=== PATIENT | male | born 1970 | race Caucasian/White ===

== ENCOUNTER 2024-03-14 16:29 | Inpatient (IN) | payer OTHER, SELFPAY ==
[2024-03-14 18:04] VITALS: BMI 26.0
--- NOTE | 2024-03-14 19:04 | PC.NURSE ---
Pt arrived to [facility] at 1649 from [facility] secondary to SI with plan to drink himself to . Pt cooperative with skin/safety check. VS obtained, ht/wt obtained, menus completed, and pt oriented to unit. Pt declined to sign releases. Med rec performed through medical record. Pt reported inconsistency with med compliance. No medications administered today at [facility]. On-call provider notified of med status and orders were placed by covering provider. Pt denied active thoughts to harm self or others and was placed on 15 minute checks. Admission to be completed by oncoming assigned nurse.
[2024-03-14 20:00] VITALS: BP 142/76; PULSE 86; RESP 18; TEMP 36.5; O2SAT 99
[2024-03-14] MEDS: cloNIDine HCL 0.1 MG TABLET PO (20:54)
[2024-03-14] MEDS: OLANZapine 7.5 MG TABLET PO (20:55)
[2024-03-14] MEDS: traZODone HCL 50 MG TABLET PO (20:55)
--- NOTE | 2024-03-15 00:34 | PC.ADMIT ---
Davon is a 54yo male admitted on a CV from [facility] secondary to SI with plan to drink himself to . He has history of bipolar disorder, HTN, DM type 2, and here with worsening depression. Per crisis assessment, he reports multiple medical problems causing pain and poor function. He said his condition was so bad that he became suicidal, so no point in living and was done. On unit admission, Pt was delusional and paranoid, speech is coherent but with flight of ideas. He refused to answer question directly. He states my kicked me out and put a restraining order on me and now I am homeless . He denied SI/Hi/AV/VH, he said all his meds are not working. Pt cooperative with skin/safety check. VS obtained, ht/wt obtained, menus completed, and pt oriented to unit. Pt declined to sign releases. Treatment plans and safety tools initiated, hospitalist contacted for consultation.
[2024-03-15 08:21] VITALS: BP 121/70; PULSE 65; TEMP 36.6; O2SAT 98
[2024-03-15 08:23] LABS: Alanine Aminotransferase 22 U/L (0-40); Albumin Level 4.1 g/dL (3.5-5.0); Alkaline Phosphatase 62 U/L (39-117); Anion Gap 11 (12-20); Aspartate Amino Transferase 14 U/L (5-37); Bilirubin Total 0.3 mg/dL (0.0-1.0); Blood Urea Nitrogen 16 mg/dL (9-16); Calcium 9.5 mg/dL (8.4-10.2); Carbon Dioxide 28 mmol/L (22-29); Chloride 109 mmol/L (96-108); Cholesterol 155 mg/dL (<200); Estimated Glomerular Filt Rate > 60; Glucose Fasting 118 mg/dL (60-99); HDL Cholesterol 44 mg/dL (>40); LDL Cholesterol Calculated 92 mg/dL (<100); Potassium 4.3 mmol/L (3.3-5.1); Sodium 144 mmol/L (135-145); Total Protein 7.1 g/dL (6.5-8.0); Triglycerides 97 mg/dL (<150)
[2024-03-15 08:59] VITALS: BP 121/70
[2024-03-15] MEDS: cloNIDine HCL 0.1 MG TABLET PO ×2 (08:59→20:27)
[2024-03-15] MEDS: metFORMIN HCl ER 500 MG TAB.ER.24H 1000 MG PO ×2 (08:59→18:06)
[2024-03-15] MEDS: SITagliptin Phosphate 100 MG TABLET PO (08:59)
[2024-03-15] MEDS: Atorvastatin Calcium 10 MG TABLET PO (09:00)
--- NOTE | 2024-03-15 11:31 | HO.PSYADMNOT ---
HPI Date of Service: 03/15/24 Chief Complaint: crisis Sources of Information: patient interviewed, chart reviewed and crisis/core team assessment reviewed HPI Subjective Notes: Coyne Warning and Conditional Voluntary Narrative: Patient is a 54-year-old male with history of bipolar disorder who presented to ER reporting multiple medical problems and stating suicidal ideation secondary to these medical issues and pain. Per crisis report, patient has been staying in a long-term in [place] for the past week. He went to a [employer] housing program in hopes of being able to live there. However, there was a work requirement which patient reported he could not fulfill due to his medical issues and pain. Patient reported he is currently homeless due to his girlfriend of 12 years abruptly ending their relationship and kicking out of their home. Patient reports history of Lyme disease and concurrent infections and mold inside him and his brain. Patient denied current outpatient psychiatric providers. Patient reported inpatient psychiatric stay at [facility] for a month during the spring. Perseverative about his health issues. During admission assessment, patient presents alert and oriented x3. Irritable. Guarded. Loud and rapid speech. Difficult to follow at times during conversation. Circumstantial. Patient stated, I am losing all the calcium in my bones. I am dying. I got Lyme disease 2 years ago and I have not been the same . Patient reports being medication compliant. Patient stated, pills are just chemicals. We're all getting poisoned. I had lead poisoning from my dental fillings. 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 Patient reports suicidal ideation with no plan. Denies HI/VH/AH. Past Psychiatric History: Patient reports multiple inpatient psychiatric admissions. Last admission being in spring. He currently does not have outpatient psychiatric providers. Patient is receiving his psychiatric medications through his PCP. Medical Evaluation Reviewed: Yes [facility] Medical History Depression Lyme disease GERD (gastroesophageal reflux disease) Non-insulin dependent type 2 diabetes mellitus HLD (hyperlipidemia) Family History: Unknown Social History: Homeless. Single. No kids. Unemployed. Substance History: Denies Trauma History: Denies Diagnostics Vital Signs (24Hr): Vital Signs - 24 hr 03/14/24 20:00 03/15/24 08:21 03/15/24 08:59 Temperature 97.7 F 97.9 F Pulse Rate 86 65 Respiratory Rate 18 Blood Pressure 142/76 H 121/70 121/70 Pulse Oximetry 99 98 Oxygen Delivery Method Room Air Room Air BMI result Body Mass Index 26.0 Labs 03/15/24 07:50 Labs: Laboratory Results - last 48 hr 03/15/24 07:50 Sodium 144 Potassium 4.3 Chloride 109 H Carbon Dioxide 28 Anion Gap 11 L BUN 16 Creatinine 0.67 Estim Creat Clear Calc 111.0 Estimated GFR > 60 Fasting Glucose 118 H Calcium 9.5 Total Bilirubin 0.3 AST 14 ALT 22 Alkaline Phosphatase 62 Total Protein 7.1 Albumin 4.1 Triglycerides 97 Cholesterol 155 LDL Cholesterol, Calc 92 HDL Cholesterol 44 Meds/Allergies Meds Home Medications ?Medication ?Instructions ?Recorded ?Confirmed ?Type Saccharomyces boulardii 250 mg 250 mg PO BID 03/14/24 03/14/24 History capsule (Florastor) atorvastatin 10 mg tablet 10 mg PO DAILY 03/14/24 03/14/24 History clonidine HCl 0.1 mg tablet 0.1 mg PO BID 03/14/24 03/14/24 History metformin 500 mg tablet,extended 1,000 mg PO BID 03/14/24 03/14/24 History release 24hr (osmotic) olanzapine 7.5 mg tablet 7.5 mg PO BEDTIME 03/14/24 03/14/24 History omeprazole 40 mg capsule,delayed 40 mg PO DAILY 03/14/24 03/14/24 History release sitagliptin phosphate 100 mg 100 mg PO DAILY 03/14/24 03/14/24 History tablet (Januvia) tizanidine 4 mg tablet (Zanaflex) 4 mg PO DAILY PRN Muscle Spasm 03/14/24 03/14/24 History trazodone 50 mg tablet 50 mg PO BEDTIME 03/14/24 03/14/24 History Allergies Allergies Allergy/AdvReac Type Severity Reaction Status Date / Time benazepril Allergy Cough Verified 03/14/24 17:36 metoprolol Allergy Cough Verified 03/14/24 17:35 Mental Status Exam Mental Status Exam Patient Appearance: Appropriate Patient Orientation: Person, Place, Time and Situation Level of Consciousness: Awake and Alert Patient Behavior: Talkative and Swearing Mood Description: Depressed and Angry Affect Description: Constricted Ability to Follow Directions: Fair Speech Pattern: Rapid, Loud and Includes Profanity Thought Process: Racing Thought Content: positive for Circumstantial Assessment & Plan Assessment & Plan (1) Bipolar 1 disorder: Status: Acute Code(s): F31.9 - Bipolar disorder, unspecified Plan Patient is a 54-year-old male with history of bipolar disorder who presented to ER reporting multiple medical problems and stating suicidal ideation secondary to these medical issues and pain. Plan: CV 15 minute safety checks Continue home medications Increase Zyprexa to 15mg PO bedtime Hospitalist consult for H and P Encourage groups Referral to outpatient psychiatric providers Discharge planning Patient educated on: diagnosis and medication risk/benefits Reason for continued inpatient stay Substantial Risk for: harm to self and med/psych decompensation Statement Statement: I have reviewed the history and physical and performed a pertinent examination on my patient. No changes have occurred unless specified. If the History and Physical was not performed prior to admission, the Hospitalist's service will be consulted for completing the admission physical. Time Spent With Patient Time: Total time managing care of this patient today _60___ minutes.
--- NOTE | 2024-03-15 13:49 | P.CONHOSP_ITS ---
History of Present Illness Data of Consult Service Date: 03/15/24 Primary Care Provider: Unknown Physician HPI Reason for consult: Admission H&P Pt is a 54-year-old male with a PMH significant for?HLD, [id number] type 2 diabetes, GERD, Lyme disease, and depression who is admitted to [facility] psychiatry unit for increasing depression and SI with plan to ?drink myself to ?. Patient apparently has been homeless since July of this year after his long-term girlfriend kicked him out of the house. Patient moved to the area to reconnect with adoptive family in [place], but found adoptive parents are and adoptive brother did not wish to reestablish a relationship, which prompted his increasing depression. Medical consult for admission H&P. ?Patient seen and examined in his room where he states he is ?slowly dying?. Appears somatically preoccupied, having a litany of chronic medical complaints that he believes stems from a history of smoking, drinking Coca-Cola and coffee, and from complications from Lyme disease 2-1/2 years ago. Patient complains of chronic pain and reduced ROM/mobility in shoulders, arms, hands/fingers, legs, knees, and feet. Keeps stating his hands, tendons, muscles, and bones are dried up , which he apparently seems to mean that they are literally falling apart and breaking. However, it should be noted patient was seen ambulating on the unit and interacting with his environment without difficulties, including holding a glass and drinking from it. Review of records indicates patient was similarly somatically preoccupied at the ED, believing that he was currently infected, including having mold in his brain. Review of Systems 2 Review of Systems: Multiple chronic medical complaints as stated above [facility] Medical History Depression Lyme disease GERD (gastroesophageal reflux disease) Non-insulin dependent type 2 diabetes mellitus HLD (hyperlipidemia) Social History Household Members: None Housing: Homeless Patient Tobacco Use Status: Current everyday Tobacco user Tobacco use type: Cigarette Smoked in Last 30 Days: Yes e-Cigarette/Vaping Use: Never Used Patient Interested in Nicotine Replacement: No Patient Given Instructions on How to Stop Smoking: No Second Hand Smoke Exposure: No Use of substances other than those prescribed or required for medical reasons: No Currently Displaying Signs/Symptoms of Drug Intoxication Withdrawal: No Any prior treatment program specific to substance use: No Have you been hit, kicked, punched, or otherwise hurt by someone within the past year? If so, by whom?: No Do you feel safe in your current relationship?: No Current Relationship Is there a partner from a previous relationship who is making you feel unsafe now?: No Are you made to feel afraid or neglected: No Advance Directives: No Advance Directives Information Provided: Yes Do you have thoughts of harming others: None Do you have a plan to hurt others: No Plan Recently lost weight without trying: Yes How much weight loss: 2-13 pounds Eating poorly because of decreased appetite: No Nutrition screen score: 3 Nutrition Risks: Dental problems Poor oral hygiene: No Meds Allergies Allergy/AdvReac Type Severity Reaction Status Date / Time benazepril Allergy Cough Verified 03/14/24 17:36 metoprolol Allergy Cough Verified 03/14/24 17:35 Active Medications: Current Medications Acetaminophen (Acetaminophen 325 Mg Tablet) 650 mg PO Q6H PRN PRN Reason: Headache/Pain Mild Scale (1-3) Al Hydroxide/Mg Hydroxide (Magnesium Hydrox/Alum Hydrox 30 Ml Oral.Susp) 30 ml PO Q6H PRN PRN Reason: Heartburn/Nausea Atorvastatin Calcium (Atorvastatin Calcium 10 Mg Tablet) 10 mg PO DAILY [facility] Last Admin: 03/15/24 09:00 Dose: 10 mg Clonidine HCl (Clonidine Hcl 0.1 Mg Tablet) 0.1 mg PO BID [facility]; Protocol Last Admin: 03/15/24 08:59 Dose: 0.1 mg Hydroxyzine HCl (Hydroxyzine Hcl 25 Mg Tablet) 25 mg PO Q6H PRN PRN Reason: Anxiety Magnesium Hydroxide (Milk Of Magnesia 30 Ml Oral.Susp) 30 ml PO DAILY PRN PRN Reason: Constipation Metformin HCl (Metformin Hcl Er 500 Mg Tab.Er.24h) 1,000 mg PO BIDWM [facility] Last Admin: 03/15/24 08:59 Dose: 1,000 mg Nicotine (Nicotine 21 Mg Patch.Td24) 21 mg TRANSDERMA DAILY [facility] Last Admin: 03/15/24 09:56 Dose: Not Given Nicotine Polacrilex (Nicotine Polacrilex 2 Mg Gum) 4 mg BUCCAL Q2H PRN PRN Reason: Nicotine Cravings Olanzapine (Olanzapine 7.5 Mg Tablet) 7.5 mg PO BEDTIME [facility] Last Admin: 03/14/24 20:55 Dose: 7.5 mg Omeprazole (Omeprazole 40 Mg Capsule.Dr) 40 mg PO DAILY@0630 [facility] Last Admin: 03/15/24 06:50 Dose: Not Given Sitagliptin Phosphate (Sitagliptin Phosphate 100 Mg Tablet) 100 mg PO DAILY [facility] Last Admin: 03/15/24 08:59 Dose: 100 mg Trazodone HCl (Trazodone Hcl 50 Mg Tablet) 50 mg PO BEDTIME MRX1 PRN PRN Reason: Insomnia Trazodone HCl (Trazodone Hcl 50 Mg Tablet) 50 mg PO BEDTIME [facility] Last Admin: 03/14/24 20:55 Dose: 50 mg Home Medications ?Medication ?Instructions ?Recorded ?Confirmed ?Last Taken ?Type Saccharomyces boulardii 250 mg 250 mg PO BID 03/14/24 03/14/24 Unknown History capsule (Florastor) atorvastatin 10 mg tablet 10 mg PO DAILY 03/14/24 03/14/24 Unknown History clonidine HCl 0.1 mg tablet 0.1 mg PO BID 03/14/24 03/14/24 Unknown History metformin 500 mg tablet,extended 1,000 mg PO BID 03/14/24 03/14/24 Unknown History release 24hr (osmotic) olanzapine 7.5 mg tablet 7.5 mg PO BEDTIME 03/14/24 03/14/24 Unknown History omeprazole 40 mg capsule,delayed 40 mg PO DAILY 03/14/24 03/14/24 Unknown History release sitagliptin phosphate 100 mg 100 mg PO DAILY 03/14/24 03/14/24 Unknown History tablet (Januvia) tizanidine 4 mg tablet (Zanaflex) 4 mg PO DAILY PRN Muscle Spasm 03/14/24 03/14/24 Unknown History trazodone 50 mg tablet 50 mg PO BEDTIME 03/14/24 03/14/24 Unknown History Physical Exam 2 Vital Signs and Narrative: Vital Signs: Last Vital Signs Temp 97.9 F 03/15/24 08:21 Pulse 65 03/15/24 08:21 Resp 18 03/14/24 20:00 BP 121/70 03/15/24 08:59 Pulse Ox 98 03/15/24 08:21 O2 Del Method Room Air 03/15/24 08:21 BMI result Body Mass Index 26.0 General: AOx3, no acute distress Resp: CTA bilaterally CVS: S1, S2, RRR GI: +BS, NT, no distention Skin: Warm, dry Neuro: Cranial nerves II-XII grossly intact bilaterally. Motor grossly intact bilaterally. Customer Service Correspondence Clerk intact bilaterally. Left lower leg weaker than right. Extremities: No edema Psych: Somatically preoccupied Results Labs 03/15/24 07:50 Labs: Laboratory Results - last 24 hr 03/15/24 07:50 Anion Gap 11 L Estim Creat Clear Calc 111.0 Estimated GFR > 60 Fasting Glucose 118 H Calcium 9.5 Total Bilirubin 0.3 AST 14 ALT 22 Alkaline Phosphatase 62 Total Protein 7.1 Albumin 4.1 Triglycerides 97 Cholesterol 155 LDL Cholesterol, Calc 92 HDL Cholesterol 44 Assessment and Plan (1) Medical clearance for psychiatric admission: Status: Acute Plan Pt is a 54-year-old male with a PMH significant for?HLD, [id number] type 2 diabetes, GERD, Lyme disease, and depression who is admitted to psychiatry unit for increasing depression and SI with plan to ?drink myself to ?. Patient apparently has been homeless since July of this year after his long-term girlfriend kicked him out of the house. Patient moved to the area to reconnect with adoptive family in [place], but found adoptive parents are and adoptive brother did not wish to reestablish a relationship, which prompted his increasing depression. Medical consult for admission H&P. ? Mood disorder Plan as per psychiatry Chronic musculoskeletal complaints Pt appears somatically preoccupied, feeling bones, muscles, tendons are all dried up [place] [facility] [place] his brain was infected with mold Vitals stable, [place] [facility] [place] Noted to be ambulating on unit and interacting with environment without difficulty No indication for additional acute workup at this time F/U outpatient with orthopedics HLD Continue statin [id number] type 2 diabetes Continue metformin, Januvia Encourage diabetic diet and diabetic snacking GERD Continue PPI Thank you for allowing us to participate in the care of this patient. Signing off at this time. Please re-consult if any acute complaints or issues arise.
[2024-03-15 20:00] VITALS: BP 146/85; PULSE 88; RESP 20; TEMP 36.4; O2SAT 98
[2024-03-15] MEDS: OLANZapine 7.5 MG TABLET 15 MG PO (20:27)
[2024-03-15] MEDS: traZODone HCL 50 MG TABLET PO (20:27)
[2024-03-16] MEDS: Omeprazole 40 MG CAPSULE.DR PO (06:48)
[2024-03-16 08:00] VITALS: BP 140/94; PULSE 64; RESP 16; TEMP 36.4; O2SAT 98
[2024-03-16] MEDS: Atorvastatin Calcium 10 MG TABLET PO (08:30)
[2024-03-16] MEDS: SITagliptin Phosphate 100 MG TABLET PO (08:30)
[2024-03-16] MEDS: metFORMIN HCl ER 500 MG TAB.ER.24H 1000 MG PO ×2 (08:30→18:09)
[2024-03-16] MEDS: cloNIDine HCL 0.1 MG TABLET PO ×2 (08:30→20:26)
[2024-03-16 08:39] LABS: Glucose, Whole Blood 99 mg/dL (60-115)
--- NOTE | 2024-03-16 09:09 | HO.PSYCHPN ---
Subjective Subjective Date of Service: 03/16/24 Reason For Visit: crisis Interim History: Met With patient; discussed with team irritable edge, some provocative comments to peers. On approach superficially cooperative. Says he's good and denies any SI/HI or AVH; says my medications are fine... Mental Status Exam Mental Status Exam Patient Appearance: Appropriate Patient Orientation: Person, Place, Time and Situation Level of Consciousness: Awake and Alert Patient Behavior: Talkative and Swearing Mood Description: Depressed and Angry Affect Description: Constricted Ability to Follow Directions: Fair Speech Pattern: Loud and Includes Profanity Thought Process: Racing Thought Content: positive for Circumstantial (denies SI and HI) Judgement and Insight: impaired Diagnostics Vital Signs (24Hr): Vital Signs - 24 hr 03/15/24 20:00 03/16/24 08:00 Temperature 97.6 F 97.6 F Pulse Rate 88 64 Respiratory Rate 20 16 Blood Pressure 146/85 H 140/94 H Pulse Oximetry 98 98 Oxygen Delivery Method Room Air Room Air BMI result Body Mass Index 26.0 Labs 03/15/24 07:50 Labs: Laboratory Results - last 48 hr 03/15/24 03/16/24 07:50 08:35 Sodium 144 Potassium 4.3 Chloride 109 H Carbon Dioxide 28 Anion Gap 11 L BUN 16 Creatinine 0.67 Estim Creat Clear Calc 111.0 Estimated GFR > 60 POC Glucose 99 Fasting Glucose 118 H Calcium 9.5 Total Bilirubin 0.3 AST 14 ALT 22 Alkaline Phosphatase 62 Total Protein 7.1 Albumin 4.1 Triglycerides 97 Cholesterol 155 LDL Cholesterol, Calc 92 HDL Cholesterol 44 Medications Medications Current Medications Acetaminophen (Acetaminophen 325 Mg Tablet) 650 mg PO Q6H PRN PRN Reason: Headache/Pain Mild Scale (1-3) Al Hydroxide/Mg Hydroxide (Magnesium Hydrox/Alum Hydrox 30 Ml Oral.Susp) 30 ml PO Q6H PRN PRN Reason: Heartburn/Nausea Atorvastatin Calcium (Atorvastatin Calcium 10 Mg Tablet) 10 mg PO DAILY [facility] Last Admin: 03/16/24 08:30 Dose: 10 mg Clonidine HCl (Clonidine Hcl 0.1 Mg Tablet) 0.1 mg PO BID [facility]; Protocol Last Admin: 03/16/24 08:30 Dose: 0.1 mg Hydroxyzine HCl (Hydroxyzine Hcl 25 Mg Tablet) 25 mg PO Q6H PRN PRN Reason: Anxiety Magnesium Hydroxide (Milk Of Magnesia 30 Ml Oral.Susp) 30 ml PO DAILY PRN PRN Reason: Constipation Metformin HCl (Metformin Hcl Er 500 Mg Tab.Er.24h) 1,000 mg PO BIDWM [facility] Last Admin: 03/16/24 08:30 Dose: 1,000 mg Nicotine Polacrilex (Nicotine Polacrilex 2 Mg Gum) 4 mg BUCCAL Q2H PRN PRN Reason: Nicotine Cravings Olanzapine (Olanzapine 7.5 Mg Tablet) 15 mg PO BEDTIME [facility] Last Admin: 03/15/24 20:27 Dose: 15 mg Olanzapine (Olanzapine 5 Mg Tablet) 5 mg PO TID PRN PRN Reason: agitation/psychosis Omeprazole (Omeprazole 40 Mg Capsule.Dr) 40 mg PO DAILY@0630 [facility] Last Admin: 03/15/24 06:50 Dose: Not Given Sitagliptin Phosphate (Sitagliptin Phosphate 100 Mg Tablet) 100 mg PO DAILY [facility] Last Admin: 03/16/24 08:30 Dose: 100 mg Trazodone HCl (Trazodone Hcl 50 Mg Tablet) 50 mg PO BEDTIME [facility] Last Admin: 03/15/24 20:27 Dose: 50 mg Allergies Allergies Allergy/AdvReac Type Severity Reaction Status Date / Time benazepril Allergy Cough Verified 03/14/24 17:36 metoprolol Allergy Cough Verified 03/14/24 17:35 Assessment & Plan Assessment & Plan (1) Bipolar 1 disorder: Status: Acute Code(s): F31.9 - Bipolar disorder, unspecified Plan Patient is a 54-year-old male with history of bipolar disorder who presented to ER reporting multiple medical problems and stating suicidal ideation secondary to these medical issues and pain. Hospital course: 03/16 irritable edge, some provocative comments to peers. On approach superficially cooperative. Says he's good and denies any SI/HI or AVH; says my medications are fine... -zyprexa recently increased Plan: CV 15 minute safety checks Continue home medications Increase Zyprexa to 15mg PO bedtime Hospitalist consult for H and P Encourage groups Referral to outpatient psychiatric providers Discharge planning Patient educated on: diagnosis and medication risk/benefits Informed Consent: understands Reason for continued inpatient stay Substantial Risk for: rapid decompensation Time Spent With Patient Time: Total time managing care of this patient today ____ minutes.
[2024-03-16 20:00] VITALS: BP 148/94; PULSE 87; RESP 20; TEMP 36.6; O2SAT 98
[2024-03-16 20:25] LABS: Glucose, Whole Blood 156 mg/dL (60-115)
[2024-03-16 20:26] VITALS: BP 148/94
[2024-03-16] MEDS: OLANZapine 7.5 MG TABLET 15 MG PO (20:26)
[2024-03-16] MEDS: traZODone HCL 50 MG TABLET PO (20:26)
[2024-03-17 07:50] VITALS: BP 152/93; PULSE 60; RESP 16; TEMP 36.4; O2SAT 97
[2024-03-17 08:01] LABS: Glucose, Whole Blood 114 mg/dL (60-115)
[2024-03-17] MEDS: Atorvastatin Calcium 10 MG TABLET PO (08:31)
[2024-03-17] MEDS: cloNIDine HCL 0.1 MG TABLET PO ×2 (08:31→20:36)
[2024-03-17] MEDS: SITagliptin Phosphate 100 MG TABLET PO (08:32)
[2024-03-17] MEDS: metFORMIN HCl ER 500 MG TAB.ER.24H 1000 MG PO ×2 (08:32→17:39)
--- NOTE | 2024-03-17 10:14 | P.PNPSI_ITS ---
Subjective Subjective Date of Service: 03/17/24 Reason For Visit: crisis Interim History: Met with patient; discussed with team brief verbal altercation w/ manic peer talkative today, sharing about hx of undiagnosed diabetes and consequences. Says he's only recently been started on Zyprexa which helps him sleep; he's not sure if it helps his mood. Asks if he can be on gabapentin for chronic neuropathich pain, but only wants at night for now, worried it will make him groggy Mental Status Exam Mental Status Exam Patient Appearance: Appropriate Patient Orientation: Person, Place, Time and Situation Level of Consciousness: Awake and Alert Patient Behavior: Talkative and Swearing Mood Description: Depressed and Angry Affect Description: Constricted Ability to Follow Directions: Fair Speech Pattern: Loud and Includes Profanity Thought Process: Racing Thought Content: positive for Circumstantial (denies SI and HI) Judgement and Insight: impaired Diagnostics Vital Signs (24Hr): Vital Signs - 24 hr 03/16/24 20:00 03/16/24 20:26 03/17/24 07:50 Temperature 97.8 F 97.6 F Pulse Rate 87 60 Respiratory Rate 20 16 Blood Pressure 148/94 H 148/94 H 152/93 H Pulse Oximetry 98 97 Oxygen Delivery Method Room Air Room Air BMI result Body Mass Index 26.0 Labs 03/15/24 07:50 Labs: Laboratory Results - last 48 hr 03/16/24 03/16/24 03/17/24 08:35 20:22 07:57 POC Glucose 99 156 H 114 Medications Medications Current Medications Acetaminophen (Acetaminophen 325 Mg Tablet) 650 mg PO Q6H PRN PRN Reason: Headache/Pain Mild Scale (1-3) Al Hydroxide/Mg Hydroxide (Magnesium Hydrox/Alum Hydrox 30 Ml Oral.Susp) 30 ml PO Q6H PRN PRN Reason: Heartburn/Nausea Atorvastatin Calcium (Atorvastatin Calcium 10 Mg Tablet) 10 mg PO DAILY [facility] Last Admin: 03/17/24 08:31 Dose: 10 mg Clonidine HCl (Clonidine Hcl 0.1 Mg Tablet) 0.1 mg PO BID [facility]; Protocol Last Admin: 03/17/24 08:31 Dose: 0.1 mg Hydroxyzine HCl (Hydroxyzine Hcl 25 Mg Tablet) 25 mg PO Q6H PRN PRN Reason: Anxiety Magnesium Hydroxide (Milk Of Magnesia 30 Ml Oral.Susp) 30 ml PO DAILY PRN PRN Reason: Constipation Metformin HCl (Metformin Hcl Er 500 Mg Tab.Er.24h) 1,000 mg PO BIDWM [facility] Last Admin: 03/17/24 08:32 Dose: 1,000 mg Nicotine Polacrilex (Nicotine Polacrilex 2 Mg Gum) 4 mg BUCCAL Q2H PRN PRN Reason: Nicotine Cravings Olanzapine (Olanzapine 7.5 Mg Tablet) 15 mg PO BEDTIME [facility] Last Admin: 03/16/24 20:26 Dose: 15 mg Olanzapine (Olanzapine 5 Mg Tablet) 5 mg PO TID PRN PRN Reason: agitation/psychosis Omeprazole (Omeprazole 40 Mg Capsule.Dr) 40 mg PO DAILY@0630 [facility] Last Admin: 03/17/24 07:37 Dose: Not Given Sitagliptin Phosphate (Sitagliptin Phosphate 100 Mg Tablet) 100 mg PO DAILY [facility] Last Admin: 03/17/24 08:32 Dose: 100 mg Trazodone HCl (Trazodone Hcl 50 Mg Tablet) 50 mg PO BEDTIME [facility] Last Admin: 03/16/24 20:26 Dose: 50 mg Allergies Allergies Allergy/AdvReac Type Severity Reaction Status Date / Time benazepril Allergy Cough Verified 03/14/24 17:36 metoprolol Allergy Cough Verified 03/14/24 17:35 Assessment & Plan Assessment & Plan (1) Bipolar 1 disorder: Status: Acute Code(s): F31.9 - Bipolar disorder, unspecified Plan Patient is a 54-year-old male with history of bipolar disorder who presented to ER reporting multiple medical problems and stating suicidal ideation secondary to these medical issues and pain. Hospital course: 03/16 irritable edge, some provocative comments to peers. On approach superficially cooperative. Says he's good and denies any SI/HI or AVH; says my medications are fine... -zyprexa recently increased 03/17 talks about hx of neuropathich pain and asks for gabapentin qhs to help him sleep Plan: CV 15 minute safety checks Continue home medications add Gabapentin 300mg qhs for neuropathic pain Increase Zyprexa to 15mg PO bedtime Hospitalist consult for H and P Encourage groups Referral to outpatient psychiatric providers Discharge planning Patient educated on: diagnosis, medication risk/benefits and medical condition Informed Consent: understands and further education needed Reason for continued inpatient stay Substantial Risk for: rapid decompensation Time Spent With Patient Time: Total time managing care of this patient today ____ minutes.
[2024-03-17 20:00] VITALS: BP 144/66; PULSE 58; RESP 15; TEMP 36.7; O2SAT 98
[2024-03-17] MEDS: Gabapentin 300 MG CAPSULE PO (20:35)
[2024-03-17] MEDS: OLANZapine 7.5 MG TABLET 15 MG PO (20:35)
[2024-03-17] MEDS: traZODone HCL 50 MG TABLET PO (20:36)
[2024-03-18 08:00] VITALS: BP 165/90; PULSE 51; RESP 16; TEMP 36.6; O2SAT 96
[2024-03-18 08:14] LABS: Glucose, Whole Blood 103 mg/dL (60-115)
[2024-03-18] MEDS: metFORMIN HCl ER 500 MG TAB.ER.24H 1000 MG PO ×2 (08:53→17:30)
[2024-03-18] MEDS: SITagliptin Phosphate 100 MG TABLET PO (08:53)
[2024-03-18] MEDS: cloNIDine HCL 0.1 MG TABLET PO ×2 (08:54→20:08)
[2024-03-18] MEDS: OLANZapine 5 MG TABLET PO (08:54)
[2024-03-18] MEDS: Atorvastatin Calcium 10 MG TABLET PO (08:54)
--- NOTE | 2024-03-18 10:59 | P.PNPSI_ITS ---
Subjective Subjective Date of Service: 03/18/24 Reason For Visit: crisis Subjective Notes: Conditional Voluntary Interim History: Reviewed with Dr. Hernandez. Keeping to self. Pt reports feeling alright ; focused on chronic medical issues. denies SI/HI/VH/AH. Pt would like to be referred to a detention in the [place] area d/t having his outpatient providers through [facility].General. pharmaceutical worker aware. Medication Compliance: Yes Side effects from medications: No Review of Systems Review of Systems Multiple chronic medical complaints as stated above Constitutional: Reports as per HPI Eyes: Reports as per HPI Reports as per HPI Cardiovascular: Reports as per HPI Respiratory: Reports as per HPI Gastrointestinal: Reports as per HPI Genitourinary: Reports as per HPI Musculoskeletal: Reports as per HPI Skin/Breast: Reports as per HPI Reports as per HPI Psychiatric: Reports as per HPI Endocrine: Reports as per HPI Hematologic/Lymphatic: Reports as per HPI Allergic/Immunologic: Reports as per HPI Mental Status Exam Mental Status Exam Narrative: Pt is alert and oriented; behavior is cooperative and calm; dressed in casual attire; mood is described as alright ; eye contact appropriate; Speech is normal rate, volume and not pressured; thought process is organized and goal directed; Thought content is on tx; denies SI/HI/VH/AH. Diagnostics Vital Signs (24Hr): Vital Signs - 24 hr 03/17/24 20:00 03/18/24 08:00 Temperature 98.0 F 97.9 F Pulse Rate 58 51 Respiratory Rate 15 16 Blood Pressure 144/66 H 165/90 H Pulse Oximetry 98 96 Oxygen Delivery Method Room Air BMI result Body Mass Index 26.0 Labs 03/15/24 07:50 Labs: Laboratory Results - last 48 hr 03/16/24 03/17/24 03/18/24 20:22 07:57 08:10 POC Glucose 156 H 114 103 Medications Medications Current Medications Acetaminophen (Acetaminophen 325 Mg Tablet) 650 mg PO Q6H PRN PRN Reason: Headache/Pain Mild Scale (1-3) Al Hydroxide/Mg Hydroxide (Magnesium Hydrox/Alum Hydrox 30 Ml Oral.Susp) 30 ml PO Q6H PRN PRN Reason: Heartburn/Nausea Atorvastatin Calcium (Atorvastatin Calcium 10 Mg Tablet) 10 mg PO DAILY [facility] Last Admin: 03/18/24 08:54 Dose: 10 mg Clonidine HCl (Clonidine Hcl 0.1 Mg Tablet) 0.1 mg PO BID [facility]; Protocol Last Admin: 03/18/24 08:54 Dose: 0.1 mg Gabapentin (Gabapentin 300 Mg Capsule) 300 mg PO BEDTIME [facility] Last Admin: 03/17/24 20:35 Dose: 300 mg Hydroxyzine HCl (Hydroxyzine Hcl 25 Mg Tablet) 25 mg PO Q6H PRN PRN Reason: Anxiety Magnesium Hydroxide (Milk Of Magnesia 30 Ml Oral.Susp) 30 ml PO DAILY PRN PRN Reason: Constipation Metformin HCl (Metformin Hcl Er 500 Mg Tab.Er.24h) 1,000 mg PO BIDWM [facility] Last Admin: 03/18/24 08:53 Dose: 1,000 mg Nicotine Polacrilex (Nicotine Polacrilex 2 Mg Gum) 4 mg BUCCAL Q2H PRN PRN Reason: Nicotine Cravings Olanzapine (Olanzapine 7.5 Mg Tablet) 15 mg PO BEDTIME [facility] Last Admin: 03/17/24 20:35 Dose: 15 mg Olanzapine (Olanzapine 5 Mg Tablet) 5 mg PO TID PRN PRN Reason: agitation/psychosis Last Admin: 03/18/24 08:54 Dose: 5 mg Omeprazole (Omeprazole 40 Mg Capsule.Dr) 40 mg PO DAILY@0630 [facility] Last Admin: 03/18/24 07:02 Dose: Not Given Sitagliptin Phosphate (Sitagliptin Phosphate 100 Mg Tablet) 100 mg PO DAILY [facility] Last Admin: 03/18/24 08:53 Dose: 100 mg Trazodone HCl (Trazodone Hcl 50 Mg Tablet) 50 mg PO BEDTIME [facility] Last Admin: 03/17/24 20:36 Dose: 50 mg Allergies Allergies Allergy/AdvReac Type Severity Reaction Status Date / Time benazepril Allergy Cough Verified 03/14/24 17:36 metoprolol Allergy Cough Verified 03/14/24 17:35 Assessment & Plan Assessment & Plan (1) Bipolar 1 disorder: Status: Acute Code(s): F31.9 - Bipolar disorder, unspecified Plan Patient is a 54-year-old male with history of bipolar disorder who presented to ER reporting multiple medical problems and stating suicidal ideation secondary to these medical issues and pain. Hospital course: 03/16 irritable edge, some provocative comments to peers. On approach superficially cooperative. Says he's good and denies any SI/HI or AVH; says my medications are fine... -zyprexa recently increased 03/17 talks about hx of neuropathich pain and asks for gabapentin qhs to help him sleep 03/18: Keeping to self. Pt reports feeling alright ; focused on chronic medical issues. denies SI/HI/VH/AH. Pt would like to be referred to a detention in the [place] area d/t having his outpatient providers through [facility].General. pharmaceutical worker aware. Plan: CV 15 minute safety checks Continue home medications add Gabapentin 300mg qhs for neuropathic pain Increase Zyprexa to 15mg PO bedtime Hospitalist consult for H and P Encourage groups Referral to outpatient psychiatric providers Discharge planning Patient educated on: diagnosis, medication risk/benefits and therapeutic strategies Reason for continued inpatient stay Substantial Risk for: med/psych decompensation Time Spent With Patient Time: Total time managing care of this patient today _20___ minutes.
[2024-03-18 20:00] VITALS: BP 133/73; PULSE 76; RESP 18; TEMP 36.9; O2SAT 97
[2024-03-18] MEDS: OLANZapine 7.5 MG TABLET 15 MG PO (20:08)
[2024-03-18] MEDS: Gabapentin 300 MG CAPSULE PO (20:08)
[2024-03-18] MEDS: traZODone HCL 50 MG TABLET PO (20:08)
[2024-03-19 08:34] VITALS: BP 145/76; PULSE 56; RESP 16; TEMP 36.4; O2SAT 96
[2024-03-19 08:38] LABS: Glucose, Whole Blood 94 mg/dL (60-115)
[2024-03-19] MEDS: Omeprazole 40 MG CAPSULE.DR PO (08:45)
[2024-03-19] MEDS: SITagliptin Phosphate 100 MG TABLET PO (08:45)
[2024-03-19] MEDS: metFORMIN HCl ER 500 MG TAB.ER.24H 1000 MG PO ×2 (08:45→18:02)
[2024-03-19] MEDS: cloNIDine HCL 0.1 MG TABLET PO ×2 (08:45→20:06)
[2024-03-19] MEDS: Atorvastatin Calcium 10 MG TABLET PO (08:45)
--- NOTE | 2024-03-19 14:02 | HO.PSYCHPN ---
Subjective Subjective Date of Service: 03/19/24 Reason For Visit: crisis Subjective Notes: Conditional Voluntary Interim History: Reviewed with Dr. Hernandez. Keeping to self. medication compliant. Pt reports feeling alright ; continues to focus on chronic medical issues. denies SI/HI/VH/AH. Patient reports he is waiting to get placed somewhere . he denies any other issues at this time. Medication Compliance: Yes Side effects from medications: No Attending Groups: No Review of Systems Constitutional: Reports as per HPI Eyes: Reports as per HPI Reports as per HPI Cardiovascular: Reports as per HPI Respiratory: Reports as per HPI Gastrointestinal: Reports as per HPI Genitourinary: Reports as per HPI Musculoskeletal: Reports as per HPI Skin/Breast: Reports as per HPI Reports as per HPI Psychiatric: Reports as per HPI Endocrine: Reports as per HPI Hematologic/Lymphatic: Reports as per HPI Allergic/Immunologic: Reports as per HPI Mental Status Exam Mental Status Exam Narrative: Pt is alert and oriented; behavior is cooperative and calm; dressed in casual attire; mood is described as alright ; eye contact appropriate; Speech is normal rate, volume and not pressured; thought process is organized and goal directed; Thought content is on tx; denies SI/HI/VH/AH. Diagnostics Vital Signs (24Hr): Vital Signs - 24 hr 03/18/24 20:00 03/19/24 08:34 Temperature 98.4 F 97.5 F Pulse Rate 76 56 Respiratory Rate 18 16 Blood Pressure 133/73 145/76 H Pulse Oximetry 97 96 Oxygen Delivery Method Room Air Room Air BMI result Body Mass Index 26.0 Labs 03/15/24 07:50 Labs: Laboratory Results - last 48 hr 03/18/24 03/19/24 08:10 08:34 POC Glucose 103 94 Medications Medications Current Medications Acetaminophen (Acetaminophen 325 Mg Tablet) 650 mg PO Q6H PRN PRN Reason: Headache/Pain Mild Scale (1-3) Al Hydroxide/Mg Hydroxide (Magnesium Hydrox/Alum Hydrox 30 Ml Oral.Susp) 30 ml PO Q6H PRN PRN Reason: Heartburn/Nausea Atorvastatin Calcium (Atorvastatin Calcium 10 Mg Tablet) 10 mg PO DAILY [facility] Last Admin: 03/19/24 08:45 Dose: 10 mg Clonidine HCl (Clonidine Hcl 0.1 Mg Tablet) 0.1 mg PO BID [facility]; Protocol Last Admin: 10/08/24 08:45 Dose: 0.1 mg Gabapentin (Gabapentin 300 Mg Capsule) 300 mg PO BEDTIME [facility] Last Admin: 03/18/24 20:08 Dose: 300 mg Hydroxyzine HCl (Hydroxyzine Hcl 25 Mg Tablet) 25 mg PO Q6H PRN PRN Reason: Anxiety Magnesium Hydroxide (Milk Of Magnesia 30 Ml Oral.Susp) 30 ml PO DAILY PRN PRN Reason: Constipation Metformin HCl (Metformin Hcl Er 500 Mg Tab.Er.24h) 1,000 mg PO BIDWM [facility] Last Admin: 03/19/24 08:45 Dose: 1,000 mg Nicotine Polacrilex (Nicotine Polacrilex 2 Mg Gum) 4 mg BUCCAL Q2H PRN PRN Reason: Nicotine Cravings Olanzapine (Olanzapine 7.5 Mg Tablet) 15 mg PO BEDTIME [facility] Last Admin: 03/18/24 20:08 Dose: 15 mg Olanzapine (Olanzapine 5 Mg Tablet) 5 mg PO TID PRN PRN Reason: agitation/psychosis Last Admin: 03/18/24 08:54 Dose: 5 mg Omeprazole (Omeprazole 40 Mg Capsule.Dr) 40 mg PO DAILY@0630 [facility] Last Admin: 03/19/24 08:45 Dose: 40 mg Sitagliptin Phosphate (Sitagliptin Phosphate 100 Mg Tablet) 100 mg PO DAILY [facility] Last Admin: 03/19/24 08:45 Dose: 100 mg Trazodone HCl (Trazodone Hcl 50 Mg Tablet) 50 mg PO BEDTIME [facility] Last Admin: 03/18/24 20:08 Dose: 50 mg Allergies Allergies Allergy/AdvReac Type Severity Reaction Status Date / Time benazepril Allergy Cough Verified 03/14/24 17:36 metoprolol Allergy Cough Verified 03/14/24 17:35 Assessment & Plan Assessment & Plan (1) Bipolar 1 disorder: Status: Acute Code(s): F31.9 - Bipolar disorder, unspecified Plan Patient is a 54-year-old male with history of bipolar disorder who presented to ER reporting multiple medical problems and stating suicidal ideation secondary to these medical issues and pain. Hospital course: 03/16 irritable edge, some provocative comments to peers. On approach superficially cooperative. Says he's good and denies any SI/HI or AVH; says my medications are fine... -zyprexa recently increased 03/17 talks about hx of neuropathich pain and asks for gabapentin qhs to help him sleep 03/18: Keeping to self. Pt reports feeling alright ; focused on chronic medical issues. denies SI/HI/VH/AH. Pt would like to be referred to a correction in the [place] area d/t having his outpatient providers through [facility].General. transition social worker aware. 03/19:Keeping to self. medication compliant. Pt reports feeling alright ; continues to focus on chronic medical issues. denies SI/HI/VH/AH. Patient reports he is waiting to get placed somewhere . he denies any other issues at this time. continue current tx plan. Plan: CV 15 minute safety checks Continue home medications add Gabapentin 300mg qhs for neuropathic pain Increase Zyprexa to 15mg PO bedtime Hospitalist consult for H and P Encourage groups Referral to outpatient psychiatric providers Discharge planning Patient educated on: diagnosis, medication risk/benefits and therapeutic strategies Reason for continued inpatient stay Substantial Risk for: med/psych decompensation Time Spent With Patient Time: Total time managing care of this patient today _20___ minutes.
[2024-03-19 19:45] VITALS: BP 134/61; PULSE 69; RESP 18; TEMP 37; O2SAT 98
[2024-03-19] MEDS: traZODone HCL 50 MG TABLET PO (20:06)
[2024-03-19] MEDS: Gabapentin 300 MG CAPSULE PO (20:06)
[2024-03-19] MEDS: OLANZapine 7.5 MG TABLET 15 MG PO (20:06)
[2024-03-20 08:00] VITALS: BP 165/81; PULSE 55; RESP 16; TEMP 36.5; O2SAT 97
[2024-03-20] MEDS: SITagliptin Phosphate 100 MG TABLET PO (08:34)
[2024-03-20] MEDS: Atorvastatin Calcium 10 MG TABLET PO (08:34)
[2024-03-20] MEDS: cloNIDine HCL 0.1 MG TABLET PO ×2 (08:34→20:18)
[2024-03-20] MEDS: metFORMIN HCl ER 500 MG TAB.ER.24H 1000 MG PO ×2 (08:34→16:59)
--- NOTE | 2024-03-20 15:07 | HO.PSYCHPN ---
Subjective Subjective Date of Service: 03/20/24 Reason For Visit: crisis Subjective Notes: Conditional Voluntary Interim History: Reviewed with Dr. Hernandez. Patient presenting similar to yesterday. Continues focused on somatic complaints. He reports feeling okay emotionally; he is hoping to hear back from [facility]. denies SI/HI/VH/AH. Medication Compliance: Yes Side effects from medications: No Review of Systems Constitutional: Reports as per HPI Eyes: Reports as per HPI Reports as per HPI Cardiovascular: Reports as per HPI Respiratory: Reports as per HPI Gastrointestinal: Reports as per HPI Genitourinary: Reports as per HPI Musculoskeletal: Reports as per HPI Skin/Breast: Reports as per HPI Reports as per HPI Psychiatric: Reports as per HPI Endocrine: Reports as per HPI Hematologic/Lymphatic: Reports as per HPI Allergic/Immunologic: Reports as per HPI Mental Status Exam Mental Status Exam Narrative: Pt is alert and oriented; behavior is cooperative and calm; dressed in casual attire; mood is described as alright ; eye contact appropriate; Speech is normal rate, volume and not pressured; thought process is organized and goal directed; Thought content is on tx; denies SI/HI/VH/AH. Diagnostics Vital Signs (24Hr): Vital Signs - 24 hr 03/19/24 19:45 03/20/24 08:00 Temperature 98.6 F 97.7 F Pulse Rate 69 55 Respiratory Rate 18 16 Blood Pressure 134/61 165/81 H Pulse Oximetry 98 97 Oxygen Delivery Method Room Air Room Air BMI result Body Mass Index 26.0 Labs 03/15/24 07:50 Labs: Laboratory Results - last 48 hr 03/19/24 08:34 POC Glucose 94 Medications Medications Current Medications Acetaminophen (Acetaminophen 325 Mg Tablet) 650 mg PO Q6H PRN PRN Reason: Headache/Pain Mild Scale (1-3) Al Hydroxide/Mg Hydroxide (Magnesium Hydrox/Alum Hydrox 30 Ml Oral.Susp) 30 ml PO Q6H PRN PRN Reason: Heartburn/Nausea Atorvastatin Calcium (Atorvastatin Calcium 10 Mg Tablet) 10 mg PO DAILY [facility] Last Admin: 03/20/24 08:34 Dose: 10 mg Clonidine HCl (Clonidine Hcl 0.1 Mg Tablet) 0.1 mg PO BID [facility]; Protocol Last Admin: 03/20/24 08:34 Dose: 0.1 mg Gabapentin (Gabapentin 300 Mg Capsule) 300 mg PO BEDTIME [facility] Last Admin: 03/19/24 20:06 Dose: 300 mg Hydroxyzine HCl (Hydroxyzine Hcl 25 Mg Tablet) 25 mg PO Q6H PRN PRN Reason: Anxiety Magnesium Hydroxide (Milk Of Magnesia 30 Ml Oral.Susp) 30 ml PO DAILY PRN PRN Reason: Constipation Metformin HCl (Metformin Hcl Er 500 Mg Tab.Er.24h) 1,000 mg PO BIDWM [facility] Last Admin: 03/20/24 08:34 Dose: 1,000 mg Nicotine Polacrilex (Nicotine Polacrilex 2 Mg Gum) 4 mg BUCCAL Q2H PRN PRN Reason: Nicotine Cravings Olanzapine (Olanzapine 7.5 Mg Tablet) 15 mg PO BEDTIME [facility] Last Admin: 03/19/24 20:06 Dose: 15 mg Olanzapine (Olanzapine 5 Mg Tablet) 5 mg PO TID PRN PRN Reason: agitation/psychosis Last Admin: 03/18/24 08:54 Dose: 5 mg Omeprazole (Omeprazole 40 Mg Capsule.Dr) 40 mg PO DAILY@0630 [facility] Last Admin: 03/20/24 08:02 Dose: Not Given Sitagliptin Phosphate (Sitagliptin Phosphate 100 Mg Tablet) 100 mg PO DAILY [facility] Last Admin: 03/20/24 08:34 Dose: 100 mg Trazodone HCl (Trazodone Hcl 50 Mg Tablet) 50 mg PO BEDTIME [facility] Last Admin: 03/19/24 20:06 Dose: 50 mg Allergies Allergies Allergy/AdvReac Type Severity Reaction Status Date / Time benazepril Allergy Cough Verified 03/14/24 17:36 metoprolol Allergy Cough Verified 03/14/24 17:35 Assessment & Plan Assessment & Plan (1) Bipolar 1 disorder: Status: Acute Code(s): F31.9 - Bipolar disorder, unspecified Plan Patient is a 54-year-old male with history of bipolar disorder who presented to ER reporting multiple medical problems and stating suicidal ideation secondary to these medical issues and pain. Hospital course: 03/16 irritable edge, some provocative comments to peers. On approach superficially cooperative. Says he's good and denies any SI/HI or AVH; says my medications are fine... -zyprexa recently increased 03/17 talks about hx of neuropathich pain and asks for gabapentin qhs to help him sleep 03/18: Keeping to self. Pt reports feeling alright ; focused on chronic medical issues. denies SI/HI/VH/AH. 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 03/19:Keeping to self. medication compliant. Pt reports feeling alright ; continues to focus on chronic medical issues. denies SI/HI/VH/AH. Patient reports he is waiting to get placed somewhere . he denies any other issues at this time. continue current tx plan. 03/20: Patient presenting similar to yesterday. Continues focused on somatic complaints. He reports feeling okay emotionally; he is hoping to hear back from [facility]. denies SI/HI/VH/AH. Continue current treatment plan. Plan: CV 15 minute safety checks Continue home medications add Gabapentin 300mg qhs for neuropathic pain Increase Zyprexa to 15mg PO bedtime Hospitalist consult for H and P Encourage groups Referral to outpatient psychiatric providers Discharge planning Patient educated on: diagnosis, medication risk/benefits and therapeutic strategies Reason for continued inpatient stay Substantial Risk for: med/psych decompensation Time Spent With Patient Time: Total time managing care of this patient today _20___ minutes.
[2024-03-20] MEDS: OLANZapine 7.5 MG TABLET 15 MG PO (20:17)
[2024-03-20] MEDS: traZODone HCL 50 MG TABLET PO (20:17)
[2024-03-20 20:18] VITALS: BP 165/81
[2024-03-20] MEDS: Gabapentin 300 MG CAPSULE PO (20:18)
[2024-03-21 02:54] VITALS: BP 134/78; PULSE 73; RESP 16; TEMP 36.4; O2SAT 98
[2024-03-21 07:00] VITALS: BMI 28.3
[2024-03-21 07:56] LABS: Glucose, Whole Blood 107 mg/dL (60-115)
[2024-03-21 08:27] VITALS: BP 133/64
[2024-03-21] MEDS: Atorvastatin Calcium 10 MG TABLET PO (08:27)
[2024-03-21] MEDS: cloNIDine HCL 0.1 MG TABLET PO ×2 (08:27→20:05)
[2024-03-21] MEDS: SITagliptin Phosphate 100 MG TABLET PO (08:27)
[2024-03-21] MEDS: metFORMIN HCl ER 500 MG TAB.ER.24H 1000 MG PO ×2 (08:27→17:25)
--- NOTE | 2024-03-21 12:27 | HO.PSYCHPN ---
Subjective Subjective Date of Service: 03/21/24 Reason For Visit: crisis Subjective Notes: Conditional Voluntary Interim History: Reviewed with Dr. Hernandez. Keeping to self. He reports feeling alright ; pt stated, I'm just waiting to see where I end up . denies any issues at this time. denies SI/HI/VH/AH. Medication Compliance: Yes Side effects from medications: No Attending Groups: Intermittent Review of Systems Review of Systems Multiple chronic medical complaints as stated above Constitutional: Reports as per HPI Eyes: Reports as per HPI Reports as per HPI Cardiovascular: Reports as per HPI Respiratory: Reports as per HPI Gastrointestinal: Reports as per HPI Genitourinary: Reports as per HPI Musculoskeletal: Reports as per HPI Skin/Breast: Reports as per HPI Reports as per HPI Psychiatric: Reports as per HPI Endocrine: Reports as per HPI Hematologic/Lymphatic: Reports as per HPI Allergic/Immunologic: Reports as per HPI Mental Status Exam Mental Status Exam Narrative: Pt is alert and oriented; behavior is cooperative and calm; dressed in casual attire; mood is described as alright ; eye contact appropriate; Speech is normal rate, volume and not pressured; thought process is organized and goal directed; Thought content is on tx; denies SI/HI/VH/AH. Diagnostics Vital Signs (24Hr): Vital Signs - 24 hr 03/20/24 20:18 03/21/24 02:54 03/21/24 08:27 Temperature 97.6 F Pulse Rate 73 Respiratory Rate 16 Blood Pressure 165/81 H 134/78 133/64 Pulse Oximetry 98 Oxygen Delivery Method Room Air BMI result Body Mass Index 26.0 Labs 03/15/24 07:50 Labs: Laboratory Results - last 48 hr 03/21/24 07:47 POC Glucose 107 Medications Medications Current Medications Acetaminophen (Acetaminophen 325 Mg Tablet) 650 mg PO Q6H PRN PRN Reason: Headache/Pain Mild Scale (1-3) Al Hydroxide/Mg Hydroxide (Magnesium Hydrox/Alum Hydrox 30 Ml Oral.Susp) 30 ml PO Q6H PRN PRN Reason: Heartburn/Nausea Atorvastatin Calcium (Atorvastatin Calcium 10 Mg Tablet) 10 mg PO DAILY [facility] Last Admin: 03/21/24 08:27 Dose: 10 mg Clonidine HCl (Clonidine Hcl 0.1 Mg Tablet) 0.1 mg PO BID [facility]; Protocol Last Admin: 03/21/24 08:27 Dose: 0.1 mg Gabapentin (Gabapentin 300 Mg Capsule) 300 mg PO BEDTIME [facility] Last Admin: 03/20/24 20:18 Dose: 300 mg Hydroxyzine HCl (Hydroxyzine Hcl 25 Mg Tablet) 25 mg PO Q6H PRN PRN Reason: Anxiety Magnesium Hydroxide (Milk Of Magnesia 30 Ml Oral.Susp) 30 ml PO DAILY PRN PRN Reason: Constipation Metformin HCl (Metformin Hcl Er 500 Mg Tab.Er.24h) 1,000 mg PO BIDWM [facility] Last Admin: 03/21/24 08:27 Dose: 1,000 mg Nicotine Polacrilex (Nicotine Polacrilex 2 Mg Gum) 4 mg BUCCAL Q2H PRN PRN Reason: Nicotine Cravings Olanzapine (Olanzapine 7.5 Mg Tablet) 15 mg PO BEDTIME [facility] Last Admin: 03/20/24 20:17 Dose: 15 mg Olanzapine (Olanzapine 5 Mg Tablet) 5 mg PO TID PRN PRN Reason: agitation/psychosis Last Admin: 03/18/24 08:54 Dose: 5 mg Omeprazole (Omeprazole 40 Mg Capsule.Dr) 40 mg PO DAILY@0630 [facility] Last Admin: 03/21/24 06:39 Dose: Not Given Sitagliptin Phosphate (Sitagliptin Phosphate 100 Mg Tablet) 100 mg PO DAILY [facility] Last Admin: 03/21/24 08:27 Dose: 100 mg Trazodone HCl (Trazodone Hcl 50 Mg Tablet) 50 mg PO BEDTIME [facility] Last Admin: 03/20/24 20:17 Dose: 50 mg Allergies Allergies Allergy/AdvReac Type Severity Reaction Status Date / Time benazepril Allergy Cough Verified 03/14/24 17:36 metoprolol Allergy Cough Verified 03/14/24 17:35 Assessment & Plan Assessment & Plan (1) Bipolar 1 disorder: Status: Acute Code(s): F31.9 - Bipolar disorder, unspecified Plan Patient is a 54-year-old male with history of bipolar disorder who presented to ER reporting multiple medical problems and stating suicidal ideation secondary to these medical issues and pain. Hospital course: 03/16 irritable edge, some provocative comments to peers. On approach superficially cooperative. Says he's good and denies any SI/HI or AVH; says my medications are fine... -zyprexa recently increased 03/17 talks about hx of neuropathich pain and asks for gabapentin qhs to help him sleep 03/18: Keeping to self. Pt reports feeling alright ; focused on chronic medical issues. denies SI/HI/VH/AH. 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 03/19:Keeping to self. medication compliant. Pt reports feeling alright ; continues to focus on chronic medical issues. denies SI/HI/VH/AH. Patient reports he is waiting to get placed somewhere . he denies any other issues at this time. continue current tx plan. 03/20: Patient presenting similar to yesterday. Continues focused on somatic complaints. He reports feeling okay emotionally; he is hoping to hear back from [facility]. denies SI/HI/VH/AH. Continue current treatment plan. 03/21: Keeping to self. He reports feeling alright ; pt stated, I'm just waiting to see where I end up . denies any issues at this time. denies SI/HI/VH/AH. Plan: CV 15 minute safety checks Continue home medications add Gabapentin 300mg qhs for neuropathic pain Increase Zyprexa to 15mg PO bedtime Hospitalist consult for H and P Encourage groups Referral to outpatient psychiatric providers Discharge planning Patient educated on: diagnosis and medication risk/benefits Reason for continued inpatient stay Substantial Risk for: med/psych decompensation Time Spent With Patient Time: Total time managing care of this patient today _20___ minutes.
[2024-03-21 20:00] VITALS: BP 151/82; PULSE 80; RESP 18; TEMP 36.4; O2SAT 98
[2024-03-21] MEDS: Gabapentin 300 MG CAPSULE PO (20:05)
[2024-03-21] MEDS: traZODone HCL 50 MG TABLET PO (20:05)
[2024-03-21] MEDS: OLANZapine 7.5 MG TABLET 15 MG PO (20:05)
[2024-03-21 20:28] LABS: Glucose, Whole Blood 164 mg/dL (60-115)
[2024-03-22] MEDS: Omeprazole 40 MG CAPSULE.DR PO (07:34)
[2024-03-22 08:34] VITALS: BP 182/101; PULSE 54; TEMP 36.6; O2SAT 98
[2024-03-22 09:46] LABS: Creatinine Clr Calc Pharmacy 100.9; Estimated Glomerular Filt Rate > 60
[2024-03-22 10:13] VITALS: BP 182/101
[2024-03-22] MEDS: cloNIDine HCL 0.1 MG TABLET PO ×2 (10:13→20:45)
[2024-03-22] MEDS: metFORMIN HCl ER 500 MG TAB.ER.24H 1000 MG PO ×2 (10:13→17:38)
[2024-03-22] MEDS: Atorvastatin Calcium 10 MG TABLET PO (10:14)
[2024-03-22] MEDS: SITagliptin Phosphate 100 MG TABLET PO (10:14)
--- NOTE | 2024-03-22 12:53 | HO.PSYCHPN ---
Subjective Subjective Date of Service: 03/22/24 Reason For Visit: crisis Subjective Notes: Conditional Voluntary Interim History: Reviewed with Dr. Hernandez. Keeping to self. He reports feeling okay ; pt stated, I'm hoping I can get connected with [facility] . denies any issues at this time. denies SI/HI/VH/AH. Medication Compliance: Yes Side effects from medications: No Review of Systems Review of Systems Multiple chronic medical complaints as stated above Constitutional: Reports as per HPI Eyes: Reports as per HPI Reports as per HPI Cardiovascular: Reports as per HPI Respiratory: Reports as per HPI Gastrointestinal: Reports as per HPI Genitourinary: Reports as per HPI Musculoskeletal: Reports as per HPI Skin/Breast: Reports as per HPI Reports as per HPI Psychiatric: Reports as per HPI Endocrine: Reports as per HPI Hematologic/Lymphatic: Reports as per HPI Allergic/Immunologic: Reports as per HPI Mental Status Exam Mental Status Exam Narrative: Pt is alert and oriented; behavior is cooperative and calm; dressed in casual attire; mood is described as alright ; eye contact appropriate; Speech is normal rate, volume and not pressured; thought process is organized and goal directed; Thought content is on tx; denies SI/HI/VH/AH. Diagnostics Vital Signs (24Hr): Vital Signs - 24 hr 03/21/24 20:00 03/22/24 08:34 03/22/24 10:13 Temperature 97.6 F 97.9 F Pulse Rate 80 54 Respiratory Rate 18 Blood Pressure 151/82 H 182/101 H 182/101 H Pulse Oximetry 98 98 Oxygen Delivery Method Room Air Room Air BMI result Body Mass Index 28.3 Labs 03/22/24 08:53 Labs: Laboratory Results - last 48 hr 03/21/24 03/21/24 03/22/24 07:47 20:25 08:53 Hold Purple Top SEE NOTE Creatinine 0.81 Estim Creat Clear Calc 100.9 Estimated GFR > 60 POC Glucose 107 164 H Medications Medications Current Medications Acetaminophen (Acetaminophen 325 Mg Tablet) 650 mg PO Q6H PRN PRN Reason: Headache/Pain Mild Scale (1-3) Al Hydroxide/Mg Hydroxide (Magnesium Hydrox/Alum Hydrox 30 Ml Oral.Susp) 30 ml PO Q6H PRN PRN Reason: Heartburn/Nausea Atorvastatin Calcium (Atorvastatin Calcium 10 Mg Tablet) 10 mg PO DAILY [facility] Last Admin: 03/22/24 10:14 Dose: 10 mg Clonidine HCl (Clonidine Hcl 0.1 Mg Tablet) 0.1 mg PO BID [facility]; Protocol Last Admin: 03/22/24 10:13 Dose: 0.1 mg Gabapentin (Gabapentin 300 Mg Capsule) 300 mg PO BEDTIME [facility] Last Admin: 03/21/24 20:05 Dose: 300 mg Hydroxyzine HCl (Hydroxyzine Hcl 25 Mg Tablet) 25 mg PO Q6H PRN PRN Reason: Anxiety Magnesium Hydroxide (Milk Of Magnesia 30 Ml Oral.Susp) 30 ml PO DAILY PRN PRN Reason: Constipation Metformin HCl (Metformin Hcl Er 500 Mg Tab.Er.24h) 1,000 mg PO BIDWM [facility] Last Admin: 03/22/24 10:13 Dose: 1,000 mg Nicotine Polacrilex (Nicotine Polacrilex 2 Mg Gum) 4 mg BUCCAL Q2H PRN PRN Reason: Nicotine Cravings Olanzapine (Olanzapine 7.5 Mg Tablet) 15 mg PO BEDTIME [facility] Last Admin: 03/21/24 20:05 Dose: 15 mg Olanzapine (Olanzapine 5 Mg Tablet) 5 mg PO TID PRN PRN Reason: agitation/psychosis Last Admin: 03/18/24 08:54 Dose: 5 mg Omeprazole (Omeprazole 40 Mg Capsule.Dr) 40 mg PO DAILY@0630 [facility] Last Admin: 03/22/24 07:34 Dose: 40 mg Sitagliptin Phosphate (Sitagliptin Phosphate 100 Mg Tablet) 100 mg PO DAILY [facility] Last Admin: 03/22/24 10:14 Dose: 100 mg Trazodone HCl (Trazodone Hcl 50 Mg Tablet) 50 mg PO BEDTIME [facility] Last Admin: 03/21/24 20:05 Dose: 50 mg Allergies Allergies Allergy/AdvReac Type Severity Reaction Status Date / Time benazepril Allergy Cough Verified 03/14/24 17:36 metoprolol Allergy Cough Verified 03/14/24 17:35 Assessment & Plan Assessment & Plan (1) Bipolar 1 disorder: Status: Acute Code(s): F31.9 - Bipolar disorder, unspecified Plan Patient is a 54-year-old male with history of bipolar disorder who presented to ER reporting multiple medical problems and stating suicidal ideation secondary to these medical issues and pain. Hospital course: 03/16 irritable edge, some provocative comments to peers. On approach superficially cooperative. Says he's good and denies any SI/HI or AVH; says my medications are fine... -zyprexa recently increased 03/17 talks about hx of neuropathich pain and asks for gabapentin qhs to help him sleep 03/18: Keeping to self. Pt reports feeling alright ; focused on chronic medical issues. denies SI/HI/VH/AH. Pt would like to be referred to a halfway in the [place] area d/t having his outpatient providers through [facility].General. section gang worker aware. 03/19:Keeping to self. medication compliant. Pt reports feeling alright ; continues to focus on chronic medical issues. denies SI/HI/VH/AH. Patient reports he is waiting to get placed somewhere . he denies any other issues at this time. continue current tx plan. 03/20: Patient presenting similar to yesterday. Continues focused on somatic complaints. He reports feeling okay emotionally; he is hoping to hear back from [facility]. denies SI/HI/VH/AH. Continue current treatment plan. 03/21: Keeping to self. He reports feeling alright ; pt stated, I'm just waiting to see where I end up . denies any issues at this time. denies SI/HI/VH/AH. 03/22: Keeping to self. He reports feeling okay ; pt stated, I'm hoping I can get connected with [facility] . denies any issues at this time. denies SI/HI/VH/AH. Continue current tx plan. Plan: CV 15 minute safety checks Continue home medications add Gabapentin 300mg qhs for neuropathic pain Increase Zyprexa to 15mg PO bedtime Hospitalist consult for H and P Encourage groups Referral to outpatient psychiatric providers Discharge planning Patient educated on: diagnosis and medication risk/benefits Reason for continued inpatient stay Substantial Risk for: med/psych decompensation Time Spent With Patient Time: Total time managing care of this patient today _20___ minutes.
[2024-03-22 14:26] VITALS: BP 110/77; PULSE 85
[2024-03-22 20:00] VITALS: BP 133/86; PULSE 84; RESP 16; TEMP 36.7; O2SAT 98
[2024-03-22] MEDS: OLANZapine 7.5 MG TABLET 15 MG PO (20:44)
[2024-03-22 20:45] VITALS: BP 133/86
[2024-03-22] MEDS: traZODone HCL 50 MG TABLET PO (20:45)
[2024-03-22] MEDS: Gabapentin 300 MG CAPSULE PO (20:45)
[2024-03-23] MEDS: Omeprazole 40 MG CAPSULE.DR PO (06:44)
[2024-03-23 08:00] VITALS: BP 164/70; PULSE 60; RESP 16; TEMP 36.4; O2SAT 97
[2024-03-23 08:36] LABS: Glucose, Whole Blood 116 mg/dL (60-115)
[2024-03-23 09:01] VITALS: BP 164/70
[2024-03-23] MEDS: Atorvastatin Calcium 10 MG TABLET PO (09:01)
[2024-03-23] MEDS: metFORMIN HCl ER 500 MG TAB.ER.24H 1000 MG PO ×2 (09:01→17:06)
[2024-03-23] MEDS: SITagliptin Phosphate 100 MG TABLET PO (09:01)
[2024-03-23] MEDS: cloNIDine HCL 0.1 MG TABLET PO ×2 (09:01→20:42)
--- NOTE | 2024-03-23 11:13 | P.PNPSI_ITS ---
Subjective Subjective Date of Service: 03/23/24 Reason For Visit: crisis Subjective Notes: Conditional Voluntary Interim History: Patient was seen and discussed in rounds today. Records and plans were reviewed. He continues to be isolative but generally is doing a little better, less irritable. Affect continues to be blunted and he is guarded. No complaints or side effects. No changes Review of Systems Review of Systems Yes all other systems are reviewed and are negative Mental Status Exam Mental Status Exam Narrative: In today's visit he is alert, oriented and pleasant. Normal speech. Moderate eye contact. Affect is appropriate and constricted. No acute signs of psychosis. No SI. Cognitively intact. Judgment is intact Diagnostics Vital Signs (24Hr): Vital Signs - 24 hr 03/22/24 14:26 03/22/24 20:00 03/22/24 20:45 Temperature 98.0 F Pulse Rate 85 84 Respiratory Rate 16 Blood Pressure 110/77 133/86 133/86 Pulse Oximetry 98 Oxygen Delivery Method Room Air 03/23/24 09:01 Temperature Pulse Rate Respiratory Rate Blood Pressure 164/70 H Pulse Oximetry Oxygen Delivery Method BMI result Body Mass Index 28.3 Labs 03/22/24 08:53 Labs: Laboratory Results - last 48 hr 03/21/24 03/22/24 03/23/24 20:25 08:53 08:33 Hold Purple Top SEE NOTE Creatinine 0.81 Estim Creat Clear Calc 100.9 Estimated GFR > 60 POC Glucose 164 H 116 H Medications Medications Current Medications Acetaminophen (Acetaminophen 325 Mg Tablet) 650 mg PO Q6H PRN PRN Reason: Headache/Pain Mild Scale (1-3) Al Hydroxide/Mg Hydroxide (Magnesium Hydrox/Alum Hydrox 30 Ml Oral.Susp) 30 ml PO Q6H PRN PRN Reason: Heartburn/Nausea Atorvastatin Calcium (Atorvastatin Calcium 10 Mg Tablet) 10 mg PO DAILY [facility] Last Admin: 03/23/24 09:01 Dose: 10 mg Clonidine HCl (Clonidine Hcl 0.1 Mg Tablet) 0.1 mg PO BID [facility]; Protocol Last Admin: 03/23/24 09:01 Dose: 0.1 mg Gabapentin (Gabapentin 300 Mg Capsule) 300 mg PO BEDTIME [facility] Last Admin: 03/22/24 20:45 Dose: 300 mg Hydroxyzine HCl (Hydroxyzine Hcl 25 Mg Tablet) 25 mg PO Q6H PRN PRN Reason: Anxiety Magnesium Hydroxide (Milk Of Magnesia 30 Ml Oral.Susp) 30 ml PO DAILY PRN PRN Reason: Constipation Metformin HCl (Metformin Hcl Er 500 Mg Tab.Er.24h) 1,000 mg PO BIDWM [facility] Last Admin: 03/23/24 09:01 Dose: 1,000 mg Nicotine Polacrilex (Nicotine Polacrilex 2 Mg Gum) 4 mg BUCCAL Q2H PRN PRN Reason: Nicotine Cravings Olanzapine (Olanzapine 7.5 Mg Tablet) 15 mg PO BEDTIME [facility] Last Admin: 03/22/24 20:44 Dose: 15 mg Olanzapine (Olanzapine 5 Mg Tablet) 5 mg PO TID PRN PRN Reason: agitation/psychosis Last Admin: 03/18/24 08:54 Dose: 5 mg Omeprazole (Omeprazole 40 Mg Capsule.Dr) 40 mg PO DAILY@0630 [facility] Last Admin: 03/23/24 06:44 Dose: 40 mg Sitagliptin Phosphate (Sitagliptin Phosphate 100 Mg Tablet) 100 mg PO DAILY [facility] Last Admin: 03/23/24 09:01 Dose: 100 mg Trazodone HCl (Trazodone Hcl 50 Mg Tablet) 50 mg PO BEDTIME [facility] Last Admin: 03/22/24 20:45 Dose: 50 mg Allergies Allergies Allergy/AdvReac Type Severity Reaction Status Date / Time benazepril Allergy Cough Verified 03/14/24 17:36 metoprolol Allergy Cough Verified 03/14/24 17:35 Assessment & Plan Assessment & Plan (1) Bipolar 1 disorder: Status: Acute Code(s): F31.9 - Bipolar disorder, unspecified Plan Patient is a 54-year-old male with history of bipolar disorder who presented to ER reporting multiple medical problems and stating suicidal ideation secondary to these medical issues and pain. Hospital course: 03/16 irritable edge, some provocative comments to peers. On approach superficially cooperative. Says he's good and denies any SI/HI or AVH; says my medications are fine... -zyprexa recently increased 03/17 talks about hx of neuropathich pain and asks for gabapentin qhs to help him sleep 03/18: Keeping to self. Pt reports feeling alright ; focused on chronic medical issues. denies SI/HI/VH/AH. Pt would like to be referred to a custodial in the [place] area d/t having his outpatient providers through [facility]. emergency service worker aware. 03/19:Keeping to self. medication compliant. Pt reports feeling alright ; continues to focus on chronic medical issues. denies SI/HI/VH/AH. Patient reports he is waiting to get placed somewhere . he denies any other issues at this time. continue current tx plan. 03/20: Patient presenting similar to yesterday. Continues focused on somatic complaints. He reports feeling okay emotionally; he is hoping to hear back from [facility]. denies SI/HI/VH/AH. Continue current treatment plan. 03/21: Keeping to self. He reports feeling alright ; pt stated, I'm just waiting to see where I end up . denies any issues at this time. denies SI/HI/VH/AH. 03/22: Keeping to self. He reports feeling okay ; pt stated, I'm hoping I can get connected with [facility] . denies any issues at this time. denies SI/HI/VH/AH. Continue current tx plan. 03/23: Continue current regimen and plans Plan: CV 15 minute safety checks Continue home medications add Gabapentin 300mg qhs for neuropathic pain Increase Zyprexa to 15mg PO bedtime Hospitalist consult for H and P Encourage groups Referral to outpatient psychiatric providers Discharge planning Reason for continued inpatient stay Substantial Risk for: rapid decompensation Time Spent With Patient Time: Total time managing care of this patient today ____ minutes.
[2024-03-23 20:00] VITALS: BP 127/76; PULSE 85; RESP 16; TEMP 36.6; O2SAT 96
[2024-03-23 20:42] VITALS: BP 127/76
[2024-03-23] MEDS: Gabapentin 300 MG CAPSULE PO (20:43)
[2024-03-23] MEDS: OLANZapine 7.5 MG TABLET 15 MG PO (20:43)
[2024-03-23] MEDS: traZODone HCL 50 MG TABLET PO (20:43)
[2024-03-24] MEDS: Omeprazole 40 MG CAPSULE.DR PO (06:53)
[2024-03-24 08:00] VITALS: BP 123/66; PULSE 62; RESP 16; TEMP 35.8; O2SAT 95
[2024-03-24 09:13] VITALS: BP 123/66
[2024-03-24] MEDS: cloNIDine HCL 0.1 MG TABLET PO ×2 (09:13→20:05)
[2024-03-24] MEDS: metFORMIN HCl ER 500 MG TAB.ER.24H 1000 MG PO ×2 (09:13→17:29)
[2024-03-24] MEDS: SITagliptin Phosphate 100 MG TABLET PO (09:14)
[2024-03-24] MEDS: Atorvastatin Calcium 10 MG TABLET PO (09:14)
--- NOTE | 2024-03-24 10:08 | P.PNPSI_ITS ---
Subjective Subjective Date of Service: 03/24/24 Reason For Visit: crisis Subjective Notes: Conditional Voluntary Interim History: Patient was seen and discussed in rounds today. Records and plans were reviewed. He is doing better, appears to be less paranoid and irritable. Med compliant. Affect is blunted but more pleasant. Eating and sleeping adequately. No SI. No changes were made today Review of Systems Review of Systems Yes all other systems are reviewed and are negative Mental Status Exam Mental Status Exam Narrative: In today's visit he is alert, oriented and pleasant. Normal speech. Moderate eye contact. Affect is appropriate and constricted. No acute signs of psychosis. No SI. Cognitively intact. Judgment is intact Diagnostics Vital Signs (24Hr): Vital Signs - 24 hr 03/23/24 20:00 03/23/24 20:42 03/24/24 08:00 Temperature 97.8 F 96.5 F L Pulse Rate 85 62 Respiratory Rate 16 16 Blood Pressure 127/76 127/76 123/66 Pulse Oximetry 96 95 Oxygen Delivery Method Room Air Room Air 03/24/24 09:13 Temperature Pulse Rate Respiratory Rate Blood Pressure 123/66 Pulse Oximetry Oxygen Delivery Method BMI result Body Mass Index 28.3 Labs 03/22/24 08:53 Labs: Laboratory Results - last 48 hr 03/23/24 08:33 POC Glucose 116 H Medications Medications Current Medications Acetaminophen (Acetaminophen 325 Mg Tablet) 650 mg PO Q6H PRN PRN Reason: Headache/Pain Mild Scale (1-3) Al Hydroxide/Mg Hydroxide (Magnesium Hydrox/Alum Hydrox 30 Ml Oral.Susp) 30 ml PO Q6H PRN PRN Reason: Heartburn/Nausea Atorvastatin Calcium (Atorvastatin Calcium 10 Mg Tablet) 10 mg PO DAILY [facility] Last Admin: 03/24/24 09:14 Dose: 10 mg Clonidine HCl (Clonidine Hcl 0.1 Mg Tablet) 0.1 mg PO BID [facility]; Protocol Last Admin: 03/24/24 09:13 Dose: 0.1 mg Gabapentin (Gabapentin 300 Mg Capsule) 300 mg PO BEDTIME [facility] Last Admin: 03/23/24 20:43 Dose: 300 mg Hydroxyzine HCl (Hydroxyzine Hcl 25 Mg Tablet) 25 mg PO Q6H PRN PRN Reason: Anxiety Magnesium Hydroxide (Milk Of Magnesia 30 Ml Oral.Susp) 30 ml PO DAILY PRN PRN Reason: Constipation Metformin HCl (Metformin Hcl Er 500 Mg Tab.Er.24h) 1,000 mg PO BIDWM [facility] Last Admin: 03/24/24 09:13 Dose: 1,000 mg Nicotine Polacrilex (Nicotine Polacrilex 2 Mg Gum) 4 mg BUCCAL Q2H PRN PRN Reason: Nicotine Cravings Olanzapine (Olanzapine 7.5 Mg Tablet) 15 mg PO BEDTIME [facility] Last Admin: 03/23/24 20:43 Dose: 15 mg Olanzapine (Olanzapine 5 Mg Tablet) 5 mg PO TID PRN PRN Reason: agitation/psychosis Last Admin: 03/18/24 08:54 Dose: 5 mg Omeprazole (Omeprazole 40 Mg Capsule.Dr) 40 mg PO DAILY@0630 [facility] Last Admin: 03/24/24 06:53 Dose: 40 mg Sitagliptin Phosphate (Sitagliptin Phosphate 100 Mg Tablet) 100 mg PO DAILY [facility] Last Admin: 03/24/24 09:14 Dose: 100 mg Trazodone HCl (Trazodone Hcl 50 Mg Tablet) 50 mg PO BEDTIME [facility] Last Admin: 03/23/24 20:43 Dose: 50 mg Allergies Allergies Allergy/AdvReac Type Severity Reaction Status Date / Time benazepril Allergy Cough Verified 03/14/24 17:36 metoprolol Allergy Cough Verified 03/14/24 17:35 Assessment & Plan Assessment & Plan (1) Bipolar 1 disorder: Status: Acute Code(s): F31.9 - Bipolar disorder, unspecified Plan Patient is a 54-year-old male with history of bipolar disorder who presented to ER reporting multiple medical problems and stating suicidal ideation secondary to these medical issues and pain. Hospital course: 03/16 irritable edge, some provocative comments to peers. On approach superficially cooperative. Says he's good and denies any SI/HI or AVH; says my medications are fine... -zyprexa recently increased 03/17 talks about hx of neuropathich pain and asks for gabapentin qhs to help him sleep 03/18: Keeping to self. Pt reports feeling alright ; focused on chronic medical issues. denies SI/HI/VH/AH. Pt would like to be referred to a mcc in the [place] area d/t having his outpatient providers through [facility]. family day care worker aware. 03/19:Keeping to self. medication compliant. Pt reports feeling alright ; continues to focus on chronic medical issues. denies SI/HI/VH/AH. Patient reports he is waiting to get placed somewhere . he denies any other issues at this time. continue current tx plan. 03/20: Patient presenting similar to yesterday. Continues focused on somatic complaints. He reports feeling okay emotionally; he is hoping to hear back from [facility]. denies SI/HI/VH/AH. Continue current treatment plan. 03/21: Keeping to self. He reports feeling alright ; pt stated, I'm just waiting to see where I end up . denies any issues at this time. denies SI/HI/VH/AH. 03/22: Keeping to self. He reports feeling okay ; pt stated, I'm hoping I can get connected with [facility] . denies any issues at this time. denies SI/HI/VH/AH. Continue current tx plan. 03/23: Continue current regimen and plans 03/24: Continue current regimen and plans Plan: CV 15 minute safety checks Continue home medications add Gabapentin 300mg qhs for neuropathic pain Increase Zyprexa to 15mg PO bedtime Hospitalist consult for H and P Encourage groups Referral to outpatient psychiatric providers Discharge planning Reason for continued inpatient stay Substantial Risk for: rapid decompensation Time Spent With Patient Time: Total time managing care of this patient today ____ minutes.
[2024-03-24 20:00] VITALS: BP 128/92; TEMP 36.8; O2SAT 98
[2024-03-24 20:05] VITALS: BP 128/92
[2024-03-24] MEDS: Gabapentin 300 MG CAPSULE PO (20:05)
[2024-03-24] MEDS: traZODone HCL 50 MG TABLET PO (20:05)
[2024-03-24] MEDS: Acetaminophen 325 MG TABLET 650 MG PO (20:06)
[2024-03-24] MEDS: OLANZapine 7.5 MG TABLET 15 MG PO (20:06)
[2024-03-25 08:00] VITALS: BP 140/75; PULSE 53; RESP 16; TEMP 36.4; O2SAT 97
[2024-03-25 08:02] LABS: Glucose, Whole Blood 109 mg/dL (60-115)
[2024-03-25 08:37] VITALS: BP 140/75
[2024-03-25] MEDS: SITagliptin Phosphate 100 MG TABLET PO (08:37)
[2024-03-25] MEDS: Atorvastatin Calcium 10 MG TABLET PO (08:37)
[2024-03-25] MEDS: cloNIDine HCL 0.1 MG TABLET PO ×2 (08:37→20:14)
[2024-03-25] MEDS: metFORMIN HCl ER 500 MG TAB.ER.24H 1000 MG PO ×2 (08:37→17:36)
[2024-03-25] MEDS: Omeprazole 40 MG CAPSULE.DR PO (08:38)
--- NOTE | 2024-03-25 09:27 | P.PNPSI_ITS ---
Subjective Subjective Date of Service: 03/25/24 Reason For Visit: crisis Subjective Notes: Conditional Voluntary Interim History: Patient was seen and discussed in rounds today. Records and plans were reviewed. He continues to be mostly in his room but is less paranoid. No complaints or side effects. Eating adequately in sleeping excessively. No SI. No behavioral issues reported. No changes were made today Review of Systems Review of Systems Yes all other systems are reviewed and are negative Mental Status Exam Mental Status Exam Narrative: In today's visit he is alert, oriented and pleasant. Normal speech. Moderate eye contact. Affect is appropriate and constricted. No acute signs of psychosis. No SI. Cognitively intact. Judgment is intact Diagnostics Vital Signs (24Hr): Vital Signs - 24 hr 03/24/24 20:00 03/24/24 20:05 03/25/24 08:37 Temperature 98.2 F Blood Pressure 128/92 H 128/92 H 140/75 H Pulse Oximetry 98 Oxygen Delivery Method Room Air BMI result Body Mass Index 28.3 Labs 03/22/24 08:53 Labs: Laboratory Results - last 48 hr 03/25/24 07:54 POC Glucose 109 Medications Medications Current Medications Acetaminophen (Acetaminophen 325 Mg Tablet) 650 mg PO Q6H PRN PRN Reason: Headache/Pain Mild Scale (1-3) Last Admin: 03/24/24 20:06 Dose: 650 mg Al Hydroxide/Mg Hydroxide (Magnesium Hydrox/Alum Hydrox 30 Ml Oral.Susp) 30 ml PO Q6H PRN PRN Reason: Heartburn/Nausea Atorvastatin Calcium (Atorvastatin Calcium 10 Mg Tablet) 10 mg PO DAILY [facility] Last Admin: 03/25/24 08:37 Dose: 10 mg Clonidine HCl (Clonidine Hcl 0.1 Mg Tablet) 0.1 mg PO BID [facility]; Protocol Last Admin: 03/25/24 08:37 Dose: 0.1 mg Gabapentin (Gabapentin 300 Mg Capsule) 300 mg PO BEDTIME [facility] Last Admin: 03/24/24 20:05 Dose: 300 mg Hydroxyzine HCl (Hydroxyzine Hcl 25 Mg Tablet) 25 mg PO Q6H PRN PRN Reason: Anxiety Magnesium Hydroxide (Milk Of Magnesia 30 Ml Oral.Susp) 30 ml PO DAILY PRN PRN Reason: Constipation Metformin HCl (Metformin Hcl Er 500 Mg Tab.Er.24h) 1,000 mg PO BIDWM [facility] Last Admin: 03/25/24 08:37 Dose: 1,000 mg Nicotine Polacrilex (Nicotine Polacrilex 2 Mg Gum) 4 mg BUCCAL Q2H PRN PRN Reason: Nicotine Cravings Olanzapine (Olanzapine 7.5 Mg Tablet) 15 mg PO BEDTIME [facility] Last Admin: 03/24/24 20:06 Dose: 15 mg Olanzapine (Olanzapine 5 Mg Tablet) 5 mg PO TID PRN PRN Reason: agitation/psychosis Last Admin: 03/18/24 08:54 Dose: 5 mg Omeprazole (Omeprazole 40 Mg Capsule.Dr) 40 mg PO DAILY@0630 [facility] Last Admin: 03/25/24 08:38 Dose: 40 mg Sitagliptin Phosphate (Sitagliptin Phosphate 100 Mg Tablet) 100 mg PO DAILY [facility] Last Admin: 03/25/24 08:37 Dose: 100 mg Trazodone HCl (Trazodone Hcl 50 Mg Tablet) 50 mg PO BEDTIME [facility] Last Admin: 03/24/24 20:05 Dose: 50 mg Allergies Allergies Allergy/AdvReac Type Severity Reaction Status Date / Time benazepril Allergy Cough Verified 03/14/24 17:36 metoprolol Allergy Cough Verified 03/14/24 17:35 Assessment & Plan Assessment & Plan (1) Bipolar 1 disorder: Status: Acute Code(s): F31.9 - Bipolar disorder, unspecified Plan Patient is a 54-year-old male with history of bipolar disorder who presented to ER reporting multiple medical problems and stating suicidal ideation secondary to these medical issues and pain. Hospital course: 03/16 irritable edge, some provocative comments to peers. On approach superficially cooperative. Says he's good and denies any SI/HI or AVH; says my medications are fine... -zyprexa recently increased 03/17 talks about hx of neuropathich pain and asks for gabapentin qhs to help him sleep 03/18: Keeping to self. Pt reports feeling alright ; focused on chronic medical issues. denies SI/HI/VH/AH. 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 03/19:Keeping to self. medication compliant. Pt reports feeling alright ; continues to focus on chronic medical issues. denies SI/HI/VH/AH. Patient reports he is waiting to get placed somewhere . he denies any other issues at this time. continue current tx plan. 03/20: Patient presenting similar to yesterday. Continues focused on somatic complaints. He reports feeling okay emotionally; he is hoping to hear back from [facility]. denies SI/HI/VH/AH. Continue current treatment plan. 03/21: Keeping to self. He reports feeling alright ; pt stated, I'm just waiting to see where I end up . denies any issues at this time. denies SI/HI/VH/AH. 03/22: Keeping to self. He reports feeling okay ; pt stated, I'm hoping I can get connected with [facility] . denies any issues at this time. denies SI/HI/VH/AH. Continue current tx plan. 03/23: Continue current regimen and plans 03/24: Continue current regimen and plans 03/25: Continue current plans and regimen Plan: CV 15 minute safety checks Continue home medications add Gabapentin 300mg qhs for neuropathic pain Increase Zyprexa to 15mg PO bedtime Hospitalist consult for H and P Encourage groups Referral to outpatient psychiatric providers Discharge planning Reason for continued inpatient stay Substantial Risk for: med/psych decompensation Time Spent With Patient Time: Total time managing care of this patient today ____ minutes.
[2024-03-25 20:00] VITALS: BP 124/60; PULSE 84; TEMP 36.3; O2SAT 94
[2024-03-25 20:14] VITALS: BP 124/60
[2024-03-25] MEDS: Gabapentin 300 MG CAPSULE PO (20:15)
[2024-03-25] MEDS: traZODone HCL 50 MG TABLET PO (20:15)
[2024-03-25] MEDS: OLANZapine 7.5 MG TABLET 15 MG PO (20:16)
[2024-03-26 07:54] LABS: Glucose, Whole Blood 125 mg/dL (60-115)
[2024-03-26] MEDS: metFORMIN HCl ER 500 MG TAB.ER.24H 1000 MG PO ×2 (09:27→17:34)
[2024-03-26] MEDS: Omeprazole 40 MG CAPSULE.DR PO (09:27)
[2024-03-26] MEDS: Atorvastatin Calcium 10 MG TABLET PO (09:28)
[2024-03-26] MEDS: SITagliptin Phosphate 100 MG TABLET PO (09:28)
[2024-03-26 09:29] VITALS: BP 136/72; PULSE 67; RESP 20; TEMP 36.4; O2SAT 97
[2024-03-26] MEDS: cloNIDine HCL 0.1 MG TABLET PO ×2 (09:30→20:06)
--- NOTE | 2024-03-26 15:24 | HO.PSYCHPN ---
Subjective Subjective Date of Service: 03/26/24 Reason For Visit: crisis Subjective Notes: Conditional Voluntary Interim History: Reviewed with Dr. Hernandez. Patient reports feeling okay today. denies any issues at this time. denies SI/HI/VH/AH. Pt reports he plans on following up with his outpatient providers. Plan for pt to be discharged to [facility] in [place], [place]; pt agrees with plan. Medication Compliance: Yes Side effects from medications: No Review of Systems Constitutional: Reports as per HPI Eyes: Reports as per HPI Reports as per HPI Cardiovascular: Reports as per HPI Respiratory: Reports as per HPI Gastrointestinal: Reports as per HPI Genitourinary: Reports as per HPI Musculoskeletal: Reports as per HPI Skin/Breast: Reports as per HPI Reports as per HPI Psychiatric: Reports as per HPI Endocrine: Reports as per HPI Hematologic/Lymphatic: Reports as per HPI Allergic/Immunologic: Reports as per HPI Mental Status Exam Mental Status Exam Narrative: Pt is alert and oriented; behavior is cooperative and calm; dressed in casual attire; mood is described as good ; eye contact appropriate; Speech is normal rate, volume and not pressured; thought process is organized and goal directed; Thought content is on tx; denies SI/HI/VH/AH. Diagnostics Vital Signs (24Hr): Vital Signs - 24 hr 03/25/24 20:00 03/25/24 20:14 03/26/24 09:29 Temperature 97.4 F 97.5 F Pulse Rate 84 67 Respiratory Rate 20 Blood Pressure 124/60 124/60 136/72 Pulse Oximetry 94 97 Oxygen Delivery Method Room Air Room Air BMI result Body Mass Index 28.3 Labs 03/22/24 08:53 Labs: Laboratory Results - last 48 hr 03/25/24 03/26/24 07:54 07:51 POC Glucose 109 125 H Medications Medications Current Medications Acetaminophen (Acetaminophen 325 Mg Tablet) 650 mg PO Q6H PRN PRN Reason: Headache/Pain Mild Scale (1-3) Last Admin: 03/24/24 20:06 Dose: 650 mg Al Hydroxide/Mg Hydroxide (Magnesium Hydrox/Alum Hydrox 30 Ml Oral.Susp) 30 ml PO Q6H PRN PRN Reason: Heartburn/Nausea Atorvastatin Calcium (Atorvastatin Calcium 10 Mg Tablet) 10 mg PO DAILY [facility] Last Admin: 03/26/24 09:28 Dose: 10 mg Clonidine HCl (Clonidine Hcl 0.1 Mg Tablet) 0.1 mg PO BID [facility]; Protocol Last Admin: 03/26/24 09:30 Dose: 0.1 mg Gabapentin (Gabapentin 300 Mg Capsule) 300 mg PO BEDTIME [facility] Last Admin: 03/25/24 20:15 Dose: 300 mg Hydroxyzine HCl (Hydroxyzine Hcl 25 Mg Tablet) 25 mg PO Q6H PRN PRN Reason: Anxiety Magnesium Hydroxide (Milk Of Magnesia 30 Ml Oral.Susp) 30 ml PO DAILY PRN PRN Reason: Constipation Metformin HCl (Metformin Hcl Er 500 Mg Tab.Er.24h) 1,000 mg PO BIDWM [facility] Last Admin: 03/26/24 09:27 Dose: 1,000 mg Nicotine Polacrilex (Nicotine Polacrilex 2 Mg Gum) 4 mg BUCCAL Q2H PRN PRN Reason: Nicotine Cravings Olanzapine (Olanzapine 7.5 Mg Tablet) 15 mg PO BEDTIME [facility] Last Admin: 03/25/24 20:16 Dose: 15 mg Olanzapine (Olanzapine 5 Mg Tablet) 5 mg PO TID PRN PRN Reason: agitation/psychosis Last Admin: 03/18/24 08:54 Dose: 5 mg Omeprazole (Omeprazole 40 Mg Capsule.Dr) 40 mg PO DAILY@0630 [facility] Last Admin: 03/26/24 09:27 Dose: 40 mg Sitagliptin Phosphate (Sitagliptin Phosphate 100 Mg Tablet) 100 mg PO DAILY [facility] Last Admin: 03/26/24 09:28 Dose: 100 mg Trazodone HCl (Trazodone Hcl 50 Mg Tablet) 50 mg PO BEDTIME [facility] Last Admin: 03/25/24 20:15 Dose: 50 mg Allergies Allergies Allergy/AdvReac Type Severity Reaction Status Date / Time benazepril Allergy Cough Verified 03/14/24 17:36 metoprolol Allergy Cough Verified 03/14/24 17:35 Assessment & Plan Assessment & Plan (1) Bipolar 1 disorder: Status: Acute Code(s): F31.9 - Bipolar disorder, unspecified Plan Patient is a 54-year-old male with history of bipolar disorder who presented to ER reporting multiple medical problems and stating suicidal ideation secondary to these medical issues and pain. Hospital course: 03/16 irritable edge, some provocative comments to peers. On approach superficially cooperative. Says he's good and denies any SI/HI or AVH; says my medications are fine... -zyprexa recently increased 03/17 talks about hx of neuropathich pain and asks for gabapentin qhs to help him sleep 03/18: Keeping to self. Pt reports feeling alright ; focused on chronic medical issues. denies SI/HI/VH/AH. 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 03/19:Keeping to self. medication compliant. Pt reports feeling alright ; continues to focus on chronic medical issues. denies SI/HI/VH/AH. Patient reports he is waiting to get placed somewhere . he denies any other issues at this time. continue current tx plan. 03/20: Patient presenting similar to yesterday. Continues focused on somatic complaints. He reports feeling okay emotionally; he is hoping to hear back from [facility]. denies SI/HI/VH/AH. Continue current treatment plan. 03/21: Keeping to self. He reports feeling alright ; pt stated, I'm just waiting to see where I end up . denies any issues at this time. denies SI/HI/VH/AH. 03/22: Keeping to self. He reports feeling okay ; pt stated, I'm hoping I can get connected with [facility] . denies any issues at this time. denies SI/HI/VH/AH. Continue current tx plan. 03/23: Continue current regimen and plans 03/24: Continue current regimen and plans 03/25: Continue current plans and regimen 03/26: Patient reports feeling okay today. denies any issues at this time. denies SI/HI/VH/AH. Pt reports he plans on following up with his outpatient providers. Plan for pt to be discharged to [facility] in [place], [place]; pt agrees with plan. Plan: CV 15 minute safety checks Continue home medications add Gabapentin 300mg qhs for neuropathic pain Increase Zyprexa to 15mg PO bedtime Hospitalist consult for H and P Encourage groups Referral to outpatient psychiatric providers Discharge planning Patient educated on: diagnosis, medication risk/benefits and therapeutic strategies Reason for continued inpatient stay Substantial Risk for: stable for discharge Time Spent With Patient Time: Total time managing care of this patient today _20___ minutes.
[2024-03-26 19:48] VITALS: BP 130/84; PULSE 80; RESP 16; TEMP 36.8; O2SAT 97
[2024-03-26 20:06] VITALS: BP 148/80
[2024-03-26] MEDS: OLANZapine 7.5 MG TABLET 15 MG PO (20:06)
[2024-03-26] MEDS: traZODone HCL 50 MG TABLET PO (20:06)
[2024-03-26] MEDS: Gabapentin 300 MG CAPSULE PO (20:07)
[2024-03-26 21:09] LABS: Glucose, Whole Blood 134 mg/dL (60-115)
[2024-03-27] MEDS: Omeprazole 40 MG CAPSULE.DR PO (07:12)
[2024-03-27 08:00] VITALS: BP 115/60; PULSE 64; TEMP 36.3; O2SAT 96
[2024-03-27 08:39] LABS: Glucose, Whole Blood 113 mg/dL (60-115)
[2024-03-27 09:05] VITALS: BP 115/60
[2024-03-27] MEDS: cloNIDine HCL 0.1 MG TABLET PO (09:05)
[2024-03-27] MEDS: Atorvastatin Calcium 10 MG TABLET PO (09:06)
[2024-03-27] MEDS: SITagliptin Phosphate 100 MG TABLET PO (09:06)
[2024-03-27] MEDS: metFORMIN HCl ER 500 MG TAB.ER.24H 1000 MG PO (10:59)
--- NOTE | 2024-03-27 11:12 | PM.PSYDC ---
DS: Providers Provider Date of Service: 03/27/24 Date of admission: 03/14/24 16:29 Date of discharge: 03/27/24 Primary care physician: Unknown Physician Admitting clinician: Polina Peng Attending physician on admission: Mark Hernandez Consults: 03/14/24 17:36 Consult to Hospitalist Routine Comment: Consulting Provider: Hospitalist Reason For Exam: new admit H&P Attending physician on discharge: Mark Hernandez Discharging clinician: Polina Peng DS: Diagnosis Discharge Diagnosis (1) Bipolar 1 disorder: Status: Acute DS: Medications Discharge Medications Home Medications: Previous Rx's ?Medication ?Instructions ?Recorded atorvastatin 10 mg tablet 10 mg PO DAILY 30 days #30 tabs 03/26/24 clonidine HCl 0.1 mg tablet 0.1 mg PO BID 30 days #60 tabs 03/26/24 gabapentin 300 mg capsule 300 mg PO BEDTIME 30 days #30 caps 03/26/24 metformin 1,000 mg tablet 1,000 mg PO BID 30 days #60 tabs 03/26/24 olanzapine 15 mg tablet 15 mg PO BEDTIME 30 days #30 tabs 03/26/24 omeprazole 40 mg capsule,delayed 40 mg PO DAILY 30 days #30 caps 03/26/24 release sitagliptin phosphate 100 mg 100 mg PO DAILY 30 days #30 tabs 03/26/24 tablet (Januvia) trazodone 50 mg tablet 50 mg PO BEDTIME 30 days #30 tabs 03/26/24 Mental Status Exam Mental Status Exam Narrative: Pt is alert and oriented; behavior is cooperative and calm; dressed in casual attire; mood is described as good ; eye contact appropriate; Speech is normal rate, volume and not pressured; thought process is organized and goal directed; Thought content is on tx; denies SI/HI/VH/AH. Data Data Completed and Pending Completed studies during hospitalization [Text1]: 03/21/24 03/21/24 03/22/24 07:47 20:25 08:53 Hold Purple Top SEE NOTE Creatinine 0.81 Estim Creat Clear Calc 100.9 Estimated GFR > 60 POC Glucose 107 164 H 03/23/24 03/25/24 03/26/24 08:33 07:54 07:51 Hold Purple Top Creatinine Estim Creat Clear Calc Estimated GFR POC Glucose 116 H 109 125 H 03/26/24 03/27/24 21:04 08:33 Hold Purple Top Creatinine Estim Creat Clear Calc Estimated GFR POC Glucose 134 H 113 DS: Summary Hospital Course Hospital Course: Patient is a 54-year-old male with history of bipolar disorder who presented to ER reporting multiple medical problems and stating suicidal ideation secondary to these medical issues and pain. Per crisis report, patient has been staying in a detention in [place] for the past week. He went to a [employer] housing program in hopes of being able to live there. However, there was a work requirement which patient reported he could not fulfill due to his medical issues and pain. Patient reported he is currently homeless due to his girlfriend of 12 years abruptly ending their relationship and kicking out of their home. Patient reports history of Lyme disease and concurrent infections and mold inside him and his brain. Patient denied current outpatient psychiatric providers. Patient reported inpatient psychiatric stay at [facility] for a month during the spring. Perseverative about his health issues. During admission assessment, patient presents alert and oriented x3. Irritable. Guarded. Loud and rapid speech. Difficult to follow at times during conversation. Circumstantial. Patient stated, I am losing all the calcium in my bones. I am dying. I got Lyme disease 2 years ago and I have not been the same . Patient reports being medication compliant. Patient stated, pills are just chemicals. We're all getting poisoned. I had lead poisoning from my dental fillings. 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 Patient reports suicidal ideation with no plan. Denies HI/VH/AH. Plan: CV 15 minute safety checks Continue home medications Increase Zyprexa to 15mg PO bedtime Hospitalist consult for H and P Encourage groups Referral to outpatient psychiatric providers Discharge planning irritable edge, some provocative comments to peers. On approach superficially cooperative. Says he's good and denies any SI/HI or AVH; says my medications are fine... -zyprexa recently increased talks about hx of neuropathich pain and asks for gabapentin qhs to help him sleep Keeping to self. Pt reports feeling alright ; focused on chronic medical issues. denies SI/HI/VH/AH. Pt would like to be referred to a detention in the [facility] d/t having his outpatient providers through [facility].General. tare worker aware. medication compliant. Pt reports feeling alright ; continues to focus on chronic medical issues. denies SI/HI/VH/AH. Patient reports he is waiting to get placed somewhere . he denies any other issues at this time. continue current tx plan. Patient presenting similar to yesterday. Continues focused on somatic complaints. He reports feeling okay emotionally; he is hoping to hear back from [facility]. denies SI/HI/VH/AH. Continue current treatment plan. Keeping to self. He reports feeling alright ; pt stated, I'm just waiting to see where I end up . denies any issues at this time. denies SI/HI/VH/AH. He reports feeling okay ; pt stated, I'm hoping I can get connected with [facility] . denies any issues at this time. denies SI/HI/VH/AH. Continue current tx plan. Patient reports feeling okay today. denies any issues at this time. denies SI/HI/VH/AH. Pt reports he plans on following up with his outpatient providers. Plan for pt to be discharged to [facility] in [place], [place]; pt agrees with plan. Time spent discussing smoking cessation with patient: 3 to 10 minutes Status at Discharge Cognitive/behavioral status at discharge: Patient has insight and demonstrates good judgment in terms of wanting to pursue treatment. Patient has a safety plan that includes presenting to the closest ER or calling 911 if feeling unsafe. Functional status at discharge: independent ambulation Overall status at discharge: patient is back to baseline Time Spent with Patient Time attestation: Total time managing care of this patient today _20___ minutes. Time spent: Less than 30 minutes Discharge Plan Discharge Anticipated Discharge Date/Time: 03/27/24 11:00 Patient Disposition: Prison Discharge Diagnosis: Bipolar d/o Referrals: Dave Pineda (clinican): [facility] [Other] - 04/02/24 2:30 pm (Initial intake at [facility]: Hospital Discharge You must show to this appointment or you will be at risk of having services closed. Appointment is in clinic. You will be ask to provide updated contact information.) [facility] [Other] - 1 Week (Referral to [facility] program Patient should follow-up with agency after discharge ) Narendra [facility] [place] [Other] - 03/27/24 12:00 pm (Resource Center is green trailer behind the [facility] Phone number, extension #[phone] Hours are Monday to Monday 8:30 am-4:30 pm) Garrick Rucker [facility] [Other] - 1 Week (Prison resources ) Narendra Vences: Ezequiel Jain [facility] [Other] - 1 Week (Prison Resource Call daily at 8:00 am to determine is detention bed is available.) Physician,Unknown J [Primary Care Provider] - 1 Week Discharge Medications: New gabapentin 300 mg Capsule 300 mg PO BEDTIME 30 Days Qty: 30 0RF olanzapine 15 mg tablet 15 mg PO BEDTIME 30 Days Qty: 30 0RF Continued clonidine HCl 0.1 mg Tablet 0.1 mg PO BID 30 Days Qty: 60 0RF trazodone 50 mg Tablet 50 mg PO BEDTIME 30 Days Qty: 30 0RF atorvastatin 10 mg Tablet 10 mg PO DAILY 30 Days Qty: 30 0RF omeprazole 40 mg Capsule,Delayed Release(Dr/Ec) 40 mg PO DAILY 30 Days Qty: 30 0RF Rx Instructions: before breakfast metformin 1,000 mg tablet 1,000 mg PO BID 30 Days Qty: 60 0RF Januvia 100 mg Tablet 100 mg PO DAILY 30 Days Qty: 30 0RF Discontinued tizanidine [Zanaflex] 4 mg Tablet 4 mg PO DAILY PRN (Reason: Muscle Spasm) olanzapine 7.5 mg Tablet 7.5 mg PO BEDTIME Saccharomyces boulardii [Florastor] 250 mg Capsule 250 mg PO BID Discharge Orders: Discharge Order (Routine); Ordered 03/27/24 Ordered By: Polina Peng Diet: Regular diet Activity on Discharge: As tolerated Stand Alone Forms: Patient Portal Discharge page, Community Support Print Language: German Care Plan Goals: Maintain mood and safe behaviors Take medications as prescribed Practice coping skills Continue with outpatient providers and reach out to them as needed Health Concerns: Mood stability and behaviors Plan of Treatment: Follow up with your PCP, psychiatric provider and other outpatient providers regarding above concerns Take medications as prescribed Assessment: Patient has insight and demonstrates good judgment in terms of wanting to pursue treatment. Patient has a safety plan that includes presenting to the closest ER or calling 911 if feeling unsafe. Discharge Date/Time: 03/27/24 11:55
== END 2024-03-27 11:55 | disposition home or self-care (01) | DRG 885 ==
PROVIDERS: Psychiatry & Neurology Psychiatry; Admitting Provider Psychiatry & Neurology Psychiatry; Responsible Provider Registered Nurse; Visit Provider Psychiatry & Neurology Psychiatry
DX: F31.9 Bipolar disorder, unspecified (principal); R45.851 Suicidal ideations; Z59.02 Unsheltered homelessness; E78.5 Hyperlipidemia, unspecified; K21.9 Gastro-esophageal reflux disease without esophagitis; E11.9 Type 2 diabetes mellitus without complications; F17.210 Nicotine dependence, cigarettes, uncomplicated; Z71.6 Tobacco abuse counseling; Z79.84 Long term (current) use of oral hypoglycemic drugs; Z79.899 Other long term (current) drug therapy
CPT/HCPCS: 36415; 80053; 80061; 82565; 82947

== ENCOUNTER → 2024-03-14 16:29 | Outpatient (BNV) | payer OTHER, SELFPAY | PROVIDERS: Admitting Provider Psychiatry & Neurology Psychiatry; Responsible Provider Registered Nurse; Visit Provider Psychiatry & Neurology Psychiatry | DX: F31.4 Bipolar disorder, current episode depressed, severe, without psychotic features (principal) | CPT/HCPCS: 90792; 99231; 99232; 99238 ==

== ENCOUNTER → 2024-03-14 16:29 | Outpatient (BNV) | payer MEDICAID, SELFPAY | PROVIDERS: Admitting Provider Psychiatry & Neurology Psychiatry; Responsible Provider Registered Nurse; Visit Provider Student in an Organized Health Care Education/Training Program | DX: E11.22 Type 2 diabetes mellitus with diabetic chronic kidney disease (principal); K21.9 Gastro-esophageal reflux disease without esophagitis | CPT/HCPCS: 99222 ==

== ENCOUNTER 2024-11-06 07:33 | Emergency (ER) | payer MEDICAID, SELFPAY ==
--- NOTE | ~2024-11-06 | CT_ITS ---
EXAMINATION: CT ABDOMEN AND PELVIS WITHOUT CONTRAST CLINICAL INFORMATION: Constipation 10 days, rule out SBO. COMPARISON: None available. TECHNIQUE: Multidetector volumetric imaging was performed from the superior aspect of the liver through the pubic symphysis. Sagittal and coronal reformatted images were obtained on the technologist's workstation. This CT examination was performed using dose optimization techniques as appropriate, variously including the following: *Automated exposure control *Adjustment of mA and/or kV according to patient size (this includes techniques or standardized protocols for targeted exams where dose is matched to indication/reason for exam; i.e. extremities or head) *Use of iterative reconstruction technique FINDINGS: LUNG BASES: Lung bases are clear bilaterally. There are no effusions. Heart is normal in size. There are coronary calcifications. There is no pericardial effusion. Mild thickening of the distal esophagus is noted, possibly relating to esophagitis. LIVER, GALLBLADDER, AND BILIARY TREE: The liver is normal in size, shape, and attenuation. No focal hepatic lesion or biliary ductal dilatation is present. The gallbladder is unremarkable with no evidence of radiopaque gallstones, gallbladder wall thickening, or obvious pericholecystic inflammatory changes. PANCREAS: Unremarkable. SPLEEN: Unremarkable. ADRENAL GLANDS: Unremarkable. KIDNEYS AND URETERS: The kidneys are normal in size, shape, and attenuation. No hydronephrosis, hydroureter, or calculi seen. No perinephric stranding. BLADDER: Suboptimally distended. Grossly normal. GASTROINTESTINAL TRACT: There is abundant fecal material seen throughout the colon and rectum, consistent with constipation. No wall thickening or inflammation. No evidence of appendicitis. The small bowel is normal in caliber and course without abnormal dilatation or wall thickening. The stomach, and duodenal sweep appear normal. ABDOMINAL WALL: No significant hernia is appreciated. LYMPH NODES: Normal. VASCULAR: Moderate atheromatous calcification of the aorta and iliac arteries, without aneurysm. PELVIC VISCERA: The prostate and seminal vesicles are unremarkable. OSSEOUS STRUCTURES: No suspicious lytic or blastic bone lesions. Mild spinal degenerative changes. Mild bilateral hip joint degenerative changes. Normal-appearing SI joints. CT/CT abdomen pelvis wo IV con IMPRESSION: 1. No acute findings in the abdomen or pelvis. There is no evidence of bowel obstruction. There is moderate constipation. 2. There is thickening of the distal esophagus, which may be a reflection of esophagitis. 3. Additional ancillary findings as discussed in the body of the report. Electronically signed by: Joseph Rosa MD 11/06/2024 09:42 AM EDT RP
[2024-11-06 07:39] VITALS: BP 138/90; BP 145/83; PULSE 70; PULSE 80; RESP 18; TEMP 36.9; O2SAT 98; BMI 25.9
[2024-11-06 08:00] VITALS: BP 148/84; PULSE 70; RESP 14; TEMP 36.7; O2SAT 99
--- NOTE | 2024-11-06 08:04 | ED_ITS ---
HPI - General Adult General Chief complaint: General Medical Stated complaint: CONSTIPATION X1W,NOTHING WORKS,FROM REST HOME Time Seen by Provider: 11/06/24 08:05 Source: patient Mode of arrival: EMS History of Present Illness ED Provider: Jarett Tejeda PA-C HPI narrative: 54-year-old male with PMHx of GERD, HTN, depression, Lyme disease, T2DM, Bipolar 1 disorder, presents to the ED due to 10 days of constipation. He states he has chronic constipation over the last year that began with his diagnosis of lyme disease and reports <1 BM per week as his baseline. He states he sees his PCP regularly and she has put him on a bowel regimen of miralax and stool softener. He states he has been taking these medications without relief. He states last BM was 10 days ago, has not been passing flatus and feels like his abdomen is bloated. He states his PCP recently took him off metformin due to A1C being in range and his doctor does not think I am diabetic anymore. When asking if anything has changed in his daily routine he states his PCP discontinued metformin and started him on amlodipine approximately 1 year ago, but no other changes to daily routine. He also endorses 6 months of dysuria. He denies recent antibiotic use or recent sick contacts. He denies fever, chills, chest pain, SOB, nausea, vomiting,black/tarry stool, hematuria. MD complaint: constipation Onset (ago): day(s) (10 ) Location: abdomen Radiation: non-radiation Severity: moderate Quality: dull, constant and other (bloated ) Pain Consistency: constant Relieving factors: none Exacerbating factors: none Associated symptoms: other (dysuria) Treatments prior to arrival: none Related Data Previous Rx's ?Medication ?Instructions ?Recorded atorvastatin 10 mg tablet 10 mg PO DAILY 30 days #30 tabs 03/26/24 clonidine HCl 0.1 mg tablet 0.1 mg PO BID 30 days #60 tabs 24 gabapentin 300 mg capsule 300 mg PO BEDTIME 30 days #30 caps 03/26/24 metformin 1,000 mg tablet 1,000 mg PO BID 30 days #60 tabs 24 olanzapine 15 mg tablet 15 mg PO BEDTIME 30 days #30 tabs 24 omeprazole 40 mg capsule,delayed 40 mg PO DAILY 30 days #30 caps 03/26/24 release sitagliptin phosphate 100 mg 100 mg PO DAILY 30 days #30 tabs 03/26/24 tablet (Januvia) trazodone 50 mg tablet 50 mg PO BEDTIME 30 days #30 tabs 03/26/24 Allergies Allergy/AdvReac Type Severity Reaction Status Date / Time benazepril Allergy Cough Verified 11/06/24 07:40 metoprolol Allergy Cough Verified 11/06/24 07:40 Review of Systems 2 Review of Systems: CONST: Negative for fever, body aches and chills. HENT: Negative for neck pain/stiffness, headache, congestion, sore throat, swelling. EYES: Negative for discharge/pain or vision changes. RESP: Negative for cough/hemoptysis and shortness of breath. CV: Negative chest pain, difficulty breathing, palpitations. ABD: Negative pain, nausea, vomiting. POS constipation, bloating. : Negative increase frequency, blood in urine or stool. POS dysuria MUSC: Negative for muscle aches, edema. SKIN: Negative rash, lesions/sores. NEURO: Negative headache, dizziness, weakness. Yes all other systems are reviewed and are negative [facility] Past Medical History Attestation statement: The following information was validated with the patient. Source: old records reviewed and nursing notes reviewed Medical History Medical clearance for psychiatric admission Depression Lyme disease GERD (gastroesophageal reflux disease) Non-insulin dependent type 2 diabetes mellitus HLD (hyperlipidemia) Social History Social History Household Members: None Housing: Homeless Patient Tobacco Use Status: Current everyday Tobacco user Tobacco use type: Cigarette Smoked in Last 30 Days: No e-Cigarette/Vaping Use: Never Used Second Hand Smoke Exposure: No Use of substances other than those prescribed or required for medical reasons: No Advance Directives: No Advance Directives Information Provided: Yes Do you have a plan to hurt others: No Plan Sexual orientation: Don't Know Physical Exam ED Vital Signs: Vital Signs - 24 hr 11/06/24 07:39 11/06/24 08:00 11/06/24 10:00 Temperature 98.5 F 98.0 F 97.9 F Pulse Rate 70 70 61 Respiratory Rate 18 14 14 Blood Pressure 145/83 H 148/84 H 128/71 Pulse Oximetry 98 99 99 Oxygen Delivery Method Room Air Room Air Room Air 11/06/24 11:55 Temperature 97.9 F Pulse Rate 64 Respiratory Rate 14 Blood Pressure 125/72 Pulse Oximetry 98 Oxygen Delivery Method Room Air BMI result Body Mass Index 25.9 GENERAL APPEARANCE: ?AxOx3, generally well-appearing, no acute distress. HEENT: ?NC, AT. MMM. EOMI, clear conjunctiva, oropharynx clear. NECK: ?Supple without lymphadenopathy.? No stiffness or restricted ROM. HEART:? Normal rate and regular rhythm, normal S1/S1, no m/r/g LUNGS:? CTAB, moving air well. No crackles or wheezes are heard. ABDOMEN: ?Soft, nondistended, diffusely tender, mildly tympanic on palpation, hypoactive bowel sounds in all 4 quads. BACK: No CVAT, no obvious deformity. EXTREMITIES: ?Without cyanosis, clubbing or edema. NEUROLOGICAL: ?Grossly nonfocal. Alert and oriented, moving all 4 extremities. CN not formally tested but appear grossly intact. Observed to ambulate with normal gait. Skin: ?Warm and dry without any rash. Medications Administered Discontinued Medications Generic Name Dose Route Start Last Admin Trade Name Freq PRN Reason Stop Dose Admin Bisacodyl 10 mg 11/06/24 10:38 11/06/24 11:12 Bisacodyl 10 Mg Supp.Rect NJ 11/06/24 10:39 10 mg ONCE ONE Administration Medical Decision Making Medical Decision Making MDM Narrative: 54-year-old male with PMHx of GERD, HTN, HLD, depression, Lyme disease, T2DM, Bipolar 1 disorder, presents to the ED due to 10 days of constipation. Reports chronic constipation over the past year after Lyme disease diagnosis. States he follows his PCP and is on a bowel regimen of Miralax and stool softeners. Reports this is different than his regular bouts of constipation has he has never been 10 days without a BM. Had appendectomy in 1986. PCP discontinued metformin, and started on Amlodipine approximately one year ago. No other changes to daily meds/routines. Patient follows with PCP. States last colonoscopy was in 2018 where few polyps were found, but states he did not need any intervention. VSS, in no acute distress, nontoxic appearing. On physical exam abdomen is diffusely tender, and tympanic with hypoactive bowel sounds in all 4 quadrants. Negative Brewer's sign, no ecchymosis of the umbilicus, or flank. No recent alcohol use/drug use. SHYANN does not show evidence of fecal impaction, hemorrhoids, or mass felt on palpation, anal tone is appropriate. Plan At this time have low suspicion for SBO, patient without BM in 10 days, and subjectively not passing flatus need to R/O with CT abdomen/pelvis. Low suspicion for colorectal cancer as patient has had baseline constipation for over 1 year, and does not report thin, or low caliber stools, or gross blood/black tarry stool, will evaluate with CT abdomen/pelvis. I suspect the constipation is functional with score of 2 on [place] IV criteria (pain related to defecation, reduced frequency) which infers this patient meets diagnostic criteria for IBS. This constipation could be caused from introduction of Amlodipine as this is a CCB which can affect gastric function. Could be caused by Trazodone due to anticholinergic properties of medication. This could be caused by T2DM causing gastroperesis or slower gastric motility. Will order labs, CT abdomen/pelvis, and UA to evaluate for acute abdomen and dysuria. Awaiting results. Course 10:27- Labs unremarkable. CT abdomen/pelvis reveals moderate stool burden throughout the colon and rectum consistent with constipation. Discussed findings with patient and gave the options for magnesium citrate or rectal suppository to induce bowel movement. With shared decision making we decided upon rectal suppository due to stool burden of the rectum on imaging. Patient reveals he is confused on what could be causing his constipation. Patient educated on functional constipation, taking Miralax daily to manage symptoms, and was encouraged to discuss with PCP during follow up to which he was agreeable to. Order placed for 10 mg biscodyl per rectum. Will re-evaluate for BM after administration. Awaiting UA 12:58- Patient reports very small volume of hard stool after biscodyl rectal suppository. Will order 300 mL magnesium citrate to aid in producing a bowel movement. Patient counseled that this could take several hours to produce a bowel movement. Was counseled that he should take his MiraLax every day while dealing with constipation, and should follow up with his PCP for ongoing management. Patient comfortable with this plan and feels like he can manage this back at his facility. Differential Diagnosis Differential Diagnoses: The differential diagnosis associated with the presentation includes Constipation SBO Ileus Gastroperesis Pancreatitis IBS Colorectal cancer Admission/Observation Consideration of admission/observation: Escalation of care including admission/observation considered Lab Data MDM Lab Attestation statement: I reviewed the patient's lab results. 11/06/24 09:16 11/06/24 09:16 Labs: Lab Results 11/06/24 11/06/24 Range/Units 09:16 11:17 WBC 5.7 (4.8-10.8) X10*3/uL RBC 4.78 (4.60-5.80) X10*6/uL Hgb 15.7 (14.0-18.0) g/dl Hct 45.2 (42.0-52.0) % MCV 94.6 (80.0-98.0) fL MCH 32.8 (27.0-33.0) pg MCHC 34.7 (31.0-36.0) g/dl RDW 13.3 (11.0-16.0) % Plt Count 182 (160-400) X10*3/uL MPV 9.2 L (9.4-12.4) fL Immature Gran % (Auto) 0.4 (0.0-0.4) % Neut % (Auto) 65.5 (45-73) % Lymph % (Auto) 24.9 (20-40) % [place] % (Auto) 7.4 (2-11) % Eos % (Auto) 1.1 (0-4) % Baso % (Auto) 0.7 (0-2) % Lymph # (Auto) 1.4 (1.2-4.9) X10*3/uL [place] # (Auto) 0.4 (0.1-1.2) X10*3/uL Eos # (Auto) 0.1 (0.0-0.4) X10*3/uL Baso # (Auto) 0.0 (0.0-0.2) X10*3/uL Abs Immat Gran (auto) 0.02 (0.00-0.03) X10*3/uL Absolute Neuts (auto) 3.7 (2.0-8.3) x10*3/uL Absolute Nucleated RBC 0.000 (0.0-0.012) X10*3/uL Nucleated RBC % (auto) 0.0 (0.0-0.2) /100WBC Sodium 142 (135-145) mmol/L Potassium 4.3 (3.3-5.1) mmol/L Chloride 105 (96-108) mmol/L Carbon Dioxide 31 H (22-29) mmol/L Anion Gap 10 L (12-20) BUN 13 (9-16) mg/dL Creatinine 0.68 (0.5-1.4) mg/dL Estim Creat Clear Calc 109.4 Estimated GFR > 60 Random Glucose 106 (60-115) mg/dL Calcium 9.7 (8.4-10.2) mg/dL Magnesium 1.8 (1.6-2.6) mg/dL Total Bilirubin 0.5 (0.0-1.0) mg/dL AST 20 (5-37) U/L ALT 17 (0-40) U/L Alkaline Phosphatase 71 (39-117) U/L Total Protein 7.8 (6.5-8.0) g/dL Albumin 4.8 (3.5-5.0) g/dL Lipase 21 (8-78) U/L Urine Color Yellow Urine Appearance Clear Urine pH 7.0 (5.0-9.0) Ur Specific [place] 1.010 (1.005-1.025) Urine Protein Negative (Neg-Trace) mg/dL Urine Glucose (UA) Negative (Negative) mg/dL Urine Ketones Negative (Negative) mg/dL Urine Blood Negative (Negative) Urine Nitrite Negative (Negative) Ur Leukocyte Esterase Negative (Negative) Independent Interpretation I performed an independent interpretation of an: CT Scan Radiology Impression Discussion of test interpretation with radiology: I have reviewed the radiologist's reading. Radiologist Impression: CT abdomen/pelvis FINDINGS: LUNG BASES: Lung bases are clear bilaterally. There are no effusions. Heart is normal in size. There are coronary calcifications. There is no pericardial effusion. Mild thickening of the distal esophagus is noted, possibly relating to esophagitis. LIVER, GALLBLADDER, AND BILIARY TREE: The liver is normal in size, shape, and attenuation. No focal hepatic lesion or biliary ductal dilatation is present. The gallbladder is unremarkable with no evidence of radiopaque gallstones, gallbladder wall thickening, or obvious pericholecystic inflammatory changes. PANCREAS: Unremarkable. SPLEEN: Unremarkable. ADRENAL GLANDS: Unremarkable. KIDNEYS AND URETERS: The kidneys are normal in size, shape, and attenuation. No hydronephrosis, hydroureter, or calculi seen. No perinephric stranding. BLADDER: Suboptimally distended. Grossly normal. GASTROINTESTINAL TRACT: There is abundant fecal material seen throughout the colon and rectum, consistent with constipation. No wall thickening or inflammation. No evidence of appendicitis. The small bowel is normal in caliber and course without abnormal dilatation or wall thickening. The stomach, and duodenal sweep appear normal. ABDOMINAL WALL: No significant hernia is appreciated. LYMPH NODES: Normal. VASCULAR: Moderate atheromatous calcification of the aorta and iliac arteries, without aneurysm. PELVIC VISCERA: The prostate and seminal vesicles are unremarkable. OSSEOUS STRUCTURES: No suspicious lytic or blastic bone lesions. Mild spinal degenerative changes. Mild bilateral hip joint degenerative changes. Normal-appearing SI joints. IMPRESSION: 1. No acute findings in the abdomen or pelvis. There is no evidence of bowel obstruction. There is moderate constipation. 2. There is thickening of the distal esophagus, which may be a reflection of esophagitis. 3. Additional ancillary findings as discussed in the body of the report. Electronically signed by: Joseph Rosa MD 11/06/2024 09:42 AM EDT RP Independent Historian Clinical information obtained from an independent historian. History obtained from or confirmed by: EMS External Record Review External record reviewed: Inpatient record, Office record and Outpatient record Chronic Conditions Patient?s care impacted by: Diabetes, Hypertension and Other (HLD) Discharge Plan Discharge Clinical Impression: Constipation Qualifiers: Constipation type: unspecified constipation type Qualified Code(s): K59.00 - Constipation, unspecified Patient Disposition: Home, Self-Care Instructions: High Fiber Diet (ED), Constipation (ED) Additional Instructions: You were evaluated in the emergency department today due to 10 days of constipation. Your lab work did not show anything concerning. You had imaging done consisting of a CT scan of your abdomen and pelvis which revealed moderate constipation seen throughout the colon and rectum. Your abdominal structures including your small bowel and intestines looked normal in the imaging. The imaging did find that you have some thickening of your distal esophagus which could be indicative of esophagitis. You should follow up with your PCP for these findings. You were given a rectal suppository of bisacodyl which will help soften the stool and stimulate the colon and rectal muscles to produce a bowel movement. You were also given 300 mL of magnesium citrate which will draw water into the intestines to help you move your bowels. This could take several hours to occur. You should continue to take her MiraLax daily in 8 oz of water. You could add a fiber supplement like Metamucil daily to add bulk to your stools which will help you move them easier. You should follow up with your PCP for an ongoing plan to manage your constipation. Please return to emergency department if you experience fever over 100.4?, nausea, vomiting, ongoing constipation, not passing gas from your bottom, blood/black/tarry stools, or any other new or concerning symptoms. Prescriptions: No Action gabapentin 300 mg Capsule 300 mg PO BEDTIME 30 Days Qty: 30 0RF olanzapine 15 mg tablet 15 mg PO BEDTIME 30 Days Qty: 30 0RF clonidine HCl 0.1 mg Tablet 0.1 mg PO BID 30 Days Qty: 60 0RF trazodone 50 mg Tablet 50 mg PO BEDTIME 30 Days Qty: 30 0RF atorvastatin 10 mg Tablet 10 mg PO DAILY 30 Days Qty: 30 0RF omeprazole 40 mg Capsule,Delayed Release(Dr/Ec) 40 mg PO DAILY 30 Days Qty: 30 0RF Rx Instructions: before breakfast metformin 1,000 mg tablet 1,000 mg PO BID 30 Days Qty: 60 0RF Januvia 100 mg Tablet 100 mg PO DAILY 30 Days Qty: 30 0RF Print Language: Citizen Of [place]
--- NOTE | 2024-11-06 09:03 | MHC.EDTECH ---
Patient did not want tech to restick. Will try again later.
[2024-11-06 09:20] LABS: MANUAL DIFF FLAG NO
[2024-11-06 09:21] LABS: Basophils Percent Auto 0.7 % (0-2); Eosinophils Absolute Auto 0.1 X10*3/uL (0.0-0.4); Eosinophils Percent Auto 1.1 % (0-4); Hematocrit 45.2 % (42.0-52.0); Hemoglobin 15.7 g/dl (14.0-18.0); Imm Gran Abs Auto 0.02 X10*3/uL (0.00-0.03); Imm Gran Pct Auto 0.4 % (0.0-0.4); Lymphocytes Absolute Auto 1.4 X10*3/uL (1.2-4.9); Lymphocytes Percent Auto 24.9 % (20-40); Mean Corpuscular HGB Conc 34.7 g/dl (31.0-36.0); Mean Corpuscular Hemoglobin 32.8 pg (27.0-33.0); Mean Corpuscular Volume 94.6 fL (80.0-98.0); Mean Platelet Volume 9.2 fL (9.4-12.4); Monocytes Absolute Auto 0.4 X10*3/uL (0.1-1.2); Monocytes Percent Auto 7.4 % (2-11); Neutrophils Absolute Auto 3.7 x10*3/uL (2.0-8.3); Neutrophils Percent Auto 65.5 % (45-73); Platelet Count 182 X10*3/uL (160-400); Red Blood Count 4.78 X10*6/uL (4.60-5.80); Red Cell Distribution Width 13.3 % (11.0-16.0); White Blood Count 5.7 X10*3/uL (4.8-10.8)
--- OUTSIDE RECORDS SUMMARY | 2024-11-06 09:23 | XMS_ITS ---
Author Organization [facility] Location Address [address] [place] [id number] Care Team Providers Care Price Clerk Name Role Phone Lorenzo CLARK, Shital Primary Care Provider Roland Camarena MD, Iam Unavailable [phone] SOCIAL HISTORY Sex Assigned At : Social History Observation Description Sex Assigned At Male Encounters Encounter Location Date Provider Diagnosis [facility] Location [address] [place] [address] 08/11/2023 Iam Camarena MD PLAN OF TREATMENT No Information Progress Notes * Dilan MCLAUGHLINwDOB: [birth year] (53 yo M)Acc No.[id number]:08/11/2023 Patient:??Davon MCLAUGHLIN :1970?Age:53 Y?Sex:Annmarie barakat Address:[address] [place] [id number] * true * Date:??
[2024-11-06 09:38] LABS: Lipase 21 U/L (8-78)
[2024-11-06 09:44] LABS: Alanine Aminotransferase 17 U/L (0-40); Albumin Level 4.8 g/dL (3.5-5.0); Alkaline Phosphatase 71 U/L (39-117); Anion Gap 10 (12-20); Aspartate Amino Transferase 20 U/L (5-37); Bilirubin Total 0.5 mg/dL (0.0-1.0); Blood Urea Nitrogen 13 mg/dL (9-16); Calcium 9.7 mg/dL (8.4-10.2); Carbon Dioxide 31 mmol/L (22-29); Chloride 105 mmol/L (96-108); Creatinine Clr Calc Pharmacy 109.4; Estimated Glomerular Filt Rate > 60; Glucose Random 106 mg/dL (60-115); Magnesium 1.8 mg/dL (1.6-2.6); Potassium 4.3 mmol/L (3.3-5.1); Sodium 142 mmol/L (135-145); Total Protein 7.8 g/dL (6.5-8.0)
[2024-11-06 10:00] VITALS: BP 128/71; PULSE 61; RESP 14; TEMP 36.6; O2SAT 99
[2024-11-06] MEDS: bisacodyL 10 MG SUPP.RECT PR (11:12)
--- NOTE | 2024-11-06 11:15 | PC.NURSE ---
patient medicated MO per order
[2024-11-06 11:22] LABS: Appearance Urine Clear; Color Urine Yellow; Glucose Urine UA Negative (Negative); Leukocyte Esterase Urine Negative (Negative); Nitrite Urine Negative (Negative); Urine Blood Negative (Negative); Urine Ketones Negative (Negative); Urine Protein Negative (Neg-Trace)
[2024-11-06 11:55] VITALS: BP 125/72; PULSE 64; RESP 14; TEMP 36.6; O2SAT 98
[2024-11-06] MEDS: Magnesium Citrate 300 ML SOLUTION PO (13:30)
--- NOTE | 2024-11-06 13:31 | PC.NURSE ---
patient a&ox3, vss, pt taking po mag citrate, to discharge back to facility. call deras within reach, plan of care ongoing
[2024-11-06 13:59] VITALS: BP 123/75; PULSE 64; RESP 14; TEMP 36.7; O2SAT 99
--- NOTE | 2024-11-06 14:07 | PC.NURSE ---
this nurse attempted to call [facility] to give nurse to nurse report for the patient, this nurse got an answering machine for which I left a message. will attempt to call again prior to the patient leaving.
[2024-11-06 17:21] VITALS: BP 128/73; PULSE 68; RESP 16; TEMP 36.7; O2SAT 99
== END 2024-11-06 17:23 | disposition home or self-care (01) ==
PROVIDERS: Emergency Provider Emergency Medicine; PCP Family Medicine
DX: K59.00 Constipation, unspecified (principal); R30.0 Dysuria; E11.9 Type 2 diabetes mellitus without complications; E78.5 Hyperlipidemia, unspecified; F17.210 Nicotine dependence, cigarettes, uncomplicated; Z79.84 Long term (current) use of oral hypoglycemic drugs; Z79.02 Long term (current) use of antithrombotics/antiplatelets; Z79.899 Other long term (current) drug therapy
CPT/HCPCS: 36415; 74176; 80053; 81003; 83690; 83735; 85025; 99284

== ENCOUNTER → 2024-11-06 08:48 | Outpatient (BNV) | payer MEDICAID, SELFPAY | PROVIDERS: PCP Family Medicine; Visit Provider Radiology Diagnostic Radiology | DX: K59.09 Other constipation (principal) | CPT/HCPCS: 74176 ==

== ENCOUNTER 2024-11-17 09:30 | Emergency (ER) | payer MEDICAID, SELFPAY ==
[2024-11-17 09:45] VITALS: BP 135/77; PULSE 76; O2SAT 97
[2024-11-17 09:46] VITALS: BP 120/63; PULSE 79; RESP 16; TEMP 36.4; O2SAT 99; BMI 25.0
--- NOTE | 2024-11-17 10:08 | PC.NURSE ---
Pt. ambulated to restroom without problems, pt. had steady gait.
[2024-11-17 10:29] LABS: Appearance Urine Clear; Color Urine Yellow; Glucose Urine UA Negative (Negative); Leukocyte Esterase Urine Negative (Negative); Nitrite Urine Negative (Negative); PH 5.5 (5.0-9.0); Specific Gravity - Urine 1.015 (1.005-1.025); Urine Blood Negative (Negative); Urine Ketones Negative (Negative); Urine Protein Negative (Neg-Trace)
[2024-11-17 10:33] LABS: Amphetamine Screen Urine Not Detected (Not Detect); Barbiturates, Urine Not Detected (Not Detect); Benzodiazepines Screen Urine Not Detected (Not Detect); Buprenorphine Scr Not Detected (Not Detect); Cannabinoid Screen Urine Not Detected (Not Detect); Cocaine Screen Urine Not Detected (Not Detect); Fentanyl, urine Not Detected (Not Detect); Methadone Screen, Urine Not Detected (Not Detect); Opiate Screen Urine Not Detected (Not Detect); Oxycodone Screen Urine Not Detected (Not Detect); Phencyclidine Screen Urine Not Detected (Not Detect)
--- NOTE | 2024-11-17 12:12 | ED_ITS ---
HPI - General Adult General Chief complaint: General Medical Stated complaint: psych leg pain Time Seen by Provider: 11/17/24 11:49 Source: patient, EMS, RN notes reviewed and old records reviewed Mode of arrival: EMS Limitations: no limitations History of Present Illness ED Provider: Jacinto HPI narrative: Patient is a 54-year-old male with history of GERD, T2 DM, HLD, bipolar 1 disorder presenting to the emergency department with complaint of generalized myalgias and joint pain for several months. States he has discussed these symptoms with his PCP but feels his PCP is not taking his complaints seriously. Has been using gabapentin without relief. Feels he is experiencing muscle wasting. Denies any recent falls or other trauma. Also complaining of constipation but states he has been eating whatever food is provided to him at [facility]. Denies abdominal pain, nausea, vomiting, diarrhea, fevers, or urinary symptoms. denies any known tick bites or rashes. MD complaint: myalgias Onset (ago): month(s) Related Data Previous Rx's ?Medication ?Instructions ?Recorded atorvastatin 10 mg tablet 10 mg PO DAILY 30 days #30 tabs 03/26/24 clonidine HCl 0.1 mg tablet 0.1 mg PO BID 30 days #60 tabs 03/26/24 gabapentin 300 mg capsule 300 mg PO BEDTIME 30 days #30 caps 03/26/24 metformin 1,000 mg tablet 1,000 mg PO BID 30 days #60 tabs 03/26/24 olanzapine 15 mg tablet 15 mg PO BEDTIME 30 days #30 tabs 24 omeprazole 40 mg capsule,delayed 40 mg PO DAILY 30 days #30 caps 03/26/24 release sitagliptin phosphate 100 mg 100 mg PO DAILY 30 days #30 tabs 03/26/24 tablet (Januvia) trazodone 50 mg tablet 50 mg PO BEDTIME 30 days #30 tabs 24 diclofenac sodium 1 % topical gel 2 g topical QID #50 grams 11/17/24 Allergies Allergy/AdvReac Type Severity Reaction Status Date / Time benazepril Allergy Cough Verified 11/17/24 09:47 metoprolol Allergy Cough Verified 11/17/24 09:47 Review of Systems Review of Systems: As per HPI Yes all other systems are reviewed and are negative Constitutional: Constitutional: Reports as per HPI PMFSH Past Medical History Medical History Medical clearance for psychiatric admission Depression Lyme disease GERD (gastroesophageal reflux disease) Non-insulin dependent type 2 diabetes mellitus HLD (hyperlipidemia) Social History Social History Household Members: None Housing: Homeless Patient Tobacco Use Status: Current everyday Tobacco user Tobacco use type: Cigarette Smoked in Last 30 Days: No e-Cigarette/Vaping Use: Never Used Second Hand Smoke Exposure: No Use of substances other than those prescribed or required for medical reasons: No Advance Directives: No Advance Directives Information Provided: Yes Do you have a plan to hurt others: No Plan Sexual orientation: Don't Know Physical Exam ED Vital Signs: Vital Signs - 24 hr 11/17/24 09:46 Temperature 97.6 F Pulse Rate 79 Respiratory Rate 16 Blood Pressure 120/63 Pulse Oximetry 99 Oxygen Delivery Method Room Air BMI result Body Mass Index 25.0 Vital signs have been reviewed and appear to be correct. Blood pressure normal. Heart rate normal. Respiratory rate normal. Temperature normal. Oxygen saturation normal. Const General: cooperative, healthy appearing and no acute distress Orientation/consciousness: oriented to person, oriented to place, oriented to time and patient oriented x3 Limitations: no limitations HENMT Head: Yes normocephalic and Yes atraumatic Ears: external ears normal General nose exam: Normal external nose present Face and sinus: Yes face symmetric Mouth: oropharynx normal and moist mucous membranes Throat: Yes uvula midline Eyes Pupils: Equal, round and reactive pupils present Neck Neck: Yes normal visual inspection and Yes supple Resp Effort & Inspection: normal respiratory effort and able to speak in complete sentences Auscultation: clear to auscultation bilaterally Cardio Rate: regular rate Rhythm: regular rhythm Heart sounds: S1 normal heart sound present and S2 normal heart sound present GI Palpation (GI): Soft to palpation and nontender Auscultation: normoactive bowel sounds General: Yes no CVA tenderness Back/Spine/Pelvis Back: no CVA tenderness Skin General skin exam: elasticity normal and turgor normal Neuro General: oriented to person, oriented to place, oriented to time, patient orient ed x3, moves all extremities, no focal motor deficits and CN's II-XI intact bilaterally Cranial nerves: Yes Equal, round and reactive pupils present Cognition (Neuro): normal cognition Extrem General: Yes full ROM, Yes no pedal edema and Yes no calf tenderness Psych Mental Status: mental status grossly normal Affect: normal affect Thought process: Normal thought process present Medical Decision Making Medical Decision Making [facility] Narrative: Patient is a 54-year-old male with history of GERD, T2 DM, HLD, bipolar 1 disorder presenting to the emergency department with complaint of generalized myalgias and joint pain for several months. On exam patient is awake, A+Ox3, VS WNL, afebrile, normal neurological exam without focal deficits, physical exam findings as above. Given reported symptoms and physical exam findings, initial differential includes but is not limited to tick borne illness, adverse reaction to atorvastatin. Unlikely viral illness due length of symptoms. Patient agreeable to tick panel testing. Labs obtained on 11/06/24 unremarkable. Discussed with patient that due to the ongoing nature of his symptoms, he will need to follow up with PCP for additional testing. States he has a new PCP and feels that his symptoms are being minimize there. Discussed with patient that he can be provided with referrals to other PCPs in the area. Patient also requesting referral to dentists in the area. Denies any current dental complaints but states that he does not have a dentist at this time. Will obtain tick panel but discussed with patient that results will take a few days to come back, he will be contacted with any positive results. States that he has tried Tylenol and ibuprofen as well as gabapentin for his joint pain and myalgias with little relief. Discussed with patient that he can try diclofenac gel to see if this is more effective at relieving his pain. Return precautions discussed. Patient verbalized understanding of and agreement with plan. Differential Diagnosis Differential Diagnoses: The differential diagnosis associated with the presentation includes As per [facility] Admission/Observation Consideration of admission/observation: Escalation of care including admission/observation considered Patient would have been admitted to the hospital had their work up had any findings where hospital admission was appropriate and their clinical presentation warranted hospital admission. Lab Data [facility] Lab Attestation statement: I reviewed the patient's lab results. as per [facility] Labs: Lab Results 11/17/24 Range/Units 10:15 Urine Color Yellow Urine Appearance Clear Urine pH 5.5 (5.0-9.0) Ur Specific [place] 1.015 (1.005-1.025) Urine Protein Negative (Neg-Trace) mg/dL Urine Glucose (UA) Negative (Negative) mg/dL Urine Ketones Negative (Negative) mg/dL Urine Blood Negative (Negative) Urine Nitrite Negative (Negative) Ur Leukocyte Esterase Negative (Negative) Urine Opiates Screen Not Detected (Not Detect) Ur Buprenorphine Scrn Not Detected (Not Detect) ng/mL Ur Oxycodone Screen Not Detected (Not Detect) ng/mL Urine Methadone Screen Not Detected (Not Detect) ng/mL Urine Fentanyl Screen Not Detected (Not Detect) Ur Barbiturates Screen Not Detected (Not Detect) Ur Phencyclidine Scrn Not Detected (Not Detect) Ur Amphetamines Screen Not Detected (Not Detect) U Benzodiazepines Scrn Not Detected (Not Detect) Urine Cocaine Screen Not Detected (Not Detect) U Marijuana (THC) Screen Not Detected (Not Detect) External Record Review External record reviewed: Inpatient record, Office record and Outpatient record Prescription Management I considered prescription management with: Pain Medication Discharge Plan Discharge Clinical Impression: Myalgia, Arthralgia Patient Disposition: Home, Self-Care Instructions: Musculoskeletal Pain (ED), Arthralgia (ED) Additional Instructions: You were evaluated in the emergency department today for generalized muscle and joint pain that has been ongoing for several months. You were tested for tick- borne illnesses today and will be contacted with any positive results. You are being prescribed diclofenac gel which you can apply to the affected areas as prescribed. We recommend that you follow-up with your primary care provider for further evaluation of your symptoms. If you are interested in finding a [facility] care provider, a list of offices has been provided to you. You are also being provided with a list of dental clinics in the area. Return to the emergency department if you develop fever or other new or concerning symptoms. Call or visit any of the clinics below to establish care with a dentist: [facility] [address] [place] [address] [facility] [address] [facility], [address] Juan M Mistry [address] [place] [address] [id number] [facility] [address] [place] [phone] [facility] [address] [place] [id number] [place] [address] [place] [address] Prescriptions: New diclofenac sodium 1 % gel 2 g topical QID Qty: 50 0RF Rx Instructions: apply to single elbow, wrist or hand; for hand includes palm/fingers/back of hand No Action gabapentin 300 mg Capsule 300 mg PO BEDTIME 30 Days Qty: 30 0RF olanzapine 15 mg tablet 15 mg PO BEDTIME 30 Days Qty: 30 0RF clonidine HCl 0.1 mg Tablet 0.1 mg PO BID 30 Days Qty: 60 0RF trazodone 50 mg Tablet 50 mg PO BEDTIME 30 Days Qty: 30 0RF atorvastatin 10 mg Tablet 10 mg PO DAILY 30 Days Qty: 30 0RF omeprazole 40 mg Capsule,Delayed Release(Dr/Ec) 40 mg PO DAILY 30 Days Qty: 30 0RF Rx Instructions: before breakfast metformin 1,000 mg tablet 1,000 mg PO BID 30 Days Qty: 60 0RF Januvia 100 mg Tablet 100 mg PO DAILY 30 Days Qty: 30 0RF Ref[place]: [facility] [place]] [facility]Provider Group] [facility] [Provider Group] Print Language: Guyanese
[2024-11-17 15:38] VITALS: BP 125/77; PULSE 78; RESP 16; TEMP 36.9; O2SAT 98
[2024-11-19 23:58] LABS: A. Phagocytphilium DNA,RT-PCR NOT DETECTED (NOT DETECTED); Babesia Microti DNA, RT-PCR NOT DETECTED (NOT DETECTED); Borrelia Miyamotoi,DNA RT-PCR NOT DETECTED (NOT DETECTED); E.Chaffeensis DNA RT-PCR NOT DETECTED (NOT DETECTED); Lyme(Borrelia ssp)DNA RT-PCR NOT DETECTED (NOT DETECTED)
== END 2024-11-17 15:40 | disposition home or self-care (01) ==
PROVIDERS: Registered Nurse Emergency; Emergency Provider Emergency Medicine; PCP Family Medicine
DX: M79.10 Myalgia, unspecified site (principal); M25.50 Pain in unspecified joint; E11.9 Type 2 diabetes mellitus without complications; E78.5 Hyperlipidemia, unspecified; F17.210 Nicotine dependence, cigarettes, uncomplicated; K21.9 Gastro-esophageal reflux disease without esophagitis; Z79.02 Long term (current) use of antithrombotics/antiplatelets; Z79.84 Long term (current) use of oral hypoglycemic drugs; Z79.899 Other long term (current) drug therapy
CPT/HCPCS: 36415; 80307; 81003; 87468; 87469; 87478; 87484; 87798; 99283; 99284

== ENCOUNTER 2024-12-19 16:27 | Emergency (ER) | payer MEDICAID, SELFPAY ==
--- OUTSIDE RECORDS SUMMARY | 2023-07-23 19:00 | XMS_ITS | Continuity of Care Document ---
Author Organization [facility] Address [address] [place] [phone] Phone Care Team Providers Care Case Management Assistant Name Role Phone Ariana RODRIGUEZ, Alexander Unavailable [...] Providers Copied on Encounter [facility] , [address] [place] [address], [id number], tel:[phone] [facility] Gout, unspecifiedPe rsonality disorder, unspecified 4 Ariana Munoz. [address] [place] [address], [id number] , [place]. tel:[phone] [facility], [address] [place] [address], [id number], [place] tel:[phone] [facility] Gout, unspecified Nov- 3 Ariana Munoz. [address] [place] [address], [id number] , [place]. tel:[phone] [facility], [address] [place] [address], [id number], [place] tel:[phone] [facility] Gout, unspecified 3 Ariana Munoz. [address] [place] [address], [id number] , . tel:[phone] [facility], [address] [place] [address], [id number], tel:[phone] [facility] Lyme disease, unspecified Sep-[address] [place] [address], [id number] , . tel:[phone] [facility] , [address] [place] [address], [id number], tel:[phone] [facility] No Information 1-[address] [place] [address], [id number] , . tel:[phone] Family History Family Member Type Diagnosis Age At Onset No Information Payers Payer name Insurance type Covered alliance party ID Authoriza tion(s) No Information Social History [...]
--- OUTSIDE RECORDS SUMMARY | 2023-09-05 04:20 | XMS_ITS ---
Author Organization [facility] [address] Location Address [address] [place] [phone] Care Team Providers Care Public Relations Supervisor Name Role Phone Lorenzo CLARK, Shital Primary Care Provider Unav daniel Stahl MD, Alen Unavailable [phone] Allergies No Known Allergies REASON FOR VISIT [...] Encounters Encounter Location Date Provider Diagnosis [facility] [address] Location [address] [place] [phone] 09/05/2023 Alen Stahl MD Plan Of Treatment No Information Progress Notes * Dilan MCLAUGHLINwDOB: [birth year] (54 yo M)Acc No.[id number]:09/05/2023 Patient: Davon CHISHOLM Provider: Bryce Lizarraga MD :1970 A ge:53 Y S ex:Male Date:09/05/2023 Address:[address] [place], [place] [phone] Pcp:Shital Ventura NP Subjective: * Chief Complaints: [...] signature of Haylee Stahl MD , on 12/19/2024 at 05:12 PM EDT Sign off status: Pending * Provider: Bryce Lizarraga MD Date: 0 09/05/2023 Generated for Medhat menchaca/Keshawn/Obinnaitting on: 0 12/19/2024 05:12 PM EDT History and Physical Notes * HPI [...]
[2024-12-19 16:35] VITALS: BP 140/82; PULSE 88; O2SAT 96
[2024-12-19 16:46] VITALS: BP 121/66; PULSE 78; RESP 18; TEMP 37.2; O2SAT 97; BMI 26.9
--- OUTSIDE RECORDS SUMMARY | 2024-12-19 17:12 | XMS_ITS | Encounter Summary ---
Author Organization [employer] Address [address] [place] [address] Care Team Providers Care Reactor Operator Name Role Phone Celestina Gallardo MD Primary Care Provider [phone] Reason for Visit * Reason Onset Date Comments hospital f/u, discuss field secretary referral Encounter Details Date Type Department Care Team (Late st Contact Info) Description 07/18/2024 Telephone [facility] MEDICAL [address] [place] [address] Celestina Gallardo MD [address] [place] [address] hospital f/u, discuss field secretary referral Social History Tobacco Use Types Packs/Day Years Used Date Smoking Tobacco: Former Cigarettes 0 11/2023 - 1986 Alcohol Use Standard Drinks/Week Comments Not Currently 0 (1 standard drink = 0.6 oz pur e alcohol) Sex and Gender Information Value Date Recorded Sex Assigned at Male 12/13/2023 11:39 AM EDT Legal Sex Male 11:33 AM EDT Gender Identity Male 12/13/2023 11:39 AM EDT Sexual Orientation Straight 12/13/2023 11 :39 AM EDT documented as of this encounter Miscellaneous Notes * Telephone Encounter - Rosalina Long LPN - 07/18/2024 11:32 AM EST TE to [facility]ING[facility]. Are you willing to submit this referral or do you want pt to have an office visit? * Telephone Encounter - Kendra France - 07/18/2024 10:59 AM EST Patient states he went to [facility] on 07/16/[address] Rafael Welch (instead of usual PA) who had me take my shirt off and check my arms, feet, legs, and calves, it was more of a physical, tested negative for COVID, he said I have myopathy, muscle wasting was much more for anyone my age and it's coming from somewhere but didn't know where, he recommended contacting [facility] to get a referral to see a [facility] Manager Dish. Patient would like a call back to discuss next steps and field secretary referral. Okay to leave detailed message on voicemail. Thank you! documented in this encounter Plan of Treatment Not on file documented as of this encounter Visit Diagnoses Not on filedocumented in this encounter Care Teams Reactor Operator Relationship Specialty Start Date End Date Celestina Gallardo MD [address] [place] [address] PCP - General Family Medicine 05/07/24 documented as of this encounter
--- OUTSIDE RECORDS SUMMARY | 2024-12-19 17:12 | XMS_ITS | Clinical Summary ---
Author Organization [facility] it[facility] Address [address] [place] [address] Care Team Providers Care Small Order Cutter Name Role Phone Unavailable Primary Care Provider Unavailabl e Social History Tobacco Use Types Packs/Day Years Used Date Smoking Tobacco: Never Assessed Sex and Gender Information Value Date Recorded Sex Assigned at Not on file Legal Sex Male 3:44 PM EDT Gender Identity Not on file Sexual Orientation Not on file Plan of Treatment Health Maintenance Due Date Last Done Comments DTaP,Tdap,and Td Vaccines (1 - Tdap) 01/10/1987 Hepatitis B Vaccines (1 of 3 - 19+ 3-dose series) 01/10/1987 Pneumococcal Vaccine: 50+ Ye ars (1 of 1 - PCV) 01/10/2018 Zoster Vaccines (1 of 2) 01/10/2018 COVID-19 Vaccine (2023-2 5 season) 2024 Cholesterol Screening (Lipid Panel) 03/21/2024 Colorectal Cancer Screening: Colonoscopy 03/21/2024 Depression Screening 03/21/2024 HIV Screening 03/21/2024 Hepatitis C Screening 03/21/2024 Social Influencers of Health Screening 03/21/2024 Influenza Vaccine (#1) 2025 HIB Vaccines Aged Out No longer eligi ble based on patient's age to complete this topic HPV Vaccines Aged Out No longer eligi ble based on patient's age to complete this topic Hepatitis A Vaccines Aged Out No long er eligible based on patient's age to complete this topic IPV Vaccines Aged Out No longer eligi ble based on patient's age to complete this topic MMR Vaccines Aged Out No longer eligi ble based on patient's age to complete this topic Meningococcal ACWY Vaccine Aged Out N o longer eligible based on patient's age to complete this topic Meningococcal B Vaccine Aged Out No l onger eligible based on patient's age to complete this topic RSV Immunization Patients Un beena 20 months Aged Out No longer eligible b ased on patient's age to complete this topic Varicella Vaccines Aged Out No longer eligible based on patient's age to complete this topic
--- NOTE | 2024-12-19 17:13 | ECG_ITS ---
Test Reason : WEAKNESS Blood Pressure : */* mmHG Vent. Rate : 62 BPM Atrial Rate : 62 BPM P-R Int : 184 ms QRS Dur : 88 ms QT Int : 410 ms P-R-T Axes : 52 53 43 degrees QTcB Int : 416 ms Normal sinus rhythm Normal ECG No previous ECGs available Referred By: Rosi Burgess Electronically Signed By: Obie Wang
--- OUTSIDE RECORDS SUMMARY | 2024-12-19 17:13 | XMS_ITS | Clinical Summary ---
Author Organization [facility] Address [address] [place] [address] Care Team Providers Care Machine Operator Slitter Technician Name Role Phone No, Pcp Primary Care Provider Unavailabl e Allergies Active Allergy Reactions Criticality Noted Date Comments Benazepril 08/24/2023 Pt reported Metoprolol Hives 01/21/2024 Medications atorvastatin (Lipitor) 10 mg tablet Take 10 mg by mouth once daily. Active benazepriL-hydr ochlorothiazide (Lotensin HCT) 10-12.5 mg tablet Take 1 tablet by mouth once daily. 4 Active cloNIDine (Catapres) 0.1 mg tablet Take 0.1 mg by mouth twice daily. 4 Active divalproex (Depakote ER) 500 mg 24 hr tablet Take 1,000 mg by mouth at bedtime. 4 Active diazePAM (Valium) 5 mg tablet Take 5 mg by mouth once daily. 4 Active doxycycline (Vibra-Tabs) 100 mg tablet Take 100 mg by mouth twice daily. 4 Active fluticasone (Flonase) 50 mcg/actuation nasal spray Administer 1 spray into each nostril once daily. 4 Active gabapentin (Neurontin) 100 mg capsule Take 100 mg by mouth if needed in the morning, at noon, and at bedtime. 4 Active hydroCHLOROthia zide (Microzide) 12.5 mg capsule Take 12.5 mg by mouth once daily. 4 Active hydrOXYzine pamoate (Vistaril) 50 mg capsule Take 50 mg by mouth three times daily. 4 Active NovoLIN R FlexPen 100 unit/mL (3 mL) insulin pen Inject under the skin. 4 Active lisinopril 10 mg tablet Take 10 mg by mouth once daily. Active loratadine (Claritin) 10 mg tablet Take 10 mg by mouth once daily. 4 Active losartan (Cozaar) 50 mg tablet Take 50 mg by mouth once daily. 3 Active magnesium oxide (Mag-Ox) 400 mg (241.3 mg magnesium) tablet Take 1 tablet by mouth once daily. 4 Active melatonin 5 mg tablet Take 5 mg by mouth if needed at bedtime. 4 Active metFORMIN XR (Glucophage-XR) 500 mg 24 hr tablet Take 1,000 mg by mouth twice daily. 4 Active metoprolol succinate XL (Toprol-XL) 25 mg 24 hr tablet Take 25 mg by mouth once daily. 3 Active nystatin (Mycostatin) 100,000 unit/mL suspension Take 5 mL by mouth four times daily. 3 Active omeprazole (PriLOSEC) [address] capsule Take 40 mg by mouth twice daily. 4 Active PARoxetine (Paxil) 10 mg tablet Take 10 mg by mouth once daily. 4 Active pilocarpine (Salagen) 5 mg tablet Take 5 mg by mouth. 4 Active risperiDONE (RisperDAL) 4 mg tablet Take 4 mg by mouth at bedtime. 4 Active Januvia 100 mg tablet Take 100 mg by mouth once daily. 4 Active tiZANidine (Zanaflex) 4 mg tablet Take 4 mg by mouth at bedtime. 4 Active traZODone (Desyrel) 50 mg tablet Take 50 mg by mouth at bedtime. 4 Active Active Problems Problem Noted Date Diagnosed Date Adjustment disorder with mixed anxiety and depre ssed mood 08/28/2023 Anxiety and depression 08/24/2023 Chest pain 08/24/2023 Essential (primary) hypertension 08/24/2023 GERD without esophagitis 08/24/2023 Homelessness 08/24/2023 Muscle spasm 08/24/2023 Palpitation 08/24/2023 Resolved Problems Problem Noted Date Diagnosed Date Resolved Date Adjustment disorder 12/19/2023 08/11/20 24 Unspecified psychosis not du e to a substance or known physiological condition (Multi-HCC) 06/15/2023 01/21/2024 Social History Tobacco Use Types Packs/Day Years Used Date Smoking Tobacco: Never Smokeless Tobacco: Former Tobacco Cessation:Counseling Given: Not Answered Alcohol Use Standard Drinks/Week Comments Never 0 (1 standard drink = 0.6 oz pur e alcohol) Sex and Gender Information Value Date Recorded Sex Assigned at Male 02/06/2024 1:20 PM EDT Legal Sex Male 12:48 PM EDT Gender Identity Male 01/21/2024 12:51 PM EDT Sexual Orientation Straight 02/06/2024 1: 20 PM EDT Last Filed Vital Signs Vital Sign Reading Time Taken Comments Blood Pressure 165/79 02/06/2024 4:00 PM EDT Pulse 69 02/06/2024 4:00 PM EDT Temperature 36.7 C (98.1 F) 02/06/2024 1:19 PM EDT Respiratory Rate 13 02/06/2024 4:00 PM EDT Oxygen Saturation 100% 02/06/2024 4:00 PM EDT Inhaled Oxygen Concentration - - Weight 73.5 kg (162 lb) 02/06/2024 1:19 PM EDT Height 167.6 cm (5' 6 ) 02/06/2024 1:19 PM EDT Body Mass Index 26.15 02/06/2024 1:19 PM EDT Plan of Treatment Health Maintenance Due Date Last Done Comments CT Colonography 1968 Colonoscopy 1968 Colorectal Cancer Screening 1968 Depression Monitoring 1968 FIT-DNA 1968 FIT 1968 FOBT 1968 HIV Screening 1968 Sigmoidoscopy 1968 MMR Vaccines (1 of 1 - Standard series) 01/10/1969 Diabetes: Foot Exam 01/10/1978 Diabetes: Retinopathy Screening 01/10/1978 Hepatitis C Screening 01/10/1986 DTaP/Tdap/Td Vaccines (1 - Tdap) 01/10/1987 Hepatitis B Vaccines (1 of 3 - 19+ 3-dose series) 01/10/1987 Pneumococcal Vaccine: 50+ Years (1 of 1 - PCV) 01/10/2018 Zoster Vaccines (1 of 2) 01/10/2018 COVID-19 Vaccine (1 - 2024-2 5 season) 2024 Diabetes: Hemoglobin A1C 07/11/2024 024, 08/24/2023, 08/24/2023 Lipid Panel 08/23/2024 08/24/2023 Diabetes: Urine Protein Screening 02/05/2025 02/06/2024 Influenza Vaccine (#1) 2025 HIB Vaccines Aged [...] patient's age to complete this topic Meningococcal Vaccine Aged Out No chantel ryan eligible based on patient's age to complete this topic Rotavirus Vaccines Aged Out No longer eligible based on patient's age to complete this topic Insurance [facility] Care Teams Machine Operator Slitter Technician Relationship Specialty Start Date End Date No, Pcp, MD PCP - General Pediatrics 01/21/24
--- NOTE | 2024-12-19 17:14 | ED_ITS ---
HPI - General Adult General Chief complaint: General Medical Stated complaint: psych episodes per facility, numbness in arms/legs Time Seen by Provider: 12/19/24 16:38 History of Present Illness HPI narrative: Patient is a 54-year-old male believe that his medication is causing muscle wasting. Patient from [facility]. Patient denies any chest pain denies any suicidal homicidal ideation. Patient from home. Denies drinking any alcohol. Denies any recreational drugs. Has a history of hypertension. Patient is currently on amlodipine also no fever no chills. Did not have increased urination but feels his mouth was dry. History of depression. Symptoms been ongoing for days. Related Data Previous Rx's ?Medication ?Instructions ?Recorded atorvastatin 10 mg tablet 10 mg PO DAILY 30 days #30 t abs 03/26/24 clonidine HCl 0.1 mg tablet 0.1 mg PO BID 30 days #60 tabs 03/26/24 gabapentin 300 mg capsule 300 mg PO BEDTIME 30 days #3 0 caps 03/26/24 metformin 1,000 mg tablet 1,000 mg PO BID 30 days #60 tabs 03/26/24 olanzapine 15 mg tablet 15 mg PO BEDTIME 30 days #30 tabs 03/26/24 omeprazole 40 mg capsule,delayed 40 mg PO DAILY 30 day s #30 caps 03/26/24 release sitagliptin phosphate 100 mg 100 mg PO DAILY 30 days # 30 tabs 03/26/24 tablet (Januvia) trazodone 50 mg tablet 50 mg PO BEDTIME 30 days #30 tabs 03/26/24 diclofenac sodium 1 % topical gel 2 g topical QID #50 grams 11/17/24 Allergies Allergy/AdvReac Type Severity Reaction Status Date / Time benazepril Allergy Cough Verified 12/19/24 16:47 metoprolol Allergy Cough Verified 12/19/24 16:47 Review of Systems 2 Review of Systems: No fever no chills no chest pain Yes all other systems are reviewed and are negative PMFSH Past Medical History Attestation statement: The following information was validated with the patient. Medical History Medical clearance for psychiatric admission Depression Lyme disease GERD (gastroesophageal reflux disease) Non-insulin dependent type 2 diabetes mellitus HLD (hyperlipidemia) Social History Social History Household Members: None Housing: Homeless Patient Tobacco Use Status: Current everyday Tobacco user Tobacco use type: Cigarette e-Cigarette/Vaping Use: Never Used Second Hand Smoke Exposure: No Advance Directives: No Advance Directives Information Provided: No Sexual orientation: Don't Know Physical Exam ED Vital Signs: Vital Signs - 24 hr 12/19/24 16:46 12/19/24 18:04 Temperature 98.9 F 98.7 F Pulse Rate 78 63 Respiratory Rate 18 16 Blood Pressure 121/66 115/61 Pulse Oximetry 97 98 Oxygen Delivery Method Room Air Room Air BMI result Body Mass Index 26.9 Appearance: Alert. Oriented X3. No acute distress. Eyes: Pupils equal, round and reactive to light. ENT: Pharynx normal. Neck: Normal inspection. Neck supple. No lymph nodes noted. No crepitus CVS: Normal heart rate and rhythm. Pulses normal. Normal S1 and S2 Respiratory: No respiratory distress. Breath sounds normal. No Wheezing. No rales Abdomen: Soft and nontender. No rigidity. No distention. good BS x4 Skin: Skin warm and dry. Normal skin color. Normal skin turgor. Extremities: No lower extremity edema. Neurovascular intact to all extremities. No Lacerations. No Rash Neuro: Oriented X 3. No motor deficit. No sensory deficit. Moving all extermities. No slurred speech Medical Decision Making Medical Decision Making [facility] Narrative: Patient well-appearing no acute distress. CPK is normal. No evidence for rhabdo. Patient's white count is normal. Hemoglobin is 14.6 no evidence for anemia. LFTs are normal. No evidence for biliary issues. Patient's urine negative for infection. Patient's tox screen was negative. He is not suicidal not homicidal. Babesiosis ehrlichiosis are still pending. Patient to be discharged home. My interpretation patient's EKG showed a sinus rhythm heart rate is 60 TN QRS QTC normal no acute ST segment elevation noted Differential Diagnosis Differential Diagnoses: The differential diagnosis associated with the presentation includes Rhabdo, liver issues, thyroid issues anemia Admission/Observation Consideration of admission/observation: Escalation of care including admission/observation considered Lab Data [facility] Lab Attestation statement: I reviewed the patient's lab results. 12/19/24 18:16 12/19/24 18:16 Labs: Lab Results 07/10/25 Range/Units 18:16 WBC 8.0 (4.8-10.8) X10*3/uL RBC 4.36 L (4.60-5.80) X10*6/uL Hgb 14.6 (14.0-18.0) g/dl Hct 40.7 L (42.0-52.0) % MCV 93.3 (80.0-98.0) fL MCH 33.5 H (27.0-33.0) pg MCHC 35.9 (31.0-36.0) g/dl RDW 12.8 (11.0-16.0) % Plt Count 209 (160-400) X10*3/uL MPV 9.0 L (9.4-12.4) fL Immature Gran % (Auto) 0.4 (0.0-0.4) % Neut % (Auto) 63.1 (45-73) % Lymph % (Auto) 26.5 (20-40) % [place] % (Auto) 8.4 (2-11) % Eos % (Auto) 1.0 (0-4) % Baso % (Auto) 0.6 (0-2) % Lymph # (Auto) 2.1 (1.2-4.9) X10*3/uL [place] # (Auto) 0.7 (0.1-1.2) X10*3/uL Eos # (Auto) 0.1 (0.0-0.4) X10*3/uL Baso # (Auto) 0.1 (0.0-0.2) X10*3/uL Abs Immat Gran (auto) 0.03 (0.00-0.03) X10*3/uL Absolute Neuts (auto) 5.0 (2.0-8.3) x10*3/uL Absolute Nucleated RBC 0.000 (0.0-0.012) X10*3/uL Nucleated RBC % (auto) 0.0 (0.0-0.2) /100WBC Sodium 142 (135-145) mmol/L Potassium 3.8 (3.3-5.1) mmol/L Chloride 103 (96-108) mmol/L Carbon Dioxide 31 H (22-29) mmol/L Anion Gap 12 (12-20) BUN 16 (9-16) mg/dL Creatinine 0.79 (0.5-1.4) mg/dL Estim Creat Clear Calc 94.2 Estimated GFR > 60 Random Glucose 79 (60-115) mg/dL Calcium 9.3 (8.4-10.2) mg/dL Total Bilirubin 0.3 (0.0-1.0) mg/dL Direct Bilirubin 0.1 (0.0-0.5) mg/dL AST 18 (5-37) U/L ALT 20 (0-40) U/L Alkaline Phosphatase 65 (39-117) U/L Total Creatine Kinase 133 (38-174) U/L Total Protein 7.3 (6.5-8.0) g/dL Albumin 4.6 (3.5-5.0) g/dL TSH 2.36 (0.32-4.0) uIU/mL Urine Color Yellow Urine Appearance Clear Urine pH 7.0 (5.0-9.0) Ur Specific Mccoy 1.010 (1.005-1.025) Urine Protein Negative (Neg-Trace) mg/dL Urine Glucose (UA) Negative (Negative) mg/dL Urine Ketones Negative (Negative) mg/dL Urine Blood Negative (Negative) Urine Nitrite Negative (Negative) Ur Leukocyte Esterase Negative (Negative) Urine RBC 0-2 (0-2) /HPF Urine WBC 0-5 (0-5) /HPF Ur Squamous Epith Cells 0-2 (0-2) /HPF Urine Bacteria None Seen (None Seen) Hyaline Casts 0-2 (0-2) /LPF Urine Opiates Screen Not Detected (Not Detect) Ur Buprenorphine Scrn Not Detected (Not Detect) ng/mL Ur Oxycodone Screen Not Detected (Not Detect) ng/mL Urine Methadone Screen Not Detected (Not Detect) ng/mL Urine Fentanyl Screen Not Detected (Not Detect) Ur Barbiturates Screen Not Detected (Not Detect) Ur Phencyclidine Scrn Not Detected (Not Detect) Ur Amphetamines Screen Not Detected (Not Detect) U Benzodiazepines Scrn Not Detected (Not Detect) Urine Cocaine Screen Not Detected (Not Detect) U Marijuana (THC) Screen Not Detected (Not Detect) Independent Interpretation I performed an independent interpretation of an: EKG (As above) External Record Review External record reviewed: Inpatient record Chronic Conditions History of bipolar Social Determinants Patient?s care significantly limited by Social Determinants of Health including: Problems related to primary support group Discharge Plan Discharge Clinical Impression: Weakness Instructions: Weakness (ED) Prescriptions: No Action gabapentin 300 mg Capsule 300 mg PO BEDTIME 30 Days Qty: 30 0RF olanzapine 15 mg tablet 15 mg PO BEDTIME 30 Days Qty: 30 0RF clonidine HCl 0.1 mg Tablet 0.1 mg PO BID 30 Days Qty: 60 0RF trazodone 50 mg Tablet 50 mg PO BEDTIME 30 Days Qty: 30 0RF atorvastatin 10 mg Tablet 10 mg PO DAILY 30 Days Qty: 30 0RF omeprazole 40 mg Capsule,Delayed Release(Dr/Ec) 40 mg PO DAILY 30 Days Qty: 30 0RF Rx Instructions: before breakfast metformin 1,000 mg tablet 1,000 mg PO BID 30 Days Qty: 60 0RF Januvia 100 mg Tablet 100 mg PO DAILY 30 Days Qty: 30 0RF diclofenac sodium 1 % gel 2 g topical QID Qty: 50 0RF Rx Instructions: apply to single elbow, wrist or hand; for hand includes palm/fingers/back of hand Referrals: Physician,Unknown J [Primary Care Provider, Medical] - 2 days Print Language: Nicaraguan
[2024-12-19 18:04] VITALS: BP 115/61; PULSE 63; RESP 16; TEMP 37.1; O2SAT 98
[2024-12-19 18:23] LABS: MANUAL DIFF FLAG NO
[2024-12-19 18:26] LABS: Hematocrit 40.7 % (42.0-52.0); Hemoglobin 14.6 g/dl (14.0-18.0); Imm Gran Abs Auto 0.03 X10*3/uL (0.00-0.03); Imm Gran Pct Auto 0.4 % (0.0-0.4); Lymphocytes Absolute Auto 2.1 X10*3/uL (1.2-4.9); Mean Corpuscular HGB Conc 35.9 g/dl (31.0-36.0); Mean Corpuscular Hemoglobin 33.5 pg (27.0-33.0); Mean Corpuscular Volume 93.3 fL (80.0-98.0); NRBC Abs Auto 0.000 X10*3/uL (0.0-0.012); NRBC Pct Auto 0.0 /100WBC (0.0-0.2); Platelet Count 209 X10*3/uL (160-400); Red Blood Count 4.36 X10*6/uL (4.60-5.80); White Blood Count 8.0 X10*3/uL (4.8-10.8)
[2024-12-19 18:27] LABS: Appearance Urine Clear; Glucose Urine UA Negative (Negative); PH 7.0 (5.0-9.0); Specific Gravity - Urine 1.010 (1.005-1.025)
[2024-12-19 18:35] LABS: Cannabinoid Screen Urine Not Detected (Not Detect)
[2024-12-19 18:46] LABS: Alanine Aminotransferase 20 U/L (0-40); Albumin Level 4.6 g/dL (3.5-5.0); Alkaline Phosphatase 65 U/L (39-117); Anion Gap 12 (12-20); Aspartate Amino Transferase 18 U/L (5-37); Blood Urea Nitrogen 16 mg/dL (9-16); Calcium 9.3 mg/dL (8.4-10.2); Carbon Dioxide 31 mmol/L (22-29); Chloride 103 mmol/L (96-108); Creatinine Clr Calc Pharmacy 94.2; Estimated Glomerular Filt Rate > 60; Potassium 3.8 mmol/L (3.3-5.1); Sodium 142 mmol/L (135-145); Total Protein 7.3 g/dL (6.5-8.0)
[2024-12-20 00:49] VITALS: BP 115/61; PULSE 63; RESP 16; TEMP 37.1; O2SAT 98
[2024-12-20 11:13] LABS: Lyme Blot 1.33 index
[2024-12-25 14:35] LABS: Lyme Abs Screen POSITIVE
[2024-12-25 20:53] LABS: 39KD (IgG) Band REACTIVE; 41KD (IgG) Band REACTIVE; Lyme IgG Blot Interp NEGATIVE (NEGATIVE); Lyme IgM Blot Interp POSITIVE (NEGATIVE)
[2025-01-05 14:39] LABS: A. Phagocytophilum Ab IgG <1:64 (<1:64); A. Phagocytophilum Ab IgM <1:20 (<1:20)
== END 2024-12-20 00:49 | disposition home or self-care (01) ==
PROVIDERS: Emergency Provider Emergency Medicine Emergency Medical Services
DX: R20.0 Anesthesia of skin (principal); I10 Essential (primary) hypertension; Z63.9 Problem related to primary support group, unspecified; Z79.899 Other long term (current) drug therapy
CPT/HCPCS: 36415; 80048; 80076; 80307; 81001; 82550; 84443; 85025; 86617; 86618; 86666; 86753; 93005; 99284

== ENCOUNTER → 2024-12-19 17:13 | Outpatient (BNV) | payer MEDICAID, SELFPAY | PROVIDERS: Emergency Provider Emergency Medicine Emergency Medical Services; Visit Provider Internal Medicine Cardiovascular Disease | DX: R53.1 Weakness (principal) | CPT/HCPCS: 93010 ==

== ENCOUNTER 2024-12-27 08:18 | Emergency (ER) | payer MEDICAID, SELFPAY ==
--- OUTSIDE RECORDS SUMMARY | 2023-09-05 04:20 | XMS_ITS ---
Author Organization [facility] [address] Location Address [address] [place] [phone] Care Team Providers Care Venereal Disease Control Head Name Role Phone Lorenzo CLARK, Shital Primary Care Provider Unav daniel Stahl MD, Alen Unavailable [phone] Allergies No Known Allergies REASON FOR VISIT Results/Eval Feet Medications Medication SIG (Take, Route, Fr equency, Duration) Notes Start Date End Date Status tiZANidine HCl Activ e Atorvastatin Calcium Active Lisinopril Active hydroCHLOROthiazide Active Cholecalciferol Acti ve Pilocarpine HCl Acti ve risperiDONE Active Pantoprazole Sodium Active Multivitamin Active Magnesium Oxide Acti ve Social History Sex Assigned At : Social History Observation Description Sex Assigned At Male Encounters Encounter Location Date Provider Diagnosis [facility] [address] Location [address] [place] [phone] 09/05/2023 Alen Stahl MD Plan Of Treatment No Information Progress Notes * Dilan MCLAUGHLINwDOB: [birth year] (54 yo M)Acc No.[id number]:09/05/2023 Patient: Davon CHISHOLM Provider: Bryce Lizarraga MD :1970 A ge:53 Y S ex:Male Date:09/05/2023 Address:[address] [place], [place] [id number] Pcp:Shital Ventura NP Subjective: * Chief Complaints: * 1 . Results/Eval Feet. * HPI: C onstitutional: Last visit: 03/20/2023 Today: 09/05/2023 MRI brain (07/2023): Couple punctate foci of nonspecific white matter signal abnormality are of doubtful clinical significance, though can be seen with migraines. Otherwise unremarkable noncontrast MR examination of the head. No acute finding. hx: 53 year old male presents today for evaluation of dizziness. Saw dentist who noted his teeth are rotting and it needs to come out. Feels like something is not right especially if he is staying too still. Feels it could have been related to his blood pressure medications. Stopped benazepril and hctz and feels the dizziness did improve. He was getting headaches as well, but this improved after his metoprolol was decreased. (+) photophobia, (+) osmophobia, (-) blurry vision, (-) diplopia (+) teeth pain. [Records reviewed with the patient today]. * Medical History: H [place], HLP, Prediabetes, h/o COVID. * Surgical History: a ppendectomy . * Family History: patient adopted. * Medications: T aking Pilocarpine HCl , Taking risperiDONE , Taking Pantoprazole Sodium , Taking Multivitamin , Taking Magnesium Oxide , Taking Lisinopril , Taking hydroCHLOROthiazide , Taking Cholecalciferol , Taking tiZANidine HCl , Taking Atorvastatin Calcium * Allergies: N .K.D.A. Objective: * Vitals: Assessment: Plan: * Treatment: * Billing Information: * Visit Code: * Procedure Codes: * Electronic signature of Haylee Stahl MD , on 12/27/2024 at 08:47 AM EDT Sign off status: Pending * Provider: Bryce Lizarraga MD Date: 0 09/05/2023 Generated for Medhat menchaca/Keshawn/Obinnaitting on: 0 12/27/2024 08:47 AM EDT History and Physical Notes * HPI (History of Present Illness) Category Sub-Category Detail Notes Category Not es Constitutional Last visit: 03/20/2023 Today: 09/05/2023 MRI brain (07/2023): Couple punctate foci of nonspecific white matter signal abnormality are of doubtful clinical significance, though can be seen with migraines. Otherwise unremarkable noncontrast MR examination of the head. No acute finding. hx: 53 year old male presents today for evaluation of dizziness. Saw dentist who noted his teeth are rotting and it needs to come out. Feels like something is not right especially if he is staying too still. Feels it could have been related to his blood pressure medications. Stopped benazepril and hctz and feels the dizziness did improve. He was getting headaches as well, but this improved after his metoprolol was decreased. (+) photophobia, (+) osmophobia, (-) blurry vision, (-) diplopia (+) teeth pain. [Records reviewed with the patient today]
--- OUTSIDE RECORDS SUMMARY | 2024-02-04 17:30 | XMS_ITS ---
Author Organization [facility] Address [address] [id number] Care Team Providers Care Compensation Consulting Manager Name Role Phone Lorenzo CLARK, Shital Primary Care Provider Roland Allen Stoddard Unavailable [phone] Migration, Provider Unavailable Unavailable REASON FOR VISIT [...] Encounter Location Date Provider Diagnosis [facility] [address] [id number] 02/04/2024 Provider Migration Plan Of Treatment No Information Progress Notes * Dilan MCLAUGHLINwDOB: [birth year] (54 yo M)Acc No.[id number]:02/04/2024 Patient: Davon CHISHOLM Provider: :1970 A ge:54 Y S ex:Male Date:02/04/2024 Address:[address] [id number] Pcp:Shital Ventura NP Subjective: * Chief Complaints: [...] Electronic signature of Prov ider Migration on 12/27/2024 at 08:47 AM EDT Sign off status: Pending * Provider: Date: 02/04/2024 Generated for Medhat menchaca/Keshawn/Obinnaitting on: 12/27/2024 08:47 AM EDT
[2024-12-27 08:28] VITALS: BP 159/84; BP 168/90; PULSE 77; PULSE 88; RESP 16; TEMP 36.6; O2SAT 98; O2SAT 99; BMI 23.6
--- NOTE | 2024-12-27 08:47 | PC.NURSE ---
Pt comes from [facility]. Staff reporting he has been gone since Monday, it is normal for him to leave for a day or two. Pt reports when a heat wave comes through they don't have AC so he will go stay at a hotel. Pt coming in with multiple complaints, leg pain and loss of muscle, abd pain and bowel issues snce getting Lyme 3 yers ago. Pt reporting he has gotten Lyme 3 more times. He had treatment in 2020 but none since. He received a call from a lab that he tested Positive for Lyme but they were doing more testing as well which has not come back yet. PT rpeorting burning ang tingling pain in all his extremities that he has also had for years. Pt reporting dry mouth and throat, mouth is noted to be dry, tongue is try, with white/brownish coating in the middle. Pt reporting they gave him 2 days worth of medication he only missed today which is why he went back today. Staff reported to EMS he has not taken his medications for the last 3 days. PT has history of HTN/Bipolar/DM. He seemed AMS and shakey to taff and requested he be evaluated. Pt denies ETOH/ drug use. Pt reporting he quit smoking years ago. Pt noted to be slightly over verbal at this time. Pt given call deras at this time, awaiting provider at this time.
--- OUTSIDE RECORDS SUMMARY | 2024-12-27 08:48 | XMS_ITS | Clinical Summary ---
Author Organization [facility] Address [address] [place] [address] Phone Care Team Providers Care Professor Of Theater Name Role Phone Veronica Porras MD Primary Care Provider [phone] Allergies Active Allergy Reactions Criticality Noted Date Comments Benazepril 08/24/2023 Pt reported Metoprolol 08/24/2023 Medications lisinopril (PRINIVIL,ZESTRI L) 10 MG tablet Take 10 mg by mouth daily Active atorvastatin (LIPITOR) 10 MG tablet Take 10 mg by mouth daily Active pantoprazole (PROTONIX) 40 MG EC tablet Take 40 mg by mouth daily Active tiZANidine (ZANAFLEX) 2 MG tablet Take 2 mg by mouth two times a day Active metFORMIN (GLUCOPHAGE) 500 MG tablet Take 1 tablet (500 mg) by mouth two times a day with meals 60 tablet 12/01/2023 Active metFORMIN (GLUCOPHAGE) 500 MG tablet Take 1 tablet (500 mg) by mouth two times a day with meals for 14 days 28 tablet 12/01/2023 Active Active Problems Problem Noted Date Diagnosed Date Adjustment disorder 12/19/2023 Adjustment disorder with mixed anxiety and depre ssed mood 08/28/2023 Chest pain 08/24/2023 Palpitation 08/24/2023 Essential (primary) hypertension 08/24/2023 GERD without esophagitis 08/24/2023 Anxiety and depression 08/24/2023 Muscle spasm 08/24/2023 Homelessness 08/24/2023 Unspecified psychosis not du e to a substance or known physiological condition 06/15/2023 Social History Tobacco Use Types Packs/Day Years Used Date Smoking Tobacco: Former Cigarettes Q uit: 05/07/2023 Smokeless Tobacco: Never Tobacco Cessation:Counseling Given: Not Answered Alcohol Use Standard Drinks/Week Comments Not Currently 0 (1 standard drink = 0.6 oz pur e alcohol) Sex and Gender Information Value Date Recorded Sex Assigned at Not on file Legal Sex Male 8:08 AM EDT Gender Identity Not on file Sexual Orientation Not on file Last Filed Vital Signs Vital Sign Reading Time Taken Comments Blood Pressure 122/76 01/05/2024 1:18 PM EDT Pulse 76 01/05/2024 1:18 PM EDT Temperature 36.4 C (97.6 F) 01/05/2024 8:46 AM EDT Respiratory Rate 19 01/05/2024 1:18 PM EDT Oxygen Saturation 98% 01/05/2024 1:18 PM EDT Inhaled Oxygen Concentration - - Weight 78.5 kg (173 lb) 01/05/2024 2:38 AM EDT Height 167.6 cm (5' 6 ) 01/05/2024 2:38 AM EDT Body Mass Index 27.92 01/05/2024 2:38 AM EDT Plan of Treatment Health Maintenance Due Date Last Done Comments [facility] TOPIC SIGMOIDOSCOPY 1968 [facility] Topic HIV Screening 1970 [facility] Topic Hepatitis C Screening 1968 [facility] Topic PSA 1968 [facility] Topic Tdap Vaccine (1 - Tdap) 01/10/1987 [facility] TOPIC FOBT/FIT TEST 01/10/2013 [facility] Topic Cologuard 01/10/2013 [facility] Topic Colon Cancer Screening 01/10/2013 [facility] Topic Colonoscopy 01/10/2013 [facility] Topic Lung Cancer Screening 01/10/2018 [facility] Topic Pneumococcal Va ccine (HEDIS/Adult) (1 of 1 - PCV) 01/10/2018 [facility] Topic Shingrix (1 of 2) 01/10/2018 [facility] Topic Lipid Profile 08/23/2024 08/24/2023 [facility] Topic Influenza (Flu) Seasonal (#1) 2025 [facility] Topic HIB Vaccines Aged Out No longer eligible based on patient's age to complete this topic Procedures Procedure Name Priority Date/Time Associated Diagnosis Comments LIPID PANEL Add-On 08/24/2023 6:51 PM EDT from Last 3 Months or Most Recently Relevant to Health Maintenance Results * (ABNORMAL) Lipid panel (08/24/2023 6:51 PM EDT) Cholesterol 182 120 - 200 mg/dL 08/25/2023 12:08 AM EDT [facility] HDL 56(H) 35 - 55 mg/dL 08/25/2023 12:08 AM EDT [facility] LDL Calculated 98 60 - 130 mg/dL 08/25/2023 12:08 AM EDT [facility] Triglycerides 139 35 - 150 mg/dL 08/25/2023 12:08 AM EDT [facility] Cholesterol Risk Ratio 3.25 mg/dL 08/25/2023 12:08 AM EDT [facility] Comment:Less than the averag e risk of developing coronary heart disease. Blood Venous blood / Unknown Venipuncture / Unknown 08/24/2023 6:51 PM EDT 08/24/2023 6:56 PM EDT us Harmony Huntley MD LAB BLOOD ORDERABLES Final Resu lt [facility] [address] [place] [address], [place] [phone] from Last 3 Months or Most Recently Relevant to Health Maintenance [place] [address] [place] [address] [employer] [address] Advance Directives For more information, please contact: [phone] Documents on File Type Date Recorded Patient Vp Scientific Affairs Expl anation Advance Directives and Living Will 05/16/2023 12:58 PM Health Care Proxy * Full Code (Latest Code Status on File) Date Activated Date Inactivated Comments 08/28/2023 1:13 PM 08/29/2023 7:00 PM Question Answer Comments Cardiopulmonary Resuscitatio n: for a patient in cardiac or respiratory arrest (Full Code = Attempt Resuscitation, DNR = Do not attempt resuscitation): Full Code Ventilation: for a patient in respiratory distre ss: Intubate and Ventilate * Full Code Date Activated Date Inactivated Comments 08/24/2023 11:01 PM 08/26/2023 6:51 PM Question Answer Comments Cardiopulmonary Resuscitatio n: for a patient in cardiac or respiratory arrest (Full Code = Attempt Resuscitation, DNR = Do not attempt resuscitation): Full Code Ventilation: for a patient in respiratory distre ss: Intubate and Ventilate Care Teams Professor Of Theater Relationship Specialty Start Date End Date Veronica Porras MD PCP - General Family Medicine 01/04/24
--- OUTSIDE RECORDS SUMMARY | 2024-12-27 08:48 | XMS_ITS | Clinical Summary ---
Author Organization [facility] Address [address] [place] [address] Care Team Providers Care Calender Inspector Name Role Phone Unavailable Primary Care Provider [...]
--- OUTSIDE RECORDS SUMMARY | 2024-12-27 08:49 | XMS_ITS | Clinical Summary ---
Author Organization [facility] Address [address] [place] [address] Care Team Providers Care Returned Telephone Equipment Appraiser Name Role Phone No, Pcp Primary Care [...] patient's age to complete this topic Insurance [facility] Care Teams Returned Telephone Equipment Appraiser Relationship Specialty Start Date End Date No, Pcp, MD PCP - General Pediatrics 01/21/24
[2024-12-27 08:52] LABS: Appearance Urine Clear; Glucose Urine UA Negative (Negative); PH 6.5 (5.0-9.0); Specific Gravity - Urine 1.010 (1.005-1.025)
--- NOTE | 2024-12-27 09:07 | ED_ITS ---
HPI - General Adult General Chief complaint: General Medical Stated complaint: AMS Time Seen by Provider: 12/27/24 09:06 Source: patient and EMS Mode of arrival: EMS Limitations: no limitations History of Present Illness ED Provider: Irina Price PA-C HPI narrative: Patient is a 54 year old assigned male at with a history of HTN, bipolar disorder, and previous Lyme disease presenting to the emergency department today after he was called and told he had positive lyme testing. Patient states that over a week ago he removed a tick from his person and ever since he has had progressively worsening muscle weakness. Patient states that he has been taking his medications as prescribed. Patient states that he is continuing to stay at [facility]. Patient denies any dizziness, lightheadedness, abdominal pain, nausea, vomiting, fever, chills, blurry vision, double vision, loss of vision, chest pain, difficulty breathing, shortness of breath, back pain, night sweats, pain with urination, increased urinary frequency, increased urinary urgency, blood in his urine or stool, syncope or a near syncopal episode, recent trauma or falls, bowel incontinence, bladder incontinence, or any other complaints at this time. Relieving factors: none Exacerbating factors: none Associated symptoms: weakness Treatments prior to arrival: none Related Data Previous Rx's ?Medication ?Instructions ?Recorded atorvastatin 10 mg tablet 10 mg PO DAILY 30 days #30 t abs 03/26/24 clonidine HCl 0.1 mg tablet 0.1 mg PO BID 30 days #60 tabs 03/26/24 gabapentin 300 mg capsule 300 mg PO BEDTIME 30 days #3 0 caps 03/26/24 metformin 1,000 mg tablet 1,000 mg PO BID 30 days #60 tabs 03/26/24 olanzapine 15 mg tablet 15 mg PO BEDTIME 30 days #30 tabs 03/26/24 omeprazole 40 mg capsule,delayed 40 mg PO DAILY 30 day s #30 caps 03/26/24 release sitagliptin phosphate 100 mg 100 mg PO DAILY 30 days # 30 tabs 03/26/24 tablet (Januvia) trazodone 50 mg tablet 50 mg PO BEDTIME 30 days #30 tabs 03/26/24 diclofenac sodium 1 % topical gel 2 g topical QID #50 grams 11/17/24 doxycycline hyclate 100 mg tablet 100 mg PO BID 21 day s #42 tabs 12/27/24 Allergies Allergy/AdvReac Type Severity Reaction Status Date / Time benazepril Allergy Cough Verified 12/27/24 08:33 metoprolol Allergy Cough Verified 12/27/24 08:33 Review of Systems 2 Constitutional: Constitutional: Reports no additional constitutional complaints, Denies chills, Denies fever(s), Denies night sweats and Reports weakness Eyes: Eyes: Reports no additional eye complaints, Denies blurry vision, Denies change in vision, Denies diplopia, Denies eye discharge, Denies loss of vision and Denies eye pain ENT: Denies dizziness Cardiovascular: Cardiovascular: Reports no additional cardiovascular complaints, Denies chest pain, Denies lightheadedness, Denies Loss of Consciousness and Denies dyspnea Respiratory: Respiratory: Reports no additional respiratory complaints and Denies dyspnea Gastrointestinal: Gastrointestinal: Reports no additional gastrointestinal complaints, Denies abdominal pain, Denies melena, Denies hematochezia, Denies change in bowel habits and Denies change in stool character Genitourinary: Genitourinary: Reports no additional male genitourinary complaints, Denies hematuria, Denies oliguria, Denies difficulty urinating, Denies dysuria, Denies urinary frequency, Denies urinary hesitancy, Denies urinary incontinence and Denies urinary urgency Musculoskeletal: Musculoskeletal: Reports no additional musculoskeletal complaints, Denies numbness and Denies tingling Neurologic: Denies dizziness, Denies loss of vision, Denies numbness, Denies tingling and Reports weakness Psychiatric: Psychiatric: Reports no additional psychiatric complaints Endocrine: Endocrine: Reports no additional endocrine complaints Hematologic/Lymphatic: Hematologic/Lymphatic: Reports no additional hematologic/lymphatic complaints Allergic/Immunologic: Allergic/Immunologic: Reports no additional allergic/immunologic complaints [facility] Past Medical History Attestation statement: The following information was validated with the patient. Source: old records reviewed and nursing notes reviewed Medical History Medical clearance for psychiatric admission Depression Lyme disease GERD (gastroesophageal reflux disease) Non-insulin dependent type 2 diabetes mellitus HLD (hyperlipidemia) Social History Social History Household Members: None Housing: Homeless Patient Tobacco Use Status: Current everyday Tobacco user Tobacco use type: Cigarette Smoked in Last 30 Days: No e-Cigarette/Vaping Use: Never Used Second Hand Smoke Exposure: No Use of substances other than those prescribed or required for medical reasons: No Advance Directives: No Advance Directives Information Provided: Yes Sexual orientation: Don't Know Physical Exam ED Vital Signs: Vital Signs - 24 hr 12/27/24 08:28 12/27/24 10:15 12/27/24 11:05 Temperature 98 F 98.8 F 98.8 F Pulse Rate 77 67 67 Respiratory Rate 16 11 L 11 L Blood Pressure 159/84 H 134/78 134/78 Pulse Oximetry 99 99 99 Oxygen Delivery Method Room Air Room Air Room Air BMI result Body Mass Index 23.6 Const General: cooperative, no acute distress, alert and awake Nutritional Appearance: well nourished Orientation/consciousness: patient oriented x3 HENMT Head: Yes normal to inspection and Yes atraumatic Ears: hearing grossly normal bilaterally and external ears normal General nose exam: Normal external nose present, no nasal discharge noted and no epistaxis Face and sinus: Yes normal facial exam, No abrasion and No laceration Mouth: Normal oral and palatal mucosa present, no drooling and no muffled voice Teeth and gingiva: poor dentition Eyes General: appearance normal, both eyes and all related structures Periorbital: periorbital findings normal Eyelids: Yes eyelids normal Conjunctivae: conjunctivae normal Pupils: Equal, round and reactive pupils present EOM: EOMs intact bilaterally Neck Neck: Yes normal visual inspection, Yes full ROM and Yes no lymphadenopathy Resp Effort & Inspection: normal respiratory effort and able to speak in complete sentences Neuro General: patient oriented x3, moves all extremities and CN's II-XI intact bilaterally Cranial nerves: Yes Equal, round and reactive pupils present Cognition (Neuro): normal cognition Extrem General: Yes normal to inspection, Yes full ROM and Yes capillary refill normal Psych Appearance: grossly normal Mental Status: mental status grossly normal Affect: normal affect Attitude: cooperative Thought process: Normal thought process present Thought content: Normal thought content present Insight: Good insight present (Psych) Medications Administered Discontinued Medications Generic Name Dose Route Start Last Admin Trade Name Freq PRN Reason Stop Dose Admin Doxycycline Monohydrate 100 mg 12/27/24 09:15 12/27/24 09:33 Doxycycline Monohydrate 100 Mg Capsule PO 12/27/24 09:16 100 mg ONCE ONE Administration Methylprednisolone Sodium Succinate 60 mg 12/27/24 09:25 12/27/24 09:33 Methylprednisolone Sod Succ 125 Mg/2 Ml Vial IM 12/27/24 09:26 60 mg ONCE ONE Administration Medical Decision Making Medical Decision Making [facility] Narrative: Patient is a 54 year old assigned male at with a history of HTN, bipolar disorder, and previous Lyme disease presenting to the emergency department today after he was called and told he had positive lyme testing. Patient's physical exam was unremarkable and consistent with his baseline. Patient's blood work was unremarkable for today's visit but I did confirm the patient has positive Lyme testing from his 12/19/2024 visit. I explained my physical exam findings as well as all test results to the patient. I answered all questions asked by the patient. I stressed the importance of the patient taking his medication as directed (either prescribed or as the over the counter packaging recommends). I stressed the importance of the patient following up with his primary care provider. I stressed the importance of the patient returning to the emergency department immediately if his symptoms were to worsen or if he were to develop any dizziness, shortness of breath, difficulty breathing, chest pain, blurry vision, loss of vision, nausea, vomiting, abdominal pain, fever, chills, back pain, or any other complaints. Patient verbalized agreement and understanding with this treatment plan and discharge. Differential Diagnosis Differential Diagnoses: The differential diagnosis associated with the presentation includes Lyme disease Muscle weakness Admission/Observation Consideration of admission/observation: Escalation of care including admission/observation considered Patient would have been admitted to the hospital had his work up had any findings where hospital admission was appropriate and his clinical presentation warranted hospital admission. Lab Data [facility] Lab Attestation statement: I reviewed the patient's lab results. My interpretation of these results are in the [facility] Rationale portion of this note. 12/27/24 09:41 12/27/24 09:41 Labs: Lab Results 12/27/24 12/27/24 Range/Units 08:40 09:41 WBC 5.6 (4.8-10.8) X10*3/uL RBC 4.60 (4.60-5.80) X10*6/uL Hgb 15.6 (14.0-18.0) g/dl Hct 43.3 (42.0-52.0) % MCV 94.1 (80.0-98.0) fL MCH 33.9 H (27.0-33.0) pg MCHC 36.0 (31.0-36.0) g/dl RDW 13.0 (11.0-16.0) % Plt Count 207 (160-400) X10*3/uL MPV 9.2 L (9.4-12.4) fL Immature Gran % (Auto) 0.4 (0.0-0.4) % Neut % (Auto) 69.2 (45-73) % Lymph % (Auto) 21.5 (20-40) % Weld % (Auto) 7.5 (2-11) % Eos % (Auto) 0.7 (0-4) % Baso % (Auto) 0.7 (0-2) % Lymph # (Auto) 1.2 (1.2-4.9) X10*3/uL Weld # (Auto) 0.4 (0.1-1.2) X10*3/uL Eos # (Auto) 0.0 (0.0-0.4) X10*3/uL Baso # (Auto) 0.0 (0.0-0.2) X10*3/uL Abs Immat Gran (auto) 0.02 (0.00-0.03) X10*3/uL Absolute Neuts (auto) 3.9 (2.0-8.3) x10*3/uL Absolute Nucleated RBC 0.000 (0.0-0.012) X10*3/uL Nucleated RBC % (auto) 0.0 (0.0-0.2) /100WBC Sodium 144 (135-145) mmol/L Potassium 4.4 (3.3-5.1) mmol/L Chloride 106 (96-108) mmol/L Carbon Dioxide 30 H (22-29) mmol/L Anion Gap 12 (12-20) BUN 10 (9-16) mg/dL Creatinine 0.68 (0.5-1.4) mg/dL Estim Creat Clear Calc 117.3 Estimated GFR > 60 Random Glucose 99 (60-115) mg/dL Calcium 9.8 (8.4-10.2) mg/dL Magnesium 2.0 (1.6-2.6) mg/dL Total Bilirubin 0.5 (0.0-1.0) mg/dL AST 20 (5-37) U/L ALT 20 (0-40) U/L Alkaline Phosphatase 81 (39-117) U/L Total Protein 7.7 (6.5-8.0) g/dL Albumin 4.9 (3.5-5.0) g/dL Urine Color Yellow Urine Appearance Clear Urine pH 6.5 (5.0-9.0) Ur Specific Wallace 1.010 (1.005-1.025) Urine Protein Negative (Neg-Trace) mg/dL Urine Glucose (UA) Negative (Negative) mg/dL Urine Ketones Negative (Negative) mg/dL Urine Blood Negative (Negative) Urine Nitrite Negative (Negative) Ur Leukocyte Esterase Negative (Negative) Urine RBC 0-2 (0-2) /HPF Urine WBC 0-5 (0-5) /HPF Ur Squamous Epith Cells 0-2 (0-2) /HPF Urine Bacteria None Seen (None Seen) Hyaline Casts 0-2 (0-2) /LPF Influenza Type A (PCR) NEGATIVE (Negative) Influenza Type B (PCR) NEGATIVE (Negative) RSV RNA Qual (PCR) NEGATIVE (Negative) SARS-CoV-2 RNA (RT-PCR) NEGATIVE (Negative) Independent Interpretation I performed an independent interpretation of an: EKG Interpretation: I independently interpreted this EKG and am in agreement with the below findings: Vent. Rate: 64 BPM Atrial Rate: 64 BPM P-R Int: 162 ms QRS Dur: 76 ms QT Int: 400 ms P-R-T Axes: 55 57 44 degrees QTcB Int: 412 ms Normal sinus rhythm Normal ECG When compared with ECG of 19-Dec-2024 17:56, No significant change was found DD/ [id number] Prescription Management I considered prescription management with: Antibiotic (patient prescribed an antibiotic for Lyme) Discharge Plan Discharge Clinical Impression: Lyme disease Patient Disposition: Home, Self-Care Instructions: Lyme Disease (ED) Additional Instructions: Follow up with your primary care provider. Return to the emergency department immediately if your symptoms worsen or if you develop any numbness, tingling, dizziness, shortness of breath, difficulty breathing, chest pain, blurry vision, loss of vision, nausea, vomiting, abdominal pain, fever, chills, back pain, or any other complaints. Please see the information below about our Patient Portal. If you are not yet enrolled in the [facility] Patient Portal, you will receive an enrollment email invitation following your visit to any [facility] setting. You may also self-enroll in the Patient Portal by visiting our website: [email or web address] The following information is required to access the Patient Portal: - Your [facility] Medical Record Number - Your personal home email address (must match what is in your electronic medical record, Registration staff can assist with this) - Name - Date of Capabilities of the Patient Portal: - Message some providers - View upcoming appointments - Access your health summary, medical history, and visit history - View current conditions and allergies - View procedure and lab results - View your medications, including guidelines, side effects, and precautions - Complete pre-appointment questionnaires requested by your provider - Ready summary reports of your office visits and procedures To access the Patient Portal Mobile Id[employer], follow these directions: - Search [employer] in the Idalmis Store or Google [email or web address] Store - Download the Idalmis - Search for [facility] - Enter your login/password Prescriptions: New doxycycline hyclate 100 mg tablet 100 mg PO BID 21 Days Qty: 42 0RF No Action gabapentin 300 mg Capsule 300 mg PO BEDTIME 30 Days Qty: 30 0RF olanzapine 15 mg tablet 15 mg PO BEDTIME 30 Days Qty: 30 0RF clonidine HCl 0.1 mg Tablet 0.1 mg PO BID 30 Days Qty: 60 0RF trazodone 50 mg Tablet 50 mg PO BEDTIME 30 Days Qty: 30 0RF atorvastatin 10 mg Tablet 10 mg PO DAILY 30 Days Qty: 30 0RF omeprazole 40 mg Capsule,Delayed Release(Dr/Ec) 40 mg PO DAILY 30 Days Qty: 30 0RF Rx Instructions: before breakfast metformin 1,000 mg tablet 1,000 mg PO BID 30 Days Qty: 60 0RF Januvia 100 mg Tablet 100 mg PO DAILY 30 Days Qty: 30 0RF diclofenac sodium 1 % gel 2 g topical QID Qty: 50 0RF Rx Instructions: apply to single elbow, wrist or hand; for hand includes palm/fingers/back of hand Referrals: Celestina Gallardo MD [Primary Care Provider, Medical] Interventions: ED Discharge Assessment Last Done: 12/27/24 11:05 Discharge Date/Time: 12/27/24 11:06 Print Language: Tamazight
--- NOTE | 2024-12-27 09:15 | ECG_ITS ---
Test Reason : ams Blood Pressure : */* mmHG Vent. Rate : 64 BPM Atrial Rate : 64 BPM P-R Int : 162 ms QRS Dur : 76 ms QT Int : 400 ms P-R-T Axes : 55 57 44 degrees QTcB Int : 412 ms Normal sinus rhythm Normal ECG When compared with ECG of 19-Dec-2024 17:56, No significant change was found Referred By: Irina Price Electronically Signed By: TREVIN MCNALLY
[2024-12-27 09:46] LABS: MANUAL DIFF FLAG NO
[2024-12-27 09:48] LABS: Hematocrit 43.3 % (42.0-52.0); Hemoglobin 15.6 g/dl (14.0-18.0); Imm Gran Abs Auto 0.02 X10*3/uL (0.00-0.03); Imm Gran Pct Auto 0.4 % (0.0-0.4); Lymphocytes Absolute Auto 1.2 X10*3/uL (1.2-4.9); Mean Corpuscular HGB Conc 36.0 g/dl (31.0-36.0); Mean Corpuscular Hemoglobin 33.9 pg (27.0-33.0); Mean Corpuscular Volume 94.1 fL (80.0-98.0); NRBC Abs Auto 0.000 X10*3/uL (0.0-0.012); NRBC Pct Auto 0.0 /100WBC (0.0-0.2); Platelet Count 207 X10*3/uL (160-400); Red Blood Count 4.60 X10*6/uL (4.60-5.80); White Blood Count 5.6 X10*3/uL (4.8-10.8)
[2024-12-27 10:02] LABS: Alanine Aminotransferase 20 U/L (0-40); Albumin Level 4.9 g/dL (3.5-5.0); Alkaline Phosphatase 81 U/L (39-117); Anion Gap 12 (12-20); Aspartate Amino Transferase 20 U/L (5-37); Blood Urea Nitrogen 10 mg/dL (9-16); Calcium 9.8 mg/dL (8.4-10.2); Carbon Dioxide 30 mmol/L (22-29); Chloride 106 mmol/L (96-108); Creatinine Clr Calc Pharmacy 117.3; Estimated Glomerular Filt Rate > 60; Magnesium 2.0 mg/dL (1.6-2.6); Potassium 4.4 mmol/L (3.3-5.1); Sodium 144 mmol/L (135-145); Total Protein 7.7 g/dL (6.5-8.0)
[2024-12-27 10:15] VITALS: BP 134/78; PULSE 67; RESP 11; TEMP 37.1; O2SAT 99
[2024-12-27 10:26] LABS: Resp Syncy Virus RNA Qual PCR NEGATIVE (Negative); SARS COV2 PCR INHOUSE NEGATIVE (Negative)
[2024-12-27 11:05] VITALS: BP 134/78; PULSE 67; RESP 11; TEMP 37.1; O2SAT 99
== END 2024-12-27 11:06 | disposition home or self-care (01) ==
PROVIDERS: Physician Assistant Medical; Emergency Provider Emergency Medicine; PCP Family Medicine
DX: A69.20 Lyme disease, unspecified (principal); E11.9 Type 2 diabetes mellitus without complications; I10 Essential (primary) hypertension; E78.5 Hyperlipidemia, unspecified; Z03.818 Encounter for observation for suspected exposure to other biological agents ruled out
CPT/HCPCS: 80053; 81001; 83735; 85025; 87637; 93005; 99283; 99284; J2919

== ENCOUNTER → 2024-12-27 09:15 | Outpatient (BNV) | payer MEDICAID, SELFPAY | PROVIDERS: Emergency Provider Emergency Medicine; PCP Family Medicine; Visit Provider Internal Medicine | DX: R41.82 Altered mental status, unspecified (principal) | CPT/HCPCS: 93010 ==

== ENCOUNTER 2025-01-05 13:37 | Emergency (ER) | payer MEDICAID, SELFPAY ==
[2025-01-05 13:45] VITALS: BP 110/76; BP 128/80; PULSE 75; PULSE 77; RESP 18; TEMP 36.8; O2SAT 98; O2SAT 99; BMI 26.3
--- NOTE | 2025-01-05 13:58 | ED_ITS ---
HPI - General Adult General Chief complaint: General Medical Stated complaint: PT STS BODYACHES,LYME FLARE UP,FROM [facility] PER EMS Time Seen by Provider: 01/05/25 13:39 Source: patient and EMS Mode of arrival: EMS Limitations: no limitations History of Present Illness ED Provider: Denice Hancock NP HPI narrative: Patient is a 54-year-old male who presents emergency department for evaluation he is coming from [facility] via EMS for evaluation of body aches myalgias/arthralgias for many months. He states that he is currently being treated for Lyme. States he has been battling Lyme for ?a long time?. States he has been on multiple courses of doxycycline including his current course which would be the 4th, he has also tried prednisone in the past. He states he does not take anti-inflammatory medications venous hypertension and has been told it will interact with his amlodipine. He feels as though his primary care provider is not taking his symptoms seriously had no alleviation from these symptoms for many months. He denies any fevers, chills chest pain, shortness of breath, nausea, vomiting abdominal pain, genitourinary symptoms. Related Data Previous Rx's ?Medication ?Instructions ?Recorded atorvastatin 10 mg tablet 10 mg PO DAILY 30 days #30 t abs 03/26/24 clonidine HCl 0.1 mg tablet 0.1 mg PO BID 30 days #60 tabs 03/26/24 gabapentin 300 mg capsule 300 mg PO BEDTIME 30 days #3 0 caps 03/26/24 metformin 1,000 mg tablet 1,000 mg PO BID 30 days #60 tabs 03/26/24 olanzapine 15 mg tablet 15 mg PO BEDTIME 30 days #30 tabs 03/26/24 omeprazole 40 mg capsule,delayed 40 mg PO DAILY 30 day s #30 caps 03/26/24 release sitagliptin phosphate 100 mg 100 mg PO DAILY 30 days # 30 tabs 03/26/24 tablet (Januvia) trazodone 50 mg tablet 50 mg PO BEDTIME 30 days #30 tabs 03/26/24 diclofenac sodium 1 % topical gel 2 g topical QID #50 grams 11/17/24 doxycycline hyclate 100 mg tablet 100 mg PO BID 21 day s #42 tabs 12/27/24 Allergies Allergy/AdvReac Type Severity Reaction Status Date / Time benazepril Allergy Cough Verified 01/05/25 13:47 metoprolol Allergy Cough Verified 01/05/25 13:47 Review of Systems 2 Review of Systems: Yes all other systems are reviewed and are negative [facility] Past Medical History Attestation statement: The following information was validated with the patient. Source: old records reviewed Medical History Medical clearance for psychiatric admission Depression Lyme disease GERD (gastroesophageal reflux disease) Non-insulin dependent type 2 diabetes mellitus HLD (hyperlipidemia) Social History Social History Household Members: None Housing: Homeless Patient Tobacco Use Status: Current everyday Tobacco user Tobacco use type: Cigarette Smoked in Last 30 Days: No e-Cigarette/Vaping Use: Never Used Second Hand Smoke Exposure: No Use of substances other than those prescribed or required for medical reasons: No Advance Directives: No Advance Directives Information Provided: No Do you have a plan to hurt others: No Plan Sexual orientation: Don't Know Physical Exam ED Exam Exam: Appearance: Alert.?Oriented to person, place and time. No acute distress.?Normal affect. Eyes: Pupils equal, round and reactive to light.? ENT: Pharynx normal.?? Neck: Normal inspection.? Neck supple.?? CVS: Heart sounds normal. Normal heart rate and rhythm.? Pulses normal.?? Respiratory: No respiratory distress.? Lung sounds clear to auscultation bilaterally?? Abdomen: Soft and non-tender. Normoactive bowel sounds. Skin: Skin warm and dry.? Normal skin color.? Extremities: No lower extremity edema.? No calf ttp? Neuro: Moves all extremities spontaneously. Sensation intact bilaterally. CN II- XII intact. No focal neuro deficits. Ambulates with normal steady gait. Vital Signs: Vital Signs - 24 hr 01/05/25 13:45 01/05/25 15:57 Temperature 98.2 F 97.7 F Pulse Rate 75 64 Respiratory Rate 18 18 Blood Pressure 110/76 135/80 Pulse Oximetry 98 99 Oxygen Delivery Method Room Air Room Air BMI result Body Mass Index 26.3 Course Reevaluation(s) Reevaluation #1: Viral serologies are negative. No electrolyte derangement. No PASTORA. CK within normal range. CBC leukocytosis, no significant anemia. Discussed with the patient, recommend outpatient follow-up with PCP, Infectious Disease regarding Lyme disease, potentially rheumatology to exclude alternative pathology for his ongoing myalgias and arthralgias. Medications Administered Discontinued Medications Generic Name Dose Route Start Last Admin Trade Name Bravo PRN Reason Stop Dose Admin Ketorolac Tromethamine 15 mg 01/05/25 14:22 01/05/25 14:44 Ketorolac Tromethamine 15 Mg/Ml Vial IM 01/05/25 14:23 15 mg ONCE ONE Administration Medical Decision Making Medical Decision Making [facility] Narrative: Patient is a 54-year-old male past medical history of hypertension, hyperlipidemia, diabetes, depression, Lyme who presents emergency department for evaluation. He has been seen in the department 3 times prior to today since the beginning of November for myalgias and arthralgias this is ongoing for many months. He denies that symptoms are particularly worse today. However he states he is not having any improvement. He states ?the doxycycline isn't doing anything?. He has not taken any NSAIDs and will not take any NSAIDs due to his history of hypertension and has a been advised by his primary care doctor not to take the medications. He states he has tried a course of prednisone which has not been of any benefit for him. He also states that his primary care doctor is ?not taking him seriously?. He has not had any outpatient follow-up since his recent ED visits. Testing from 12/19/2024 revealed a positive Western blot with IgG and IgM antibodies, and he had endorse that 1 week prior he had removed a tick from his person concerning for potential chronic/past exposure as well as recent exposure. On 12/27/2024 he was started on doxycycline BID for 21 day course. Reviewed with the patient, will assure no acute electrolyte derangement, PASTORA, rhabdo on labs today. However, feel that he would most benefit from outpatient follow-up such as with primary care provider, infectious disease, and/or rheumatology with persistent myalgias and arthralgias. Differential Diagnosis Differential Diagnoses: The differential diagnosis associated with the presentation includes (See narrative above) Admission/Observation Consideration of admission/observation: Escalation of care including admission/observation considered Lab Data [facility] Lab Attestation statement: I reviewed the patient's lab results. 01/05/25 14:49 01/05/25 14:49 Labs: Lab Results 07/27/25 07/27/25 Range/Units 14:01 14:49 WBC 6.5 (4.8-10.8) X10*3/uL RBC 4.43 L (4.60-5.80) X10*6/uL Hgb 15.1 (14.0-18.0) g/dl Hct 41.9 L (42.0-52.0) % MCV 94.6 (80.0-98.0) fL MCH 34.1 H (27.0-33.0) pg MCHC 36.0 (31.0-36.0) g/dl RDW 12.7 (11.0-16.0) % Plt Count 190 (160-400) X10*3/uL MPV 9.4 (9.4-12.4) fL Immature Gran % (Auto) 0.5 H (0.0-0.4) % Neut % (Auto) 61.6 (45-73) % Lymph % (Auto) 26.9 (20-40) % [place] % (Auto) 9.1 (2-11) % Eos % (Auto) 1.1 (0-4) % Baso % (Auto) 0.8 (0-2) % Lymph # (Auto) 1.8 (1.2-4.9) X10*3/uL [place] # (Auto) 0.6 (0.1-1.2) X10*3/uL Eos # (Auto) 0.1 (0.0-0.4) X10*3/uL Baso # (Auto) 0.1 (0.0-0.2) X10*3/uL Abs Immat Gran (auto) 0.03 (0.00-0.03) X10*3/uL Absolute Neuts (auto) 4.0 (2.0-8.3) x10*3/uL Absolute Nucleated RBC 0.000 (0.0-0.012) X10*3/uL Nucleated RBC % (auto) 0.0 (0.0-0.2) /100WBC Sodium 143 (135-145) mmol/L Potassium 3.9 (3.3-5.1) mmol/L Chloride 107 (96-108) mmol/L Carbon Dioxide 28 (22-29) mmol/L Anion Gap 12 (12-20) BUN 14 (9-16) mg/dL Creatinine 0.74 (0.5-1.4) mg/dL Estim Creat Clear Calc 100.5 Estimated GFR > 60 Random Glucose 84 (60-115) mg/dL Calcium 9.4 (8.4-10.2) mg/dL Total Bilirubin 0.3 (0.0-1.0) mg/dL AST 18 (5-37) U/L ALT 15 (0-40) U/L Alkaline Phosphatase 75 (39-117) U/L Total Creatine Kinase 100 (38-174) U/L Total Protein 7.0 (6.5-8.0) g/dL Albumin 4.6 (3.5-5.0) g/dL Influenza Type A (PCR) NEGATIVE (Negative) Influenza Type B (PCR) NEGATIVE (Negative) RSV RNA Qual (PCR) NEGATIVE (Negative) SARS-CoV-2 RNA (RT-PCR) NEGATIVE (Negative) Independent Historian Clinical information obtained from an independent historian. History obtained from or confirmed by: EMS External Record Review External record reviewed: Outpatient record Chronic Conditions Patient?s care impacted by: Other (See narrative above) Discharge Plan Discharge Clinical Impression: Myalgia Patient Disposition: Home, Self-Care Instructions: Musculoskeletal Pain (ED) Additional Instructions: As discussed, muscle aches and joint pains can be common with Lyme disease. You have been experiencing these symptoms for many months at this point. Your blood work today in the emergency department was reassuring it is not showing alternative cause for your symptoms. It is recommended at this time that you have appropriate outpatient follow-up; this includes with a primary care provider, infectious disease regarding your Lyme disease, and potentially rheumatology to assess for alternative causes. Prescriptions: No Action gabapentin 300 mg Capsule 300 mg PO BEDTIME 30 Days Qty: 30 0RF olanzapine 15 mg tablet 15 mg PO BEDTIME 30 Days Qty: 30 0RF clonidine HCl 0.1 mg Tablet 0.1 mg PO BID 30 Days Qty: 60 0RF trazodone 50 mg Tablet 50 mg PO BEDTIME 30 Days Qty: 30 0RF atorvastatin 10 mg Tablet 10 mg PO DAILY 30 Days Qty: 30 0RF omeprazole 40 mg Capsule,Delayed Release(Dr/Ec) 40 mg PO DAILY 30 Days Qty: 30 0RF Rx Instructions: before breakfast metformin 1,000 mg tablet 1,000 mg PO BID 30 Days Qty: 60 0RF Januvia 100 mg Tablet 100 mg PO DAILY 30 Days Qty: 30 0RF diclofenac sodium 1 % gel 2 g topical QID Qty: 50 0RF Rx Instructions: apply to single elbow, wrist or hand; for hand includes palm/fingers/back of hand doxycycline hyclate 100 mg tablet 100 mg PO BID 21 Days Qty: 42 0RF Referrals: Celestina Gallardo MD [Primary Care Provider, Medical] Brook Kidd MD [Physician, Rheumatology] Keiko Conroy MD [Physician, Infectious Disease] Print Language: Kosovan
--- NOTE | 2025-01-05 14:46 | PC.NURSE ---
patient a&o, c/o 03/21 generalized body aches/pain, nasal swab performed, pt medicated for pain, tech to draw labs, call deras within reach, plan of care ongoing
[2025-01-05 14:47] LABS: Resp Syncy Virus RNA Qual PCR NEGATIVE (Negative); SARS COV2 PCR INHOUSE NEGATIVE (Negative)
[2025-01-05 14:55] LABS: MANUAL DIFF FLAG NO
[2025-01-05 14:57] LABS: Hematocrit 41.9 % (42.0-52.0); Hemoglobin 15.1 g/dl (14.0-18.0); Imm Gran Abs Auto 0.03 X10*3/uL (0.00-0.03); Imm Gran Pct Auto 0.5 % (0.0-0.4); Lymphocytes Absolute Auto 1.8 X10*3/uL (1.2-4.9); Mean Corpuscular HGB Conc 36.0 g/dl (31.0-36.0); Mean Corpuscular Hemoglobin 34.1 pg (27.0-33.0); Mean Corpuscular Volume 94.6 fL (80.0-98.0); NRBC Abs Auto 0.000 X10*3/uL (0.0-0.012); NRBC Pct Auto 0.0 /100WBC (0.0-0.2); Platelet Count 190 X10*3/uL (160-400); Red Blood Count 4.43 X10*6/uL (4.60-5.80); White Blood Count 6.5 X10*3/uL (4.8-10.8)
[2025-01-05 15:13] LABS: Alanine Aminotransferase 15 U/L (0-40); Albumin Level 4.6 g/dL (3.5-5.0); Alkaline Phosphatase 75 U/L (39-117); Anion Gap 12 (12-20); Aspartate Amino Transferase 18 U/L (5-37); Blood Urea Nitrogen 14 mg/dL (9-16); Calcium 9.4 mg/dL (8.4-10.2); Carbon Dioxide 28 mmol/L (22-29); Chloride 107 mmol/L (96-108); Creatinine Clr Calc Pharmacy 100.5; Estimated Glomerular Filt Rate > 60; Potassium 3.9 mmol/L (3.3-5.1); Sodium 143 mmol/L (135-145); Total Protein 7.0 g/dL (6.5-8.0)
[2025-01-05 15:57] VITALS: BP 135/80; PULSE 64; RESP 18; TEMP 36.5; O2SAT 99
--- NOTE | 2025-01-05 17:10 | PC.NURSE ---
nurse to nurse this nurse attempted to call facility to give a nurse to nurse report, answering machine answered and this nurse left a message stating the patient would be returning and would live to give a nurse to nurse report and to please call the ED. This nurse will attempt to call the facility again.
--- NOTE | 2025-01-05 18:22 | PC.NURSE ---
this nurse gave report to lo who stated she was working as charge of the facility.
[2025-01-05 21:43] VITALS: BP 116/64; PULSE 55; RESP 16; TEMP 36.5; O2SAT 98
[2025-01-05 21:47] VITALS: BP 116/64; PULSE 55; RESP 16; TEMP 36.5; O2SAT 98
== END 2025-01-05 21:56 | disposition home or self-care (01) ==
PROVIDERS: Nurse Practitioner Family; Emergency Provider Emergency Medicine; PCP Family Medicine
DX: M79.10 Myalgia, unspecified site (principal); Z03.818 Encounter for observation for suspected exposure to other biological agents ruled out; F17.210 Nicotine dependence, cigarettes, uncomplicated; Z79.899 Other long term (current) drug therapy
CPT/HCPCS: 36415; 80053; 82550; 85025; 87637; 96372; 99284; J1885

== ENCOUNTER 2025-01-09 11:38 | Inpatient (IN) | payer OTHER, SELFPAY ==
--- OUTSIDE RECORDS SUMMARY | 2023-07-23 19:00 | XMS_ITS | Continuity of Care Document ---
Author Organization [facility] Address [address] [place] [phone] Phone Care Team Providers Care Straw Hat Plunger Operator Name Role Phone Ariana RODRIGUEZ, Alexander Unavailable Unavailable Allergies, Adverse Reactions, Alerts Substance Reaction Status Criticality Yeast ; ; ; ; Active No Information Medications Medication Instructions Dosage Effective Dates (start - stop) Status Comments Medrol (Pete) 4 mg tablets in a dose pack as needed for arthritis flares for 6 days - Active colchicine 0.6 mg tablet 1 tablet daily for 30 days - Active Advance Directives Directive Yes / No Effective Date File Name No Information Encounters Encounter Description Practice Location Reason(s) For Visit Diagnoses Date Provider Providers Copied on Encounter [facility] , [address] [place] [address], [id number], tel:[phone] [facility] Gout, unspecifiedPe rsonality disorder, unspecified 4 Ariana Munoz. [address] [place] [address], [id number] , [place]. tel:[phone] [facility], [address] [place] [address], [id number], [place] tel:[phone] [facility] Gout, unspecified Nov- 3 Ariana Munoz. [address] [place] [address], [id number] , [place]. tel:[phone] [facility], [address] [place] [address], [id number], [place] tel:[phone] [facility] Gout, unspecified 3 Ariana Munoz. [address] [place] [address], [id number] , . tel:[phone] [facility], [address] [place] [address], [id number], tel:[phone] [facility] Lyme disease, unspecified Sep-[address] [place] [address], [id number] , . tel:[phone] [facility] , [address] [place] [address], [id number], tel:[phone] [facility] No Information [address] Alexander[address] [place] [address], [id number] , . tel:[phone] Family History Family Member Type Diagnosis Age At Onset No Information Payers Payer name Insurance type Covered democrat ID Authoriza tion(s) No Information Social History Type Description Quantity Date Captured Comments Sex Male Smoking Status No Information Chief Complaint And Reason For Visit No Information Reason For Referral Reason For Referral No Information History Of Present Illness Encounter Date Complaint History Of Prese nt Illness No Information Functional Status Date Functional Assessmen t No Information Instructions Date Instruction Additional Infor mation No Information Assessments Type Assessment Date No Information Patient Care Teams Name Effective Dates (start - stop) Status Members No Information
--- OUTSIDE RECORDS SUMMARY | 2024-02-04 17:30 | XMS_ITS ---
Author Organization [facility] Address [address] [id number] Care Team Providers Care Marble Rubber Name Role Phone Lorenzo CLARK, Shital Primary Care Provider Roland Allen Stoddard Unavailable [phone] Migration, Provider Unavailable Unavailable REASON FOR VISIT Multum To Medispan Conversion Encounter Medications Medication SIG (Take, Route, Frequency, Duration) Notes Start Date End Date Status Metoprolol Succinate ER *Please review and pick correct strength-formulation from Medispan options. If intended option is not shown, discontinue and re-order from Quick Search* Active Benazepril-hydroCHL OROthiazide *Please review and pick correct strength-formulation from Medispan options. If intended option is not shown, discontinue and re-order from Quick Search* Active Encounters Encounter Location Date Provider Diagnosis [facility] [address] [id number] 02/04/2024 Provider Migration Plan Of Treatment No Information Progress Notes * Dilan MCLAUGHLINwDOB: [birth year] (54 yo M)Acc No.[id number]:02/04/2024 Patient: Davon CHISHOLM Provider: :1970 A ge:54 Y S ex:Male Date:02/04/2024 Address:[address] [id number] Pcp:Shital Ventura NP Subjective: * Chief Complaints: * 1 . Multum To Medispan Conversion Encounter. * Medical History: * Medications: T aking Benazepril-hydroCHLOROthiazide , Notes to Pharmacist: *Please review and pick correct strength-formulation from Medispan options. If intended option is not shown, discontinue and re-order from Quick Search*, Taking Metoprolol Succinate ER , Notes to Pharmacist: *Please review and pick correct strength-formulation from Medispan options. If intended option is not shown, discontinue and re-order from Quick Search* Objective: * Vitals: * Physical Examination: Assessment: Plan: * Treatment: * Images: Billing Information: * Visit Code: * Procedure Codes: * Electronic signature of Prov ider Migration on 01/09/2025 at 02:52 PM EDT Sign off status: Pending * Provider: Date: 02/04/2024 Generated for Medhat menchaca/Keshawn/Obinnaitting on: 01/09/2025 02:52 PM EDT
[2025-01-09 11:45] VITALS: BP 152/96; PULSE 85; O2SAT 98
[2025-01-09 11:47] VITALS: BP 124/78; PULSE 77; RESP 18; TEMP 36.8; O2SAT 96; BMI 24.2
[2025-01-09 12:20] LABS: MANUAL DIFF FLAG NO
[2025-01-09 12:21] LABS: Hematocrit 42.4 % (42.0-52.0); Hemoglobin 15.1 g/dl (14.0-18.0); Imm Gran Abs Auto 0.03 X10*3/uL (0.00-0.03); Imm Gran Pct Auto 0.4 % (0.0-0.4); Lymphocytes Absolute Auto 1.9 X10*3/uL (1.2-4.9); Mean Corpuscular HGB Conc 35.6 g/dl (31.0-36.0); Mean Corpuscular Hemoglobin 33.9 pg (27.0-33.0); Mean Corpuscular Volume 95.1 fL (80.0-98.0); NRBC Abs Auto 0.000 X10*3/uL (0.0-0.012); NRBC Pct Auto 0.0 /100WBC (0.0-0.2); Platelet Count 196 X10*3/uL (160-400); Red Blood Count 4.46 X10*6/uL (4.60-5.80); White Blood Count 7.3 X10*3/uL (4.8-10.8)
--- NOTE | 2025-01-09 12:29 | ED_ITS ---
HPI - General Adult General Chief complaint: Psychiatric Symptoms Stated complaint: PSYCH Time Seen by Provider: 01/09/25 12:29 Source: patient and EMS Mode of arrival: EMS Limitations: no limitations History of Present Illness ED Provider: Irina Price PA-C HPI narrative: Patient is a 54 year old assigned male at with a history of HTN, bipolar disorder, and previous Lyme disease presenting to the emergency department today feeling unwell and like something is wrong with him. Patient states that he has not been taking his medications for his bipolar disorder and he feels as though there is something wrong. Patient states that he took his medication for Lyme disease as prescribed and still has some days left. Patient denies any thoughts of hurting himself or others, dizziness, lightheadedness, abdominal pain, nausea, vomiting, fever, chills, blurry vision, double vision, loss of vision, chest pain, difficulty breathing, shortness of breath, back pain, night sweats, pain with urination, increased urinary frequency, increased urinary urgency, blood in his urine or stool, syncope or a near syncopal episode, recent trauma or falls, bowel incontinence, bladder incontinence, or any other complaints at this time. Relieving factors: none Exacerbating factors: none Associated symptoms: denies other symptoms Treatments prior to arrival: none Related Data Home Medications ?Medication ?Instructions ?Recorded ?Confirmed amlodipine 5 mg tablet 5 mg PO DAILY 01/09/2501/09 aripiprazole lauroxil 441 mg/1.6 441 mg IM Q4W 5 01/09/25 mL suspension, ext.rel. IM syringe ([place]) duloxetine 30 mg capsule,delayed 30 mg PO DAILY 01/09/25 release (Cymbalta) gabapentin 100 mg capsule 100 mg PO TID PRN anxiety/pa in 01/09/25 01/09/25 testosterone 1 pump topical DAILY 01/09/25 Previous Rx's ?Medication ?Instructions ?Recorded atorvastatin 10 mg tablet 10 mg PO DAILY 30 days #30 t abs 03/26/24 clonidine HCl 0.1 mg tablet 0.1 mg PO BID 30 days #60 tabs 03/26/24 doxycycline hyclate 100 mg tablet 100 mg PO BID 21 day s #42 tabs 12/27/24 Allergies Allergy/AdvReac Type Severity Reaction Status Date / Time benazepril Allergy Cough Verified 01/09/25 11:48 metoprolol Allergy Cough Verified 01/09/25 11:48 Review of Systems 2 Constitutional: Constitutional: Reports no additional constitutional complaints, Denies chills, Denies fever(s) and Denies night sweats Eyes: Eyes: Reports no additional eye complaints, Denies blurry vision, Denies change in vision, Denies diplopia, Denies eye discharge, Denies loss of vision and Denies eye pain ENT: Denies dizziness Cardiovascular: Cardiovascular: Reports no additional cardiovascular complaints, Denies chest pain, Denies lightheadedness, Denies Loss of Consciousness and Denies dyspnea Respiratory: Respiratory: Reports no additional respiratory complaints and Denies dyspnea Gastrointestinal: Gastrointestinal: Reports no additional gastrointestinal complaints, Denies abdominal pain, Denies melena, Denies hematochezia, Denies change in bowel habits and Denies change in stool character Genitourinary: Genitourinary: Reports no additional male genitourinary complaints, Denies hematuria, Denies oliguria, Denies difficulty urinating, Denies dysuria, Denies urinary frequency, Denies urinary hesitancy, Denies urinary incontinence and Denies urinary urgency Musculoskeletal: Musculoskeletal: Reports no additional musculoskeletal complaints, Denies numbness and Denies tingling Neurologic: Denies dizziness, Denies loss of vision, Denies numbness and Denies tingling Psychiatric: Psychiatric: Reports no additional psychiatric complaints Endocrine: Endocrine: Reports no additional endocrine complaints Hematologic/Lymphatic: Hematologic/Lymphatic: Reports no additional hematologic/lymphatic complaints Allergic/Immunologic: Allergic/Immunologic: Reports no additional allergic/immunologic complaints [facility] Past Medical History Attestation statement: The following information was validated with the patient. Source: old records reviewed and nursing notes reviewed Medical History Medical clearance for psychiatric admission Depression Lyme disease GERD (gastroesophageal reflux disease) Non-insulin dependent type 2 diabetes mellitus HLD (hyperlipidemia) Social History Social History Household Members: None Housing: Homeless Alcohol intake: former Patient Tobacco Use Status: Current everyday Tobacco user Tobacco use type: Cigarette Smoked in Last 30 Days: Yes e-Cigarette/Vaping Use: Never Used Second Hand Smoke Exposure: No Use of substances other than those prescribed or required for medical reasons: No Advance Directives: No Advance Directives Information Provided: Yes Sexual orientation: Don't Know Physical Exam ED Vital Signs: Vital Signs - 24 hr 01/09/25 11:47 Temperature 98.3 F Pulse Rate 77 Respiratory Rate 18 Blood Pressure 124/78 Pulse Oximetry 96 Oxygen Delivery Method Room Air BMI result Body Mass Index 24.2 Const General: cooperative, no acute distress, alert and awake Nutritional Appearance: well nourished Orientation/consciousness: patient oriented x3 HENMT Head: Yes normal to inspection and Yes atraumatic Ears: hearing grossly normal bilaterally and external ears normal General nose exam: Normal external nose present, no nasal discharge noted and no epistaxis Face and sinus: Yes normal facial exam, No abrasion and No laceration Mouth: Normal oral and palatal mucosa present, no drooling and no muffled voice Eyes General: appearance normal, both eyes and all related structures Periorbital: periorbital findings normal Eyelids: Yes eyelids normal Conjunctivae: conjunctivae normal Pupils: Equal, round and reactive pupils present EOM: EOMs intact bilaterally Neck Neck: Yes normal visual inspection, Yes full ROM and Yes no lymphadenopathy Resp Effort & Inspection: normal respiratory effort and able to speak in complete sentences Neuro General: patient oriented x3, moves all extremities and CN's II-XI intact bilaterally Cranial nerves: Yes Equal, round and reactive pupils present Cognition (Neuro): normal cognition Extrem General: Yes normal to inspection, Yes full ROM and Yes capillary refill normal Psych Appearance: grossly normal Mental Status: mental status grossly normal Speech and movement: Pressured speech present Affect: Labile affect present Thought process: Circumstantial thought process present and Confabulating thought process present Medical Decision Making Medical Decision Making MDM Narrative: Patient is a 54 year old assigned male at with a history of HTN, bipolar disorder, and previous Lyme disease presenting to the emergency department today feeling unwell and like something is wrong with him. Patient's physical exam was as noted in the physical exam portion of this note. Patient's blood work was unremarkable. Patient was evaluated by the CARE team who recommended inpatient level of psychiatric care for bipolar restablization. I explained my physical exam findings as well as all test results to the patient. I answered all questions asked by the patient. Patient verbalized agreement and understanding with this treatment plan and remaining in observation until he is either admitted to our inpatient psychiatric floor or transferred to an appropriate psychiatric facility. Observation began at 1230 on 01/09/2025. Patient admitted to our inpatient psychiatric unit at 1441. Observation ended at 1441 on 01/09/2025. Differential Diagnosis Differential Diagnoses: The differential diagnosis associated with the presentation includes Bipolar disorder Decompensated bipolar disorder Admission/Observation Consideration of admission/observation: Escalation of care including admission/observation considered Patient admitted to our psychiatric unit. Consult Healthcare Provider Management of the patient was discussed with: Behavioral Health Provider (spoke with the CARE team as noted in the MDM Rationale portion of this note. ) Lab Data [facility] Lab Attestation statement: I reviewed the patient's lab results. My interpretation of these results are in the MDM Rationale portion of this note. 01/09/25 12:15 01/09/25 12:15 Labs: Lab Results 01/09/25 01/09/25 Range/Units 12:15 13:11 WBC 7.3 (4.8-10.8) X10*3/uL RBC 4.46 L (4.60-5.80) X10*6/uL Hgb 15.1 (14.0-18.0) g/dl Hct 42.4 (42.0-52.0) % MCV 95.1 (80.0-98.0) fL MCH 33.9 H (27.0-33.0) pg MCHC 35.6 (31.0-36.0) g/dl RDW 12.8 (11.0-16.0) % Plt Count 196 (160-400) X10*3/uL MPV 9.4 (9.4-12.4) fL Immature Gran % (Auto) 0.4 (0.0-0.4) % Neut % (Auto) 66.8 (45-73) % Lymph % (Auto) 26.0 (20-40) % [place] % (Auto) 5.9 (2-11) % Eos % (Auto) 0.1 (0-4) % Baso % (Auto) 0.8 (0-2) % Lymph # (Auto) 1.9 (1.2-4.9) X10*3/uL [place] # (Auto) 0.4 (0.1-1.2) X10*3/uL Eos # (Auto) 0.0 (0.0-0.4) X10*3/uL Baso # (Auto) 0.1 (0.0-0.2) X10*3/uL Abs Immat Gran (auto) 0.03 (0.00-0.03) X10*3/uL Absolute Neuts (auto) 4.9 (2.0-8.3) x10*3/uL Absolute Nucleated RBC 0.000 (0.0-0.012) X10*3/uL Nucleated RBC % (auto) 0.0 (0.0-0.2) /100WBC Sodium 140 (135-145) mmol/L Potassium 3.9 (3.3-5.1) mmol/L Chloride 105 (96-108) mmol/L Carbon Dioxide 26 (22-29) mmol/L Anion Gap 13 (12-20) BUN 8 L (9-16) mg/dL Creatinine 0.73 (0.5-1.4) mg/dL Estim Creat Clear Calc 101.9 Estimated GFR > 60 Random Glucose 94 (60-115) mg/dL Calcium 9.5 (8.4-10.2) mg/dL Total Bilirubin 0.5 (0.0-1.0) mg/dL AST 20 (5-37) U/L ALT 18 (0-40) U/L Alkaline Phosphatase 72 (39-117) U/L Total Protein 7.9 (6.5-8.0) g/dL Albumin 5.0 (3.5-5.0) g/dL Urine Color Yellow Urine Appearance Clear Urine pH 6.5 (5.0-9.0) Ur Specific [place] <= 1.005 (1.005-1.025) Urine Protein Negative (Neg-Trace) mg/dL Urine Glucose (UA) Negative (Negative) mg/dL Urine Ketones Negative (Negative) mg/dL Urine Blood Negative (Negative) Urine Nitrite Negative (Negative) Ur Leukocyte Esterase Negative (Negative) Salicylates < 5.0 L (15-30) mg/dL Urine Opiates Screen Not Detected (Not Detect) Ur Buprenorphine Scrn Not Detected (Not Detect) ng/mL Ur Oxycodone Screen Not Detected (Not Detect) ng/mL Urine Methadone Screen Not Detected (Not Detect) ng/mL Urine Fentanyl Screen Not Detected (Not Detect) Acetaminophen < 3 (<30) mcg/mL Ur Barbiturates Screen Not Detected (Not Detect) Ur Phencyclidine Scrn Not Detected (Not Detect) Ur Amphetamines Screen Not Detected (Not Detect) U Benzodiazepines Scrn Not Detected (Not Detect) Urine Cocaine Screen Not Detected (Not Detect) U Marijuana (THC) Screen Not Detected (Not Detect) Independent Historian Clinical information obtained from an independent historian. History obtained from or confirmed by: EMS (EMS provided additional history and confirmed the history provided by the patient. ) Critical Care Time Critical Care Time Critical Care Time: Yes Total Critical Care Time: 36 Attestation: I spent 36 minutes of Critical Care Time with this patient. This does not include time spent on separately reported billable procedures. Discharge Plan Discharge Clinical Impression: Bipolar 1 disorder Patient Disposition: Admitted As Inpatient Interventions: [place]-Suicide Risk Severity Scale Last Done: 01/09/25 12:35
--- NOTE | 2025-01-09 12:30 | ECG_ITS ---
Test Reason : medical clearence Blood Pressure : */* mmHG Vent. Rate : 66 BPM Atrial Rate : 66 BPM P-R Int : 174 ms QRS Dur : 92 ms QT Int : 404 ms P-R-T Axes : 63 76 59 degrees QTcB Int : 423 ms Normal sinus rhythm Normal ECG When compared with ECG of 27-Dec-2024 09:23, No significant change was found Referred By: Irina Price Electronically Signed By: TAE ALLEN MD
[2025-01-09 12:35] LABS: Acetaminophen LAB < 3 mcg/mL (<30); Salicylate < 5.0 mg/dL (15-30)
[2025-01-09 12:36] LABS: Alanine Aminotransferase 18 U/L (0-40); Albumin Level 5.0 g/dL (3.5-5.0); Alkaline Phosphatase 72 U/L (39-117); Anion Gap 13 (12-20); Aspartate Amino Transferase 20 U/L (5-37); Blood Urea Nitrogen 8 mg/dL (9-16); Calcium 9.5 mg/dL (8.4-10.2); Carbon Dioxide 26 mmol/L (22-29); Chloride 105 mmol/L (96-108); Creatinine Clr Calc Pharmacy 101.9; Estimated Glomerular Filt Rate > 60; Potassium 3.9 mmol/L (3.3-5.1); Sodium 140 mmol/L (135-145); Total Protein 7.9 g/dL (6.5-8.0)
--- NOTE | 2025-01-09 13:05 | MHC.CARE ---
Pt meets the criteria for IPLOC. Section 12a in chart however Pt is voluntary for TX. ED provider KRYSTAL Pena in agreement with disposition.
[2025-01-09 13:33] LABS: Appearance Urine Clear; Glucose Urine UA Negative (Negative); PH 6.5 (5.0-9.0); Specific Gravity - Urine <= 1.005 (1.005-1.025)
[2025-01-09 13:41] LABS: Cannabinoid Screen Urine Not Detected (Not Detect)
--- NOTE | 2025-01-09 14:00 | PC.NURSE ---
azalea bueno complated using medication list provided from [facility]
--- NOTE | 2025-01-09 14:13 | PHA.MEDREC ---
Pharmacy Consult ? Medication Reconciliation Pharmacy has reviewed the medication reconciliation completed by nursing. Reviewed list from [facility].
--- NOTE | 2025-01-09 14:32 | PC.NURSE ---
Spoke with nursing staff at [facility]. [facility] patient got aripiprazole injection 12/30. [facility] testosterone gel was discontinued this week d/t patient declining it.
--- OUTSIDE RECORDS SUMMARY | 2025-01-09 14:53 | XMS_ITS | Clinical Summary ---
Author Organization [facility] Address [address] [place] [address] Care Team Providers Care Tag Meter Operator Name Role Phone No, Pcp Primary Care [...] patient's age to complete this topic Insurance [facility] Care Teams Tag Meter Operator Relationship Specialty Start Date End Date No, Pcp, MD PCP - General Pediatrics 01/21/24
--- OUTSIDE RECORDS SUMMARY | 2025-01-09 14:53 | XMS_ITS | Clinical Summary ---
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 Role Phone Veronica Porras MD Primary Care Provider [phone] Allergies Active Allergy Reactions Criticality Noted Date [...] Health Maintenance Due Date Last Done Comments [facility] TOPIC SIGMOIDOSCOPY 1968 [facility] Topic HIV Screening 1968 [facility] Topic Hepatitis C Screening 1968 [facility] Topic PSA 1968 [facility] Topic Tdap Vaccine (1 - Tdap) 01/10/1987 [facility] TOPIC FOBT/FIT TEST 01/10/2013 [facility] Topic Cologuard 01/10/2013 [facility] Topic Colon Cancer Screening 01/10/2013 [facility] Topic Colonoscopy 01/10/2013 [facility] Topic Lung Cancer Screening 01/10/2018 [facility] Topic Pneumococcal Va ccine (HEDIS/Adult) (1 of 1 - PCV) 01/10/2018 [facility] Topic Shingrix (1 of 2) 01/10/2018 [facility] Topic Lipid Profile 08/23/2024 08/24/2023 [facility] Topic Influenza (Flu) Seasonal (#1) 2025 [facility] Topic HIB Vaccines Aged Out No longer eligible based on patient's age to complete this topic Procedures Procedure Name Priority Date/Time Associated Diagnosis Comments LIPID PANEL Add-On 08/24/2023 6:51 PM EDT from Last 3 Months or Most Recently Relevant to Health Maintenance Results * (ABNORMAL) Lipid panel (08/24/2023 6:51 PM EDT) Cholesterol 182 120 - 200 mg/dL 08/25/2023 12:08 AM EDT [facility] HDL 56(H) 35 - 55 mg/dL 08/25/2023 12:08 AM EDT [facility] LDL Calculated 98 60 - 130 mg/dL 08/25/2023 12:08 AM EDT [facility] Triglycerides 139 35 - 150 mg/dL 08/25/2023 12:08 AM EDT [facility] Cholesterol Risk Ratio 3.25 mg/dL 08/25/2023 12:08 AM EDT [facility] Comment:Less than the averag e risk of developing coronary heart disease. Blood Venous blood / Unknown Venipuncture / Unknown 08/24/2023 6:51 PM EDT 08/24/2023 6:56 PM EDT us Harmony Huntley MD LAB BLOOD ORDERABLES Final Resu lt [facility] [address] 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
--- OUTSIDE RECORDS SUMMARY | 2025-01-09 14:53 | XMS_ITS | Clinical Summary ---
Author Organization [facility] Address [address] [place] [address] Care Team Providers Care Benefits Specialist Recruiter Name Role Phone Unavailable Primary Care Provider [...] Panel) 03/21/2024 Colorectal Cancer Screening: Colonoscopy 03/21/2024 HIV Screening 03/21/2024 Hepatitis C Screening 03/21/2024 Social Influencers of Health Screening 03/21/2024 Depression Screening 06/12/2024 Influenza Vaccine (#1) 2025 HIB Vaccines Aged [...]
--- OUTSIDE RECORDS SUMMARY | 2025-01-09 14:53 | XMS_ITS | Encounter Summary ---
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 Tram Operator Name Role Phone Celestina Gallardo MD Primary Care Provider [phone] Encounter Details Date Type Department Care Team (Late Contact Info) Description 11/06/2024 Orders Only [facility] [address] [place] [address] Celestina Gallardo MD [address] [place] [address] Social History Tobacco Use Types Packs/Day Years Used Date Smoking Tobacco: Former Cigarettes 0 11/2023 Alcohol Use Standard Drinks/Week Comments Not Currently 0 (1 standard drink = 0.6 oz pur e alcohol) Sex and Gender Information Value Date Recorded Sex Assigned at Male 12/13/2023 11:39 AM EDT Legal Sex Male 11:33 AM EDT Gender Identity Male 12/13/2023 11:39 AM EDT Sexual Orientation Straight 12/13/2023 11 :39 AM EDT documented as of this encounter Plan of Treatment Upcoming Encounters Date Type Department Care Team (Late Contact Info) Description 02/19/2025 12:20 PM EDT Office Visit [facility] [address] [place] [address] Celestina Gallardo MD [address] [place] [address] documented as of this encounter Procedures Procedure Name Priority Date/Time Associated Diagnosis Comments CT ABDOMEN PELVIS WO CONTRAST Routine 11/06/2024 3:12 PM EDT documented in this encounter Results * CT Abdomen Pelvis w/o Contrast (11/06/2024 3:12 PM EDT) Anatomical Region Laterality Modality Body, Pelvis, Abdomen Computed T omography us Celestina Gallardo MD IMG CT PROCEDURES Final Result documented in this encounter Visit Diagnoses Not on filedocumented in this encounter Care Teams Aerial Tram Operator Relationship Specialty Start Date End Date Celestina Gallardo MD [address] [place] [address] PCP - General Family Medicine 05/07/24 documented as of this encounter
[2025-01-09 16:40] VITALS: BP 130/76; PULSE 84; RESP 16; TEMP 36.6; O2SAT 97
[2025-01-09 17:00] VITALS: BMI 24.7
--- NOTE | 2025-01-09 18:52 | PC.ADMIT ---
Joye arrived on M5 from [facility] ED pod. He is alert and oriented and cooperative with skin and safety check. His skin check is only remarkable for an approximately 1 inch scabbed area on outside of left calf. He appears older than stated age and has very poor dentitian. He signed a CV and is on 15 minute safety checks. He was biba to [facility] as he doesnt feel right in the head . He is tangential and somatically focused. I am going to soon, I am falling apart. I'm not good. My arms and legs feel like wood. My brain is wired wrong. I was at [facility] recently and they said I 'have atrophy'. My teeth are falling out, I lost 2 in the back recently. While talking, he is making chewing motions all the time. Looks like I am chewing, right? I'm not, its my teeth! , he is complaining of thrush (his tongue is in fact whitish). He complains of burning in his hands and feet. He doesnt like gabapentin, it doesnt work! My body is decomposing! He reports only taking an RAMIREZ for his bipolar. They want me to take cymbalta, why? I'm bipolar not psychotic! they just want to pump me full of chemicals! He was recently diagnosed with Lyme but insists his health concerns started long before . He doesnt like to take his ordered amlodipine, my body is wasting away, my bones are turning to wood, why would I want to take a calcium channel kaitlyn and block the calcium . He endorses passive SI, I look around yolis pro and I think, do I really want to fight for this story? live like this? . He denies HI and AVH. He does not use alcohol or drugs, smokes 4 cigarettes a day. He refuses NRT.
[2025-01-09 19:52] VITALS: BP 122/73; PULSE 72; RESP 18; TEMP 36.5; O2SAT 98
[2025-01-10 08:00] VITALS: BP 118/65; PULSE 58; RESP 18; TEMP 35.7; O2SAT 97
[2025-01-10 08:44] LABS: Hemoglobin A1C 150.2164 umol/L; Total Hemoglobin (HGBA1C) 3730.8645 umol/L
[2025-01-10 08:58] LABS: Cholesterol 146 mg/dL (<200); HDL Cholesterol 50 mg/dL (>40); Triglycerides 84 mg/dL (<150)
[2025-01-10 09:08] VITALS: BP 118/65
[2025-01-10 09:09] VITALS: BP 118/65
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
[2025-01-10 09:14] LABS: Thyroid Stimulating Hormone 0.98 uIU/mL (0.32-4.0)
[2025-01-10 20:00] VITALS: BP 120/69; PULSE 69; RESP 15; TEMP 36; O2SAT 96
[2025-01-11 08:00] VITALS: BP 124/72; PULSE 60; RESP 18; TEMP 36.6; O2SAT 96
[2025-01-11 20:00] VITALS: BP 123/66; PULSE 70; RESP 15; TEMP 35.6; O2SAT 96
--- NOTE | 2025-01-11 20:54 | HO.PSYCHPN ---
Subjective Subjective Date of Service: 01/11/25 Reason For Visit: Bipolar Disorder Subjective Notes: Conditional Voluntary Healthcare Proxy: No Guardianship: No Medical Problems Affecting Mental Status: No Interim History: Medical record and nursing notes reviewed; case discussed during rounds with team/nursing staff, and met with patient for supportive therapy/psychoeducation, as well as medication management. Patient slept for 8 hours, however so reported that he was not able to sleep. Was medication compliant. Hyper focused on labs disease and bones. Reviewed with patient regarding medication discussed yesterday. He willingly to take as needed hydroxyzine, and Flexeril. He seems having poor memory, reports anxiety related to what is going on with his bones pain. He is pleasant and cooperative, denies other safety concerns, denies hallucinations. We will need to verify his Abilify Sustenna. Medication Compliance: Yes Side effects from medications: No Attending Groups: Intermittent Review of Systems Acute medical concerns: No Medical Review of Systems: unchanged Review of Systems Review of Systems Constitutional: Denies fatigue and Denies fever(s) Cardiovascular: Denies chest pain and Denies dyspnea Respiratory: Denies dyspnea Gastrointestinal: Denies abdominal pain Psychiatric: denies suicidal ideation Endocrine: Denies fatigue Mental Status Exam Mental Status Exam Narrative: Pt is alert and oriented; behavior is cooperative and anxious; dressed in hospitall attire; mood is described as anxious ; eye contact appropriate; Speech is normal rate, volume and not pressured; thought process is organized and goal directed; Thought content is on tx; denies SI/HI/VH/AH. Diagnostics Vital Signs (24Hr): Vital Signs - 24 hr 01/11/25 08:00 01/11/25 20:00 Temperature 97.9 F 96.1 F L Pulse Rate 60 70 Respiratory Rate 18 15 Blood Pressure 124/72 123/66 Pulse Oximetry 96 96 Oxygen Delivery Method Room Air BMI result Body Mass Index 24.7 Labs 01/09/25 12:15 01/09/25 12:15 Labs: Laboratory Results - last 48 hr 01/10/25 08:01 Estimat Average Glucose 120 Hemoglobin A1c % 5.8 Triglycerides 84 Cholesterol 146 LDL Cholesterol, Calc 80 HDL Cholesterol 50 TSH 0.98 Medications Medications Current Medications Acetaminophen (Acetaminophen 325 Mg Tablet) 650 mg PO Q6H PRN PRN Reason: Headache/Pain, Scale 1-10 Al Hydroxide/Mg Hydroxide (Magnesium Hydrox/Alum Hydrox 30 Ml Oral.Susp) 30 ml PO Q6H PRN PRN Reason: Heartburn/Nausea Amlodipine Besylate (Amlodipine Besylate 5 Mg Tablet) 5 mg PO DAILY [facility]; Protocol Last Admin: 01/11/25 08:24 Dose: 5 mg Atorvastatin Calcium (Atorvastatin Calcium 10 Mg Tablet) 10 mg PO DAILY [facility] Last Admin: 01/11/25 08:23 Dose: 10 mg Clonidine HCl (Clonidine Hcl 0.1 Mg Tablet) 0.1 mg PO BID [facility]; Protocol Last Admin: 01/11/25 20:42 Dose: 0.1 mg Cyclobenzaprine HCl (Cyclobenzaprine Hcl 5 Mg Tablet) 5 mg PO TID PRN PRN Reason: Muscle Spasm Last Admin: 01/11/25 09:31 Dose: 5 mg Doxycycline Monohydrate (Doxycycline Monohydrate 100 Mg Capsule) 100 mg PO BID [facility] Last Admin: 01/11/25 20:42 Dose: 100 mg Duloxetine HCl (Duloxetine Hcl 20 Mg Capsule.Dr) 40 mg PO DAILY [facility] Last Admin: 01/11/25 08:24 Dose: 40 mg Gabapentin (Gabapentin 100 Mg Capsule) 100 mg PO TID PRN PRN Reason: anxiety/pain Last Admin: 01/11/25 20:43 Dose: 100 mg Hydroxyzine HCl (Hydroxyzine Hcl 50 Mg Tablet) 50 mg PO Q6H PRN PRN Reason: mild anxiety Last Admin: 01/11/25 20:42 Dose: 50 mg Magnesium Hydroxide (Milk Of Magnesia 30 Ml Oral.Susp) 30 ml PO DAILY PRN PRN Reason: Constipation Melatonin (Melatonin 3 Mg Tablet) 9 mg PO BEDTIME [facility] Last Admin: 01/11/25 20:43 Dose: 9 mg Nicotine (Nicotine 14 Mg Patch.Td24) 14 mg TRANSDERMA DAILY PRN PRN Reason: Smoking cessation Nicotine Polacrilex (Nicotine Polacrilex 2 Mg Gum) 2 mg BUCCAL Q2H PRN PRN Reason: Nicotine Cravings Non-Formulary Medication (Aripiprazole Lauroxil [Aristada]) 441 mg IM Q28D [facility] Trazodone HCl (Trazodone Hcl 50 Mg Tablet) 50 mg PO BEDTIME MRX1 PRN PRN Reason: Insomnia Last Admin: 01/09/25 22:09 Dose: 50 mg Allergies Allergies Allergy/AdvReac Type Severity Reaction Status Date / Time benazepril Allergy Cough Verified 01/09/25 11:48 metoprolol Allergy Cough Verified 01/09/25 11:48 Assessment & Plan Assessment & Plan (1) Bipolar 1 disorder: Status: Acute Code(s): F31.9 - Bipolar disorder, unspecified Plan 01/10/25: Continue with home medication. Increase Cymbalta up to 40 mg daily for anxiety and depression and pain. Flexeril b.i.d. p.r.n. for muscle spasm. Hydroxyzine as needed for anxiety. 01/11/25: Patient slept for 8 hours, however so reported that he was not able to sleep. Was medication compliant. Hyper focused on labs disease and bones. Reviewed with patient regarding medication discussed yesterday. He willingly to take as needed hydroxyzine, and Flexeril. He seems having poor memory, reports anxiety related to what is going on with his bones pain. He is pleasant and cooperative, denies other safety concerns, denies hallucinations. We will need to verify his Abilify Sustenna. Patient educated on: diagnosis, medication risk/benefits and therapeutic strategies Guardian/Caregiver educated on: diagnosis and medication risk/benefits Informed Consent: understands and further education needed Reason for continued inpatient stay Substantial Risk for: med/psych decompensation Time Spent With Patient Time: Total time managing care of this patient today ____ minutes.
[2025-01-12 08:00] VITALS: BP 126/78; PULSE 67; RESP 18; TEMP 36.2; O2SAT 98
[2025-01-12 20:00] VITALS: BP 125/63; PULSE 69; RESP 15; TEMP 36.1; O2SAT 97
--- NOTE | 2025-01-12 23:29 | HO.PSYCHPN ---
Subjective Subjective Date of Service: 01/12/25 Reason For Visit: Bipolar Disorder Subjective Notes: Conditional Voluntary Healthcare Proxy: No Guardianship: No Medical Problems Affecting Mental Status: No Interim History: Medical record and nursing notes reviewed; case discussed during rounds with team/nursing staff, and met with patient for supportive therapy/psychoeducation, as well as medication management. Reports these improving, slept for 8 hours. Compliant with medications, however reports dry mouth, blaming it on Cymbalta increased, or doxycycline. He also started taking hydroxyzine yesterday for anxiety which I suspect this is the causing agent. Discussed with him about probiotic and saliva spray for dry mouth. Per pharmacist, we do not Caring probiotic. Reported that he has dentist appointment on the day that he came in, but the office called and canceled it he is waiting for them to call him back for the appointment. Reports anxiety, denies depression, denies other safety concerns. Hyper focused on Lyme disease, and bone pain. Medication Compliance: Yes Side effects from medications: Yes (dry mouth ) Attending Groups: No Review of Systems Acute medical concerns: No Medical Review of Systems: unchanged Review of Systems Review of Systems Constitutional: Denies fatigue and Denies fever(s) Cardiovascular: Denies chest pain and Denies dyspnea Respiratory: Denies dyspnea Gastrointestinal: Denies abdominal pain Psychiatric: denies suicidal ideation Endocrine: Denies fatigue Yes all other systems are reviewed and are negative Mental Status Exam Mental Status Exam Narrative: Pt is alert and oriented; behavior is cooperative and anxious; dressed in hospitall attire; mood is described as anxious ; eye contact appropriate; Speech is normal rate, volume and not pressured; thought process is organized and goal directed; Thought content is on tx; denies SI/HI/VH/AH. Diagnostics Vital Signs (24Hr): Vital Signs - 24 hr 01/12/25 08:00 01/12/25 20:00 Temperature 97.2 F 96.9 F Pulse Rate 67 69 Respiratory Rate 18 15 Blood Pressure 126/78 125/63 Pulse Oximetry 98 97 Oxygen Delivery Method Room Air BMI result Body Mass Index 24.7 Labs 01/09/25 12:15 01/09/25 12:15 Medications Medications Current Medications Acetaminophen (Acetaminophen 325 Mg Tablet) 650 mg PO Q6H PRN PRN Reason: Headache/Pain, Scale 1-10 Al Hydroxide/Mg Hydroxide (Magnesium Hydrox/Alum Hydrox 30 Ml Oral.Susp) 30 ml PO Q6H PRN PRN Reason: Heartburn/Nausea Amlodipine Besylate (Amlodipine Besylate 5 Mg Tablet) 5 mg PO DAILY [facility]; Protocol Last Admin: 01/12/25 08:27 Dose: 5 mg Atorvastatin Calcium (Atorvastatin Calcium 10 Mg Tablet) 10 mg PO DAILY [facility] Last Admin: 01/12/25 08:27 Dose: 10 mg Clonidine HCl (Clonidine Hcl 0.1 Mg Tablet) 0.1 mg PO BID [facility]; Protocol Last Admin: 01/12/25 20:33 Dose: 0.1 mg Cyclobenzaprine HCl (Cyclobenzaprine Hcl 5 Mg Tablet) 5 mg PO TID PRN PRN Reason: Muscle Spasm Last Admin: 01/12/25 20:32 Dose: 5 mg Doxycycline Monohydrate (Doxycycline Monohydrate 100 Mg Capsule) 100 mg PO BID [facility] Last Admin: 01/12/25 20:33 Dose: 100 mg Duloxetine HCl (Duloxetine Hcl 20 Mg Capsule.Dr) 40 mg PO DAILY [facility] Last Admin: 01/12/25 08:27 Dose: 40 mg Gabapentin (Gabapentin 100 Mg Capsule) 100 mg PO TID PRN PRN Reason: anxiety/pain Last Admin: 01/12/25 20:32 Dose: 100 mg Hydroxyzine HCl (Hydroxyzine Hcl 50 Mg Tablet) 50 mg PO Q6H PRN PRN Reason: mild anxiety Last Admin: 01/12/25 20:32 Dose: 50 mg Magnesium Hydroxide (Milk Of Magnesia 30 Ml Oral.Susp) 30 ml PO DAILY PRN PRN Reason: Constipation Melatonin (Melatonin 3 Mg Tablet) 9 mg PO BEDTIME [facility] Last Admin: 01/12/25 20:32 Dose: 9 mg Nicotine (Nicotine 14 Mg Patch.Td24) 14 mg TRANSDERMA DAILY PRN PRN Reason: Smoking cessation Nicotine Polacrilex (Nicotine Polacrilex 2 Mg Gum) 2 mg BUCCAL Q2H PRN PRN Reason: Nicotine Cravings Non-Formulary Medication (Aripiprazole Lauroxil [Aristada]) 441 mg IM Q28D [facility] Saliva Substitute (Dry Mouth Salley 60 Ml Salley) 1 spray MUCOUS MEM Q2H PRN PRN Reason: Dry Mouth Trazodone HCl (Trazodone Hcl 50 Mg Tablet) 50 mg PO BEDTIME MRX1 PRN PRN Reason: Insomnia Last Admin: 01/09/25 22:09 Dose: 50 mg Allergies Allergies Allergy/AdvReac Type Severity Reaction Status Date / Time benazepril Allergy Cough Verified 01/09/25 11:48 metoprolol Allergy Cough Verified 01/09/25 11:48 Assessment & Plan Assessment & Plan (1) Bipolar 1 disorder: Status: Acute Code(s): F31.9 - Bipolar disorder, unspecified Plan 01/10/25: Continue with home medication. Increase Cymbalta up to 40 mg daily for anxiety and depression and pain. Flexeril b.i.d. p.r.n. for muscle spasm. Hydroxyzine as needed for anxiety. 01/11/25: Patient slept for 8 hours, however so reported that he was not able to sleep. Was medication compliant. Hyper focused on labs disease and bones. Reviewed with patient regarding medication discussed yesterday. He willingly to take as needed hydroxyzine, and Flexeril. He seems having poor memory, reports anxiety related to what is going on with his bones pain. He is pleasant and cooperative, denies other safety concerns, denies hallucinations. We will need to verify his Abilify Sustenna. 01/12/25: Reports these improving, slept for 8 hours. Compliant with medications, however reports dry mouth, blaming it on Cymbalta increased, or doxycycline. He also started taking hydroxyzine yesterday for anxiety which I suspect this is the causing agent. Discussed with him about probiotic and saliva spray for dry mouth. Per pharmacist, we do not Caring probiotic. Reported that he has dentist appointment on the day that he came in, but the office called and canceled it he is waiting for them to call him back for the appointment. Reports anxiety, denies depression, denies other safety concerns. Hyper focused on Lyme disease, and bone pain. Patient educated on: diagnosis and medication risk/benefits Informed Consent: understands and further education needed Reason for continued inpatient stay Substantial Risk for: med/psych decompensation Time Spent With Patient Time: Total time managing care of this patient today ____ minutes.
[2025-01-13 08:00] VITALS: BP 110/62; PULSE 60; RESP 14; TEMP 36.7; O2SAT 97
[2025-01-13 08:05] VITALS: BP 110/62
[2025-01-13 08:06] VITALS: BP 110/62
--- NOTE | 2025-01-13 09:59 | HO.PSYCHPN ---
Subjective Subjective Date of Service: 01/13/25 Reason For Visit: Bipolar Disorder Subjective Notes: Conditional Voluntary Healthcare Proxy: No Guardianship: No Medical Problems Affecting Mental Status: No Interim History: Pt reports joint pain in arms, legs, neuropathic pain and all increases in heat and humidity. Reports ongoing brain fog, chills with no fever and vertigo. Will trial Benztropine dose at HS and will ask PT to see pt. Believes metformin has contributed to muscle wasting. Believes he does not need psychotropics but will accept them. Several concerns about med side effects which we attempted to address today. Denies SI,HI,AH,VH. Medication Compliance: Yes Side effects from medications: Yes (as noted) Attending Groups: No Review of Systems Acute medical concerns: No Medical Review of Systems: unchanged Review of Systems Review of Systems as noted, medicine SE Mental Status Exam Mental Status Exam Patient Appearance: Appropriate Patient Orientation: Person, Place, Time and Situation Level of Consciousness: Alert Patient Behavior: Talkative Mood Description: Appropriate and Expansive Affect Description: Appropriate and Expansive Patient Cognition Impaired: No Ability to Follow Directions: Good Speech Pattern: Spontaneous Speech Memory Description: Episodic Impaired Hallucinations: None Delusions: Not Present Thought Process: Distracted Thought Content: positive for Circumstantial and positive for Suicidal Ideation (denies) Depressive Symptoms: Increased Anxiety Judgement: Fair Diagnostics Vital Signs (24Hr): Vital Signs - 24 hr 01/12/25 20:00 01/13/25 08:00 01/13/25 08:05 Temperature 96.9 F 98.1 F Pulse Rate 69 60 Respiratory Rate 15 14 Blood Pressure 125/63 110/62 110/62 Pulse Oximetry 97 97 Oxygen Delivery Method Room Air 01/13/25 08:06 Temperature Pulse Rate Respiratory Rate Blood Pressure 110/62 Pulse Oximetry Oxygen Delivery Method BMI result Body Mass Index 24.7 Labs 01/09/25 12:15 01/09/25 12:15 Medications Medications Current Medications Acetaminophen (Acetaminophen 325 Mg Tablet) 650 mg PO Q6H PRN PRN Reason: Headache/Pain, Scale 1-10 Al Hydroxide/Mg Hydroxide (Magnesium Hydrox/Alum Hydrox 30 Ml Oral.Susp) 30 ml PO Q6H PRN PRN Reason: Heartburn/Nausea Amlodipine Besylate (Amlodipine Besylate 5 Mg Tablet) 5 mg PO DAILY [facility]; Protocol Last Admin: 01/13/25 08:06 Dose: 5 mg Atorvastatin Calcium (Atorvastatin Calcium 10 Mg Tablet) 10 mg PO DAILY [facility] Last Admin: 01/13/25 08:05 Dose: 10 mg Clonidine HCl (Clonidine Hcl 0.1 Mg Tablet) 0.1 mg PO BID [facility]; Protocol Last Admin: 01/13/25 08:05 Dose: 0.1 mg Cyclobenzaprine HCl (Cyclobenzaprine Hcl 5 Mg Tablet) 5 mg PO TID PRN PRN Reason: Muscle Spasm Last Admin: 01/12/25 20:32 Dose: 5 mg Doxycycline Monohydrate (Doxycycline Monohydrate 100 Mg Capsule) 100 mg PO BID [facility] Last Admin: 01/13/25 08:06 Dose: 100 mg Duloxetine HCl (Duloxetine Hcl 20 Mg Capsule.Dr) 40 mg PO DAILY [facility] Last Admin: 01/13/25 08:06 Dose: 40 mg Gabapentin (Gabapentin 100 Mg Capsule) 100 mg PO TID PRN PRN Reason: anxiety/pain Last Admin: 01/12/25 20:32 Dose: 100 mg Hydroxyzine HCl (Hydroxyzine Hcl 50 Mg Tablet) 50 mg PO Q6H PRN PRN Reason: mild anxiety Last Admin: 01/12/25 20:32 Dose: 50 mg Magnesium Hydroxide (Milk Of Magnesia 30 Ml Oral.Susp) 30 ml PO DAILY PRN PRN Reason: Constipation Melatonin (Melatonin 3 Mg Tablet) 9 mg PO BEDTIME [facility] Last Admin: 01/12/25 20:32 Dose: 9 mg Nicotine (Nicotine 14 Mg Patch.Td24) 14 mg TRANSDERMA DAILY PRN PRN Reason: Smoking cessation Nicotine Polacrilex (Nicotine Polacrilex 2 Mg Gum) 2 mg BUCCAL Q2H PRN PRN Reason: Nicotine Cravings Non-Formulary Medication (Aripiprazole Lauroxil [Aristada]) 441 mg IM Q28D [facility] Saliva Substitute (Dry Mouth [place] 60 Ml Mentone) 1 spray MUCOUS MEM Q2H PRN PRN Reason: Dry Mouth Trazodone HCl (Trazodone Hcl 50 Mg Tablet) 50 mg PO BEDTIME MRX1 PRN PRN Reason: Insomnia Last Admin: 01/09/25 22:09 Dose: 50 mg Allergies Allergies Allergy/AdvReac Type Severity Reaction Status Date / Time benazepril Allergy Cough Verified 01/09/25 11:48 metoprolol Allergy Cough Verified 01/09/25 11:48 Assessment & Plan Assessment & Plan (1) Bipolar 1 disorder: Status: Acute Code(s): F31.9 - Bipolar disorder, unspecified Plan 01/10/25: Continue with home medication. Increase Cymbalta up to 40 mg daily for anxiety and depression and pain. Flexeril b.i.d. p.r.n. for muscle spasm. Hydroxyzine as needed for anxiety. 01/11/25: Patient slept for 8 hours, however so reported that he was not able to sleep. Was medication compliant. Hyper focused on labs disease and bones. Reviewed with patient regarding medication discussed yesterday. He willingly to take as needed hydroxyzine, and Flexeril. He seems having poor memory, reports anxiety related to what is going on with his bones pain. He is pleasant and cooperative, denies other safety concerns, denies hallucinations. We will need to verify his Abilify Sustenna. 01/12/25: Reports these improving, slept for 8 hours. Compliant with medications, however reports dry mouth, blaming it on Cymbalta increased, or doxycycline. He also started taking hydroxyzine yesterday for anxiety which I suspect this is the causing agent. Discussed with him about probiotic and saliva spray for dry mouth. Per pharmacist, we do not Caring probiotic. Reported that he has dentist appointment on the day that he came in, but the office called and canceled it he is waiting for them to call him back for the appointment. Reports anxiety, denies depression, denies other safety concerns. Hyper focused on Lyme disease, and bone pain. 01/13: Benztropine 1 mg HS in trial to address joint isses, ?med SE Reason for continued inpatient stay Substantial Risk for: rapid decompensation and med/psych decompensation Time Spent With Patient Time: Total time managing care of this patient today ____ minutes.
[2025-01-13 20:00] VITALS: BP 108/68; PULSE 67; RESP 18; TEMP 36.4; O2SAT 98
--- NOTE | 2025-01-14 06:07 | HO.PSYCHPN ---
Subjective Subjective Date of Service: 01/14/25 Reason For Visit: Bipolar Disorder Subjective Notes: Conditional Voluntary Healthcare Proxy: No Guardianship: No Medical Problems Affecting Mental Status: No Interim History: Pt reports benztropine was helpful. We will divide the dose and order 0.5 mg bid Reports PT was able to provide education and encourage pt to continue with OP rx upon DC which he is willing to do. Continues to focus on not wanting to take psychotropic medications. Attempted to provide rationale for dosing which he was able to verbalize understanding of. Medication Compliance: Yes Side effects from medications: Yes (??) Attending Groups: No Review of Systems Acute medical concerns: No Medical Review of Systems: unchanged Review of Systems Review of Systems denies today Mental Status Exam Mental Status Exam Patient Appearance: Appropriate Patient Orientation: Person, Place, Time and Situation Level of Consciousness: Alert Patient Behavior: Talkative Mood Description: Appropriate and Expansive Affect Description: Appropriate and Expansive Patient Cognition Impaired: No Ability to Follow Directions: Good Speech Pattern: Spontaneous Speech Memory Description: Episodic Impaired Hallucinations: None Delusions: Not Present Thought Process: Distracted Thought Content: positive for Circumstantial and positive for Suicidal Ideation (denies) Depressive Symptoms: Increased Anxiety Judgement: Fair Diagnostics Vital Signs (24Hr): Vital Signs - 24 hr 01/13/25 08:00 01/13/25 08:05 01/13/25 08:06 Temperature 98.1 F Pulse Rate 60 Respiratory Rate 14 Blood Pressure 110/62 110/62 110/62 Pulse Oximetry 97 Oxygen Delivery Method Room Air 01/13/25 20:00 Temperature 97.5 F Pulse Rate 67 Respiratory Rate 18 Blood Pressure 108/68 Pulse Oximetry 98 Oxygen Delivery Method Room Air BMI result Body Mass Index 24.7 Labs 01/09/25 12:15 01/09/25 12:15 Medications Medications Current Medications Acetaminophen (Acetaminophen 325 Mg Tablet) 650 mg PO Q6H PRN PRN Reason: Headache/Pain, Scale 1-10 Al Hydroxide/Mg Hydroxide (Magnesium Hydrox/Alum Hydrox 30 Ml Oral.Susp) 30 ml PO Q6H PRN PRN Reason: Heartburn/Nausea Amlodipine Besylate (Amlodipine Besylate 5 Mg Tablet) 5 mg PO DAILY [facility]; Protocol Last Admin: 01/13/25 08:06 Dose: 5 mg Atorvastatin Calcium (Atorvastatin Calcium 10 Mg Tablet) 10 mg PO DAILY [facility] Last Admin: 01/13/25 08:05 Dose: 10 mg Clonidine HCl (Clonidine Hcl 0.1 Mg Tablet) 0.1 mg PO BID [facility]; Protocol Last Admin: 01/13/25 21:09 Dose: 0.1 mg Cyclobenzaprine HCl (Cyclobenzaprine Hcl 5 Mg Tablet) 5 mg PO TID PRN PRN Reason: Muscle Spasm Last Admin: 01/12/25 20:32 Dose: 5 mg Doxycycline Monohydrate (Doxycycline Monohydrate 100 Mg Capsule) 100 mg PO BID [facility] Last Admin: 01/13/25 21:09 Dose: 100 mg Duloxetine HCl (Duloxetine Hcl 20 Mg Capsule.Dr) 40 mg PO DAILY [facility] Last Admin: 01/13/25 08:06 Dose: 40 mg Gabapentin (Gabapentin 100 Mg Capsule) 100 mg PO TID PRN PRN Reason: anxiety/pain Last Admin: 01/12/25 20:32 Dose: 100 mg Hydroxyzine HCl (Hydroxyzine Hcl 50 Mg Tablet) 50 mg PO Q6H PRN PRN Reason: mild anxiety Last Admin: 01/12/25 20:32 Dose: 50 mg Magnesium Hydroxide (Milk Of Magnesia 30 Ml Oral.Susp) 30 ml PO DAILY PRN PRN Reason: Constipation Melatonin (Melatonin 3 Mg Tablet) 9 mg PO BEDTIME [facility] Last Admin: 01/13/25 21:09 Dose: 9 mg Nicotine (Nicotine 14 Mg Patch.Td24) 14 mg TRANSDERMA DAILY PRN PRN Reason: Smoking cessation Nicotine Polacrilex (Nicotine Polacrilex 2 Mg Gum) 2 mg BUCCAL Q2H PRN PRN Reason: Nicotine Cravings Non-Formulary Medication (Aripiprazole Lauroxil [Aristada]) 441 mg IM Q28D [facility] Saliva Substitute (Dry Mouth Alva 60 Ml Alva) 1 spray MUCOUS MEM Q2H PRN PRN Reason: Dry Mouth Trazodone HCl (Trazodone Hcl 50 Mg Tablet) 50 mg PO BEDTIME MRX1 PRN PRN Reason: Insomnia Last Admin: 01/13/25 21:13 Dose: 50 mg Allergies Allergies Allergy/AdvReac Type Severity Reaction Status Date / Time benazepril Allergy Cough Verified 01/09/25 11:48 metoprolol Allergy Cough Verified 01/09/25 11:48 Assessment & Plan Assessment & Plan (1) Bipolar 1 disorder: Status: Acute Code(s): F31.9 - Bipolar disorder, unspecified (2) Lyme disease: Status: Acute Code(s): A69.20 - Lyme disease, unspecified Plan HPI: 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 Pt denied SI/HI but stated I am not ok. Something is wrong with me. Pt reported C/ O leg/arm pain and difficulty swallowing. There is concern Pt is not compliant with psychiatric medication. It is reported Pt has a DX of Bipolar Disorder. Meet with patient on 01/10/25 at 1247 in his assigned room as he was resting. C/C I have tough time. Getting old. Lyme's diseases. Joint and bone pain . Report mood is alright . Report sick of people poisoning me with pills . He corrected that he does not feel people poisonsing him but medication itself killing him. Denies SI/SIB/HI/AVH. report brain fog . Denies depression. He is perservarive on Lyme disease. He confirmed that he has been taking medication, but do not remember when was the last time he received Abilify long-acting injection. Recently restart on doxycycline for his Lyme disease Formulation/clinical reasoning: Suspected not medication compliant, increased anxiety and stress, hyperverbal, poor memory, perseverative on Lyme disease, disorganized thoughts, decreased sleep. History of bipolar, and Lyme disease. No outpatient psychiatrist or therapist. Medication managed by PCP. Given history of bipolar, patient would be benefit in restrictive environment for medication adjustment. Has long-acting injection, not sure he has been received. Monitor for safety, and refer patient to outpatient psychiatric services. Hospital course: 01/10: Continue with home medication. Increase Cymbalta up to 40 mg daily for depression/anxiety/and pain Flexeril as needed for muscle spasm. Melatonin 9 mg for insomnia. 01/14: Benztropine 0.5 mg bid Plan Patient on 15 minute checks for safety. Admitted to . CV. Lab work per protocol. Work with treatment team to do collateral and refer patient to outpatient psychiatric services for aftercare. Plan to confirm Abilify long-acting injection with last administrated. Currently the next dose is on January 27. Reason for continued inpatient stay Substantial Risk for: rapid decompensation and med/psych decompensation Time Spent With Patient Time: Total time managing care of this patient today ____ minutes.
[2025-01-14 08:00] VITALS: BP 134/69; PULSE 61; RESP 16; TEMP 35.9; O2SAT 98
[2025-01-14 20:00] VITALS: BP 119/69; PULSE 69; RESP 16; TEMP 36.1; O2SAT 97
[2025-01-15 08:00] VITALS: BP 114/68; PULSE 65; TEMP 36.1; O2SAT 98
--- NOTE | 2025-01-15 14:58 | HO.PSYCHPN ---
Subjective Subjective Date of Service: 01/15/25 Reason For Visit: Bipolar Disorder Subjective Notes: Conditional Voluntary Interim History: Patient notes that he is doing well. He is concerned about is Lyme disease. He has been sleeping well. He denies anxiety or depression. He denies SI/HI/AVH. He states that he has been compliant with IM aripiprazole and that his last dose was the end of last month. Medication Compliance: Yes Side effects from medications: No Attending Groups: No Review of Systems Acute medical concerns: Yes Lyme disease Mental Status Exam Mental Status Exam Narrative: Appearance: Casually dressed, adequate hygiene Behavior: Calm and cooperative throughout the interview. Eye contact is appropriate, and there are no signs of psychomotor agitation or retardation Speech: Normal volume and prosody Thought process: Logical and goal-directed Thought content: Future oriented no self-harming thoughts, perseverative on Lyme disease Mood: Calm Affect: Constricted SI:denies HI:denies VH/AH:none Delusions: None Insight/judgment: Fair insight and judgment Memory/cog: Alert, oriented x 4. grossly intact to conversational testing Diagnostics Vital Signs (24Hr): Vital Signs - 24 hr 01/14/25 20:00 01/15/25 08:00 Temperature 97 F 96.9 F Pulse Rate 69 65 Respiratory Rate 16 Blood Pressure 119/69 114/68 Pulse Oximetry 97 98 Oxygen Delivery Method Room Air Room Air BMI result Body Mass Index 24.7 Labs 01/09/25 12:15 01/09/25 12:15 Medications Medications Current Medications Acetaminophen (Acetaminophen 325 Mg Tablet) 650 mg PO Q6H PRN PRN Reason: Headache/Pain, Scale 1-10 Al Hydroxide/Mg Hydroxide (Magnesium Hydrox/Alum Hydrox 30 Ml Oral.Susp) 30 ml PO Q6H PRN PRN Reason: Heartburn/Nausea Amlodipine Besylate (Amlodipine Besylate 5 Mg Tablet) 5 mg PO DAILY [facility]; Protocol Last Admin: 01/15/25 08:39 Dose: 5 mg Atorvastatin Calcium (Atorvastatin Calcium 10 Mg Tablet) 10 mg PO DAILY [facility] Last Admin: 01/15/25 08:39 Dose: 10 mg Benztropine Mesylate (Benztropine Mesylate 0.5 Mg Tablet) 0.5 mg PO BID [facility] Last Admin: 01/15/25 08:39 Dose: 0.5 mg Clonidine HCl (Clonidine Hcl 0.1 Mg Tablet) 0.1 mg PO BID [facility]; Protocol Last Admin: 01/15/25 08:40 Dose: 0.1 mg Cyclobenzaprine HCl (Cyclobenzaprine Hcl 5 Mg Tablet) 5 mg PO TID PRN PRN Reason: Muscle Spasm Last Admin: 01/14/25 20:46 Dose: 5 mg Doxycycline Monohydrate (Doxycycline Monohydrate 100 Mg Capsule) 100 mg PO BID [facility] Last Admin: 01/15/25 08:39 Dose: 100 mg Duloxetine HCl (Duloxetine Hcl 20 Mg Capsule.Dr) 40 mg PO DAILY [facility] Last Admin: 01/15/25 08:39 Dose: 40 mg Gabapentin (Gabapentin 100 Mg Capsule) 100 mg PO TID PRN PRN Reason: anxiety/pain Last Admin: 01/12/25 20:32 Dose: 100 mg Hydroxyzine HCl (Hydroxyzine Hcl 50 Mg Tablet) 50 mg PO Q6H PRN PRN Reason: mild anxiety Last Admin: 01/12/25 20:32 Dose: 50 mg Magnesium Hydroxide (Milk Of Magnesia 30 Ml Oral.Susp) 30 ml PO DAILY PRN PRN Reason: Constipation Melatonin (Melatonin 3 Mg Tablet) 9 mg PO BEDTIME [facility] Last Admin: 01/14/25 20:43 Dose: 9 mg Nicotine (Nicotine 14 Mg Patch.Td24) 14 mg TRANSDERMA DAILY PRN PRN Reason: Smoking cessation Nicotine Polacrilex (Nicotine Polacrilex 2 Mg Gum) 2 mg BUCCAL Q2H PRN PRN Reason: Nicotine Cravings Saliva Substitute (Dry Mouth [place] 60 Ml [place]) 1 spray MUCOUS MEM Q2H PRN PRN Reason: Dry Mouth Trazodone HCl (Trazodone Hcl 50 Mg Tablet) 50 mg PO BEDTIME MRX1 PRN PRN Reason: Insomnia Last Admin: 01/14/25 20:43 Dose: 50 mg Allergies Allergies Allergy/AdvReac Type Severity Reaction Status Date / Time benazepril Allergy Cough Verified 01/09/25 11:48 metoprolol Allergy Cough Verified 01/09/25 11:48 Assessment & Plan Assessment & Plan (1) Bipolar 1 disorder: Status: Acute Code(s): F31.9 - Bipolar disorder, unspecified (2) Lyme disease: Status: Acute Code(s): A69.20 - Lyme disease, unspecified Plan HPI: 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 Pt denied SI/HI but stated I am not ok. Something is wrong with me. Pt reported C/ O leg/arm pain and difficulty swallowing. There is concern Pt is not compliant with psychiatric medication. It is reported Pt has a DX of Bipolar Disorder. Meet with patient on 01/10/25 at 1247 in his assigned room as he was resting. C/C I have tough time. Getting old. Lyme's diseases. Joint and bone pain . Report mood is alright . Report sick of people poisoning me with pills . He corrected that he does not feel people poisonsing him but medication itself killing him. Denies SI/SIB/HI/AVH. report brain fog . Denies depression. He is perservarive on Lyme disease. He confirmed that he has been taking medication, but do not remember when was the last time he received Abilify long-acting injection. Recently restart on doxycycline for his Lyme disease Formulation/clinical reasoning: Suspected not medication compliant, increased anxiety and stress, hyperverbal, poor memory, perseverative on Lyme disease, disorganized thoughts, decreased sleep. History of bipolar, and Lyme disease. No outpatient psychiatrist or therapist. Medication managed by PCP. Given history of bipolar, patient would be benefit in restrictive environment for medication adjustment. Has long-acting injection, not sure he has been received. Monitor for safety, and refer patient to outpatient psychiatric services. Hospital course: 01/10: Continue with home medication. Increase Cymbalta up to 40 mg daily for depression/anxiety/and pain Flexeril as needed for muscle spasm. Melatonin 9 mg for insomnia. 01/14: Benztropine 0.5 mg bid 01/15: Continue current treatment regimen. SW to verify last dose IM aripiprazole. Plan Patient on 15 minute checks for safety. Admitted to [facility]. CV. Lab work per protocol. Work with treatment team to do collateral and refer patient to outpatient psychiatric services for aftercare. Plan to confirm Abilify long-acting injection with last administrated. Currently the next dose is on January 27. Guardian/Caregiver educated on: therapeutic strategies Reason for continued inpatient stay Substantial Risk for: rapid decompensation Time Spent With Patient Time: Total time managing care of this patient today ____ minutes.
[2025-01-15 20:00] VITALS: BP 108/64; PULSE 71; RESP 16; TEMP 36.4; O2SAT 96
[2025-01-15 21:49] VITALS: BP 108/64
[2025-01-16 07:00] VITALS: BMI 26.2
[2025-01-16 08:00] VITALS: BP 111/72; PULSE 64; TEMP 36.7; O2SAT 97
--- NOTE | 2025-01-16 10:22 | HO.PSYCHPN ---
Subjective Subjective Date of Service: 01/16/25 Reason For Visit: Bipolar Disorder Subjective Notes: Conditional Voluntary Healthcare Proxy: No Guardianship: No Medical Problems Affecting Mental Status: No Interim History: Pt is accepting of medication, discussed potential discharge for 01/20 and he is in agreement. Benztropine has been effective thus far he reports with SE of dry mouth. Declines dry mouth spray, I will just drink more water . Declines groups- I have heard this before . Encouraged participation. Denies other physical symptoms of concern. Medication Compliance: Yes Side effects from medications: Yes (dry mouth) Attending Groups: Intermittent Review of Systems Acute medical concerns: No Medical Review of Systems: unchanged Review of Systems Review of Systems Dry mouth Mental Status Exam Mental Status Exam Patient Appearance: Appropriate Patient Orientation: Person, Place, Time and Situation Level of Consciousness: Alert Patient Behavior: Talkative and Good Eye Contact Mood Description: Constricted Affect Description: Constricted Patient Cognition Impaired: No Ability to Follow Directions: Good Speech Pattern: Spontaneous Speech Memory Description: Intact Hallucinations: None Delusions: Not Present Thought Process: Intact Thought Content: positive for Intact Judgement: Good Diagnostics Vital Signs (24Hr): Vital Signs - 24 hr 01/15/25 20:00 01/15/25 21:49 01/16/25 08:00 Temperature 97.6 F 98.1 F Pulse Rate 71 64 Respiratory Rate 16 Blood Pressure 108/64 108/64 111/72 Pulse Oximetry 96 97 Oxygen Delivery Method Room Air Room Air BMI result Body Mass Index 24.7 Labs 01/09/25 12:15 01/09/25 12:15 Medications Medications Current Medications Acetaminophen (Acetaminophen 325 Mg Tablet) 650 mg PO Q6H PRN PRN Reason: Headache/Pain, Scale 1-10 Al Hydroxide/Mg Hydroxide (Magnesium Hydrox/Alum Hydrox 30 Ml Oral.Susp) 30 ml PO Q6H PRN PRN Reason: Heartburn/Nausea Amlodipine Besylate (Amlodipine Besylate 5 Mg Tablet) 5 mg PO DAILY [facility]; Protocol Last Admin: 01/16/25 08:21 Dose: 5 mg Atorvastatin Calcium (Atorvastatin Calcium 10 Mg Tablet) 10 mg PO DAILY [facility] Last Admin: 01/16/25 08:20 Dose: 10 mg Benztropine Mesylate (Benztropine Mesylate 0.5 Mg Tablet) 0.5 mg PO BID [facility] Last Admin: 01/16/25 08:20 Dose: 0.5 mg Clonidine HCl (Clonidine Hcl 0.1 Mg Tablet) 0.1 mg PO BID [facility]; Protocol Last Admin: 01/16/25 08:20 Dose: 0.1 mg Cyclobenzaprine HCl (Cyclobenzaprine Hcl 5 Mg Tablet) 5 mg PO TID PRN PRN Reason: Muscle Spasm Last Admin: 01/15/25 21:48 Dose: 5 mg Doxycycline Monohydrate (Doxycycline Monohydrate 100 Mg Capsule) 100 mg PO BID [facility] Last Admin: 01/16/25 08:20 Dose: 100 mg Duloxetine HCl (Duloxetine Hcl 20 Mg Capsule.Dr) 40 mg PO DAILY [facility] Last Admin: 01/16/25 08:20 Dose: 40 mg Gabapentin (Gabapentin 100 Mg Capsule) 100 mg PO TID PRN PRN Reason: anxiety/pain Last Admin: 01/12/25 20:32 Dose: 100 mg Hydroxyzine HCl (Hydroxyzine Hcl 50 Mg Tablet) 50 mg PO Q6H PRN PRN Reason: mild anxiety Last Admin: 01/12/25 20:32 Dose: 50 mg Magnesium Hydroxide (Milk Of Magnesia 30 Ml Oral.Susp) 30 ml PO DAILY PRN PRN Reason: Constipation Melatonin (Melatonin 3 Mg Tablet) 9 mg PO BEDTIME [facility] Last Admin: 01/15/25 21:48 Dose: 9 mg Nicotine (Nicotine 14 Mg Patch.Td24) 14 mg TRANSDERMA DAILY PRN PRN Reason: Smoking cessation Nicotine Polacrilex (Nicotine Polacrilex 2 Mg Gum) 2 mg BUCCAL Q2H PRN PRN Reason: Nicotine Cravings Saliva Substitute (Dry Mouth [place] 60 Ml [place]) 1 spray MUCOUS MEM Q2H PRN PRN Reason: Dry Mouth Trazodone HCl (Trazodone Hcl 50 Mg Tablet) 50 mg PO BEDTIME MRX1 PRN PRN Reason: Insomnia Last Admin: 01/15/25 21:48 Dose: 50 mg Allergies Allergies Allergy/AdvReac Type Severity Reaction Status Date / Time benazepril Allergy Cough Verified 01/09/25 11:48 metoprolol Allergy Cough Verified 01/09/25 11:48 Assessment & Plan Assessment & Plan (1) Bipolar 1 disorder: Status: Acute Code(s): F31.9 - Bipolar disorder, unspecified (2) Lyme disease: Status: Acute Code(s): A69.20 - Lyme disease, unspecified Plan HPI: 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 Pt denied SI/HI but stated I am not ok. Something is wrong with me. Pt reported C/ O leg/arm pain and difficulty swallowing. There is concern Pt is not compliant with psychiatric medication. It is reported Pt has a DX of Bipolar Disorder. Meet with patient on 01/10/25 at 1247 in his assigned room as he was resting. C/C I have tough time. Getting old. Lyme's diseases. Joint and bone pain . Report mood is alright . Report sick of people poisoning me with pills . He corrected that he does not feel people poisonsing him but medication itself killing him. Denies SI/SIB/HI/AVH. report brain fog . Denies depression. He is perservarive on Lyme disease. He confirmed that he has been taking medication, but do not remember when was the last time he received Abilify long-acting injection. Recently restart on doxycycline for his Lyme disease Formulation/clinical reasoning: Suspected not medication compliant, increased anxiety and stress, hyperverbal, poor memory, perseverative on Lyme disease, disorganized thoughts, decreased sleep. History of bipolar, and Lyme disease. No outpatient psychiatrist or therapist. Medication managed by PCP. Given history of bipolar, patient would be benefit in restrictive environment for medication adjustment. Has long-acting injection, not sure he has been received. Monitor for safety, and refer patient to outpatient psychiatric services. Hospital course: 01/10: Continue with home medication. Increase Cymbalta up to 40 mg daily for depression/anxiety/and pain Flexeril as needed for muscle spasm. Melatonin 9 mg for insomnia. 01/14: Benztropine 0.5 mg bid 01/15: Continue current treatment regimen. SW to verify last dose IM aripiprazole. 01/16: Continue regime. Call to [facility]. Pt's last Aristada injection was 12/30/24. His next dose is due 01/27/25 per their records. Plan Patient on 15 minute checks for safety. Admitted to . CV. Lab work per protocol. Work with treatment team to do collateral and refer patient to outpatient psychiatric services for aftercare. Plan to confirm Abilify long-acting injection with last administrated. Currently the next dose is on January 27. Informed Consent: understands Reason for continued inpatient stay Substantial Risk for: rapid decompensation Time Spent With Patient Time: Total time managing care of this patient today ____ minutes.
[2025-01-16 20:00] VITALS: BP 117/69; PULSE 65; RESP 16; TEMP 36.4; O2SAT 96
[2025-01-16 21:54] VITALS: BP 117/69
[2025-01-17 08:00] VITALS: BP 111/74; PULSE 67; TEMP 35.9; O2SAT 97
[2025-01-17 10:09] VITALS: BP 112/76
--- NOTE | 2025-01-17 10:27 | HO.PSYCHPN ---
Subjective Subjective Date of Service: 01/17/25 Reason For Visit: Bipolar Disorder Subjective Notes: Conditional Voluntary Healthcare Proxy: No Guardianship: No Medical Problems Affecting Mental Status: No Interim History: Pt reports today he is feeling better. Reports benztropine trial has been effective in helping muscle tightness in his legs, however, does report dry mouth-ordered dry mouth mucous membrane spray. Prepared for discharge on 01/20. Is concerned that he has no air conditioner in his room and my room at [facility] is the sun room . Discussed options for managing heat. Reports sleep/appetite are intact. Reports no SI,HI,AH,VH. Medication Compliance: Yes Side effects from medications: Yes (dry mouth) Attending Groups: No Review of Systems Acute medical concerns: No Review of Systems Review of Systems dry mouth Mental Status Exam Mental Status Exam Patient Appearance: Appropriate Patient Orientation: Person, Place, Time and Situation Level of Consciousness: Alert Patient Behavior: Talkative and Good Eye Contact Mood Description: Constricted Affect Description: Constricted Patient Cognition Impaired: No Ability to Follow Directions: Good Speech Pattern: Spontaneous Speech Memory Description: Intact Hallucinations: None Delusions: Not Present Thought Process: Intact Thought Content: positive for Intact Judgement: Good Diagnostics Vital Signs (24Hr): Vital Signs - 24 hr 01/16/25 20:00 01/16/25 21:54 01/17/25 08:00 Temperature 97.6 F 96.7 F L Pulse Rate 65 67 Respiratory Rate 16 Blood Pressure 117/69 117/69 111/74 Pulse Oximetry 96 97 Oxygen Delivery Method Room Air Room Air 01/17/25 10:09 Temperature Pulse Rate Respiratory Rate Blood Pressure 112/76 Pulse Oximetry Oxygen Delivery Method BMI result Body Mass Index 26.2 Labs 01/09/25 12:15 01/09/25 12:15 Medications Medications Current Medications Acetaminophen (Acetaminophen 325 Mg Tablet) 650 mg PO Q6H PRN PRN Reason: Headache/Pain, Scale 1-10 Al Hydroxide/Mg Hydroxide (Magnesium Hydrox/Alum Hydrox 30 Ml Oral.Susp) 30 ml PO Q6H PRN PRN Reason: Heartburn/Nausea Amlodipine Besylate (Amlodipine Besylate 5 Mg Tablet) 5 mg PO DAILY [facility]; Protocol Last Admin: 01/17/25 10:10 Dose: 5 mg Atorvastatin Calcium (Atorvastatin Calcium 10 Mg Tablet) 10 mg PO DAILY [facility] Last Admin: 01/17/25 10:10 Dose: 10 mg Benztropine Mesylate (Benztropine Mesylate 0.5 Mg Tablet) 0.5 mg PO BID [facility] Last Admin: 01/17/25 10:10 Dose: 0.5 mg Clonidine HCl (Clonidine Hcl 0.1 Mg Tablet) 0.1 mg PO BID [facility]; Protocol Last Admin: 01/17/25 10:09 Dose: 0.1 mg Cyclobenzaprine HCl (Cyclobenzaprine Hcl 5 Mg Tablet) 5 mg PO TID PRN PRN Reason: Muscle Spasm Last Admin: 01/16/25 21:55 Dose: 5 mg Doxycycline Monohydrate (Doxycycline Monohydrate 100 Mg Capsule) 100 mg PO BID [facility] Last Admin: 01/17/25 10:09 Dose: 100 mg Duloxetine HCl (Duloxetine Hcl 20 Mg Capsule.Dr) 40 mg PO DAILY [facility] Last Admin: 01/17/25 10:09 Dose: 40 mg Gabapentin (Gabapentin 100 Mg Capsule) 100 mg PO TID PRN PRN Reason: anxiety/pain Last Admin: 01/12/25 20:32 Dose: 100 mg Hydroxyzine HCl (Hydroxyzine Hcl 50 Mg Tablet) 50 mg PO Q6H PRN PRN Reason: mild anxiety Last Admin: 01/12/25 20:32 Dose: 50 mg Magnesium Hydroxide (Milk Of Magnesia 30 Ml Oral.Susp) 30 ml PO DAILY PRN PRN Reason: Constipation Melatonin (Melatonin 3 Mg Tablet) 9 mg PO BEDTIME [facility] Last Admin: 01/16/25 21:55 Dose: 9 mg Nicotine (Nicotine 14 Mg Patch.Td24) 14 mg TRANSDERMA DAILY PRN PRN Reason: Smoking cessation Nicotine Polacrilex (Nicotine Polacrilex 2 Mg Gum) 2 mg BUCCAL Q2H PRN PRN Reason: Nicotine Cravings Saliva Substitute (Dry Mouth [place] 60 Ml [place]) 1 spray MUCOUS MEM Q2H PRN PRN Reason: Dry Mouth Trazodone HCl (Trazodone Hcl 50 Mg Tablet) 50 mg PO BEDTIME MRX1 PRN PRN Reason: Insomnia Last Admin: 01/16/25 21:55 Dose: 50 mg Allergies Allergies Allergy/AdvReac Type Severity Reaction Status Date / Time benazepril Allergy Cough Verified 01/09/25 11:48 metoprolol Allergy Cough Verified 01/09/25 11:48 Assessment & Plan Assessment & Plan (1) Bipolar 1 disorder: Status: Acute Code(s): F31.9 - Bipolar disorder, unspecified (2) Lyme disease: Status: Acute Code(s): A69.20 - Lyme disease, unspecified Plan HPI: 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 Pt denied SI/HI but stated I am not ok. Something is wrong with me. Pt reported C/ O leg/arm pain and difficulty swallowing. There is concern Pt is not compliant with psychiatric medication. It is reported Pt has a DX of Bipolar Disorder. Meet with patient on 01/10/25 at 1247 in his assigned room as he was resting. C/C I have tough time. Getting old. Lyme's diseases. Joint and bone pain . Report mood is alright . Report sick of people poisoning me with pills . He corrected that he does not feel people poisonsing him but medication itself killing him. Denies SI/SIB/HI/AVH. report brain fog . Denies depression. He is perservarive on Lyme disease. He confirmed that he has been taking medication, but do not remember when was the last time he received Abilify long-acting injection. Recently restart on doxycycline for his Lyme disease Formulation/clinical reasoning: Suspected not medication compliant, increased anxiety and stress, hyperverbal, poor memory, perseverative on Lyme disease, disorganized thoughts, decreased sleep. History of bipolar, and Lyme disease. No outpatient psychiatrist or therapist. Medication managed by PCP. Given history of bipolar, patient would be benefit in restrictive environment for medication adjustment. Has long-acting injection, not sure he has been received. Monitor for safety, and refer patient to outpatient psychiatric services. Hospital course: 01/10: Continue with home medication. Increase Cymbalta up to 40 mg daily for depression/anxiety/and pain Flexeril as needed for muscle spasm. Melatonin 9 mg for insomnia. 01/14: Benztropine 0.5 mg bid 01/15: Continue current treatment regimen. SW to verify last dose IM aripiprazole. 01/17: Continue regime. DC 01/20. Plan Patient on 15 minute checks for safety. Admitted to . . Lab work per protocol. Work with treatment team to do collateral and refer patient to outpatient psychiatric services for aftercare. Plan to confirm Abilify long-acting injection with last administrated. Currently the next dose is on January 27. Reason for continued inpatient stay Substantial Risk for: rapid decompensation Time Spent With Patient Time: Total time managing care of this patient today ____ minutes.
[2025-01-17 20:00] VITALS: BP 103/65; PULSE 68; TEMP 36
[2025-01-17 20:54] VITALS: BP 103/65
[2025-01-18 08:00] VITALS: BP 116/73; PULSE 66; TEMP 36.4; O2SAT 97
--- NOTE | 2025-01-18 17:33 | P.PNPSI_ITS ---
Subjective Subjective Date of Service: 01/18/25 Reason For Visit: Bipolar Disorder Interim History: Patient reports dry mouth. Slept OK. Feels he is improving. Reports no SI,HI,AH,VH. Isolates in room other than for meals. No complaints. Review of Systems Review of Systems dry mouth Yes all other systems are reviewed and are negative Constitutional: Reports no additional constitutional complaints, Denies chills, Denies fever(s) and Denies night sweats Eyes: Reports no additional eye complaints, Denies blurry vision, Denies change in vision, Denies diplopia, Denies eye discharge, Denies loss of vision and Denies eye pain Denies dizziness Cardiovascular: Reports no additional cardiovascular complaints, Denies chest pain, Denies lightheadedness, Denies Loss of Consciousness and Denies dyspnea Respiratory: Reports no additional respiratory complaints and Denies dyspnea Gastrointestinal: Reports no additional gastrointestinal complaints, Denies abdominal pain, Denies melena, Denies hematochezia, Denies change in bowel habits and Denies change in stool character Genitourinary: Reports no additional male genitourinary complaints, Denies hematuria, Denies oliguria, Denies difficulty urinating, Denies dysuria, Denies urinary frequency, Denies urinary hesitancy, Denies urinary incontinence and Denies urinary urgency Musculoskeletal: Reports no additional musculoskeletal complaints, Denies numbness and Denies tingling Denies dizziness, Denies loss of vision, Denies numbness and Denies tingling Psychiatric: Reports no additional psychiatric complaints Endocrine: Reports no additional endocrine complaints Hematologic/Lymphatic: Reports no additional hematologic/lymphatic complaints Allergic/Immunologic: Reports no additional allergic/immunologic complaints Mental Status Exam Mental Status Exam Narrative: Appearance: Casually dressed, adequate hygiene Behavior: Calm and cooperative throughout the interview. Eye contact is appropriate, and there are no signs of psychomotor agitation or retardation Speech: Normal volume and prosody Thought process: Logical and goal-directed Thought content: Future oriented no self-harming thoughts, perseverative on Lyme disease Mood: Calm Affect: Constricted SI:denies HI:denies VH/AH:none Delusions: None Insight/judgment: Fair insight and judgment Memory/cog: Alert, oriented x 4. grossly intact to conversational testing Patient Appearance: Appropriate Patient Orientation: Person, Place, Time and Situation Level of Consciousness: Alert Patient Behavior: Talkative and Good Eye Contact Mood Description: Constricted Affect Description: Constricted Patient Cognition Impaired: No Ability to Follow Directions: Good Speech Pattern: Spontaneous Speech Memory Description: Intact Diagnostics Vital Signs (24Hr): Vital Signs - 24 hr 01/17/25 20:00 01/17/25 20:54 01/18/25 08:00 Temperature 96.8 F 97.6 F Pulse Rate 68 66 Blood Pressure 103/65 103/65 116/73 Pulse Oximetry 97 Oxygen Delivery Method Room Air BMI result Body Mass Index 26.2 Labs 01/09/25 12:15 01/09/25 12:15 Medications Medications Current Medications Acetaminophen (Acetaminophen 325 Mg Tablet) 650 mg PO Q6H PRN PRN Reason: Headache/Pain, Scale 1-10 Al Hydroxide/Mg Hydroxide (Magnesium Hydrox/Alum Hydrox 30 Ml Oral.Susp) 30 ml PO Q6H PRN PRN Reason: Heartburn/Nausea Amlodipine Besylate (Amlodipine Besylate 5 Mg Tablet) 5 mg PO DAILY [facility]; Protocol Last Admin: 01/18/25 08:31 Dose: 5 mg Atorvastatin Calcium (Atorvastatin Calcium 10 Mg Tablet) 10 mg PO DAILY [facility] Last Admin: 01/18/25 08:31 Dose: 10 mg Benztropine Mesylate (Benztropine Mesylate 0.5 Mg Tablet) 0.5 mg PO BID [facility] Last Admin: 01/18/25 08:31 Dose: 0.5 mg Clonidine HCl (Clonidine Hcl 0.1 Mg Tablet) 0.1 mg PO BID [facility]; Protocol Last Admin: 01/18/25 08:32 Dose: 0.1 mg Cyclobenzaprine HCl (Cyclobenzaprine Hcl 5 Mg Tablet) 5 mg PO TID PRN PRN Reason: Muscle Spasm Last Admin: 01/17/25 20:58 Dose: 5 mg Doxycycline Monohydrate (Doxycycline Monohydrate 100 Mg Capsule) 100 mg PO BID [facility] Last Admin: 01/18/25 08:32 Dose: 100 mg Duloxetine HCl (Duloxetine Hcl 20 Mg Capsule.Dr) 40 mg PO DAILY [facility] Last Admin: 01/18/25 08:31 Dose: 40 mg Gabapentin (Gabapentin 100 Mg Capsule) 100 mg PO TID PRN PRN Reason: anxiety/pain Last Admin: 01/12/25 20:32 Dose: 100 mg Hydroxyzine HCl (Hydroxyzine Hcl 50 Mg Tablet) 50 mg PO Q6H PRN PRN Reason: mild anxiety Last Admin: 01/12/25 20:32 Dose: 50 mg Magnesium Hydroxide (Milk Of Magnesia 30 Ml Oral.Susp) 30 ml PO DAILY PRN PRN Reason: Constipation Melatonin (Melatonin 3 Mg Tablet) 9 mg PO BEDTIME JOHNNY Last Admin: 01/17/25 20:55 Dose: 9 mg Nicotine (Nicotine 14 Mg Patch.Td24) 14 mg TRANSDERMA DAILY PRN PRN Reason: Smoking cessation Nicotine Polacrilex (Nicotine Polacrilex 2 Mg Gum) 2 mg BUCCAL Q2H PRN PRN Reason: Nicotine Cravings Saliva Substitute (Dry Mouth [place] 60 Ml [place]) 1 spray MUCOUS MEM Q2H PRN PRN Reason: Dry Mouth Saliva Substitute (Dry Mouth [place] 60 Ml [place]) 1 spray MUCOUS MEM Q2H PRN PRN Reason: Dry Mouth Trazodone HCl (Trazodone Hcl 50 Mg Tablet) 50 mg PO BEDTIME MRX1 PRN PRN Reason: Insomnia Last Admin: 01/16/25 21:55 Dose: 50 mg Allergies Allergies Allergy/AdvReac Type Severity Reaction Status Date / Time benazepril Allergy Cough Verified 01/09/25 11:48 metoprolol Allergy Cough Verified 01/09/25 11:48 Assessment & Plan Assessment & Plan (1) Bipolar 1 disorder: Status: Acute Code(s): F31.9 - Bipolar disorder, unspecified (2) Lyme disease: Status: Acute Code(s): A69.20 - Lyme disease, unspecified Plan HPI: 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 Pt denied SI/HI but stated I am not ok. Something is wrong with me. Pt reported C/ O leg/arm pain and difficulty swallowing. There is concern Pt is not compliant with psychiatric medication. It is reported Pt has a DX of Bipolar Disorder. Meet with patient on 01/10/25 at 1247 in his assigned room as he was resting. C/C I have tough time. Getting old. Lyme's diseases. Joint and bone pain . Report mood is alright . Report sick of people poisoning me with pills . He corrected that he does not feel people poisonsing him but medication itself killing him. Denies SI/SIB/HI/AVH. report brain fog . Denies depression. He is perservarive on Lyme disease. He confirmed that he has been taking medication, but do not remember when was the last time he received Abilify long-acting injection. Recently restart on doxycycline for his Lyme disease Formulation/clinical reasoning: Suspected not medication compliant, increased anxiety and stress, hyperverbal, poor memory, perseverative on Lyme disease, disorganized thoughts, decreased sleep. History of bipolar, and Lyme disease. No outpatient psychiatrist or therapist. Medication managed by PCP. Given history of bipolar, patient would be benefit in restrictive environment for medication adjustment. Has long-acting injection, not sure he has been received. Monitor for safety, and refer patient to outpatient psychiatric services. Hospital course: 01/10: Continue with home medication. Increase Cymbalta up to 40 mg daily for depression/anxiety/and pain Flexeril as needed for muscle spasm. Melatonin 9 mg for insomnia. 01/14: Benztropine 0.5 mg bid 01/15: Continue current treatment regimen. SW to verify last dose IM aripiprazole. 01/17: Continue regime. DC 01/20. 01/18: Continue current management and treatment plan. Plan Patient on 15 minute checks for safety. Admitted to . CV. Lab work per protocol. Work with treatment team to do collateral and refer patient to outpatient psychiatric services for aftercare. Plan to confirm Abilify long-acting injection with last administrated. Currently the next dose is on January 27. Reason for continued inpatient stay Substantial Risk for: inability to function, rapid decompensation and med/psych decompensation Time Spent With Patient Time: Total time managing care of this patient today ____ minutes.
[2025-01-18 19:42] VITALS: BP 95/53; PULSE 66; RESP 16; TEMP 36.2; O2SAT 98
[2025-01-18 21:23] VITALS: BP 107/65
[2025-01-19 08:00] VITALS: BP 109/71; PULSE 71; TEMP 36.1; O2SAT 97
--- NOTE | 2025-01-19 09:22 | P.PNPSI_ITS ---
Subjective Subjective Date of Service: 01/19/25 Reason For Visit: Bipolar Disorder Interim History: Patient reports feeling improved. He remains guarded. Difficult to engage and gives short answers. Says medication changes have helped with his pain which he is thankful for. He slept OK. Feels he is improving. Reports no SI,HI,AH,VH. Isolates in room other than for meals. No complaints. Review of Systems Review of Systems dry mouth Yes all other systems are reviewed and are negative Constitutional: Reports no additional constitutional complaints, Denies chills, Denies fever(s) and Denies night sweats Eyes: Reports no additional eye complaints, Denies blurry vision, Denies change in vision, Denies diplopia, Denies eye discharge, Denies loss of vision and Denies eye pain Denies dizziness Cardiovascular: Reports no additional cardiovascular complaints, Denies chest pain, Denies lightheadedness, Denies Loss of Consciousness and Denies dyspnea Respiratory: Reports no additional respiratory complaints and Denies dyspnea Gastrointestinal: Reports no additional gastrointestinal complaints, Denies abdominal pain, Denies melena, Denies hematochezia, Denies change in bowel habits and Denies change in stool character Genitourinary: Reports no additional male genitourinary complaints, Denies hematuria, Denies oliguria, Denies difficulty urinating, Denies dysuria, Denies urinary frequency, Denies urinary hesitancy, Denies urinary incontinence and Denies urinary urgency Musculoskeletal: Reports no additional musculoskeletal complaints, Denies numbness and Denies tingling Denies dizziness, Denies loss of vision, Denies numbness and Denies tingling Psychiatric: Reports no additional psychiatric complaints Endocrine: Reports no additional endocrine complaints Hematologic/Lymphatic: Reports no additional hematologic/lymphatic complaints Allergic/Immunologic: Reports no additional allergic/immunologic complaints Mental Status Exam Mental Status Exam Narrative: Appearance: Casually dressed, adequate hygiene Behavior: Calm and cooperative throughout the interview. Eye contact is appropriate, and there are no signs of psychomotor agitation or retardation Speech: Normal volume and prosody Thought process: Logical and goal-directed Thought content: Future oriented no self-harming thoughts, perseverative on Lyme disease Mood: Calm Affect: Constricted SI:denies HI:denies VH/AH:none Delusions: None Insight/judgment: Fair insight and judgment Memory/cog: Alert, oriented x 4. grossly intact to conversational testing Patient Appearance: Appropriate Patient Orientation: Person, Place, Time and Situation Level of Consciousness: Alert Patient Behavior: Talkative and Good Eye Contact Mood Description: Constricted Affect Description: Constricted Patient Cognition Impaired: No Ability to Follow Directions: Good Speech Pattern: Spontaneous Speech Memory Description: Intact Diagnostics Vital Signs (24Hr): Vital Signs - 24 hr 01/18/25 19:42 01/18/25 21:23 01/19/25 08:00 Temperature 97.2 F 96.9 F Pulse Rate 66 71 Respiratory Rate 16 Blood Pressure 95/53 L 107/65 109/71 Pulse Oximetry 98 97 Oxygen Delivery Method Room Air Room Air BMI result Body Mass Index 26.2 Labs 01/09/25 12:15 01/09/25 12:15 Medications Medications Current Medications Acetaminophen (Acetaminophen 325 Mg Tablet) 650 mg PO Q6H PRN PRN Reason: Headache/Pain, Scale 1-10 Al Hydroxide/Mg Hydroxide (Magnesium Hydrox/Alum Hydrox 30 Ml Oral.Susp) 30 ml PO Q6H PRN PRN Reason: Heartburn/Nausea Amlodipine Besylate (Amlodipine Besylate 5 Mg Tablet) 5 mg PO DAILY [facility]; Protocol Last Admin: 01/19/25 08:49 Dose: 5 mg Atorvastatin Calcium (Atorvastatin Calcium 10 Mg Tablet) 10 mg PO DAILY [facility] Last Admin: 01/19/25 08:49 Dose: 10 mg Benztropine Mesylate (Benztropine Mesylate 0.5 Mg Tablet) 0.5 mg PO BID [facility] Last Admin: 01/19/25 08:49 Dose: 0.5 mg Clonidine HCl (Clonidine Hcl 0.1 Mg Tablet) 0.1 mg PO BID [facility]; Protocol Last Admin: 01/19/25 08:49 Dose: 0.1 mg Cyclobenzaprine HCl (Cyclobenzaprine Hcl 5 Mg Tablet) 5 mg PO TID PRN PRN Reason: Muscle Spasm Last Admin: 01/18/25 21:30 Dose: 5 mg Doxycycline Monohydrate (Doxycycline Monohydrate 100 Mg Capsule) 100 mg PO BID [facility] Last Admin: 01/19/25 08:49 Dose: 100 mg Duloxetine HCl (Duloxetine Hcl 20 Mg Capsule.) 40 mg PO DAILY [facility] Last Admin: 01/19/25 08:49 Dose: 40 mg Gabapentin (Gabapentin 100 Mg Capsule) 100 mg PO TID PRN PRN Reason: anxiety/pain Last Admin: 01/12/25 20:32 Dose: 100 mg Hydroxyzine HCl (Hydroxyzine Hcl 50 Mg Tablet) 50 mg PO Q6H PRN PRN Reason: mild anxiety Last Admin: 01/12/25 20:32 Dose: 50 mg Magnesium Hydroxide (Milk Of Magnesia 30 Ml Oral.Susp) 30 ml PO DAILY PRN PRN Reason: Constipation Melatonin (Melatonin 3 Mg Tablet) 9 mg PO BEDTIME JOHNNY Last Admin: 01/18/25 21:27 Dose: 9 mg Nicotine (Nicotine 14 Mg Patch.Td24) 14 mg TRANSDERMA DAILY PRN PRN Reason: Smoking cessation Nicotine Polacrilex (Nicotine Polacrilex 2 Mg Gum) 2 mg BUCCAL Q2H PRN PRN Reason: Nicotine Cravings Saliva Substitute (Dry Mouth [place] 60 Ml [place]) 1 spray MUCOUS MEM Q2H PRN PRN Reason: Dry Mouth Saliva Substitute (Dry Mouth [place] 60 Ml [place]) 1 spray MUCOUS MEM Q2H PRN PRN Reason: Dry Mouth Trazodone HCl (Trazodone Hcl 50 Mg Tablet) 50 mg PO BEDTIME MRX1 PRN PRN Reason: Insomnia Last Admin: 01/18/25 21:30 Dose: 50 mg Allergies Allergies Allergy/AdvReac Type Severity Reaction Status Date / Time benazepril Allergy Cough Verified 01/09/25 11:48 metoprolol Allergy Cough Verified 01/09/25 11:48 Assessment & Plan Assessment & Plan (1) Bipolar 1 disorder: Status: Acute Code(s): F31.9 - Bipolar disorder, unspecified (2) Lyme disease: Status: Acute Code(s): A69.20 - Lyme disease, unspecified Plan HPI: 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 Pt denied SI/HI but stated I am not ok. Something is wrong with me. Pt reported C/ O leg/arm pain and difficulty swallowing. There is concern Pt is not compliant with psychiatric medication. It is reported Pt has a DX of Bipolar Disorder. Meet with patient on 01/10/25 at 1247 in his assigned room as he was resting. C/C I have tough time. Getting old. Lyme's diseases. Joint and bone pain . Report mood is alright . Report sick of people poisoning me with pills . He corrected that he does not feel people poisonsing him but medication itself killing him. Denies SI/SIB/HI/AVH. report brain fog . Denies depression. He is perservarive on Lyme disease. He confirmed that he has been taking medication, but do not remember when was the last time he received Abilify long-acting injection. Recently restart on doxycycline for his Lyme disease Formulation/clinical reasoning: Suspected not medication compliant, increased anxiety and stress, hyperverbal, poor memory, perseverative on Lyme disease, disorganized thoughts, decreased sleep. History of bipolar, and Lyme disease. No outpatient psychiatrist or therapist. Medication managed by PCP. Given history of bipolar, patient would be benefit in restrictive environment for medication adjustment. Has long-acting injection, not sure he has been received. Monitor for safety, and refer patient to outpatient psychiatric services. Hospital course: 01/10: Continue with home medication. Increase Cymbalta up to 40 mg daily for depression/anxiety/and pain Flexeril as needed for muscle spasm. Melatonin 9 mg for insomnia. 01/14: Benztropine 0.5 mg bid 01/15: Continue current treatment regimen. SW to verify last dose IM aripiprazole. 01/17: Continue regime. DC 01/20. 01/18: Continue current management and treatment plan. 01/19: continue current management and treatment plan. Plan Patient on 15 minute checks for safety. Admitted to . CV. Lab work per protocol. Work with treatment team to do collateral and refer patient to outpatient psychiatric services for aftercare. Plan to confirm Abilify long-acting injection with last administrated. Currently the next dose is on January 27. Reason for continued inpatient stay Substantial Risk for: inability to function and rapid decompensation Time Spent With Patient Time: Total time managing care of this patient today ____ minutes.
[2025-01-19 19:42] VITALS: BP 121/64; PULSE 62; RESP 15; TEMP 36.1; O2SAT 96
[2025-01-20 07:53] VITALS: BP 117/78; PULSE 64; TEMP 36; O2SAT 98
[2025-01-20 09:10] VITALS: BP 117/78
--- NOTE | 2025-01-20 10:09 | P.DS_ITS ---
DS: Providers Provider Date of admission: 01/09/25 14:49 Primary care physician: Unknown Physician DS: Diagnosis Discharge Diagnosis (1) Bipolar 1 disorder: Status: Acute (2) Lyme disease: Status: Acute DS: Medications Discharge Medications Home Medications: Home Medications ?Medication ?Instructions ?Recorded ?Confirmed testosterone 1 pump topical DAILY 5 01/09/25 Previous Rx's ?Medication ?Instructions ?Recorded acetaminophen 325 mg tablet 650 mg (2 x 325 mg) PO Q6H PRN 01/20/25 Headache/Pain, Scale 1-10 #0 tabs amlodipine 5 mg tablet 5 mg PO DAILY #30 tabs 01/20 aripiprazole lauroxil 441 mg/1.6 441 mg (1.6 mL) IM Q4 W #1.6 mL 01/20/25 mL suspension, ext.rel. IM syringe ([place]) atorvastatin 10 mg tablet 10 mg PO DAILY 30 days #30 t abs 01/20/25 benztropine 0.5 mg tablet 0.5 mg PO BID #60 tabs 01/20 clonidine HCl 0.1 mg tablet 0.1 mg PO BID 30 days #60 tabs 01/20/25 cyclobenzaprine 5 mg tablet 5 mg PO TID PRN Muscle Spa sm #90 01/20/25 tabs doxycycline hyclate 100 mg tablet 100 mg PO BID 21 day s #60 tabs 01/20/25 duloxetine 20 mg capsule,delayed 40 mg (2 x 20 mg) PO DAILY #60 caps 01/20/25 release gabapentin 100 mg capsule 100 mg PO TID PRN anxiety/pa in 01/20/25 #90 caps melatonin 3 mg tablet 9 mg (3 x 3 mg) PO BEDTIME # 90 tabs 01/20/25 trazodone 50 mg tablet 50 mg PO BEDTIME MRX1 PRN In somnia 01/20/25 #60 tabs DS: Summary Time Spent with Patient Time attestation: Total time managing care of this patient today ____ minutes. Discharge Plan Discharge Anticipated Discharge Date/Time: 01/20/25 12:00 Patient Disposition: Xfer Other Discharge Diagnosis: Bipolar Disorder Lyme Disease Referrals: Physician,Unknown J [Primary Care Provider, Medical] - 1 Week Discharge Medications: New acetaminophen 325 mg Tablet 650 mg PO Q6H PRN (Reason: Headache/Pain, Scale 1-10) Qty: 0 0RF cyclobenzaprine 5 mg Tablet 5 mg PO TID PRN (Reason: Muscle Spasm) Qty: 90 0RF benztropine 0.5 mg Tablet 0.5 mg PO BID Qty: 60 0RF duloxetine 20 mg Capsule,Delayed Release(Dr/Ec) 40 mg PO DAILY Qty: 60 0RF trazodone 50 mg Tablet 50 mg PO BEDTIME MRX1 PRN (Reason: Insomnia) Qty: 60 0RF melatonin 3 mg Tablet 9 mg PO BEDTIME Qty: 90 0RF Continued testosterone 20.25 mg/1.25 gram (1.62 %) gel in metered-dose pump 1 pump topical DAILY clonidine HCl 0.1 mg Tablet 0.1 mg PO BID 30 Days Qty: 60 0RF atorvastatin 10 mg Tablet 10 mg PO DAILY 30 Days Qty: 30 0RF amlodipine 5 mg tablet 5 mg PO DAILY Qty: 30 0RF gabapentin 100 mg capsule 100 mg PO TID PRN (Reason: anxiety/pain ) Qty: 90 0RF doxycycline hyclate 100 mg tablet 100 mg PO BID 21 Days Qty: 60 0RF [place] 441 mg/1.6 mL suspension,extended rel syring 441 mg IM Q4W Qty: 1.6 0RF Rx Instructions: last given on 12/18/24 - due to be given 01/15/25 Discontinued duloxetine [Cymbalta] 30 mg Capsule,Delayed Release(Dr/Ec) 30 mg PO DAILY Discharge Orders: Discharge Order (Routine); Ordered 01/20/25 Ordered By: Anastacia Mondragon Diet: Advance to usual diet Activity on Discharge: As tolerated Stand Alone Forms: Patient Portal Discharge page Print Language: [place] Islander Care Plan Goals: Mood and Behavioral Stabilization Health Concerns: Mood and Behavioral Stabilization Plan of Treatment: Attend scheduled appointments Take medications as directed Call/Return as needed Assessment: Pt denies SI,HI,AH,VH There are no symptoms of acute ld or psychosis Pt is in agreement with the plan of care
== END 2025-01-20 11:38 | disposition other institution (70) | DRG 753 ==
LOC: HO.ED 14:50 → HO.PM5 14:53
PROVIDERS: Admitting Provider Nurse Practitioner Family; Emergency Provider Emergency Medicine Emergency Medical Services; Visit Provider Nurse Practitioner Family
DX: F31.9 Bipolar disorder, unspecified (principal); A69.20 Lyme disease, unspecified; F17.210 Nicotine dependence, cigarettes, uncomplicated; Z71.6 Tobacco abuse counseling; I10 Essential (primary) hypertension; Z91.148 Patient's other noncompliance with medication regimen for other reason; Z79.899 Other long term (current) drug therapy
CPT/HCPCS: 36415; 80053; 80061; 80143; 80179; 80307; 81003; 83036; 84443; 85025; 93005; 97161; 99285; S9485

== ENCOUNTER → 2025-01-09 12:30 | Outpatient (BNV) | payer MEDICAID, SELFPAY | PROVIDERS: Admitting Provider Nurse Practitioner Family; Emergency Provider Emergency Medicine Emergency Medical Services; Visit Provider Internal Medicine Cardiovascular Disease | DX: Z13.6 Encounter for screening for cardiovascular disorders (principal) | CPT/HCPCS: 93010 ==

== ENCOUNTER → 2025-01-09 14:49 | Outpatient (BNV) | payer OTHER, SELFPAY | PROVIDERS: Admitting Provider Nurse Practitioner Family; Emergency Provider Emergency Medicine Emergency Medical Services; Visit Provider Nurse Practitioner Psychiatric/Mental Health | DX: F31.32 Bipolar disorder, current episode depressed, moderate (principal); A69.20 Lyme disease, unspecified | CPT/HCPCS: 99231; 99232 ==

== ENCOUNTER 2025-03-09 11:31 | Emergency (ER) | payer MEDICAID, SELFPAY ==
--- NOTE | ~2025-03-09 | XR_ITS ---
CLINICAL HISTORY: Bilateral hip weakness pain rule out arthritis, a --- Additional Notes or Special Instructions: Avascular necrosis AP pelvis, Two views of left and right hip. COMPARISON: None provided. FINDINGS: Pelvic ring appears maintained. Pelvic phleboliths present. Visualized lower lumbar spine is unremarkable. Right hip: Visualized portions of the proximal right femur appears intact. Right femoral head is appropriately seated in the acetabulum. Tiny osteophyte present along the greater trochanter. Hip joint space is maintained. Left hip: Visualized portions of the proximal left femur appears intact. Left femoral head is appropriately seated in the acetabulum. Tiny osteophyte present along the greater trochanter. Hip joint space is maintained. IMPRESSION: 1. No radiographic evidence of acute injury to the pelvis and bilateral hips. 2. Mild degenerative changes of the hips. This document has been electronically signed by: Pedro Holder MD on 03/09/2025 14:03:10
[2025-03-09 11:43] VITALS: BP 115/48; BP 144/78; PULSE 80; PULSE 84; RESP 18; TEMP 36.6; O2SAT 97; BMI 27.5
[2025-03-09 11:54] VITALS: BP 115/48; PULSE 80; RESP 18; TEMP 36.6; O2SAT 97
--- NOTE | 2025-03-09 11:54 | ED_ITS ---
HPI - Neuro Symptoms/Deficit General Chief Complaint: General Medical Stated Complaint: NUMBNESS IN LEGS AND ARMS Time Seen by Provider: 03/09/25 11:53 Source: patient Limitations: no limitations History of Present Illness ED Provider: Dr. David Helm HPI Narrative: 54 year old male with a history of of HTN, bipolar disorder, and previous Lyme disease with recurrent 12/19/2024 completing a 21 day course of doxycycline who presenting to the emergency department upper and lower extremity burning sensation with weakness. Patient states that he has neuropathy in his lower extremities from unclear etiology. He has had a burning sensation from his hips down to his feet for proximally 1 year. He states for the last week he has developed a burning sensation in his upper extremities from his hands to his shoulders. He states that he is having weakness and pain in both his upper and lower extremities. He states that he feels like he is losing muscle mass. His PCP did check his testosterone was low and he is receiving testosterone shots Q 2 weeks in his 1st shot was 1 week prior. He complains of increased pain in his hips bilaterally which are worse with movement, he has had no injury. Patient states that his hemoglobin A1c is less than 5 and he does not have diabetes. Patient was recently treated with Lyme disease as above and he states that his symptoms do not feel like acute Lyme disease. He states he did have a B12 shot in February of 2025 but this did not improve his lower extremity symptoms. He also states that he has been on gabapentin and Cymbalta with no relief of his lower extremity neuropathy. Related Data Home Medications ?Medication ?Instructions ?Recorded ?Confirmed testosterone 1 pump topical DAILY 5 01/09/25 Previous Rx's ?Medication ?Instructions ?Recorded acetaminophen 325 mg tablet 650 mg (2 x 325 mg) PO Q6H PRN 01/20/25 Headache/Pain, Scale 1-10 #0 tabs amlodipine 5 mg tablet 5 mg PO DAILY #30 tabs 01/20 aripiprazole lauroxil 441 mg/1.6 441 mg (1.6 mL) IM Q4 W #1.6 mL 01/20/25 mL suspension, ext.rel. IM syringe (Aristada) atorvastatin 10 mg tablet 10 mg PO DAILY 30 days #30 t abs 01/20/25 benztropine 0.5 mg tablet 0.5 mg PO BID #60 tabs 01/20 clonidine HCl 0.1 mg tablet 0.1 mg PO BID 30 days #60 tabs 01/20/25 cyclobenzaprine 5 mg tablet 5 mg PO TID PRN Muscle Spa sm #90 01/20/25 tabs doxycycline hyclate 100 mg tablet 100 mg PO BID 21 day s #60 tabs 01/20/25 duloxetine 20 mg capsule,delayed 40 mg (2 x 20 mg) PO DAILY #60 caps 01/20/25 release gabapentin 100 mg capsule 100 mg PO TID PRN anxiety/pa in 01/20/25 #90 caps melatonin 3 mg tablet 9 mg (3 x 3 mg) PO BEDTIME # 90 tabs 01/20/25 trazodone 50 mg tablet 50 mg PO BEDTIME MRX1 PRN In somnia 01/20/25 #60 tabs Allergies Allergy/AdvReac Type Severity Reaction Status Date / Time benazepril Allergy Cough Verified 03/09/25 11:45 metoprolol Allergy Cough Verified 03/09/25 11:45 Review of Systems 2 Review of Systems: Yes all other systems are reviewed and are negative [facility] Past Medical History [facility] Narrative: Social history: Denies tobacco use, he states that he was a former smoker and he quit last fall (1 year ago). He denies alcohol and drug use. Medical History (Updated 03/09/25 @ 14:26 by David Helm MD) Medical clearance for psychiatric admission Depression Lyme disease GERD (gastroesophageal reflux disease) Non-insulin dependent type 2 diabetes mellitus HLD (hyperlipidemia) Social History Social History Household Members: Other Housing: Other Housing Other:: rest home Do you presently have visiting nurse or other home services: No Alcohol intake: former Patient Tobacco Use Status: Current everyday Tobacco user Tobacco use type: Cigarette Cigarettes Per Day: 4 Smoked in Last 30 Days: No e-Cigarette/Vaping Use: Never Used Second Hand Smoke Exposure: No Use of substances other than those prescribed or required for medical reasons: No Advance Directives: No Advance Directives Information Provided: No Do you have a plan to hurt others: No 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 service: 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 ([employer]) Sexual orientation: Straight/Heterosexual Physical Exam 2 Vital Signs: Vital Signs: Last Vital Signs Temp 97.9 F 03/09/25 11:54 Pulse 80 03/09/25 11:54 Resp 18 03/09/25 11:54 BP 115/48 L 03/09/25 11:54 Pulse Ox 97 03/09/25 11:54 O2 Del Method Room Air 03/09/25 11:54 BMI result Body Mass Index 27.5 Vital signs were normal Exam: General: Awake, alert in no distress Head: Normocephalic, atraumatic EENT: PERRL, sclera and conjunctiva are normal, mouth with no erythema or exudates Neck: Supple, no adenopathy Lung: breath sounds symmetric, no wheezing, no rales and no rhonchi Chest: symmetric movement, nontender Heart: regular rate and rhythm, normal S1, S2 no murmurs or rubs Abdomen: soft, non-tender, nondistended, normal bowel sounds Back: no vertebral tenderness, no CVAT Extremities: no deformities, pain with movement of his hips bilaterally, symmetric diminished strength in both his upper and lower extremities, he is able to hold his extremities up against gravity, strength is easy to break with gentle pressure. Neuro: Awake, alert, oriented, normal speech, cranial nerves 2-12 intact, moves all extremities symmetrically Psych: Pleasant, cooperative Medications Administered Discontinued Medications Generic Name Dose Route Start Last Admin Trade Name Freq PRN Reason Stop Dose Admin Ibuprofen 400 mg 03/09/25 12:18 03/09/25 12:39 Ibuprofen 400 Mg Tablet PO 03/09/25 12:19 400 mg ONCE STA Administration Medical Decision Making Medical Decision Making [facility] Narrative: 54 year old male with a history of of HTN, bipolar disorder, and previous Lyme disease with recurrent 12/19/2024 completing a 21 day course of doxycycline who presenting to the emergency department upper and lower extremity burning sensation with weakness. Patient states that he has neuropathy in his lower extremities from unclear etiology. He has had a burning sensation from his hips down to his feet for proximally 1 year. He states for the last week he has developed a burning sensation in his upper extremities from his hands to his shoulders. He states that he is having weakness and pain in both his upper and lower extremities. He states that he feels like he is losing muscle mass. His PCP did check his testosterone was low and he is receiving testosterone shots Q 2 weeks in his 1st shot was 1 week prior. He complains of increased pain in his hips bilaterally which are worse with movement, he has had no injury. Patient states that his hemoglobin A1c is less than 5 and he does not have diabetes. Patient was recently treated with Lyme disease as above and he states that his symptoms do not feel like acute Lyme disease. He states he did have a B12 shot in February of 2025 but this did not improve his lower extremity symptoms. He also states that he has been on gabapentin and Cymbalta with no relief of his lower extremity neuropathy. Vital signs were normal. Exam did reveal symmetric weakness in both his upper and lower extremities as well as pain with movement of both hips. Differential diagnosis: ?Includes but is not limited to neuropathy, myopathy, rhabdomyolysis, hypothyroidism, differential diagnosis of myopathy B12/folate deficiency, differential diagnoses of myopathy degenerative joint disease of the hips, avascular necrosis of hips, anemia, electrolyte abnormalities Course: 14:08 My independent interpretation patient's laboratory evaluation is as follows: WBC was normal. No anemia. CMP was normal. ESR and CRP were normal. CK was normal. B12, folate and TSH were normal. X-rays of the patient's hip and pelvis revealed no avascular necrosis, the patient has mild degenerative changes of the hips. Differential Diagnosis Differential Diagnoses: The differential diagnosis associated with the presentation includes (See above) Admission/Observation Consideration of admission/observation: Escalation of care including admission/observation considered (Yes) Lab Data MDM Lab Attestation statement: I reviewed the patient's lab results. 03/09/25 12:33 03/09/25 12:33 Labs: Lab Results 03/09/25 Range/Units 12:33 WBC 5.7 (4.8-10.8) X10*3/uL RBC 4.47 L (4.60-5.80) X10*6/uL Hgb 15.0 (14.0-18.0) g/dl Hct 42.5 (42.0-52.0) % MCV 95.1 (80.0-98.0) fL MCH 33.6 H (27.0-33.0) pg MCHC 35.3 (31.0-36.0) g/dl RDW 12.7 (11.0-16.0) % Plt Count 222 (160-400) X10*3/uL MPV 9.3 L (9.4-12.4) fL Immature Gran % (Auto) 0.5 H (0.0-0.4) % Neut % (Auto) 56.1 (45-73) % Lymph % (Auto) 32.0 (20-40) % Phillips % (Auto) 9.4 (2-11) % Eos % (Auto) 0.9 (0-4) % Baso % (Auto) 1.1 (0-2) % Lymph # (Auto) 1.8 (1.2-4.9) X10*3/uL Phillips # (Auto) 0.5 (0.1-1.2) X10*3/uL Eos # (Auto) 0.1 (0.0-0.4) X10*3/uL Baso # (Auto) 0.1 (0.0-0.2) X10*3/uL Abs Immat Gran (auto) 0.03 (0.00-0.03) X10*3/uL Absolute Neuts (auto) 3.2 (2.0-8.3) x10*3/uL Absolute Nucleated RBC 0.000 (0.0-0.012) X10*3/uL Nucleated RBC % (auto) 0.0 (0.0-0.2) /100WBC ESR 7 (0-15) MM/HR Sodium 140 (135-145) mmol/L Potassium 4.1 (3.3-5.1) mmol/L Chloride 105 (96-108) mmol/L Carbon Dioxide 27 (22-29) mmol/L Anion Gap 12 (12-20) BUN 13 (9-16) mg/dL Creatinine 0.63 (0.5-1.4) mg/dL Estim Creat Clear Calc 126.6 Estimated GFR > 60 Random Glucose 77 (60-115) mg/dL Calcium 9.5 (8.4-10.2) mg/dL Total Bilirubin 0.3 (0.0-1.0) mg/dL AST 21 (5-37) U/L ALT 19 (0-40) U/L Alkaline Phosphatase 64 (39-117) U/L Total Creatine Kinase 82 (38-174) U/L C-Reactive Protein 0.12 (< or = 0.50) mg/dL Total Protein 7.3 (6.5-8.0) g/dL Albumin 4.5 (3.5-5.0) g/dL Vitamin B12 362 (200-900) pg/mL Folate 12.7 (> or = 4.0) ng/mL TSH 1.35 (0.32-4.0) uIU/mL Independent Interpretation I performed an independent interpretation of an: Plain X-Ray Radiology Impression Discussion of test interpretation with radiology: I have reviewed the radiologist's reading. Radiologist Impression: AP pelvis, Two views of left and right hip. COMPARISON: None provided. FINDINGS: Pelvic ring appears maintained. Pelvic phleboliths present. Visualized lower lumbar spine is unremarkable. Right hip: Visualized portions of the proximal right femur appears intact. Right femoral head is appropriately seated in the acetabulum. Tiny osteophyte present along the greater trochanter. Hip joint space is maintained. Left hip: Visualized portions of the proximal left femur appears intact. Left femoral head is appropriately seated in the acetabulum. Tiny osteophyte present along the greater trochanter. Hip joint space is maintained. IMPRESSION: 1. No radiographic evidence of acute injury to the pelvis and bilateral hips. 2. Mild degenerative changes of the hips. This document has been electronically signed by: Pedro Holder MD on 03/09/2025 14:03:10 Dictated By: Pedro Holder MD Discharge Plan Discharge Clinical Impression: Bilateral numbness and tingling of arms and legs, Acute hip pain, bilateral, Peripheral neuropathy Patient Disposition: Home, Self-Care Additional Instructions: Your blood work was unremarkable. The x-rays of your hips revealed mild arthritis but no other significant findings. At this time I do not have a clear cause for the numbness and pain in your arms and legs or the weakness that your experiencing. I want you to follow up with your primary care doctor for further evaluation. Take ibuprofen 200 mg pills, 2 pills every 6 hours as needed for pain or fever. Take Tylenol (acetaminophen) 500 mg pills, 2 pills every 6 hours as needed for pain or fever. Follow-up with your new doctor as scheduled in March. Your doctor may suggest some other tests but if your doctor suggests medications for your neuropathy try these medicines to see if it helps while they continue to try to figure out the cause of your neuropathy. Please return to the emergency department if your symptoms get worse or if you develop any symptoms that are concerning to you. Prescriptions: No Action testosterone 20.25 mg/1.25 gram (1.62 %) gel in metered-dose pump 1 pump topical DAILY acetaminophen 325 mg Tablet 650 mg PO Q6H PRN (Reason: Headache/Pain, Scale 1-10) Qty: 0 0RF cyclobenzaprine 5 mg Tablet 5 mg PO TID PRN (Reason: Muscle Spasm) Qty: 90 0RF benztropine 0.5 mg Tablet 0.5 mg PO BID Qty: 60 0RF duloxetine 20 mg Capsule,Delayed Release(Dr/Ec) 40 mg PO DAILY Qty: 60 0RF trazodone 50 mg Tablet 50 mg PO BEDTIME MRX1 PRN (Reason: Insomnia) Qty: 60 0RF melatonin 3 mg Tablet 9 mg PO BEDTIME Qty: 90 0RF clonidine HCl 0.1 mg Tablet 0.1 mg PO BID 30 Days Qty: 60 0RF atorvastatin 10 mg Tablet 10 mg PO DAILY 30 Days Qty: 30 0RF amlodipine 5 mg tablet 5 mg PO DAILY Qty: 30 0RF gabapentin 100 mg capsule 100 mg PO TID PRN (Reason: anxiety/pain ) Qty: 90 0RF doxycycline hyclate 100 mg tablet 100 mg PO BID 21 Days Qty: 60 0RF Aristada 441 mg/1.6 mL suspension,extended rel syring 441 mg IM Q4W Qty: 1.6 0RF Rx Instructions: last given on 12/18/24 - due to be given 01/15/25 Print Language: Australian
--- NOTE | 2025-03-09 11:57 | PC.NURSE ---
JAIR from [facility]. Patient presents to ED with numbness, burning, and tingling in upper extremities worse then usual. Patient reports being dizzy but also says his amlodipine makes him dizzy. On monitor and storage bin tender NSR Patient has neuropathy and has lymes disease. Denies SOB VSS Provider in to see patient Plan of care on going
--- OUTSIDE RECORDS SUMMARY | 2025-03-09 12:17 | XMS_ITS | Data Portability ---
Author Organization [place] [facility] -[place], [place]_[facility] Address [address] [place] [address] Care Team Providers Care Windows Deployment Technician Name Role Phone [facility] Neurologist Assessment No assessment recorded. Plan of Treatment Reminders Order Date Submit Date Provider Last Modified By Organization Details Last Modified Time Details Appointments None recorded. Lab CBC w/ diff 2022 023 CUTLER [facility], [address], [place], [address], 3 05:05:50 MAURO + rf (antinucle ar antibodies + rheumatoid factor), quantitati ve, serum 2022 023 SANDI [facility], [address], [place], [address], 3 05:05:53 CMP, serum or plasma 2022 023 [facility], [address], [place], [address], 3 05:05:52 Referral rheumatolo gist referral 2022 023 [email or web address] [facility] , [address] [place] [address], [address], 4 10:45:54 Procedures None recorded. Surgeries None recorded. Imaging None recorded. Medication Orders amoxicilli n 500 mg capsule 2022 023 [email or web address] [id number], [address] [place], [place], [id number], 10:58:56 nystatin 100,000 unit/mL oral suspension 2022 023 ATHENAFAX [id number], [address] [place] [address], [place], [id number], 09:00:53 prednisone 20 mg tablet 2022 023 [email or web address] Not available 10:59:28 Patient TargetsNo targets recorded. Patient Instructions Encounter Date Encounter Id Patient Instructions Last Modified By Organization Details Last Modified Time 04/25/2023 [id number] candidiasis: car e instructions Not available 04/25/2023 11:25:46 Behavior and dietary modifications: -Calcium supplementation -Folic acid if pt. is of childbearing age -Diet and exercise 30 mins, 5 days a week -Smoking cessation -Skin protection General health maintenance: -Dental care: Q6 months - yearly exams and cleaning -Vision care: Every 2 years at age 40, tonometry test at every 2 years >65 years old -Hearing: yearly exams over 65 Today, I reviewed your medications. If you need help getting your medications filled, our [facility] can sync medication refills, deliver within a 10 mile radius, or [employer] [facility] overnight at no additional cost. Knowing what medications to keep taking and which ones to stop after a hospital visit can be confusing. Contact your provider with your questions about what medications you should be taking. You can also use your [employer]mis to schedule an appointment, see test results, and chat with a provider day or night. To download the idalmis, please visit [email or web address] Not available 04/24/2023 16:55:44 05/16/2023 [id number] tooth decay: car e instructions Not available 05/16/2023 12:26:02 go to emergency room Not available 05/16/2023 12:26:02 Tooth Decay: Car e Instructions Your Care Instructions Tooth decay is damage to a tooth caused by plaque. Plaque is a thin film of bacteria that sticks to the teeth above and below the gum line. If plaque isn't removed from the teeth, it can build up and harden into tartar. The bacteria in plaque and tartar use sugars in food to make acids. These acids can cause tooth decay and gum disease. Any part of your tooth can decay, from the roots below the gum line to the chewing surface. Decay can affect the outer layer (enamel) or inner layer (dentin) of your teeth. The deeper the decay, the worse the damage. Untreated tooth decay will get worse and may lead to tooth loss. If you have a small hole (cavity) in your tooth, your dentist can repair it by removing the decay and filling the hole. If you have deeper decay, you may need more treatment. A very badly damaged tooth may have to be removed. Follow-up care is a azar part of your treatment and safety. Be sure to make and go to all appointments, and call your dentist if you are having problems. It's also a good idea to know your test results and keep a list of the medicines you take. How can you care for yourself at home? If you have pain: Take an [id number]-cexrmoo pain medicine, such as acetaminophen (Tylenol), ibuprofen (Advil, Motrin), or naproxen (Aleve). Be safe with medicines. Read and follow all instructions on the label. Do not take two or more pain medicines at the same time unless the doctor told you to. Many pain medicines have acetaminophen, which is Tylenol. Too much acetaminophen (Tylenol) can be harmful. Put ice or a cold pack on your cheek over the tooth for 10 to 15 minutes at a time. Put a thin cloth between the ice and your skin. To prevent tooth decay [place] teeth twice a day, and floss once a day. Brushing with fluoride toothpaste and flossing may be enough to reverse early decay. Use a toothbrush with soft, rounded-end bristles and a head that is small enough to reach all parts of your teeth and mouth. Replace your toothbrush every 3 or 4 months. You may also use an electric toothbrush that has rotating and oscillating ([id number]) action. Ask your dentist about having fluoride treatments at the dental office. [place] your tongue to help get rid of bacteria. Eat healthy foods that include whole grains, vegetables, and fruits. Have your teeth cleaned by a professional at least two times a year. Do not smoke or use smokeless tobacco. Tobacco can make tooth decay worse. When should you call for help? Call anytime you think you may need emergency care. For example, call if: You have trouble breathing. Call your dentist now or seek immediate medical care if: You have new or worse symptoms of infection, such as: Increased pain, swelling, warmth, or redness. Red streaks leading from the area. Pus draining from the area. A fever. Watch closely for changes in your health, and be sure to contact your doctor if: You do not get better as expected. Care instructions adapted under license by [facility]. This care instruction is for use with your licensed healthcare professional. If you have questions about a medical condition or this instruction, always ask your healthcare professional. [employer] disclaims any warranty or liability for your use of this information. 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 Referring Physician: Miah Howard, Family Medicine, Encounter Date: 04/25/2023 Results Created Date Observation Date Name Description Value Unit Range Abnormal Flag Note LastModifiedBy Organization Detail LastModifiedTime 04/25/2004/26/2023 CBC/D /PLT W/ REFLE X LASHAUN TIN WBC 6.2 x10e3 /uL 3.4-10 .8 Not Available [facility] ([facility]) [address] [place], [address], 04/29/2023 05:05:50 04/25/2004/26/2023 CBC/D /PLT W/ REFLE X LASHAUN TIN RBC 4.67 x10e6 /uL 4.14-5 .80 Not Available [facility] ([facility]) [address] [place], [address], 04/29/2023 05:05:50 04/25/20 23 04/26/2023 CBC/D /PLT W/ REFLE X LASHAUN TIN hemoglobin 15.6 g/dL 13.0-1 7.7 Not Available [facility] ([facility]) [address] [facility], [place], [address], 04/29/2023 05:05:50 04/25/20 23 04/26/2023 CBC/D /PLT W/ REFLE X LASHAUN TIN hematocrit 46.2 % 37.5-5 1.0 Not Available [facility] ([facility]) [address] [facility], [place], [address], 04/29/2023 05:05:50 04/25/2004/26/2023 CBC/D /PLT W/ REFLE X LASHAUN TIN MCV 99 fL 79-97 above high normal Not Available [facility] ([facility]) [address] [place], [address], 04/29/2023 05:05:50 04/25/20 23 04/26/2023 CBC/D /PLT W/ REFLE X LASHAUN TIN MCH 33.4 pg 26.6-3 3.0 above high normal Not Available [facility] ([facility]) [address] [place], [address], 04/29/2023 05:05:50 04/25/20 23 04/26/2023 CBC/D /PLT W/ REFLE X LASHAUN TIN MCHC 33.8 g/dL 31.5-3 5.7 Not Available [facility] ([facility]) [address] [place], [address], 04/29/2023 05:05:50 04/25/2004/26/2023 CBC/D /PLT W/ REFLE X LASHAUN TIN RDW 12.6 % 11.6-1 5.4 Not Available [facility] ([facility]) [address] [place], [address], 04/29/2023 05:05:50 04/25/20 23 04/26/2023 CBC/D /PLT W/ REFLE X LASHAUN TIN platelets 243 x10e3 /uL 150-45 0 Not Available [facility] ([facility]) [address] [facility], [place], [address], 04/29/2023 05:05:50 04/25/20 23 04/26/2023 CBC/D /PLT W/ REFLE X LASHAUN TIN neutrophils 66 % not estab. Not Available [facility] ([facility]) [address] [facility], [place], [address], 04/29/2023 05:05:50 04/25/2004/26/2023 CBC/D /PLT W/ REFLE X LASHAUN TIN lymphs 22 % not estab. Not Available [facility] ([facility]) [address] [facility], [place], [address], 04/29/2023 05:05:50 04/25/20 23 04/26/2023 CBC/D /PLT W/ REFLE X LASHAUN TIN monocytes 9 % not estab. Not Available [facility] ([facility]) [address] [facility], [place], [address], 04/29/2023 05:05:50 04/25/20 23 04/26/2023 CBC/D /PLT W/ REFLE X LASHAUN TIN eos 1 % not estab. Not Available [facility] ([facility]) [address] [facility], [place], [address], 04/29/2023 05:05:50 04/25/20 23 04/26/2023 CBC/D /PLT W/ REFLE X LASHAUN TIN basos 1 % not estab. 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 0 Not Available [facility] ([facility]) [address] [facility], [place], [address], 04/29/2023 05:05:50 04/25/2004/26/2023 CBC/D /PLT W/ REFLE X LASHAUN TIN lymphs (absolute) 1.4 x10e3 /uL 0.7-3. 1 Not Available [facility] ([facility]) [address] [facility], [place], [address], 04/29/2023 05:05:50 04/25/20 23 04/26/2023 CBC/D /PLT W/ REFLE X LASHAUN TIN monocytes(ab solute) 0.6 x10e3 /uL 0.1-0. 9 Not Available [facility] ([facility]) [address] [facility], [place], [address], 04/29/2023 05:05:50 04/25/20 23 04/26/2023 CBC/D /PLT W/ REFLE X LASHAUN TIN eos (absolute) 0.1 x10e3 /uL 0.0-0. 4 Not Available [facility] ([facility]) [address] [facility], [place], [address], 04/29/2023 05:05:50 04/25/20 23 04/26/2023 CBC/D /PLT W/ REFLE X LASHAUN TIN baso (absolute) 0.1 x10e3 /uL 0.0-0. 2 Not Available [facility] ([facility]) [address] [place], [address], 04/29/2023 05:05:50 11/1404/26/2023 CBC/D /PLT W/ REFLE X LASHAUN TIN immature granulocytes 1 % not estab. Not Available [facility] ([facility]) [address] [facility], [place], [address], 04/29/2023 05:05:50 04/25/2004/26/2023 CBC/D /PLT W/ REFLE X LASHAUN TIN immature grans (abs) 0.0 x10e3 /uL 0.0-0. 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 Not Available [facility] ([facility]) [address] [facility], [place], [address], 04/29/2023 05:05:50 04/25/2004/26/2023 CBC/D /PLT W/ REFLE X LASHAUN TIN hematology comments: PL SQL PROGRAMMER Not Available [facility] ([facility]) [address] [place], [address], 04/29/2023 05:05:50 04/25/20 23 04/27/2023 CMP14 glucose 107 mg/dL 70-99 above high normal Not Available [facility] ([facility]) [address] [place], [address], 04/29/2023 05:05:52 04/25/2004/27/2023 CMP14 BUN 9 mg/dL 6-24 Not Available [facility] ([facility]) [address] [place], [address], 04/29/2023 05:05:52 04/25/20 23 04/27/2023 CMP14 creatinine 0.80 mg/dL 0.76-1 .27 Not Available [facility] ([facility]) [address] [place], [address], 04/29/2023 05:05:52 04/25/20 23 04/27/2023 CMP14 eGFR 105 mL/mi n/1.7 3 >59 Not Available [facility] ([facility]) [address], [place], [address], 04/29/2023 05:05:52 04/25/2004/27/2023 CMP14 BUN/creatini ne ratio 11 9-20 Not Available [facility] ([facility]) [address] [facility], [place], [address], 04/29/2023 05:05:52 04/25/2004/27/2023 CMP14 sodium 139 mmol/ L 134-14 4 Not Available [facility] ([facility]) [address] [facility], [place], [address], 04/29/2023 05:05:52 04/25/2004/27/2023 CMP14 potassium 3.9 mmol/ L 3.5-5. 2 Not Available [facility] ([facility]) [address] [facility], [place], [address], 04/29/2023 05:05:52 04/25/2004/27/2023 CMP14 chloride 99 mmol/ L 96-106 Not Available [facility] ([facility]) [address] [facility], [place], [address], 04/29/2023 05:05:52 04/25/2004/27/2023 CMP14 carbon dioxide, total 26 mmol/ L 20-29 Not Available [facility] ([facility]) [address] [place] [place], [address], 04/29/2023 05:05:52 04/25/20 23 04/27/2023 CMP14 calcium 9.5 mg/dL 8.7-10 .2 Not Available [facility] ([facility]) [address] [facility], [place], [address], 04/29/2023 05:05:52 04/25/20 23 04/27/2023 CMP14 protein, total 7.4 g/dL 6.0-8. 5 Not Available [facility] ([facility]) [address] [facility], [place], [address], 04/29/2023 05:05:52 04/25/20 23 04/27/2023 CMP14 albumin 4.7 g/dL 3.8-4. 9 Not Available [facility] ([facility]) [address] [facility], [place], [address], 04/29/2023 05:05:52 04/25/2004/27/2023 CMP14 globulin, total 2.7 g/dL 1.5-4. 5 Not Available [facility] ([facility]) [address] [facility], [place], [address], 04/29/2023 05:05:52 04/25/20 23 04/27/2023 CMP14 A/G ratio 1.7 1.2-2. 2 Not Available [facility] ([facility]) [address] [facility], [place], [address], 04/29/2023 05:05:52 04/25/20 23 04/27/2023 CMP14 bilirubin, total 0.2 mg/dL 0.0-1. 2 Not Available [facility] ([facility]) [address] [facility], [place], [address], 04/29/2023 05:05:52 04/25/2004/27/2023 CMP14 alkaline phosphatase 62 IU/L 44-121 Not Available [facility] ([facility]) [address] [facility], [place], [address], 04/29/2023 05:05:52 04/25/20 23 04/27/2023 CMP14 AST (SGOT) 13 IU/L 0-40 Not Avail able [facility] ([facility]) [address] [facility], [place], [address], 04/29/2023 05:05:52 04/25/2004/27/2023 CMP14 ALT (SGPT) 17 IU/L 0-44 Not Avail able [facility] ([facility]) [address] [facility], [place], [address], 04/29/2023 05:05:52 04/25/2004/27/2023 MAURO+R F QN MAURO direct NEGATI VE negati ve Not Available [facility] ([facility]) [address] [facility], [place], [address], 04/29/2023 05:05:53 04/25/2004/29/2023 MAURO+R F QN rheumatoid factor (rf) 10.9 IU/mL <14.0 Not Available [facility] ([facility]) [address] [facility], [place], [address], 04/29/2023 05:05:53 Result Notes None recorded. Problems Name Problem SNOMED Code Status Onset Date Resolution Date Notes Provider Name and Address Organization Details Recorded Time Rheumatoid arthritis of multiple joints 536361312 Active 2022 MIAH FERRERL [place] 3 11:04:18 Candidiasis of mouth 64001717 Active 2022 MIAH HOWARD null, [facility] 3 11:12:26 Polymyositi s associated with autoimmune disease 380957965 Active 2022 MIAH HOWARD [place], [facility] 3 11:21:49 Polyarthrop athy 38612689 [facility] 20[facility] [facility] 11:33:41 Pain of multiple joints 68974238 Active 2022 [facility] 3 08:59:02 Dental caries 77855138 [facility] 3 14:05:46 Acute psychosis 1160662708734 0 [facility] 12[facility]10 Problem Notes None recorded. Medical Equipment None Reported. Allergies No known drug allergies Medications Name Sig Start Date Stop Date Status Note LastModified by Organization Details LastModified Time amoxicillin 500 mg capsule TAKE 1 CAPSULE BY MOUTH EVERY 8 HOURS DIRECTED FOR 10 DAYS 05/16 completed Not Available Not Available Not Available nystatin 100,000 unit/mL oral suspension TAKE 5ML SWISH AND SWALLOW BY MOUTH FOUR TIMES DAILY DIRECTED FOR 7 DAYS active Not Available Not Available No t Available doxycycline hyclate 100 mg capsule TAKE 1 CAPSULE BY MOUTH TWICE A DAY FOR 21 DAYS 04/25 completed Not Available Not Available Not Available tizanidine 2 mg tablet TAKE 1 TABLET BY MOUTH TWICE A DAY NEEDED. DO NOT DRIVE AFTER TAKING 30 90 active Not Available Not Available No t Available metoprolol succinate ER 50 mg tablet,exte nded release 24 hr TAKE 1 TABLET BY MOUTH EVERY DAY FOR 30 DAYS ORALLY active Not Available Not Available No t Available prednisone 20 mg tablet TAKE 1 TABLET BY MOUTH EVERY DAY NEEDED FOR 90 DAYS 05/16 completed Not Available Not Available Not Available peg-electro lyte solution 420 gram oral solution TAKE DIRECTED PRIO TO PROCEDURE active Not Available Not Available No t Available doxycycline monohydrate 100 mg capsule TAKE 1 CAPSULE BY MOUTH TWICE A DAY FOR 21 DAYS 04/25 completed Not Available Not Available Not Available metoprolol succinate ER 25 mg tablet,exte nded release 24 hr TAKE 1 TABLET BY MOUTH EVERY DAY FOR 30 DAYS active Not Available Not Available No t Available methylpredn isolone 4 mg tablets in a dose pack TAKE 6 TABLETS ON DAY 1 DIRECTED ON PACKAGE AND DECREASE BY 1 TAB EACH DAY FOR A TOTAL OF 6 DAYS 04/25 completed Not Available Not Available Not Available colchicine 0.6 mg tablet 1 TABLET DAILY active Not Available Not Available No t Available doxycycline hyclate 100 mg tablet TAKE 1 TABLET BY MOUTH EVERY DAY FOR 10 DAYS 04/25 completed Not Available Not Available Not Available benazepril 10 mg-hydrochl orothiazide 12.5 mg tablet TAKE 1 TABLET BY MOUTH EVERY DAY FOR 30 DAYS active Not Available Not Available No t Available Vitals Date Recorded Systolic And Diastolic Provider Name and Address Organization Details Last Updated DateTime 04/25/2023 138/80 mm[Hg] MIAH [facility] 04/25/2023 13:21:13 Date Recorded Body height Body mass index (BMI) Body weight Respiratory rate Body temperature Oxygen saturation Oxygen saturation in Arterial blood by Pulse oximetry Heart rate Provider Name and Address Organization Details Last Updated DateTime 3 167.64 cm 27 kg/m2 08979.9 3 g 18 /min 97 [degF] 98 % 98 % 96 /min Beverley Hans [facility] 3 10:43:34 Date Recorded Body height Body mass index (BMI) Body weight Provider Name and Address Organization Details Last Updated DateTime 05/16/2023 167.64 cm 27 kg/m2 91371.93 g Beverley Hans [facility] 05/16/2023 10:54:45 Social History Question Answer Notes LastModified by Organizat ion Details LastModified Time Tobacco Smoking Status Former Smoker Beverley Hans [facility] 04/25/2023 10:45:48 Are You Blind Or Do You Have Difficulty Seeing? No [email or web address] Information not available 04/25/2023 Are You Deaf Or Do You Have Serious Difficulty Hearing? No [email or web address] Information not available 04/25/2023 What Type Of Diet Are You Following? REGULAR [email or web address] Information not available 04/25/2023 What Is The Highest Grade Or Level Of School You Have Completed Or The Highest Degree You Have Received? [id number] [email or web address] Information not available 04/25/2023 How Many Days Of Moderate To Strenuous Exercise, Like A Brisk Walk, Did You Do In The Last 7 Days? 4 [email or web address] Information not available 04/25/2023 How Many Children Do You Have? 0 [email or web address] Information not available 04/25/2023 Do You Use Protection During Sex? No [email or web address] Information not available 04/25/2023 What Is Your Relationship Status? Single [email or web address] Information not available 04/25/2023 Do You Use Your Seat Belt Or Car Seat Routinely? Yes [email or web address] Information not available 04/25/2023 Are You Sexually Active? Yes [email or web address] Information not available 04/25/2023 Do You Have Smoke And Carbon Monoxide Detectors In Your Home? Yes [email or web address] Information not available 04/25/2023 Are There Any Smokers In Your House? No Information not available 04/25/2023 Do You Use Sunscreen Routinely? Yes [email or web address] Information not available 04/25/2023 Do You Have Difficulty Walking Or Climbing Stairs? Yes [email or web address] Information not available 04/25/2023 Sex: Unknown Functional Status Question Answer Note LastModified by Organizat ion Details LastModified Time Do you use any illicit or recreational drugs? No [email or web address] Information not available 04/25/2023 Do you or have you ever used any other forms of tobacco or nicotine? No Information not available 04/25/2023 What is your level of alcohol consumption? Occasional [email or web address] Information not available 04/25/2023 Do you have access to reliable transportation? No [email or web address] Information not available 04/25/2023 Are you able to walk independently without assistance or assistive devices? YESWOREST [email or web address] Information not available 04/25/2023 Are you able to care for yourself independently? Yes [email or web address] Information not available 04/25/2023 Do you have difficulty dressing, bathing, grooming, or toileting? No [email or web address] Information not available 04/25/2023 Mental Status Question Answer Note LastModified by Organizat ion Details LastModified Time Do you feel stressed (tense, restless, nervous, or anxious, or unable to sleep at night)? [id number] Information not available 04/25/2023 Do you have difficulty concentrating, remembering or making decisions? No [email or web address] Information no t available 04/25/2023 Family History Nothing Reported. 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 INTEGRATION Disease/Disorder N Elevated Cholesterol/Triglycerides Y Colon Cancer N Anxiety N Ear or Hearing Problems N Tonsil Infections N Breast Cancer N Coronary Artery Disease (CAD) N Blood Clot (DVT/PE) N Glaucoma N Depression N Nasal or Sinus Problems N Anemia N Kidney Disease/Disorder N Liver Disease/Disorder N Peripheral Vascular Disease (PVD) N Respiratory Disease/Disorder N Diabetes N Autoimmune disease N Muscle, Joint, or Bone Problems Y Colon Disease/Disorder N Vision or Eye Problems N Seizures/Epilepsy N Urinary Disease/Disorder N Osteopenia/Osteoporosis N Mood Disorder, other N Cancer, other N Heart Attack N Substance Abuse N Bipolar Disorder N Sleep Apnea N GERD/Reflux N Hepatitis N Neurologic Disease/Disorder Y Thyroid Disease/Disorder N Heart Failure N Skin Condition N Past Encounters Encounter ID Performer Location Encounter Start Date Encounter Closed Date Diagnosis/Indication Diagnosis SNOMED-CT Code Diagnosis ICD10 Code Diagnosis IMO Codes Diagnosis Note [id number] LEXX Suresh_EMBER_Jasson casillas ([facility]) [address] [place] [address] 04/25/2023 10:26:43 04/25/2023 11:52:34 Rheumatoid arthritis of multiple joints 719590299 M05.69 Candidiasis of mouth 797 42795 B37.0 Polymyosit is associated with autoimmune disease 814767849 M35.9 [id number] LEXX Suresh [place]_Roc vinny ([facility]) [address] [place] [address] 05/16/2023 10:38:31 05/16/2023 12:30:19 Dental caries 28834837 K02.9 Oral surgery is scheduled for 06/23/22. Acute psychosis 51121797 05 2100 F23 Before his visit was completed, he was taken by ambulance to the ER. See PE section for more details. Health Concerns Section Related Observation LastModified by Organization Detai ls LastModified Time None Recorded Concern Status LastModified by Organization Details LastModified Time None Recorded Advance Directives Directive None Recorded Payers Insurance Date Sequence Insurance Name Policy Number Policy Fisher Covered Member ID Fisher Member ID Guarantor Name 05/16/2023 1 [place] [employer] [facility] (MEDICAID) Davon West [id number] Davon Augustinmilton 05/16/2023 1 [place] [facility] Davon West [id number] Davon Augustinmilton 05/16/2023 1 [place] [facility] (MEDICAID) Davon West [id number] Davon West 05/16/2023 1 [place] [facility] Davon Beltránpetra [id number] Davon Beltránmylesmilton Notes Date Note Type Note Provider Name and Address Organization Details Recorded Time 04/25/2023 text/html 53 year old new patient presents with c/o multiple joint pain after being diagnosed with Lyme disease. He is here to establish care with a new PCP. MIAH abdi [facility] 04/25/2023 13:31:35 05/16/2023 text/html 53 year old male est patient comes in for a 3 week f/u to discuss lab work. He has full mouth extraction of dental caries surgery scheduled for 06/23/23. He came to the visit with his girlfriend. I spoke to the girlfriend in private before his visit, and she said she wants him committed. She says his dental infection has gone to his brain and that he is talking very irrationally. She said that he also said he was going to take his colonoscopy prep and finish himself off. MIAH abdi [facility] 05/16/2023 12:26:07
--- OUTSIDE RECORDS SUMMARY | 2025-03-09 12:17 | XMS_ITS | Encounter Summary ---
Author Organization [facility] ystem Address [address] [place] [address] Phone Care Team Providers Care Extension Service Supervisor Name Role Phone Veronica oPrras MD Primary Care Provider [phone] Encounter Details Date Type Department Care Team (Late st Contact Info) Description 12/23/2022 Procedure Pass [facility] [place] [address] [place] [address] Social History Tobacco Use Types Packs/Day Years Used Date Smoking Tobacco: Never Assessed Sex and Gender Information Value Date Recorded Sex Assigned at Not on file Legal Sex Male 8:08 AM EDT Gender Identity Not on file Sexual Orientation Not on file documented as of this encounter Plan of Treatment Not on file documented as of this encounter Visit Diagnoses Not on filedocumented in this encounter Additional Health Concerns Infection Onset Date Last Indicated Resolved Time Covid/Flu/RSV Rule-Out 01/04/2024 01/04/202401/04 1:29 AM EDT Covid Possible 01/05/2024 01/05/2024 01/05/2024 12 :41 PM EDT documented as of this encounter Care Teams Extension Service Supervisor Relationship Specialty Start Date End Date Veronica Porras MD PCP - General Family Medicine 01/04/24 documented as of this encounter
--- OUTSIDE RECORDS SUMMARY | 2025-03-09 12:17 | XMS_ITS | Encounter Summary ---
Author Organization [employer] Address [address] [facility] 7t [place] [address] Care Team Providers Care Poultry Feed Supervisor Name Role Phone Celestina Gallardo MD Primary Care Provider [phone] Encounter Details Date Type Department Care Team (Late st Contact Info) Description 11/06/2024 Orders Only [facility] [address] [place] [address] Celestina Gallardo MD [address] [place] [address] Social History Tobacco Use Types Packs/Day Years [...] on file documented as of this encounter Procedures Procedure Name Priority Date/Time Associated Diagnosis Comments CT ABDOMEN PELVIS WO CONTRAST Routine 11/06/2024 3:12 PM EDT documented in this encounter Results * CT Abdomen Pelvis w/o Contrast (11/06/2024 3:12 PM EDT) Anatomical Region Laterality Modality Body, Pelvis, Abdomen Computed T omography Celestina Gallardo MD IMG CT PROCEDURES Final Result documented in this encounter Visit Diagnoses Not on filedocumented in this encounter Care Teams Poultry Feed Supervisor Relationship Specialty Start Date End Date Celestina Gallardo MD [address] [facility] [place] [address] PCP - General Family Medicine 05/07/24 documented as of this encounter
--- OUTSIDE RECORDS SUMMARY | 2025-03-09 12:17 | XMS_ITS | Encounter Summary ---
Author Organization [facility] ystem Address [address] [place] [address] Phone Care Team Providers Care Graduate Teaching Associate Name Role Phone Veronica Porras MD Primary Care Provider [phone] Encounter Details Date Type Department Care Team (Late st Contact Info) Description 04/12/2023 Scanned Document [facility] [address] [place] [id number] Fermin Thacker MD [address] [facility] [address] [place] [address] <No scans attached> Social History Tobacco Use Types Packs/Day Years [...] documented as of this encounter Care Teams Graduate Teaching Associate Relationship Specialty Start Date End Date Veronica Porras MD PCP - General Family Medicine 7/25/24 documented as of this encounter
--- OUTSIDE RECORDS SUMMARY | 2025-03-09 12:17 | XMS_ITS | Encounter Summary ---
Author Organization [employer] Address [address] [facility] 7[address] [place] [address] Care Team Providers Care Surg Rn Name Role Phone Celestina Gallardo MD Primary Care Provider [phone] Encounter Details Date Type Department Care Team (Late st Contact Info) Description 12/30/2024 Telephone [facility] [address] [place] [address] Celestina Gallardo MD [address] [place] [address] Social History Tobacco Use Types Packs/Day Years [...] Telephone Encounter - Rosalina Long LPN - 12/30/2024 9:03 AM EDT Images from the original note were not included. Rosalina Tinoco to [place] Triage Nurses SS 12/30/24 8:29 AM Pt was seen at [place] 12/27, note attached. documented in this encounter Plan of Treatment Not on file documented as of this encounter Visit Diagnoses Not on filedocumented in this encounter Care Teams Surg Rn Relationship Specialty Start Date End Date Celestina Gallardo MD [address] [facility] [place] [address] PCP - General Family Medicine 05/07/24 documented as of this encounter
--- OUTSIDE RECORDS SUMMARY | 2025-03-09 12:17 | XMS_ITS | Clinical Summary ---
Author Organization [facility] ity Address [address] [place] [address] Care Team Providers Care Sql Database Developer Name Role Phone Unavailable Primary Care Provider [...] 01/10/2018 Zoster Vaccines (1 of 2) 01/10/2018 Cholesterol Screening (Lipid Panel) 03/21/2024 Colorectal Cancer Screening: Colonoscopy 03/21/2024 HIV Screening 03/21/2024 Hepatitis C Screening 03/21/2024 Social Influencers of Health Screening 03/21/2024 Depression Screening 06/12/2024 COVID-19 Vaccine (2023-2 5 season) 2025 Influenza Vaccine (#1) 2025 HIB Vaccines Aged [...]
--- OUTSIDE RECORDS SUMMARY | 2025-03-09 12:17 | XMS_ITS | Clinical Summary ---
[facility] Address [address] [place] [address] Phone Care Team Providers Care Payroll Auditor Name Role Phone Veronica Porras MD Primary Care Provider [phone] Allergies Active Allergy Reactions Criticality Noted Date [...] Health Maintenance Due Date Last Done Comments [facility] TOPIC SIGMOIDOSCOPY 1968 [facility] Topic HIV Screening 1968 [facility] Topic Hepatitis C Screening 1968 [facility] Topic PSA 1968 [facility] Topic Tdap Vaccine (1 - Tdap) 01/10/1987 [facility] TOPIC FOBT/FIT TEST 01/10/2013 [facility] Topic Cologuard 01/10/2013 [facility] Topic Colon Cancer Screening 01/10/2013 [facility] Topic Colonoscopy 01/10/2013 [facility] Topic Lung Cancer Screening 01/10/2018 [facility] Topic Pneumococcal Va ccine (HEDIS/Adult) (1 of 1 - PCV) 01/10/2018 [facility] Topic Shingrix (1 of 2) 01/10/2018 [facility] Topic Lipid Profile 08/23/2024 08/24/2023 [facility] Topic Influenza (Flu) Seasonal (#1) 2025 [facility] Topic HIB Vaccines Aged Out No longer eligible based on patient's age to complete this topic Procedures Procedure Name Priority Date/Time Associated Diagnosis Comments LIPID PANEL Add-On 08/24/2023 6:51 PM EDT from Last 3 Months or Most Recently Relevant to Health Maintenance Results * (ABNORMAL) Lipid panel (08/24/2023 6:51 PM EDT) Cholesterol 182 120 - 200 mg/dL 08/25/2023 12:08 AM EDT [facility] HDL 56(H) 35 - 55 mg/dL 08/25/2023 12:08 AM EDT [facility] LDL Calculated 98 60 - 130 mg/dL 08/25/2023 12:08 AM EDT [facility] Triglycerides 139 35 - 150 mg/dL 08/25/2023 12:08 AM EDT [facility] Cholesterol Risk Ratio 3.25 mg/dL 08/25/2023 12:08 AM EDT [facility] Comment:Less than the averag e risk of developing coronary heart disease. Blood Venous blood / Unknown Venipuncture / Unknown 08/24/2023 6:51 PM EDT 08/24/2023 6:56 PM EDT us Harmony Huntley MD LAB BLOOD ORDERABLES Final Resu lt [facility] [address] [place] [address], [place] [phone] from Last 3 Months or Most Recently Relevant to Health Maintenance [place] [address] [place] [address] [employer] Advance Directives For more information, please contact: [phone] Documents on File Type Date Recorded Patient Weight Loss Sales Consultant Expl anation Advance Directives and Living Will [...] distre ss: Intubate and Ventilate Care Teams Payroll Auditor Relationship Specialty Start Date End Date Veronica Porras MD PCP - General Family Medicine 01/04/24
--- OUTSIDE RECORDS SUMMARY | 2025-03-09 12:18 | XMS_ITS | Encounter Summary ---
Author Organization [facility] ystem Address [address] [place] [address] Phone Care Team Providers Care Psychologist Personnel Name Role Phone Veronica Porras MD Primary Care Provider [phone] Encounter Details Date Type Department Care Team (Late st Contact Info) Description 06/23/2023 Procedure Pass [facility] [place] [address] [place] [address] Social History Tobacco Use Types Packs/Day Years Used Date Smoking Tobacco: Former Cigarettes Q uit: 05/07/2023 Smokeless Tobacco: Never Alcohol Use Standard Drinks/Week Comments Not Currently [...] documented as of this encounter Care Teams Psychologist Personnel Relationship Specialty Start Date End Date Veronica Porras MD PCP - General Family Medicine 01/04/24 documented as of this encounter
--- OUTSIDE RECORDS SUMMARY | 2025-03-09 12:18 | XMS_ITS | Clinical Summary ---
Author Organization [facility] Address [address] [place] [address] Care Team Providers Care Deputy Grand Jury Name Role Phone No, Pcp Primary Care [...] a substance or known physiological condition 06/15/2023 024 Social History Tobacco Use Types Packs/Day Years [...] FOBT 1968 HIV Screening 1968 Sigmoidoscopy 1968 Diabetes: Retinopathy Screening 1968 Diabetes: Urine Protein Screening 1968 MMR Vaccines (1 of 1 - Standard series) 01/10/1969 Diabetes: Foot Exam 01/10/1978 Hepatitis C Screening 01/10/1986 DTaP/Tdap/Td Vaccines (1 - Tdap) 01/10/1987 Hepatitis B Vaccines (1 of 3 - 19+ 3-dose series) 01/10/1987 Pneumococcal Vaccine: 50+ Years (1 of 1 - PCV) 01/10/2018 Zoster Vaccines (1 of 2) 01/10/2018 Lipid Panel 08/23/2024 08/24/2023 Diabetes: Hemoglobin A1C 01/08/2025 024, 08/24/2023, 08/24/2023 COVID-19 Vaccine ( - 2023-2 5 season) 2025 Influenza Vaccine (#1) 2025 Diabetes Screening Discontinued 01/09/2024, 08/24/2023 HIB Vaccines Aged Out No longer eligi [...] patient's age to complete this topic Insurance [facility] [place] [id number] Care Teams Deputy Grand Jury Relationship Specialty Start Date End Date No, Pcp, PCP - General Pediatrics 01/21/24
--- OUTSIDE RECORDS SUMMARY | 2025-03-09 12:18 | XMS_ITS | Encounter Summary ---
Author Organization [employer] Address [address] [facility] 7t [place] [address] Care Team Providers Care Coke Wheeler Name Role Phone Celestina Gallardo MD Primary Care Provider [phone] Encounter Details Date Type Department Care Team (Late st Contact Info) Description 11/18/2024 Telephone [facility] Information Management [address] [place] [address] Celestina Gallardo MD [address] [place] [address] Social History Tobacco Use Types Packs/Day Years [...] encounter Miscellaneous Notes * Telephone Encounter - Meeta Laughlin - 11/19/2024 8:58 AM EDT LMOM for patient to call and schedule f/u if he is still interested in seeing our office. * Telephone Encounter - Rosalina Long LPN - 11/18/2024 11:43 AM EDT Images from the original note were not included. oRsalina Tinoco to [place] Triage Nurses SS 11/18/24 11:22 AM Pt was seen at [facility] 11/17, note attached. documented in this encounter Plan of Treatment Not on file documented as of this encounter Visit Diagnoses Not on filedocumented in this encounter Care Teams Coke Wheeler Relationship Specialty Start Date End Date Celestina Gallardo MD [address] [place] [address] PCP - General Family Medicine 05/07/24 documented as of this encounter
--- OUTSIDE RECORDS SUMMARY | 2025-03-09 12:18 | XMS_ITS | Clinical Summary ---
Author Organization [employer] Address [address] [facility] 7t [place] [address] Care Team Providers Care Architect In Training Name Role Phone Celestina Gallardo MD Primary Care Provider [phone] Allergies Active Allergy Reactions Criticality Noted Date Comments Benazepril Cough Medium 10/02/2023 Metoprolol Hives 05/29/2024 Medications FreeStyle lancets 1 each by Other route Once per day. 100 each 11 12/13/19 24 Active amLODIPine (Norvasc) 5 MG tabletIndication s:Primary hypertension Take 1 tablet (5 mg) by mouth Once per day. 90 tablet 3 10/06/19 25 026 Active ARIPiprazole Lauroxil ER ([place]ristada) 441 MG/1.6ML injectionIndicat ions:Bipolar 1 disorder, mixed, moderate (CMS/HCC) (HCC) Inject 1.6 mL (441 mg) into the muscle every 28 (twenty-eig ht) days for 12 doses. 1.6 mL 10/06/19 25 026 Active Testosterone Cypionate 200 MG/ML kitIndications:T estosterone deficiency Inject 200 mg into the muscle every 14 (fourteen) days. 2 kit 1 02/22/20 25 025 Active cloNIDine (Catapres) 0.1 MG tablet Take 0.1 mg by mouth 2 times daily. 025 Discontinued gabapentin (Neurontin) 100 MG capsuleIndicatio ns:Neuropathy Take 1 capsule (100 mg) by mouth 3 times daily. 90 capsule 5 08/22/19 25 025 Discontinued Testosterone Cypionate 200 MG/ML kitIndications:T estosterone deficiency Inject 200 mg into the muscle every 14 (fourteen) days. 2 kit 1 10/06/19 025 Discontinued Hospital, Clinic, or Other Facility Administered Medication Ordered Dose Route Frequency Start Date End Date Status ARIPiprazole Lauroxil ER (Aristada) injection 441 mgIndications:Bipolar 1 disorder, mixed, moderate (CMS/HCC) (HCC) 441 mg IM Every 28 days 06/26/2024 05/28/2025 Active testosterone cypionate (Depo-Testosterone) injection 200 mgIndications:Testoster one deficiency 200 mg IM Once 10/05/2024 Active Active Problems Problem Noted Date Diagnosed Date Heart damage 02/28/2025 Disorganized thought process 05/11/2024 Bipolar 1 disorder (CMS/HCC) 02/09/2024 History of Lyme disease 01/12/2024 Suicidal ideation 01/07/2024 Hypertension 12/13/2023 Type 2 diabetes mellitus wit hout complication, without long-term current use of insulin 12/13/2023 Myalgia, multiple sites 12/13/2023 Homeless single person 12/13/2023 Depressive disorder 09/26/2023 Encounters Date Type Department Care Team Description 02/28/2025 1:00 PM EDT Office Visit [facility] [address] [place] [address] Deng Bhatia DMD Tooth abrasion (Primary Dx); Heart damage 02/21/2025 Telephone [facility] [address] [place] [address] Celestina Gallardo MD Med Refill 02/19/2025 12:20 PM EDT Office Visit [facility] MED[facility] [address] [place] [address] Celestina Gallardo MD Decreased energy (Primary Dx); Testosterone deficiency; Disuse muscle atrophy; Drug-induced xerostomia 02/14/2025 Telephone [facility] [address] [place] [address] Celestina Gallardo MD verify patient demographic info 01/08/2025 Telephone [facility] [address] [place] [address] Celestina Gallardo MD ER Follow-up 01/03/2025 Telephone [facility] [address] [place] [address] Celestina Gallardo MD request OV and med list 12/30/2024 Telephone [facility] [address] [place] [address] Celestina Gallardo MD 12/11/2024 12:20 PM EDT Office Visit [facility] [address] [place] [address] Celestina Gallardo MD Esophageal thickening (Primary Dx); Bipolar 1 disorder, mixed, moderate (CMS/HCC); Oral candidiasis 12/11/2024 Telephone [facility] [address] [place] [address] Celestina Gallardo MD question about testosterone RX from Last 3 Months Social History Tobacco Use Types Packs/Day Years Used Date Smoking Tobacco: Former Cigarettes 0 11/2023 - 1986 Tobacco Cessation:Counseling Given: Not Answered Alcohol Use Standard Drinks/Week Comments Not Currently 0 (1 standard drink = 0.6 oz pur e alcohol) Sex and Gender Information Value Date Recorded Sex Assigned at Male 12/13/2023 11:39 AM EDT Legal Sex Male 11:33 AM EDT Gender Identity Male 12/13/2023 11:39 AM EDT Sexual Orientation Straight 12/13/2023 11 :39 AM EDT Last Filed Vital Signs Vital Sign Reading Time Taken Comments Blood Pressure 128/88 02/28/2025 1:26 PM EDT Pulse 84 02/19/2025 12:48 PM EDT Temperature 37.3 C (99.1 F) 02/19/2025 12:48 PM EDT Respiratory Rate 20 02/19/2025 12:48 PM EDT Oxygen Saturation 97% 09/25/2024 12:15 PM EDT Inhaled Oxygen Concentration - - Weight 73.1 kg (161 lb 1.6 oz) 02/19/2025 12:48 PM EDT Height 167.6 cm (5' 6 ) 05/29/2024 10:30 AM EST Body Mass Index 26 05/29/2024 10:30 AM EST Plan of Treatment Health Maintenance Due Date Last Done Comments CT Colonography 1968 Colonoscopy 1968 Colorectal Cancer Screening 1968 Dental Oral Exam 1968 Dental Prophylaxis 1968 Dental X-Ray: Bitewings 1968 Depression Screening 1968 FIT DNA/Cologuard 1968 FIT 1968 FOBT 1968 Lipid Panel 1968 SDOH Screening 1968 Sigmoidoscopy 1968 Disability Screening 1968 Diabetes: Foot Exam 01/10/1978 Eye Exam 01/10/1978 Alcohol/Substance Use Screening 1980 DTaP/Tdap/Td Vaccines (1 - Tdap) 01/10/1987 Diabetes: Urine Protein Screening 01/10/1987 Hepatitis B Vaccines (1 of 3 - 19+ 3-dose series) 01/10/1987 Pneumococcal Vaccine: 50+ Years (1 of 2 - PCV) 01/10/1987 Zoster Vaccines (1 of 2) 01/10/2018 Diabetes: Hemoglobin A1C 11/27/2024 024, 01/09/2024, 10/04/2023 COVID-19 Vaccine (1 - 2023-2 5 season) 2025 Influenza Vaccine (#1) 2025 Tobacco Screening 05/29/2025 05/29/2024 Dental X-Ray: Full Mouth 03/01/2028 02/28/2025 RSV Patients and Patients Aged 60 years or older (1 - 1-dose 75+ series) 01/10/2043 HIV Screening Completed 05/29/2024 Hepatitis C Screening Completed 05/29/2024 HIB Vaccines Aged Out No longer eligi [...] patient's age to complete this topic RSV under 20 months Aged Out No longe r eligible based on patient's age to complete this topic Rotavirus Vaccines Aged Out No longer eligible based on patient's age to complete this topic Procedures Procedure Name Priority Date/Time Associated Diagnosis Comments CASE PRESENTATION, DETAILED AND EXTENSIVE TREATMENT PLANNING Routine 02/28/2025 1:00 PM EDT PANORAMIC RADIOGRAPHIC IMAGE Routine 02/28/2025 1:00 PM EDT LIMITED ORAL EVALUATION - PROBLEM FOCUSED Routine 02/28/2025 1:00 PM EDT HEPATITIS C AB W/REFLEX TO HCV QUANT NAAT IF POSITIVE Routine 05/29/2024 12:20 PM EST HIV P24 ANTIGEN/ANTIBODY WITH REFLEX TO CONFIRMATION Routine 05/29/2024 12:20 PM EST POCT GLYCOSYLATED HEMOGLOBIN (HGB A1C) Routine 05/29/2024 11:51 AM EST Type 2 diabetes mellitus without complication, without long-term current use of insulin (CMS/HCC) from Last 3 Months or Most Recently Relevant to Health Maintenance Results * Hepatitis C Ab w/Reflex to HCV Quant NAAT if Positive (05/29/2024 12:20 PM EST) HCV Ab Non Reactive Non Reactive [facility] 1 05/29/2024 12:2 0 PM EST 05/29/2024 Comment:Blood, Venous Narrative [facility] 1 - 05/30/2024 10:05 AM EST Performed at: [facility] [address], [address], [place], [place] [id number] Solid Plasterer: Bo Dotson MD, Phone: [phone] us Celestina Gallardo MD LAB BLOOD ORDERABLES Final Res ult [facility] 1 * HIV p24 Antigen/Antibody With Reflex to Confirmation (05/29/2024 12:20 PM EST) HIV Ab/p24 Ag Screen Non Reactive Non Reactive [facility] 1 Comment: HIV-1/HIV-2 antibodies and HIV-1 p24 antigen were NOT detected. There is no laboratory evidence of HIV infection. HIV Negative 05/29/2024 12:2 0 PM EST 05/29/2024 Comment:Blood, Venous Narrative [facility] 1 - 05/30/2024 10:05 AM EST Performed at: - [facility] [address], [address], [place], [place] [id number] Solid Plasterer: Bo Dotson MD, Phone: [phone] us Celestina Gallardo MD LAB BLOOD ORDERABLES Final Res ult [facility] * POCT glycosylated hemoglobin (Hgb A1c) (05/29/2024 11:51 AM EST) Hemoglobin A1C 5.7 4.0 - 6.0 % Blood Capillary blood specimen / Unknown 05/29/2024 11:51 AM EST us Celestina Gallardo MD POINT OF CARE TEST ENTER/EDIT ORDERABLES Final Result from Last 3 Months or Most Recently Relevant to Health Maintenance Insurance [facility] C3 DENTAL-[facility] MEDICAID STAND ADULT Care Teams Architect In Training Relationship Specialty Start Date End Date Celestina Gallardo MD [address] [place] [address] PCP - General Family Medicine 05/07/24
[2025-03-09 12:41] LABS: MANUAL DIFF FLAG NO
[2025-03-09 12:54] LABS: Hematocrit 42.5 % (42.0-52.0); Hemoglobin 15.0 g/dl (14.0-18.0); Imm Gran Abs Auto 0.03 X10*3/uL (0.00-0.03); Imm Gran Pct Auto 0.5 % (0.0-0.4); Lymphocytes Absolute Auto 1.8 X10*3/uL (1.2-4.9); Mean Corpuscular HGB Conc 35.3 g/dl (31.0-36.0); Mean Corpuscular Hemoglobin 33.6 pg (27.0-33.0); Mean Corpuscular Volume 95.1 fL (80.0-98.0); NRBC Abs Auto 0.000 X10*3/uL (0.0-0.012); NRBC Pct Auto 0.0 /100WBC (0.0-0.2); Platelet Count 222 X10*3/uL (160-400); Red Blood Count 4.47 X10*6/uL (4.60-5.80); White Blood Count 5.7 X10*3/uL (4.8-10.8)
[2025-03-09 13:13] LABS: Alanine Aminotransferase 19 U/L (0-40); Albumin Level 4.5 g/dL (3.5-5.0); Alkaline Phosphatase 64 U/L (39-117); Anion Gap 12 (12-20); Aspartate Amino Transferase 21 U/L (5-37); Blood Urea Nitrogen 13 mg/dL (9-16); Calcium 9.5 mg/dL (8.4-10.2); Carbon Dioxide 27 mmol/L (22-29); Chloride 105 mmol/L (96-108); Creatinine Clr Calc Pharmacy 126.6; Estimated Glomerular Filt Rate > 60; Potassium 4.1 mmol/L (3.3-5.1); Sodium 140 mmol/L (135-145); Total Protein 7.3 g/dL (6.5-8.0)
[2025-03-09 13:44] LABS: Folate 12.7 ng/mL (> or = 4.0); Vitamin B12 362 pg/mL (200-900)
[2025-03-09 14:14] VITALS: BP 112/61; PULSE 60; RESP 12; TEMP 36.7; O2SAT 97
[2025-03-09 14:47] VITALS: BP 112/61; PULSE 60; RESP 12; TEMP 36.7; O2SAT 97
== END 2025-03-09 14:47 | disposition home or self-care (01) ==
PROVIDERS: Emergency Provider Emergency Medicine Emergency Medical Services; PCP Family Medicine
DX: R20.0 Anesthesia of skin (principal); M25.552 Pain in left hip; M25.551 Pain in right hip; G62.9 Polyneuropathy, unspecified; R42 Dizziness and giddiness; I10 Essential (primary) hypertension; F31.9 Bipolar disorder, unspecified
CPT/HCPCS: 36415; 73521; 80053; 82550; 82607; 82746; 84443; 85025; 85652; 86140; 99283; 99284

== ENCOUNTER → 2025-03-09 12:21 | Outpatient (BNV) | payer MEDICAID, SELFPAY | PROVIDERS: Emergency Provider Emergency Medicine Emergency Medical Services; PCP Family Medicine; Visit Provider Radiology Diagnostic Radiology | DX: M16.0 Bilateral primary osteoarthritis of hip (principal); M25.551 Pain in right hip; M25.552 Pain in left hip; R53.1 Weakness | CPT/HCPCS: 73521 ==

== ENCOUNTER 2025-04-16 10:16 | Emergency (ER) | payer MEDICAID, SELFPAY ==
[2025-04-16 10:22] VITALS: BP 134/70; BP 140/76; PULSE 76; PULSE 92; RESP 16; TEMP 37; O2SAT 95; BMI 27.0
--- NOTE | 2025-04-16 10:51 | ED_ITS ---
HPI - General Adult General Chief complaint: Extremity Problem Stated complaint: BU&LE PAIN X1Y, WORSENING OVER YR PER EMS Time Seen by Provider: 04/16/25 10:51 Source: patient and EMS Mode of arrival: EMS Limitations: no limitations History of Present Illness ED Provider: Irina Price PA-C HPI narrative: Patient is a 55 year old assigned male at with a history of HTN, bipolar disorder, and previous lyme disease presenting to the emergency department today with pain to his hands and feet. 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 Patient denies any other complaints at this time. Related Data Home Medications ?Medication ?Instructions ?Recorded ?Confirmed testosterone 1 pump topical DAILY 5 01/09/25 Previous Rx's ?Medication ?Instructions ?Recorded acetaminophen 325 mg tablet 650 mg (2 x 325 mg) PO Q6H PRN 01/20/25 Headache/Pain, Scale 1-10 #0 tabs amlodipine 5 mg tablet 5 mg PO DAILY #30 tabs 01/20 aripiprazole lauroxil 441 mg/1.6 441 mg (1.6 mL) IM Q4 W #1.6 mL 01/20/25 mL suspension, ext.rel. IM syringe (Aristada) atorvastatin 10 mg tablet 10 mg PO DAILY 30 days #30 t abs 01/20/25 benztropine 0.5 mg tablet 0.5 mg PO BID #60 tabs 01/20 clonidine HCl 0.1 mg tablet 0.1 mg PO BID 30 days #60 tabs 01/20/25 cyclobenzaprine 5 mg tablet 5 mg PO TID PRN Muscle Spa sm #90 01/20/25 tabs doxycycline hyclate 100 mg tablet 100 mg PO BID 21 day s #60 tabs 01/20/25 duloxetine 20 mg capsule,delayed 40 mg (2 x 20 mg) PO DAILY #60 caps 01/20/25 release gabapentin 100 mg capsule 100 mg PO TID PRN anxiety/pa in 01/20/25 #90 caps melatonin 3 mg tablet 9 mg (3 x 3 mg) PO BEDTIME # 90 tabs 01/20/25 trazodone 50 mg tablet 50 mg PO BEDTIME MRX1 PRN In somnia 01/20/25 #60 tabs Allergies Allergy/AdvReac Type Severity Reaction Status Date / Time benazepril Allergy Cough Verified 04/16/25 10:36 metoprolol Allergy Cough Verified 04/16/25 10:36 Review of Systems 2 Constitutional: Constitutional: Reports as per HPI Eyes: Eyes: Reports as per HPI ENT: Reports as per HPI Cardiovascular: Cardiovascular: Reports as per HPI Respiratory: Respiratory: Reports as per HPI Gastrointestinal: Gastrointestinal: Reports as per HPI Genitourinary: Genitourinary: Reports as per HPI Musculoskeletal: Musculoskeletal: Reports as per HPI Integumentary/Breasts: Skin/Breast: Reports as per HPI Neurologic: Reports as per HPI Psychiatric: Psychiatric: Reports as per HPI Endocrine: Endocrine: Reports as per HPI Hematologic/Lymphatic: Hematologic/Lymphatic: Reports as per HPI Allergic/Immunologic: Allergic/Immunologic: Reports as per HPI [facility] Past Medical History Attestation statement: The following information was validated with the patient. Source: old records reviewed and nursing notes reviewed Medical History Medical clearance for psychiatric admission Depression Lyme disease GERD (gastroesophageal reflux disease) Non-insulin dependent type 2 diabetes mellitus HLD (hyperlipidemia) Social History Social History Household Members: Other Housing: Other Housing Other:: rest home Do you presently have visiting nurse or other home services: No Alcohol intake: former Patient Tobacco Use Status: Current everyday Tobacco user Tobacco use type: Cigarette Cigarettes Per Day: 4 Smoked in Last 30 Days: No e-Cigarette/Vaping Use: Never Used Second Hand Smoke Exposure: No Use of substances other than those prescribed or required for medical reasons: No Advance Directives: No Advance Directives Information Provided: No service: Yes ([employer] Sexual orientation: Straight/Heterosexual Physical Exam ED Vital Signs: Vital Signs - 24 hr 04/16/25 10:22 Temperature 98.6 F Pulse Rate 76 Respiratory Rate 16 Blood Pressure 140/76 H Pulse Oximetry 95 Oxygen Delivery Method Room Air BMI result Body Mass Index 27.0 Const General: cooperative, no acute distress, alert and awake Nutritional Appearance: well nourished Orientation/consciousness: patient oriented x3 HENMT Head: Yes normal to inspection and Yes atraumatic Ears: hearing grossly normal bilaterally and external ears normal General nose exam: Normal external nose present, no nasal discharge noted and no epistaxis Face and sinus: Yes normal facial exam, No abrasion and No laceration Mouth: Normal oral and palatal mucosa present, no drooling and no muffled voice Eyes General: appearance normal, both eyes and all related structures Periorbital: periorbital findings normal Eyelids: Yes eyelids normal Conjunctivae: conjunctivae normal Pupils: Equal, round and reactive pupils present EOM: EOMs intact bilaterally Neck Neck: Yes normal visual inspection and Yes full ROM Resp Effort & Inspection: normal respiratory effort and able to speak in complete sentences Neuro General: patient oriented x3, moves all extremities and CN's II-XI intact bilaterally Cranial nerves: Yes Equal, round and reactive pupils present Cognition (Neuro): normal cognition Extrem General: Yes normal to inspection, Yes full ROM and Yes capillary refill normal Psych Appearance: grossly normal Mental Status: mental status grossly normal Affect: normal affect Attitude: cooperative Thought process: Normal thought process present Thought content: Normal thought content present Insight: Good insight present (Psych) Medical Decision Making Medical Decision Making [facility] Narrative: Patient is a 55 year old assigned male at with a history of HTN, bipolar disorder, and previous lyme disease presenting to the emergency department today with pain to his hands and feet. Patient's physical exam was unremarkable - no focal deficits. Patient's blood work was unremarkable. Patient's clinical presentation is most consistent with chronic paresthesias. I explained my physical exam findings as well as all test results to the patient. I answered all questions asked by the patient. I stressed the importance of the patient taking his medication as directed (either prescribed or as the over the counter packaging recommends). I stressed the importance of the patient following up with his primary care provider. I stressed the importance of the patient returning to the emergency department immediately if his symptoms were to worsen or if he were to develop any dizziness, shortness of breath, difficulty breathing, chest pain, blurry vision, loss of vision, nausea, vomiting, abdominal pain, fever, chills, back pain, or any other complaints. Patient verbalized agreement and understanding with this treatment plan and discharge. Differential Diagnosis Differential Diagnoses: The differential diagnosis associated with the presentation includes Chronic neuropathy Paresthesias Admission/Observation Consideration of admission/observation: Escalation of care including admission/observation considered Patient would have been admitted to the hospital had his work up had any findings where hospital admission was appropriate and his clinical presentation warranted hospital admission. Lab Data [facility] Lab Attestation statement: I reviewed the patient's lab results. My interpretation of these results are in the [facility] Rationale portion of this note. 04/16/25 11:57 04/16/25 11:57 Labs: Lab Results 04/16/25 04/16/25 Range/Units 11:57 12:05 WBC 6.6 (4.8-10.8) X10*3/uL RBC 4.91 (4.60-5.80) X10*6/uL Hgb 16.5 (14.0-18.0) g/dl Hct 46.9 (42.0-52.0) % MCV 95.5 (80.0-98.0) fL MCH 33.6 H (27.0-33.0) pg MCHC 35.2 (31.0-36.0) g/dl RDW 12.4 (11.0-16.0) % Plt Count 210 (160-400) X10*3/uL MPV 9.7 (9.4-12.4) fL Immature Gran % (Auto) 0.6 H (0.0-0.4) % Neut % (Auto) 60.8 (45-73) % Lymph % (Auto) 28.0 (20-40) % [place] % (Auto) 8.5 (2-11) % Eos % (Auto) 1.2 (0-4) % Baso % (Auto) 0.9 (0-2) % Lymph # (Auto) 1.8 (1.2-4.9) X10*3/uL [place] # (Auto) 0.6 (0.1-1.2) X10*3/uL Eos # (Auto) 0.1 (0.0-0.4) X10*3/uL Baso # (Auto) 0.1 (0.0-0.2) X10*3/uL Abs Immat Gran (auto) 0.04 H (0.00-0.03) X10*3/uL Absolute Neuts (auto) 4.0 (2.0-8.3) x10*3/uL Absolute Nucleated RBC 0.000 (0.0-0.012) X10*3/uL Nucleated RBC % (auto) 0.0 (0.0-0.2) /100WBC Sodium 141 (135-145) mmol/L Potassium 4.0 (3.3-5.1) mmol/L Chloride 104 (96-108) mmol/L Carbon Dioxide 28 (22-29) mmol/L Anion Gap 13 (12-20) BUN 16 (9-16) mg/dL Creatinine 0.75 (0.5-1.4) mg/dL Estim Creat Clear Calc 98.0 Estimated GFR > 60 Random Glucose 73 (60-115) mg/dL Calcium 9.6 (8.4-10.2) mg/dL Magnesium 2.0 (1.6-2.6) mg/dL Total Bilirubin 0.4 (0.0-1.0) mg/dL AST 24 (5-37) U/L ALT 20 (0-40) U/L Alkaline Phosphatase 75 (39-117) U/L Total Protein 7.9 (6.5-8.0) g/dL Albumin 4.9 (3.5-5.0) g/dL Urine Color Yellow Urine Appearance Clear Urine pH 6.5 (5.0-9.0) Ur Specific [place] 1.010 (1.005-1.025) Urine Protein Negative (Neg-Trace) mg/dL Urine Glucose (UA) Negative (Negative) mg/dL Urine Ketones Negative (Negative) mg/dL Urine Blood Negative (Negative) Urine Nitrite Negative (Negative) Ur Leukocyte Esterase Negative (Negative) Independent Historian Clinical information obtained from an independent historian. History obtained from or confirmed by: EMS (EMS provided additional history and confirmed the history provided by the patient. ) Discharge Plan Discharge Clinical Impression: Paresthesias Patient Disposition: Home, Self-Care Instructions: Paresthesia (ED) Additional Instructions: Your work up today was reassuring there is no EMERGENT reason for your symptoms. IF you are prescribed home medications and/or you are taking over the counter medications at home - it is very important you continue to do so as prescribed / directed unless told otherwise. Follow up with your primary care provider. Return to the emergency department immediately if your symptoms worsen or if you develop any numbness, tingling, dizziness, shortness of breath, difficulty breathing, chest pain, blurry vision, loss of vision, nausea, vomiting, abdominal pain, fever, chills, back pain, or any other complaints. Please see the information below about our Patient Portal. If you are not yet enrolled in the [facility] Patient Portal, you will receive an enrollment email invitation following your visit to any [facility] setting. You may also self-enroll in the Patient Portal by visiting our website: [email or web address] The following information is required to access the Patient Portal: - Your [facility] Medical Record Number - Your personal home email address (must match what is in your electronic medical record, Registration staff can assist with this) - Name - Date of Capabilities of the Patient Portal: - Message some providers - View upcoming appointments - Access your health summary, medical history, and visit history - View current conditions and allergies - View procedure and lab results - View your medications, including guidelines, side effects, and precautions - Complete pre-appointment questionnaires requested by your provider - Ready summary reports of your office visits and procedures To access the Patient Portal Mobile [employer], follow these directions: - Search Gro in the [employer] Store or [employer] Store - Download the [employer] - Search for [facility] - Enter your login/password Prescriptions: No Action testosterone 20.25 mg/1.25 gram (1.62 %) gel in metered-dose pump 1 pump topical DAILY acetaminophen 325 mg Tablet 650 mg PO Q6H PRN (Reason: Headache/Pain, Scale 1-10) Qty: 0 0RF cyclobenzaprine 5 mg Tablet 5 mg PO TID PRN (Reason: Muscle Spasm) Qty: 90 0RF benztropine 0.5 mg Tablet 0.5 mg PO BID Qty: 60 0RF duloxetine 20 mg Capsule,Delayed Release(Dr/Ec) 40 mg PO DAILY Qty: 60 0RF trazodone 50 mg Tablet 50 mg PO BEDTIME MRX1 PRN (Reason: Insomnia) Qty: 60 0RF melatonin 3 mg Tablet 9 mg PO BEDTIME Qty: 90 0RF clonidine HCl 0.1 mg Tablet 0.1 mg PO BID 30 Days Qty: 60 0RF atorvastatin 10 mg Tablet 10 mg PO DAILY 30 Days Qty: 30 0RF amlodipine 5 mg tablet 5 mg PO DAILY Qty: 30 0RF gabapentin 100 mg capsule 100 mg PO TID PRN (Reason: anxiety/pain ) Qty: 90 0RF doxycycline hyclate 100 mg tablet 100 mg PO BID 21 Days Qty: 60 0RF Aristada 441 mg/1.6 mL suspension,extended rel syring 441 mg IM Q4W Qty: 1.6 0RF Rx Instructions: last given on 12/18/24 - due to be given 01/15/25 Referrals: Nereyda Granger MD [Primary Care Provider, Internal Medicine] Print Language: Greenlandic
[2025-04-16 12:31] LABS: MANUAL DIFF FLAG NO
[2025-04-16 12:36] LABS: Hematocrit 46.9 % (42.0-52.0); Hemoglobin 16.5 g/dl (14.0-18.0); Imm Gran Abs Auto 0.04 X10*3/uL (0.00-0.03); Imm Gran Pct Auto 0.6 % (0.0-0.4); Lymphocytes Absolute Auto 1.8 X10*3/uL (1.2-4.9); Mean Corpuscular HGB Conc 35.2 g/dl (31.0-36.0); Mean Corpuscular Hemoglobin 33.6 pg (27.0-33.0); Mean Corpuscular Volume 95.5 fL (80.0-98.0); NRBC Abs Auto 0.000 X10*3/uL (0.0-0.012); NRBC Pct Auto 0.0 /100WBC (0.0-0.2); Platelet Count 210 X10*3/uL (160-400); Red Blood Count 4.91 X10*6/uL (4.60-5.80); White Blood Count 6.6 X10*3/uL (4.8-10.8)
[2025-04-16 12:53] LABS: Alanine Aminotransferase 20 U/L (0-40); Albumin Level 4.9 g/dL (3.5-5.0); Alkaline Phosphatase 75 U/L (39-117); Anion Gap 13 (12-20); Aspartate Amino Transferase 24 U/L (5-37); Blood Urea Nitrogen 16 mg/dL (9-16); Calcium 9.6 mg/dL (8.4-10.2); Carbon Dioxide 28 mmol/L (22-29); Chloride 104 mmol/L (96-108); Creatinine Clr Calc Pharmacy 98.0; Estimated Glomerular Filt Rate > 60; Magnesium 2.0 mg/dL (1.6-2.6); Potassium 4.0 mmol/L (3.3-5.1); Sodium 141 mmol/L (135-145); Total Protein 7.9 g/dL (6.5-8.0)
--- OUTSIDE RECORDS SUMMARY | 2025-04-16 12:59 | XMS_ITS | Encounter Summary ---
Author Organization [facility] Address [address] [place] [address] Care Team Providers Care Academic Support Director Name Role Phone Nereyda Granger MD Primary Care Provider Encounter Details Date Type Department Care Team (Late st Contact Info) Description 04/01/2025 Lab Requisition [facility] - Main Lab [address] [facility] [place] [address] Nereyda Granger MD [address] [place] [address] [place] [id number] Essential (primary) hypertension; Testicular hypofunction; Benign prostatic hyperplasia with lower urinary tract symptoms; Type 2 diabetes mellitus with unspecified complications (CMS/HCC V24, CMS/HCC V28) Social History Tobacco Use Types Packs/Day Years [...] Procedure Name Priority Date/Time Associated Diagnosis Comments PROSTATE SPECIFIC ANTIGEN SCREEN Routine 04/01/2025 6:42 AM EDT Essential (primary) hypertension Testicular hypofunction Benign prostatic hyperplasia with lower urinary tract symptoms Type 2 diabetes mellitus with unspecified complications (CMS/HCC V24, CMS/HCC V28) LIPID PANEL WITH REFLEX TO DIRECT LDL Routine 04/01/2025 6:42 AM EDT Essential (primary) hypertension Testicular hypofunction Benign prostatic hyperplasia with lower urinary tract symptoms Type 2 diabetes mellitus with unspecified complications (CMS/HCC V24, CMS/HCC V28) CBC WITH AUTO DIFFERENTIAL Routine 04/01/2025 6:42 AM EDT Essential (primary) hypertension Testicular hypofunction Benign prostatic hyperplasia with lower urinary tract symptoms Type 2 diabetes mellitus with unspecified complications (CMS/HCC V24, CMS/HCC V28) CBC AND DIFFERENTIAL Routine 04/01/2025 6:42 AM EDT Essential (primary) hypertension Testicular hypofunction Benign prostatic hyperplasia with lower urinary tract symptoms Type 2 diabetes mellitus with unspecified complications (CMS/HCC V24, CMS/HCC V28) HEMOGLOBIN A1C Routine 04/01/2025 6:42 AM EDT Essential (primary) hypertension Testicular hypofunction Benign prostatic hyperplasia with lower urinary tract symptoms Type 2 diabetes mellitus with unspecified complications (CMS/HCC V24, CMS/HCC V28) COMPREHENSIVE METABOLIC PANEL Routine 04/01/2025 6:42 AM EDT Essential (primary) hypertension Testicular hypofunction Benign prostatic hyperplasia with lower urinary tract symptoms Type 2 diabetes mellitus with unspecified complications (CMS/HCC V24, CMS/HCC V28) documented in this encounter Results * (ABNORMAL) CBC auto differential (04/01/2025 6:42 AM EDT) [facility] WBC 6.8 4.8 - 10.8 K/mcL LAB HEMETOLOGY METHOD 04/01/2025 9:08 AM EDT [facility] RBC 4.80 4.50 - 5.50 M/mcL LAB HEMETOLOGY METHOD 04/01/2025 9:08 AM EDT [facility] Hemoglobin 15.6 13.5 - 17.5 g/dL LAB HEMETOLOGY METHOD 04/01/2025 9:08 AM EDT [facility] Hematocrit 46.4 42.0 - 54.0 % LAB HEMETOLOGY METHOD 04/01/2025 9:08 AM [facility] MCV 97.7 79.0 - 98.0 FL LAB HEMETOLOGY METHOD 04/01/2025 9:08 AM [facility] MCH 32.8(H) 27.0 - 32.0 pcg LAB HEMETOLOGY METHOD 04/01/2025 9:08 AM [facility] MCHC 33.6 32.0 - 37.0 g/dL LAB HEMETOLOGY METHOD 04/01/2025 9:08 AM [facility] RDW 12.8 11.0 - 15.0 % LAB HEMETOLOGY METHOD 04/01/2025 9:08 AM [facility] Platelets 231 130 - 400 K/mcL LAB HEMETOLOGY METHOD 04/01/2025 9:08 AM [facility] MPV 9.8 7.0 - 11.0 FL LAB HEMETOLOGY METHOD 04/01/2025 9:08 AM [facility] NRBC 0.0 <1.0 % LAB HEMETOLOGY METHOD 04/01/2025 9:08 AM [facility] NRBC Absolute 0.00 <0.10 K/mcL LAB HEMETOLOGY METHOD 04/01/2025 9:08 AM [facility] Neutrophils Relative 59.5 % LAB HEMETOLOGY METHOD 04/01/2025 9:08 AM [facility] Lymphocytes Relative 29.4 % LAB HEMETOLOGY METHOD 04/01/2025 9:08 AM [facility] Monocytes Relative 8.1 % LAB HEMETOLOGY METHOD 04/01/2025 9:08 AM [facility] Eosinophils Relative 1.3 % LAB HEMETOLOGY METHOD 04/01/2025 9:08 AM [facility] Basophils Relative 1.0 % LAB HEMETOLOGY METHOD 04/01/2025 9:08 AM [facility] Immature Granulocytes Relative 0.7 % LAB HEMETOLOGY METHOD 04/01/2025 9:08 AM EDT [facility] Neutrophils Absolute 4.03 1.50 - 7.00 K/mcL LAB HEMETOLOGY METHOD 04/01/2025 9:08 AM EDT [facility] Lymphocytes Absolute 1.99 1.00 - 5.00 K/mcL LAB HEMETOLOGY METHOD 04/01/2025 9:08 AM EDT [facility] Monocytes Absolute 0.55 0.20 - 1.00 K/mcL LAB HEMETOLOGY METHOD 04/01/2025 9:08 AM EDT [facility] Eosinophils Absolute 0.09 0.00 - 0.50 K/[facility] LAB HEMETOLOGY METHOD 04/01/2025 9:08 AM EDT [facility] Basophils Absolute 0.07 0.00 - 0.20 K/mcL LAB HEMETOLOGY METHOD 04/01/2025 9:08 AM EDT [facility] Immature Granulocytes Absolute 0.05(H) 0.00 - 0.03 K/[facility] LAB HEMETOLOGY METHOD 04/01/2025 9:08 AM EDT [facility] Blood Venous blood specimen / Unknown Venipuncture / Unknown 04/01/2025 6:42 AM EDT 04/01/2025 8:43 AM EDT us Nereyda Granger MD LAB BLOOD ORDERABLES Final Re sult [facility] [address] [place] [address], * Prostate specific antigen screen (04/01/2025 6:42 AM EDT) PSA 0.24 0.00 - 4.00 ng/mL LAB CHEMISTRY METHOD 04/01/2025 10:56 AM EDT [facility] Blood Venous blood specimen / Unknown Venipuncture / Unknown 04/01/2025 6:42 AM EDT 04/01/2025 8:43 AM EDT Narrative [facility] - 04/01/2025 10:56 AM EDT The Siemens Advia Centaur Chemiluminescent Immunoassay is used. Results obtained with different assay methods or kits cannot be used interchangeably. Results cannot be interpreted as absolute evidence of the presence or absence of malignant disease. us Nereyda Granger MD LAB BLOOD ORDERABLES Final Re sult Performing Organization Address [facility] Co de Phone Number [facility] [address] [place] [address], [place] [phone] * Hemoglobin A1c (04/01/2025 6:42 AM EDT) Hemoglobin A1C 5.7 <6.5 % LAB CHEMISTRY METHOD 04/01/2025 12:29 PM EDT [facility] Mean Bld Glu Estim. 117 mg/dL LAB CHEMISTRY METHOD 04/01/2025 12:29 PM EDT [facility] Blood Venous blood specimen / Unknown Venipuncture / Unknown 04/01/2025 6:42 AM EDT 04/01/2025 8:43 AM EDT us Nereyda Granger MD LAB BLOOD ORDERABLES Final Re sult Performing Organization Address [facility]/ZIP Co de Phone Number [facility] [address] [place] [address], [place] [phone] * (ABNORMAL) Lipid panel with reflex to direct LDL (04/01/2025 6:42 AM EDT) Cholesterol 195 0 - 200 mg/dL LAB CHEMISTRY METHOD 04/01/2025 10:13 AM EDT [facility] Triglycerides 213(H) 0 - 150 mg/dL LAB CHEMISTRY METHOD 04/01/2025 10:13 AM EDT [facility] HDL 41 >=40 mg/dL LAB CHEMISTRY METHOD 04/01/2025 10:13 AM EDT [facility] LDL Calculated 111(H) 0 - 100 mg/dL LAB CHEMISTRY METHOD 04/01/2025 10:13 AM EDT [facility] Comment:Estimated LDL Calcul ated using equation: Total cholesterol - HDL cholesterol - (Triglycerides/5) VLDL Cholesterol Mon[place] 42.6 mg/dL LAB CHEMISTRY METHOD 04/01/2025 10:13 AM EDT [facility] Non HDL Chol. (LDL+VLDL) 154(H) <145 mg/dL LAB CHEMISTRY METHOD 04/01/2025 10:13 AM T [facility] Chol/HDL Ratio 4.8(H) 0.0 - 4.4 LAB CHEMISTRY METHOD 04/01/2025 10:13 AM [facility] Blood Venous blood specimen / Unknown Venipuncture / Unknown 04/01/2025 6:42 AM EDT 04/01/2025 8:43 AM EDT us Nereyda Granger MD LAB BLOOD ORDERABLES Final Re sult [facility] [address] [place] [address], [place] [phone] * (ABNORMAL) Comprehensive metabolic panel (04/01/2025 6:42 AM EDT) Sodium 140 133 - 145 mmol/L LAB CHEMISTRY METHOD 04/01/2025 10:17 AM T [facility] Potassium 4.5 3.5 - 5.5 mmol/L LAB CHEMISTRY METHOD 04/01/2025 10:17 AM T [facility] Chloride 103 96 - 110 mmol/L LAB CHEMISTRY METHOD 04/01/2025 10:17 AM [facility] CO2 33(H) 21 - 32 mmol/L LAB CHEMISTRY METHOD 04/01/2025 10:17 AM T [facility] Anion Gap 4 3 - 11 LAB CHEMISTRY METHOD 04/01/2025 10:17 AM [facility] Glucose 100 70 - 100 mg/dL LAB CHEMISTRY METHOD 04/01/2025 10:17 AM [facility] BUN 17 5 - 25 mg/dL LAB CHEMISTRY METHOD 04/01/2025 10:17 AM [facility] Creatinine 0.76 0.70 - 1.30 mg/dL LAB CHEMISTRY METHOD 04/01/2025 10:17 AM [facility] eGFR 105 >=60 mL/min/1. 73m2 LAB CHEMISTRY METHOD 04/01/2025 10:17 AM [facility] Comment:Calculation based on the Chronic Kidney Disease Epidemiology Collaboration (CKD-EPI) equation refit without adjustment for race. BUN/Creatinine Ratio 22.4 LAB CHEMISTRY METHOD 04/01/2025 10:17 AM [facility] Calcium 9.4 8.5 - 10.5 mg/dL LAB CHEMISTRY METHOD 04/01/2025 10:17 AM [facility] AST (SGOT) 14 10 - 42 unit/L LAB CHEMISTRY METHOD 04/01/2025 10:17 AM [facility] ALT (SGPT) 31 10 - 60 unit/L LAB CHEMISTRY METHOD 04/01/2025 10:17 AM [facility] Alkaline Phosphatase 69 42 - 121 unit/L LAB CHEMISTRY METHOD 04/01/2025 10:17 AM [facility] Total Protein 7.4 6.0 - 8.0 g/dL LAB CHEMISTRY METHOD 04/01/2025 10:17 AM [facility] Albumin 4.1 3.2 - 5.0 g/dL LAB CHEMISTRY METHOD 04/01/2025 10:17 AM [facility] Total Bilirubin 0.5 0.0 - 1.4 mg/dL LAB CHEMISTRY METHOD 04/01/2025 10:17 AM EDT [facility] Blood Venous blood specimen / Unknown Venipuncture / Unknown 04/01/2025 6:42 AM EDT 04/01/2025 8:43 AM EDT us Nereyda Granger MD LAB BLOOD ORDERABLES Final Re sult [facility] [address] [place] [address], documented in this encounter Visit Diagnoses Diagnosis Essential (primary) hypertension Unspecified essential hypertension Testicular hypofunction Other testicular hypofunction Benign prostatic hyperplasia with lower urinary tract symptoms Type 2 diabetes mellitus with unspecified complications (CMS/HCC V24, CMS/HCC V28) documented in this encounter Care Teams Academic Support Director Relationship Specialty Start Date End Date Nereyda Granger MD [facility] [address] PCP - General Internal Medicine 04/01/25 documented as of this encounter
--- OUTSIDE RECORDS SUMMARY | 2025-04-16 12:59 | XMS_ITS | Encounter Summary ---
Author Organization [employer] Address [address] [facility] [address] [place] [address] Care Team Providers Care Associate Drafter Name Role Phone Celestina Gallardo MD Primary Care Provider Encounter Details Date Type Department Care Team (Late st Contact Info) Description 11/06/2024 Orders Only [facility] [address] [place] [address] Celestina Gallardo MD [address] [place] [address] Social History Tobacco Use Types Packs/Day Years [...] on filedocumented in this encounter Care Teams Associate Drafter Relationship Specialty Start Date End Date Celestina Gallardo MD [address] [facility] [address] PCP - General Family Medicine 05/07/24 documented as of this encounter
--- OUTSIDE RECORDS SUMMARY | 2025-04-16 12:59 | XMS_ITS | Encounter Summary ---
Author Organization [facility] ystem Address [address] [place] [address] Phone Care Team Providers Care Interpretative Dancer Name Role Phone Veronica Porras MD Primary Care Provider [phone] Encounter Details Date Type Department Care Team (Late st Contact Info) Description 12/23/2022 Procedure Pass [facility] [place] [address] [place] [address] Social History Tobacco Use Types [...] documented as of this encounter Care Teams Interpretative Dancer Relationship Specialty Start Date End Date Veronica Porras MD PCP - General Family Medicine 01/04/24 documented as of this encounter
--- OUTSIDE RECORDS SUMMARY | 2025-04-16 12:59 | XMS_ITS | Encounter Summary ---
Author Organization [facility] ystem Address [address] [place] [address] Phone Care Team Providers Care Size Marker Name Role Phone Veronica Porras MD Primary Care Provider [phone] Encounter Details Date Type Department Care Team (Late st Contact Info) Description 04/12/2023 Scanned Document [facility] [address] [place] [phone] Fermin Thacker MD [address] [facility] [address] [place] [address] <No scans attached> Social History Tobacco Use [...] documented as of this encounter Care Teams Size Marker Relationship Specialty Start Date End Date Veronica Porras MD PCP - General Family Medicine 7/25/24 documented as of this encounter
--- OUTSIDE RECORDS SUMMARY | 2025-04-16 12:59 | XMS_ITS | Encounter Summary ---
Author Organization [employer] Address [address] [facility] 7t [place] [address] Care Team Providers Care Stunt Double Name Role Phone Celestina Gallardo MD Primary Care Provider [phone] Encounter Details Date Type Department Care Team (Late st Contact Info) Description 12/30/2024 Telephone [facility] [address] [place] [address] Celestina Gallardo MD [address] [place] [address] Social History Tobacco Use Types Packs/Day Years [...] note were not included. Rosalina Tinoco to [facility] SS 12/30/24 8:29 AM Pt was seen at [place] ED 12/27, note attached. documented in this encounter Plan of Treatment Not on file documented as of this encounter Visit Diagnoses Not on filedocumented in this encounter Care Teams Stunt Double Relationship Specialty Start Date End Date Celestina Gallardo MD [address] [place] [address] PCP - General Family Medicine 05/07/24 documented as of this encounter
--- OUTSIDE RECORDS SUMMARY | 2025-04-16 12:59 | XMS_ITS | Encounter Summary ---
Author Organization [employer] Address [address] [facility] 7t [place] [address] Care Team Providers Care Crm Analyst Name Role Phone Celestina Gallardo MD Primary Care Provider [phone] Encounter Details Date Type Department Care Team (Late st Contact Info) Description 03/10/2025 Orders Only [facility] [address] [place] [address] Celestina Gallardo MD [address] [place] [address] Social History Tobacco Use Types Packs/Day Years [...] Procedure Name Priority Date/Time Associated Diagnosis Comments XR HIP 2 VW BILATERAL Routine 03/09/2025 5:12 PM EDT documented in this encounter Results * XR HIP 2 VW BILATERAL (03/09/2025 5:12 PM EDT) Anatomical Region Laterality Modality Radiographic Lily ging us Celestina Gallardo MD IMG XR PROCEDURES Final Result documented in this encounter Visit Diagnoses Not on filedocumented in this encounter Care Teams Crm Analyst Relationship Specialty Start Date End Date Celestina Gallardo MD [address] [place] [address] PCP - General Family Medicine 05/07/24 documented as of this encounter
--- OUTSIDE RECORDS SUMMARY | 2025-04-16 12:59 | XMS_ITS | Clinical Summary ---
Author Organization [facility] Address [address] [place] [address] Phone Care Team Providers Care Hull Sorter Name Role Phone Veronica Porras MD Primary Care Provider [phone] Allergies Active Allergy Reactions Criticality Noted Date [...] Health Maintenance Due Date Last Done Comments [facility] TOPIC SIGMOIDOSCOPY [address] [facility] Topic HIV Screening 1968 [facility] Topic Hepatitis C Screening 1968 [facility] Topic PSA 1968 [facility] Topic Tdap Vaccine (1 - Tdap) 01/10/1987 [facility] TOPIC FOBT/FIT TEST 01/10/2013 [facility] Topic Cologuard 01/10/2013 [facility] Topic Colon Cancer Screening 01/10/2013 [facility] Topic Colonoscopy 01/10/2013 [facility] Topic Lung Cancer Screening 01/10/2018 [facility] Topic Pneumococcal Va ccine (HEDIS/Adult) (1 of 1 - PCV) 01/10/2018 [facility] Topic Shingrix (1 of 2) 01/10/2018 [facility] Topic Lipid Profile 08/23/2024 08/24/2023 [facility] Topic Influenza (Flu) Seasonal (#1) 2025 [facility] AMB RSV (under 20 months) Aged Out No longer eligible based on patient's age to complete this topic [facility] Topic HIB Vaccines Aged Out No longer eligible based on patient's age to complete this topic Procedures Procedure Name Priority Date/Time Associated Diagnosis Comments LIPID PANEL Add-On 08/24/2023 6:51 PM EDT from Last 3 Months or Most Recently Relevant to Health Maintenance Results * (ABNORMAL) Lipid panel (08/24/2023 6:51 PM EDT) Cholesterol 182 120 - 200 mg/dL 08/25/2023 12:08 AM EDT [facility] HDL 56(H) 35 - 55 mg/dL 08/25/2023 12:08 AM EDT [facility] LDL Calculated 98 60 - 130 mg/dL 08/25/2023 12:08 AM EDT [facility] Triglycerides 139 35 - 150 mg/dL 08/25/2023 12:08 AM EDT [facility] Cholesterol Risk Ratio 3.25 mg/dL 08/25/2023 12:08 AM EDT [facility] Comment:Less than the averag e risk of developing coronary heart disease. Blood Venous blood / Unknown Venipuncture / Unknown 08/24/2023 6:51 PM EDT 08/24/2023 6:56 PM EDT us Harmony Huntley MD LAB BLOOD ORDERABLES Final Resu lt [facility] [address] [place] [address], from Last 3 Months or Most Recently Relevant to Health Maintenance Insurance [facility] Advance Directives For more information, please contact: [phone] Documents on File Type Date Recorded Patient Refund Specialist Expl anation Advance Directives and Living Will [...] distre ss: Intubate and Ventilate Care Teams Hull Sorter Relationship Specialty Start Date End Date Veronica Porras MD PCP - General Family Medicine 01/04/24
--- OUTSIDE RECORDS SUMMARY | 2025-04-16 12:59 | XMS_ITS | Encounter Summary ---
Author Organization [facility] ystem Address [address] [place] [address] Phone Care Team Providers Care Postal Carrier Name Role Phone Veronica Porras MD Primary Care Provider [phone] Encounter Details Date Type Department Care Team (Late st Contact Info) Description 06/23/2023 Procedure Pass [facility] [place] [address] [place] [address] Social History Tobacco Use Types [...] documented as of this encounter Care Teams Postal Carrier Relationship Specialty Start Date End Date Veronica Porras MD PCP - General Family Medicine 01/04/24 documented as of this encounter
--- OUTSIDE RECORDS SUMMARY | 2025-04-16 12:59 | XMS_ITS | Encounter Summary ---
Author Organization [facility] Address [address] [place] [address] Care Team Providers Care Cruise Staff Member Name Role Phone Nereyda Granger MD Primary Care Provider [phone] Encounter Details Date Type Department Care Team (Late st Contact Info) Description 04/01/2025 Lab Requisition [facility] - Main Lab [address] [facility] [email or web address] [address] Nereyda Granger MD [address] [place] [address] [place] [id number] Type 2 diabetes mellitus with unspecified complications [...] Procedure Name Priority Date/Time Associated Diagnosis Comments MICROALBUMIN CREATININE URINE RATIO Routine 04/01/2025 7:00 AM EDT Type 2 diabetes mellitus with unspecified complications (CMS/HCC V24, CMS/HCC V28) documented in this encounter Results * Microalbumin creatinine urine ratio (04/01/2025 7:00 AM EDT) Creatinine, Urine 114.0 mg/dL LAB CHEMISTRY METHOD 04/01/2025 10:[address] [facility] Microalb, Ur 12.7 0.0 - 29.0 mg/L LAB CHEMISTRY METHOD 04/01/2025 10:22 AM EDT [facility] Microalb/Creat Ratio 11 <30 mg/g creat LAB CHEMISTRY METHOD 04/01/2025 10:22 AM EDT [facility] Urine Urine specimen obtained by clean catch procedure / Unknown Non-blood Collection / Unknown 04/01/2025 7:00 AM EDT 04/01/2025 8:48 AM EDT us Nereyda Granger MD LAB URINE ORDERABLES Final Re sult [facility] [address] [place] [address], documented in this encounter Visit Diagnoses Diagnosis Type 2 diabetes mellitus with unspecified complications (CMS/HCC V24, CMS/HCC V28) documented in this encounter Care Teams Cruise Staff Member Relationship Specialty Start Date End Date Nereyda Granger MD [address] PCP - General Internal Medicine 04/01/25 documented as of this encounter
--- OUTSIDE RECORDS SUMMARY | 2025-04-16 12:59 | XMS_ITS | Clinical Summary ---
Author Organization [facility] Address [address] [place] [address] Phone Care Team Providers Care Steel Loader Name Role Phone Lucas Peralta MD Primary Care Provider [phone] Allergies Active Allergy Reactions Criticality Noted Date Comments Benazepril 09/14/2023 Other Reaction(s): Unknown Metoprolol 09/14/2023 Other Reaction(s): Unknown Social History Tobacco Use Types Packs/Day Years Used Date Smoking Tobacco: Never Assessed Sex and Gender Information Value Date Recorded Sex Assigned at Not on file Legal Sex Male 4:02 AM EDT Gender Identity Not on file Sexual Orientation Straight 02/25/2025 4: 02 AM EDT Last Filed Vital Signs Vital Sign Reading Time Taken Comments Blood Pressure 143/73 12/27/2023 6:44 PM EDT Pulse 92 12/27/2023 6:44 PM EDT Temperature 37.1 C (98.8 F) 12/27/2023 6:44 PM EDT Respiratory Rate 18 12/27/2023 6:44 PM EDT Oxygen Saturation 95% 12/27/2023 6:44 PM EDT Inhaled Oxygen Concentration - - Weight 76 kg (167 lb 8.8 oz) 11/13/2023 11:13 PM EDT Height 170.2 cm (5' 7 ) 11/13/2023 11:13 PM EDT Body Mass Index 26.24 11/13/2023 11:13 PM EDT Plan of Treatment Not on file Care Teams Steel Loader Relationship Specialty Start Date End Date Lucas Peralta MD [address] [place] [address] [facility] - General 04/12/25
--- OUTSIDE RECORDS SUMMARY | 2025-04-16 12:59 | XMS_ITS | Clinical Summary ---
Author Organization [address] Address [address] [place] [address] Phone Care Team Providers Care Oil Well Services Dispatcher Name Role Phone Nereyda Granger MD Primary Care Provider [phone] Encounters Date Type Department Care Team Description 04/01/2025 Lab Requisition [facility] [address] [place] [phone] Nereyda Granger MD Type 2 diabetes mellitus with unspecified complications (CMS/HCC V24, CMS/[facility] V28) 04/01/2025 Lab Requisition [facility] [address] [place] [address] Nereyda Granger MD Essential (primary) hypertension; Testicular hypofunction; Benign prostatic hyperplasia with lower urinary tract symptoms; Type 2 diabetes mellitus with unspecified complications ([facility] V24, [facility] V28) from Last 3 Months Social History Tobacco Use Types Packs/Day Years Used Date Smoking Tobacco: Never Assessed Sex and Gender Information Value Date Recorded Sex Assigned at Not on file Legal Sex Male 3:44 PM EDT Gender Identity Not on file Sexual Orientation Not on file Plan of Treatment Health Maintenance Due Date Last Done Comments Colorectal Cancer Screening: Colonoscopy 1968 Diabetes: Annual Foot Exam 01/10/1978 Diabetes: Annual Retina Eye Exam 01/10/1978 DTaP,Tdap,and Td Vaccines (1 - Tdap) 01/10/1987 Hepatitis B Vaccines (1 of 3 - 19+ 3-dose series) 01/10/1987 Pneumococcal Vaccine: 50+ Ye ars (1 of 2 - PCV) 01/10/1987 Zoster Vaccines (1 of 2) 01/10/2018 HIV Screening 03/21/2024 Hepatitis C Screening 03/21/2024 Social Influencers of Health Screening 03/21/2024 Depression Screening 06/12/2024 COVID-19 Vaccine (1 - 2023-2 5 season) 2025 Influenza Vaccine (#1) 2025 Diabetes: Blood Sugar Contro l Test (HGBA1C) 09/30/2025 04/01/2025 Diabetes: Annual Urine Albumin-Creatinine Ratio (uACR) 04/01/2026 04/01/2025 Diabetes: Annual GFR (Glomer ular Filtration Rate) 04/01/2026 04/01/2025 Hypertension/CHF/CAD Annual BMP Blood Test 04/01/2026 04/01/2025 Cholesterol Screening (Lipid Panel) 04/01/2030 04/01/2025 RSV Immunization Adult Patie nts (1 - 1-dose 75+ series) 01/10/2043 HIB Vaccines Aged Out No longer eligi [...] with unspecified complications (CMS/HCC V24, CMS/HCC V28) PROSTATE SPECIFIC ANTIGEN SCREEN Routine 04/01/2025 6:42 [...] with unspecified complications (CMS/HCC V24, CMS/HCC V28) from Last 3 Months Results * Microalbumin creatinine urine ratio (04/01/2025 7:00 AM EDT) Creatinine, Urine 114.0 mg/dL LAB CHEMISTRY METHOD 04/01/2025 10:22 AM [facility] Microalb, Ur 12.7 0.0 - 29.0 mg/L LAB CHEMISTRY METHOD 04/01/2025 10:22 AM [facility] Microalb/Creat Ratio 11 <30 mg/g creat LAB CHEMISTRY METHOD 04/01/2025 10:22 AM [facility] Urine Urine specimen obtained by clean catch procedure / Unknown Non-blood Collection / Unknown 04/01/2025 7:00 AM EDT 04/01/2025 8:48 AM EDT Nereyda Granger MD LAB URINE ORDERABLES Final Re sult Performing Organization Address [facility] de Phone Number [facility] [address] [place] [address], [place] [phone] * Prostate specific antigen screen (04/01/2025 6:42 AM EDT) PSA 0.24 0.00 - 4.00 ng/mL LAB CHEMISTRY METHOD 04/01/2025 10:56 AM EDT [facility] Blood Venous blood specimen / Unknown Venipuncture / Unknown 04/01/2025 6:42 AM EDT 04/01/2025 8:43 AM EDT Narrative [facility] - 04/01/2025 10:56 AM EDT The Siemens Advia Centaur Chemiluminescent Immunoassay is used. Results obtained with different assay methods or kits cannot be used interchangeably. Results cannot be interpreted as absolute evidence of the presence or absence of malignant disease. Nereyda Granger MD LAB BLOOD ORDERABLES Final Re sult Performing Organization Address [facility] Co de Phone Number [facility] [address] [place] [address], [place] [phone] * (ABNORMAL) Lipid panel with reflex to direct LDL (04/01/2025 6:42 AM EDT) Cholesterol 195 0 - 200 mg/dL LAB CHEMISTRY METHOD 04/01/2025 10:13 AM EDT [facility] Triglycerides 213(H) 0 - 150 mg/dL LAB CHEMISTRY METHOD 04/01/2025 10:13 AM EDT [facility] HDL 41 >=40 mg/dL LAB CHEMISTRY METHOD 04/01/2025 10:13 AM EDT [facility] LDL Calculated 111(H) 0 - 100 mg/dL LAB CHEMISTRY METHOD 04/01/2025 10:13 AM EDT [facility] Comment:Estimated LDL Calcul ated using equation: Total cholesterol - HDL cholesterol - (Triglycerides/5) VLDL Cholesterol Monico 42.6 mg/dL LAB CHEMISTRY METHOD 04/01/2025 10:13 AM EDT [facility] Non HDL Chol. (LDL+VLDL) 154(H) <145 mg/dL LAB CHEMISTRY METHOD 04/01/2025 10:13 AM EDT [facility] Chol/HDL Ratio 4.8(H) 0.0 - 4.4 LAB CHEMISTRY METHOD 04/01/2025 10:13 AM EDT [facility] Blood Venous blood specimen / Unknown Venipuncture / Unknown 04/01/2025 6:42 AM EDT 04/01/2025 8:43 AM EDT us Nereyda Granger MD LAB BLOOD ORDERABLES Final Re sult [facility] [address] [place] [address], * (ABNORMAL) CBC auto differential (04/01/2025 6:42 AM EDT) WBC 6.8 4.8 - 10.8 K/mcL LAB HEMETOLOGY METHOD 04/01/2025 9:08 AM EDT [facility] RBC 4.80 4.50 - 5.50 M/mcL LAB HEMETOLOGY METHOD 04/01/2025 9:08 AM EDT [facility] Hemoglobin 15.6 13.5 - 17.5 g/dL LAB HEMETOLOGY METHOD 04/01/2025 9:08 AM EDT [facility] Hematocrit 46.4 42.0 - 54.0 % LAB HEMETOLOGY METHOD 04/01/2025 9:08 AM [facility] MCV 97.7 79.0 - 98.0 FL LAB HEMETOLOGY METHOD 04/01/2025 9:08 AM [facility] MCH 32.8(H) 27.0 - 32.0 pcg LAB HEMETOLOGY METHOD 04/01/2025 9:08 AM [facility] MCHC 33.6 32.0 - 37.0 g/dL LAB HEMETOLOGY METHOD 04/01/2025 9:08 AM [facility] RDW 12.8 11.0 - 15.0 % LAB HEMETOLOGY METHOD 04/01/2025 9:08 AM [facility] Platelets 231 130 - 400 K/mcL LAB HEMETOLOGY METHOD 04/01/2025 9:08 AM [facility] MPV 9.8 7.0 - 11.0 FL LAB HEMETOLOGY METHOD 04/01/2025 9:08 AM [facility] NRBC 0.0 <1.0 % LAB HEMETOLOGY METHOD 04/01/2025 9:08 AM [facility] NRBC Absolute 0.00 <0.10 K/mcL LAB HEMETOLOGY METHOD 04/01/2025 9:08 AM [facility] Neutrophils Relative 59.5 % LAB HEMETOLOGY METHOD 04/01/2025 9:08 AM [facility] Lymphocytes Relative 29.4 % LAB HEMETOLOGY METHOD 04/01/2025 9:08 AM [facility] Monocytes Relative 8.1 % LAB HEMETOLOGY METHOD 04/01/2025 9:08 AM [facility] Eosinophils Relative 1.3 % LAB HEMETOLOGY METHOD 04/01/2025 9:08 AM [facility] Basophils Relative 1.0 % LAB HEMETOLOGY METHOD 04/01/2025 9:08 AM EDT [facility] Immature Granulocytes Relative 0.7 % LAB HEMETOLOGY METHOD 04/01/2025 9:08 AM EDT [facility] Neutrophils Absolute 4.03 1.50 - 7.00 K/mcL LAB HEMETOLOGY METHOD 04/01/2025 9:08 AM EDT [facility] Lymphocytes Absolute 1.99 1.00 - 5.00 K/mcL LAB HEMETOLOGY METHOD 04/01/2025 9:08 AM EDT [facility] Monocytes Absolute 0.55 0.20 - 1.00 K/mcL LAB HEMETOLOGY METHOD 04/01/2025 9:08 AM EDT [facility] Eosinophils Absolute 0.09 0.00 - 0.50 K/mcL LAB HEMETOLOGY METHOD 04/01[facility]2025 [facility] Basophils Absolute 0.07 0.00 - 0.20 K/mcL LAB HEMETOLOGY METHOD 04/01/2025 9:08 AM EDT [facility] Immature Granulocytes Absolute 0.05(H) 0.00 - 0.03 K/mcL LAB HEMETOLOGY METHOD 04/01/2025 9:08 AM [facility] Blood Venous blood specimen / Unknown Venipuncture / Unknown 04/01/2025 6:42 AM EDT 04/01/2025 8:43 AM EDT us Nereyda Granger MD LAB BLOOD ORDERABLES Final Re sult [facility] [address] [place] [address], * Hemoglobin A1c (04/01/2025 6:42 AM EDT) Hemoglobin A1C 5.7 <6.5 % LAB CHEMISTRY METHOD 04/01/2025 12:29 PM [facility] Mean Bld Glu Estim. 117 mg/dL LAB CHEMISTRY METHOD 04/01/2025 12:29 PM [facility] Blood Venous blood specimen / Unknown Venipuncture / Unknown 04/01/2025 6:42 AM EDT 04/01/2025 8:43 AM EDT us Nereyda Granger MD LAB BLOOD ORDERABLES Final Re sult [facility] [address] [place] [address], [place] [phone] * (ABNORMAL) Comprehensive metabolic panel (04/01/2025 6:42 AM EDT) Sodium 140 133 - 145 mmol/L LAB CHEMISTRY METHOD 04/01/2025 10:17 AM [facility] Potassium 4.5 3.5 - 5.5 mmol/L LAB CHEMISTRY METHOD 04/01/2025 10:17 AM [facility] Chloride 103 96 - 110 mmol/L LAB CHEMISTRY METHOD 04/01/2025 10:17 AM [facility] CO2 33(H) 21 - 32 mmol/L LAB CHEMISTRY METHOD 04/01/2025 10:17 AM [facility] Anion Gap 4 3 - 11 LAB CHEMISTRY METHOD 04/01/2025 10:17 AM [facility] Glucose 100 70 - 100 mg/dL LAB CHEMISTRY METHOD 04/01/2025 10:17 AM [facility] BUN 17 5 - 25 mg/dL LAB CHEMISTRY METHOD 04/01/2025 10:17 AM [facility] Creatinine 0.76 0.70 - 1.30 mg/dL LAB CHEMISTRY METHOD 04/01/2025 10:17 AM [facility] eGFR 105 >=60 mL/min/1. 73m2 LAB CHEMISTRY METHOD 04/01/2025 10:17 AM [facility] Comment:Calculation based on the Chronic Kidney Disease Epidemiology Collaboration (CKD-EPI) equation refit without adjustment for race. BUN/Creatinine Ratio 22.4 LAB CHEMISTRY METHOD 04/01/2025 10:17 AM [facility] Calcium 9.4 8.5 - 10.5 mg/dL LAB CHEMISTRY METHOD 04/01/2025 10:17 AM [facility] AST (SGOT) 14 10 - 42 unit/L LAB CHEMISTRY METHOD 04/01/2025 10:17 AM [facility] ALT (SGPT) 31 10 - 60 unit/L LAB CHEMISTRY METHOD 04/01/2025 10:17 AM [facility] Alkaline Phosphatase 69 42 - 121 unit/L LAB CHEMISTRY METHOD 04/01/2025 10:17 AM [facility] Total Protein 7.4 6.0 - 8.0 g/dL LAB CHEMISTRY METHOD 04/01/2025 10:17 AM [facility] Albumin 4.1 3.2 - 5.0 g/dL LAB CHEMISTRY METHOD 04/01/2025 10:17 AM [facility] Total Bilirubin 0.5 0.0 - 1.4 mg/dL LAB CHEMISTRY METHOD 04/01/2025 10:17 AM [facility] Blood Venous blood specimen / Unknown Venipuncture / Unknown 04/01/2025 6:42 AM EDT 04/01/2025 8:43 AM EDT us Nereyda Granger MD LAB BLOOD ORDERABLES Final Re sult [facility] [address] [place] [address], [place] [phone] from Last 3 Months Insurance MEDICAID - [place] Care Teams Oil Well Services Dispatcher Relationship Specialty Start Date End Date Nereyda Granger MD [address] [facility] [address] [place], [place] PCP - General Internal Medicine 04/01/25
--- OUTSIDE RECORDS SUMMARY | 2025-04-16 12:59 | XMS_ITS | Clinical Summary ---
Author Organization [facility] Address [address] [place] [address] Care Team Providers Care Fast Food Fry Cook Name Role Phone No, Pcp Primary Care [...] 024, 08/24/2023, 08/24/2023 COVID-19 Vaccine ( - 2024-2 6 season) 2025 Influenza Vaccine (#1) 2025 Diabetes [...] patient's age to complete this topic Insurance [facility] [place] [id number] Care Teams Fast Food Fry Cook Relationship Specialty Start Date End Date No, Pcp, PCP - General Pediatrics 01/21/24
--- OUTSIDE RECORDS SUMMARY | 2025-04-16 12:59 | XMS_ITS | Data Portability ---
Author Organization [place] - [facility] [place], [place]_[facility] Address [address] [place] [address] Care Team Providers Care Second Ride Fare Collector Name Role Phone [facility] Neurologist Assessment No assessment recorded. Plan of Treatment Reminders Order Date Submit Date Provider Last Modified By Organization Details Last Modified Time Details Appointments None recorded. Lab CBC w/ diff 2022 023 SWAYZEE [facility], [address], [place], [address], 3 05:05:50 MAURO + rf (antinucle ar antibodies + rheumatoid factor), quantitati ve, serum 2022 023 SANDI [facility], [address], [place], [address], 3 05:05:53 CMP, serum or plasma 2022 023 [facility], [address], [place], [address], 3 05:05:52 Referral rheumatolo gist referral 2022 023 [email or web address] [facility] , [address] [place] [address], [address], 4 10:45:54 Procedures None recorded. Surgeries None recorded. Imaging None recorded. Medication Orders amoxicilli n 500 mg capsule 2022 023 [email or web address] [id number], [address], [place], [phone], 10:58:56 nystatin 100,000 unit/mL oral suspension 2022 023 ATHENAFAX [id number], [address], [place], [id number], 09:00:53 prednisone 20 mg tablet 2022 023 [email or web address] Not available 10:59:28 Patient TargetsNo targets recorded. Patient Instructions Encounter Date Encounter Id Patient Instructions Last Modified By Organization Details Last Modified Time 04/25/2023 [id number] candidiasis: car e instructions Not available 04/25/2023 [...] need help getting your medications filled, our [facility] can sync medication refills, deliver within a 10 mile radius, or [employer] [facility] overnight at no additional cost. Knowing what medications to keep taking and which ones to stop after a hospital visit can be confusing. Contact your provider with your questions about what medications you should be taking. You can also use your [employer] Idalmis to schedule an appointment, see test results, and chat with a provider day or night. To download the idalmis, please visit [email or web address] Not available 04/24/2023 16:55:44 05/16/2023 [id number] tooth decay: car e instructions Not available [...] home? If you have pain: Take an gjdm-geb-lnzihcb pain medicine, such as acetaminophen (Tylenol), ibuprofen [...] and your skin. To prevent tooth decay [place] teeth twice a day, and floss once [...] electric toothbrush that has rotating and oscillating (lecc-nsd-exwyj) action. Ask your dentist about having fluoride treatments at the dental office. [place] your tongue to help get rid of [...] adapted under license by [facility]. This care instruction is for use with your licensed healthcare professional. If you have questions about a medical condition or this instruction, always ask your healthcare professional. [employer], [employer] disclaims any warranty or liability for your use of this information. [email or web address] Not available 05/15/2023 14:06:13 Reason for Referral Scales Inspector Referral for Polymyositis associated with autoimmune disease Referring Physician: Miah Howard, Family Medicine, Encounter Date: 04/25/2023 Results Created Date Observation Date Name Description Value Unit Range Abnormal Flag Note LastModifiedBy Organization Detail LastModifiedTime 04/25/2004/26/2023 CBC/D /PLT W/ REFLE X LASHAUN TIN WBC 6.2 x10e3 /uL 3.4-10 .8 Not Available [facility] ([facility]) [address] [place], [address], 04/29/2023 05:05:50 04/25/2004/26/2023 CBC/D /PLT W/ REFLE X LASHAUN TIN RBC 4.67 x10e6 /uL 4.14-5 .80 Not Available [facility] ([facility]) [address] [place], [address], 04/29/2023 05:05:50 04/25/20 23 04/26/2023 CBC/D /PLT W/ REFLE X LASHAUN TIN hemoglobin 15.6 g/dL 13.0-1 7.7 Not Available [facility] ([facility]) [address] [facility], [place], [address], 04/29/2023 05:05:50 04/25/20 23 04/26/2023 CBC/D /PLT W/ REFLE X LASHAUN TIN hematocrit 46.2 % 37.5-5 1.0 Not Available [facility] ([facility]) [address] [facility], [place], [address], 04/29/2023 05:05:50 04/25/2004/26/2023 CBC/D /PLT W/ REFLE X LASHAUN TIN MCV 99 fL 79-97 above high normal Not Available [facility] ([facility]) [address] [place], [address], 04/29/2023 05:05:50 04/25/20 23 04/26/2023 CBC/D /PLT W/ REFLE X LASHAUN TIN MCH 33.4 pg 26.6-3 3.0 above high normal Not Available [facility] ([facility]) [address] [place], [address], 04/29/2023 05:05:50 04/25/20 23 04/26/2023 CBC/D /PLT W/ REFLE X LASHAUN TIN MCHC 33.8 g/dL 31.5-3 5.7 Not Available [facility] ([facility]) [address] [place], [address], 04/29/2023 05:05:50 04/25/2004/26/2023 CBC/D /PLT W/ REFLE X LASHAUN TIN RDW 12.6 % 11.6-1 5.4 Not Available [facility] ([facility]) [address] [place], [address], 04/29/2023 05:05:50 04/25/20 23 04/26/2023 CBC/D /PLT W/ REFLE X LASHAUN TIN platelets 243 x10e3 /uL 150-45 0 Not Available [facility] ([facility]) [address] [facility], [place], [address], 04/29/2023 05:05:50 04/25/20 23 04/26/2023 CBC/D /PLT W/ REFLE X LASHAUN TIN neutrophils 66 % not estab. Not Available [facility] ([facility]) [address] [facility], [place], [address], 04/29/2023 05:05:50 04/25/2004/26/2023 CBC/D /PLT W/ REFLE X LASHAUN TIN lymphs 22 % not estab. Not Available [facility] ([facility]) [address] [facility], [place], [address], 04/29/2023 05:05:50 04/25/20 23 04/26/2023 CBC/D /PLT W/ REFLE X LASHAUN TIN monocytes 9 % not estab. Not Available [facility] ([facility]) [address] [facility], [place], [address], 04/29/2023 05:05:50 04/25/20 23 04/26/2023 CBC/D /PLT W/ REFLE X LASHAUN TIN eos 1 % not estab. Not Available [facility] ([facility]) [address] [facility], [place], [address], 04/29/2023 05:05:50 04/25/20 23 04/26/2023 CBC/D /PLT W/ REFLE X LASHAUN TIN basos 1 % not estab. Not Available [facility] ([facility]) [address] [facility], [place], [address], 04/29/2023 05:05:50 04/25/20 23 04/26/2023 CBC/D /PLT W/ REFLE X LASHAUN TIN immature cells LINE CREWMAN Not Available [facility] ([facility]) [address] [facility], [place], [address], 04/29/2023 05:05:50 04/25/2004/26/2023 CBC/D /PLT W/ REFLE X LASHAUN TIN neutrophils (absolute) 4.1 x10e3 /uL 1.4-7. 0 Not Available [facility] ([facility]) [address] [facility], [place], [address], 04/29/2023 05:05:50 04/25/2004/26/2023 CBC/D /PLT W/ REFLE X LASHAUN TIN lymphs (absolute) 1.4 x10e3 /uL 0.7-3. 1 Not Available [facility] ([facility]) [address] [facility], [place], [address], 04/29/2023 05:05:50 04/25/20 23 04/26/2023 CBC/D /PLT W/ REFLE X LASHAUN TIN monocytes(ab solute) 0.6 x10e3 /uL 0.1-0. 9 Not Available [facility] ([facility]) [address] [facility], [place], [address], 04/29/2023 05:05:50 04/25/20 23 04/26/2023 CBC/D /PLT W/ REFLE X LASHAUN TIN eos (absolute) 0.1 x10e3 /uL 0.0-0. 4 Not Available [facility] ([facility]) [address] [facility], [place], [address], 04/29/2023 05:05:50 04/25/20 23 04/26/2023 CBC/D /PLT W/ REFLE X LASHAUN TIN baso (absolute) 0.1 x10e3 /uL 0.0-0. 2 Not Available [facility] ([facility]) [address] [place], [address], 04/29/2023 05:05:50 11/1404/26/2023 CBC/D /PLT W/ REFLE X LASHAUN TIN immature granulocytes 1 % not estab. Not Available [facility] ([facility]) [address] [facility], [place], [address], 04/29/2023 05:05:50 04/25/2004/26/2023 CBC/D /PLT W/ REFLE X LASHAUN TIN immature grans (abs) 0.0 x10e3 /uL 0.0-0. 1 Not Available [facility] ([facility]) [address] [facility], [place], [address], 04/29/2023 05:05:50 04/25/2004/26/2023 CBC/D /PLT W/ REFLE X LASHAUN TIN NRBC LINE CREWMAN Not Available [facility] ([facility]) [address] [facility], [place], [address], 04/29/2023 05:05:50 04/25/2004/26/2023 CBC/D /PLT W/ REFLE X LASHAUN TIN hematology comments: LINE CREWMAN Not Available [facility] ([facility]) [address] [place], [address], 04/29/2023 05:05:50 04/25/20 23 04/27/2023 CMP14 glucose 107 mg/dL 70-99 above high normal Not Available [facility] ([facility]) [address] [place], [address], 04/29/2023 05:05:52 04/25/2004/27/2023 CMP14 BUN 9 mg/dL 6-24 Not Available [facility] ([facility]) [address] [place], [address], 04/29/2023 05:05:52 04/25/20 23 04/27/2023 CMP14 creatinine 0.80 mg/dL 0.76-1 .27 Not Available [facility] ([facility]) [address] [place], [address], 04/29/2023 05:05:52 04/25/20 23 04/27/2023 CMP14 eGFR 105 mL/mi n/1.7 3 >59 Not Available [facility] ([facility]) [address], [place], [address], 04/29/2023 05:05:52 04/25/2004/27/2023 CMP14 BUN/creatini ne ratio 11 9-20 Not Available [facility] ([facility]) [address] [facility], [place], [address], 04/29/2023 05:05:52 04/25/2004/27/2023 CMP14 sodium 139 mmol/ L 134-14 4 Not Available [facility] ([facility]) [address] [facility], [place], [address], 04/29/2023 05:05:52 04/25/2004/27/2023 CMP14 potassium 3.9 mmol/ L 3.5-5. 2 Not Available [facility] ([facility]) [address] [facility], [place], [address], 04/29/2023 05:05:52 04/25/2004/27/2023 CMP14 chloride 99 mmol/ L 96-106 Not Available [facility] ([facility]) [address] [facility], [place], [address], 04/29/2023 05:05:52 04/25/2004/27/2023 CMP14 carbon dioxide, total 26 mmol/ L 20-29 Not Available [facility] ([facility]) [address] [facility] [place], [address], 04/29/2023 05:05:52 04/25/20 23 04/27/2023 CMP14 calcium 9.5 mg/dL 8.7-10 .2 Not Available [facility] ([facility]) [address] [facility], [place], [address], 04/29/2023 05:05:52 04/25/20 23 04/27/2023 CMP14 protein, total 7.4 g/dL 6.0-8. 5 Not Available [facility] ([facility]) [address] [facility], [place], [address], 04/29/2023 05:05:52 04/25/20 23 04/27/2023 CMP14 albumin 4.7 g/dL 3.8-4. 9 Not Available [facility] ([facility]) [address] [facility], [place], [address], 04/29/2023 05:05:52 04/25/2004/27/2023 CMP14 globulin, total 2.7 g/dL 1.5-4. 5 Not Available [facility] ([facility]) [address] [facility], [place], [address], 04/29/2023 05:05:52 04/25/20 23 04/27/2023 CMP14 A/G ratio 1.7 1.2-2. 2 Not Available [facility] ([facility]) [address] [facility], [place], [address], 04/29/2023 05:05:52 04/25/20 23 04/27/2023 CMP14 bilirubin, total 0.2 mg/dL 0.0-1. 2 Not Available [facility] ([facility]) [address] [facility], [place], [address], 04/29/2023 05:05:52 04/25/2004/27/2023 CMP14 alkaline phosphatase 62 IU/L 44-121 Not Available [facility] ([facility]) [address] [facility], [place], [address], 04/29/2023 05:05:52 04/25/20 23 04/27/2023 CMP14 AST (SGOT) 13 IU/L 0-40 Not Avail able [facility] ([facility]) [address] [facility], [place], [address], 04/29/2023 05:05:52 04/25/2004/27/2023 CMP14 ALT (SGPT) 17 IU/L 0-44 Not Avail able [facility] ([facility]) [address] [facility], [place], [address], 04/29/2023 05:05:52 04/25/2004/27/2023 MAURO+R F QN MAURO direct NEGATI VE negati ve Not Available [facility] ([facility]) [address] [facility] [address], [place], [address], 04/29/2023 05:05:53 04/25/2004/29/2023 MAURO+R F QN rheumatoid factor (rf) 10.9 IU/mL <14.0 Not Available [facility] ([facility]) [address] [facility], [place], [address], 04/29/2023 05:05:53 Result Notes None recorded. Problems Name Problem SNOMED Code Status Onset Date Resolution Date Notes Provider Name and Address Organization Details Recorded Time Rheumatoid arthritis of multiple joints 265611904 Active 2022 MIAH FERRERL trinidad, [facility] /[place] 3 11:04:18 Candidiasis of mouth 94443280 Active 2022 MIAH HOWARD null, [facility] [place] 3 11:12:26 Polymyositi s associated with autoimmune disease 044135769 Active 2022 MIAH HOWARD null, [facility] /[place] 3 11:21:49 Polyarthrop athy 59238489 Active 2022 MIAH HOWARD [facility]ly [facility] /[place] 3 11:33:41 Pain of multiple joints 60129549 Active 2022 MIAH HOWARD [facility]ly [facility] /[place] 3 08:59:02 [facility] 28126171 [facility] [facility] 14:05:46 Acute psychosis 9070361929276 0 [facility] 12:25:10 Problem Notes None recorded. Medical [...] Updated DateTime 04/25/2023 138/80 mm[Hg] MIAH HOWARD [facility] 04/25/2023 13:21:13 Date Recorded Body height Body mass index (BMI) Body weight Respiratory rate Body temperature Oxygen saturation Oxygen saturation in Arterial blood by Pulse oximetry Heart rate Provider Name and Address Organization Details Last Updated DateTime 3 167.64 cm 27 kg/m2 63242.9 3 g 18 /min 97 [degF] 98 % 98 % 96 /min Beverley Hans [facility] 3 10:43:34 Date Recorded Body height Body mass index (BMI) Body weight Provider Name and Address Organization Details Last Updated DateTime 05/16/2023 167.64 cm 27 kg/m2 10987.93 g Beverley Hans [facility] 05/16/2023 10:54:45 Social History Question Answer Notes LastModified by Organizat ion Details LastModified Time Tobacco Smoking Status Former Smoker Beverley Hans abdi [facility] 04/25/2023 10:45:48 Are You Blind Or Do You Have Difficulty Seeing? No [email or web address] Information not available 04/25/2023 Are You Deaf Or Do You Have Serious Difficulty Hearing? No Information not available 04/25/2023 What Type Of Diet Are You Following? REGULAR [email or web address] Information not available 04/25/2023 What Is The Highest Grade Or Level Of School You Have Completed Or The Highest Degree You Have Received? DV24711-1 [email or web address] Information not available 04/25/2023 How Many Days Of Moderate To Strenuous Exercise, Like A Brisk Walk, Did You Do In The Last 7 Days? 4 [email or web address] Information not available 04/25/2023 How Many Children Do You Have? 0 [email or web address] Information not available 04/25/2023 Do You Use Protection During Sex? No [email or web address] Information not available 04/25/2023 What Is Your Relationship Status? Single [email or web address] Information not available 04/25/2023 Do You Use Your Seat Belt Or Car Seat Routinely? Yes [email or web address] Information not available 04/25/2023 Are You Sexually Active? Yes [email or web address] Information not available 04/25/2023 Do You Have Smoke And Carbon Monoxide Detectors In Your Home? Yes [email or web address] Information not available 04/25/2023 Are There Any Smokers In Your House? No [email or web address] Information not available 04/25/2023 Do You Use Sunscreen Routinely? Yes [email or web address] Information not available 04/25/2023 Do You Have Difficulty Walking Or Climbing Stairs? Yes [email or web address] Information not available 04/25/2023 Sex: Unknown Functional Status Question Answer Note LastModified by Organizat ion Details LastModified Time Do you use any illicit or recreational drugs? No [email or web address] Information not available 04/25/2023 Do you or have you ever used any other forms of tobacco or nicotine? No [email or web address] Information not available 04/25/2023 What is your level of alcohol consumption? Occasional [email or web address] Information not available 04/25/2023 Do you have transportation difficulties? No [email or web address] Information not available 04/25/2023 Are you able to walk independently without assistance or assistive devices? YESWOREST [email or web address] Information not available 04/25/2023 Are you able to care for yourself independently? Yes [email or web address] Information not available 04/25/2023 Do you have difficulty dressing, bathing, grooming, or toileting? No [email or web address] Information not available 04/25/2023 Mental Status Question Answer Note LastModified by Organizat ion Details LastModified Time Do you feel stressed (tense, restless, nervous, or anxious, or unable to sleep at night)? WC9716-1 [email or web address] Information not available 04/25/2023 Do you have difficulty concentrating, remembering or making decisions? No Information no t available 04/25/2023 Family History Nothing Reported. 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 Disease/Disorder N Colon Cancer N Tonsil Infections N Breast Cancer N Depression N Glaucoma N Nasal or Sinus Problems N Liver Disease/Disorder N Respiratory Disease/Disorder N Muscle, Joint, or Bone Problems Y Autoimmune disease N Colon Disease/Disorder N Vision or Eye Problems N Mood Disorder, other N Cancer, other N Neurologic Disease/Disorder Y Skin Condition N High blood pressure Y Elevated Cholesterol/Triglycerides Y Anxiety N Ear or Hearing Problems N Coronary Artery Disease (CAD) N Blood Clot (DVT/PE) N Anemia N Kidney Disease/Disorder N Peripheral Vascular Disease (PVD) N Diabetes N Seizures/Epilepsy N Osteopenia/Osteoporosis N Urinary Disease/Disorder N Heart Attack N Substance Abuse N Bipolar Disorder N Sleep Apnea N GERD/Reflux N Hepatitis N Thyroid Disease/Disorder N Heart Failure N Past Encounters Encounter ID Performer Location Encounter Start Date Encounter Closed Date Diagnosis/Indication Diagnosis SNOMED-CT Code Diagnosis ICD10 Code Diagnosis IMO Codes Diagnosis Note [id number] LEXX Suresh_EMBER_Jasson casillas ([facility]) [address] [place] [address] 04/25/2023 10:26:43 04/25/2023 11:52:34 Rheumatoid arthritis of multiple joints 834259942 M05.69 Candidiasis of mouth 797 17627 B37.0 Polymyosit is associated with autoimmune disease 138972297 M35.9 [id number] LEXX Suresh_[place]_Roc vinny ([facility]) [address] [place] [address] 05/16/2023 10:38:31 05/16/2023 12:30:19 Dental caries 61803222 K02.9 Oral surgery is scheduled for 06/23/22. Acute psychosis 93978503 05 2099 F23 Before his visit was completed, he [...] Guarantor Name 05/16/2023 1 [place] [employer] [employer] [facility] (MEDICAID) [place]on [place] [id number] Davon [place] 05/16/2023 1 [place] [facility] [place] [id number] [place]on [place] 05/16/2023 1 [place] [facility] (MEDICAID) [place] [id number] Davon [place] 05/16/2023 1 [place] [facility] Davon Beltránpetra [id number] Davon Beltrán[place] Notes Date Note Type Note Provider Name and Address Organization Details Recorded Time 04/25/2023 text/html 53 year old new patient presents with c/o multiple joint pain after being diagnosed with Lyme disease. He is here to establish care with a new PCP. MIAH abdi [facility] 04/25/2023 13:31:35 05/16/2023 text/html 53 year [...] prep and finish himself off. MIAH abdi [facility] 05/16/2023 12:26:07
[2025-04-16 13:00] LABS: Appearance Urine Clear; Glucose Urine UA Negative (Negative); PH 6.5 (5.0-9.0); Specific Gravity - Urine 1.010 (1.005-1.025)
--- OUTSIDE RECORDS SUMMARY | 2025-04-16 13:00 | XMS_ITS | Encounter Summary ---
Author Organization [employer] Address [address] [facility] [address] [place] [address] Care Team Providers Care Forestry Foreman Name Role Phone Celestina Gallardo MD Primary Care Provider [phone] Encounter Details Date Type Department Care Team (Late st Contact Info) Description 11/18/2024 Telephone [facility] [address] [place] [address] Celestina Gallardo MD [address] [place] [address] Social History Tobacco Use Types Packs/Day Years [...] note were not included. Rosalina Tinoco to [place] [facility] SS 11/18/24 11:22 AM Pt was seen at [facility] 11/17, note attached. documented in this encounter Plan of Treatment Not on file documented as of this encounter Visit Diagnoses Not on filedocumented in this encounter Care Teams Forestry Foreman Relationship Specialty Start Date End Date Celestina Gallardo MD [address] [place] [address] PCP - General Family Medicine 05/07/24 documented as of this encounter
--- OUTSIDE RECORDS SUMMARY | 2025-04-16 13:00 | XMS_ITS | Clinical Summary ---
Author Organization [employer] Address [address] [facility] [address] [place] [address] Care Team Providers Care Licensed Mental Health Counselor Name Role Phone Celestina Gallardo MD Primary Care Provider [phone] Allergies Active Allergy Reactions Criticality Noted Date [...] (441 mg) into the muscle every 28 (twenty-ei ght) days for 12 doses. 1.6 mL 11 10/06/19 25 026 Active Testosterone Cypionate 200 MG/ML kitIndications:T estosterone deficiency Inject 200 mg into the muscle every 14 (fourteen) days. 2 kit 1 03/25/20 25 025 Active Testosterone Cypionate 200 MG/ML kitIndications:T estosterone deficiency Inject 200 mg into the muscle every 14 (fourteen) days. 2 kit 1 02/22/20 25 025 Discontinued(Re order (will not trigger notification to Pharmacy)) Hospital, Clinic, or Other Facility Administered Medication [...] Date Type Department Care Team Description 04/01/[address] [address] Celestina Gallardo MD Prior Authorization (testosterone) 03/25/[address] [address] Celestina Gallardo MD Testosterone deficiency 03/10/2025 Orders Only [facility] [address] [place] [address] Celestina Gallardo MD 03/10/2025 Telephone [facility] Information Management [address] [place] [address] Celestina Gallardo MD 02/28/2025 1:00 PM EDT Office Visit [facility] [address] [place] [address] Deng Bhatia DMD Tooth abrasion (Primary Dx); Heart damage 02/21/2025 Telephone [facility] [address] [place] [address] Celestina Gallardo MD Med Refill 02/19/2025 12:20 PM EDT Office Visit [facility] MEDICAL [address] [place] [address] Celestina Gallardo MD Decreased energy (Primary Dx); Testosterone deficiency; Disuse muscle atrophy; Drug-induced xerostomia 02/14/2025 Telephone [facility] MED[facility] [address] [place], [place] [phone] Celestina Gallardo MD verify patient demographic info from Last 3 Months Social History Tobacco Use Types Packs/Day Years Used Date Smoking Tobacco: Former Cigarettes 0 11/2023 Tobacco Cessation:Counseling Given: Not Answered Alcohol Use [...] VW BILATERAL Routine 03/09/2025 5:12 PM EDT CASE PRESENTATION, DETAILED AND EXTENSIVE TREATMENT PLANNING [...] Recently Relevant to Health Maintenance Results * XR HIP 2 VW BILATERAL (03/09/2025 5:12 PM EDT) Anatomical Region Laterality Modality Radiographic Lily ging us Celestina Gallardo MD IMG XR PROCEDURES Final Result * Hepatitis C Ab w/Reflex to HCV Quant NAAT if Positive (05/29/2024 12:20 PM EST) HCV Ab Non Reactive Non Reactive [facility] 1 05/29/2024 12:2 0 PM EST 05/29/2024 Comment:Blood, Venous Narrative [facility] 1 - 05/30/2024 10:05 AM EST Performed at: 01 - [facility] [address], [address], [place], [place] [id number] Telephone Operators Supervisor: Bo Dotson MD, Phone: [phone] Celestina Gallardo MD LAB BLOOD ORDERABLES Final Res ult [facility] 1 * HIV p24 Antigen/Antibody With Reflex to Confirmation (05/29/2024 12:20 PM EST) Pathologist [facility] HIV Ab/p24 Ag Screen Non Reactive Non Reactive [facility] 1 Comment: HIV-1/HIV-2 antibodies and HIV-1 p24 antigen were NOT detected. There is no laboratory evidence of HIV infection. HIV Negative 05/29/2024 12:2 0 PM EST 05/29/2024 Comment:Blood, Venous Narrative [facility] 1 - 05/30/2024 10:05 AM EST Performed at: 01 - [facility] [address], [address], [place], [place] [id number] Telephone Operators Supervisor: Bo Dotson MD, Phone: [phone] Celestina Gallardo MD LAB BLOOD ORDERABLES Final Res ult [facility] * POCT glycosylated hemoglobin (Hgb A1c) (05/29/2024 11:51 AM EST) Hemoglobin A1C 5.7 4.0 - 6.0 % Blood Capillary blood specimen / Unknown 05/29/2024 11:51 AM EST Celestina Gallardo MD POINT OF CARE TEST ENTER/EDIT ORDERABLES Final Result from Last 3 Months or Most Recently Relevant to Health Maintenance Insurance [facility] C3 DENTAL-[facility] MEDICAID STAND ADULT Care Teams Licensed Mental Health Counselor Relationship Specialty Start Date End Date Celestina Gallardo MD [address] [place] [id number] PCP - General Family Medicine 05/07/24
[2025-04-16 14:29] VITALS: BP 140/76; PULSE 76; RESP 16; TEMP 37; O2SAT 95
== END 2025-04-16 14:29 | disposition home or self-care (01) ==
PROVIDERS: Physician Assistant Medical; Emergency Provider Emergency Medicine; PCP Internal Medicine
DX: R20.2 Paresthesia of skin (principal); I10 Essential (primary) hypertension; M79.642 Pain in left hand; M79.641 Pain in right hand; Z86.19 Personal history of other infectious and parasitic diseases; F17.200 Nicotine dependence, unspecified, uncomplicated; Z71.6 Tobacco abuse counseling
CPT/HCPCS: 36415; 80053; 81003; 83735; 85025; 99282; 99284

== ENCOUNTER 2025-05-22 08:00 | Outpatient (AMB) | payer MEDICAID, SELFPAY ==
--- NOTE | 2025-05-22 08:04 | MHC.OFFVIS ---
Vital Signs 05/22/25 08:05 Height 5 ft 6 in Weight 167 lb BMI 27.0 Handedness Right Intake Visit Reasons: Left shoulder pain and weakness Intake Note: Davon is a 55 year old right hand dominant male who presents with complaints of progressively worsening left shoulder pain and weakness as well as generalized muscle atrophy. The patient states that he was treated with doxycycline for Lyme disease in the past. He describes his left shoulder pain as sharp in nature. His pain and weakness have gotten worse over the last 2 years in spite of continued non operative treatments. 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 He reports difficulty lifting his left hand above shoulder height. He has failed the last 6 weeks of conservative treatment which has included Tylenol, anti-inflammatory medicines, a home exercise program and physical therapy exercises. Allergies benazepril Allergy (Verified 05/22/25 08:12) Cough metoprolol Allergy (Verified 05/22/25 08:12) Cough Medication List - Last Reconciled 05/22/25 by Freddy Awan MD acetaminophen 650 mg (2 x 325 mg) PO Q6H PRN amlodipine 5 mg PO DAILY aripiprazole lauroxil ER ([place]ristada) 441 mg (1.6 mL) IM Q4W atorvastatin 10 mg PO DAILY 30 days benztropine 0.5 mg PO BID clonidine HCl 0.1 mg PO BID 30 days cyclobenzaprine 5 mg PO TID PRN doxycycline hyclate 100 mg PO BID 21 days duloxetine 40 mg (2 x 20 mg) PO DAILY gabapentin 100 mg PO TID PRN melatonin 9 mg (3 x 3 mg) PO BEDTIME testosterone 1 pump topical DAILY trazodone 50 mg PO BEDTIME MRX1 PRN PFSH Medical History Medical clearance for psychiatric admission Depression Lyme disease GERD (gastroesophageal reflux disease) Non-insulin dependent type 2 diabetes mellitus HLD (hyperlipidemia) Social History Household Members: Other Housing: Other Housing Other:: rest home Do you presently have visiting nurse or other home services: No Alcohol intake: former Patient Tobacco Use Status: Current everyday Tobacco user Tobacco use type: Cigarette Cigarettes Per Day: 4 e-Cigarette/Vaping Use: Never Used Second Hand Smoke Exposure: No service: Yes ([employer]) Sexual orientation: Straight/Heterosexual Physical Exam Vital Signs: BMI result Body Mass Index 27.0 Extrem Other: Left shoulder examination shows decreased range of motion when compared to his right shoulder, 4/5 strength with supraspinatus testing, positive impingement signs, tenderness over his acromioclavicular joint, no instability Results Reviewed Results Reviewed: X-rays of the patient's left shoulder show severe acromioclavicular joint narrowing, a type 2 acromion, no acute bony abnormalities Assessment & Plan Assessment & Plan (1) Rotator cuff insufficiency of left shoulder: Code(s): M25.312 - Other instability, left shoulder Category: Medical Plan Mr. West presents with progressively worsening left shoulder pain and weakness due to impingement syndrome and possible rotator cuff tearing. Thus, I will send him for an MRI of his left shoulder for further evaluation. I will see him back once the MRI is completed to discuss the findings and treatment options. I will also refer him to the infectious disease department as per his request for evaluation of possible chronic Lyme disease. Feel free to call me at any time should questions regarding his orthopedic management arise. Thank you very much for asking me to see this very friendly gentleman. I spent 20 minutes in reviewing the patient's records and imaging studies, seeing the patient and documenting in the medical record. Orders: Orders MR shoulder LT wo con 05/23/25 M25.312 - Other instability, left shoulder Referrals Infectious Disease Referral A69.20 - Lyme disease, unspecified Coding Level of Care Code New Pt Level 3 (20540) Add On Problem Visit Only Diagnoses Rotator cuff insufficiency of left shoulder M25.312
[2025-05-22 08:05] VITALS: BMI 27.0
== END 2025-05-22 08:27 | disposition home or self-care (01) ==
LOC: HO.HOS 08:01
PROVIDERS: PCP Internal Medicine; Visit Provider Orthopaedic Surgery
DX: M25.312 Other instability, left shoulder (principal)
CPT/HCPCS: 99203

== ENCOUNTER → 2025-05-22 08:03 | Outpatient (BNV) | payer MEDICAID, SELFPAY | PROVIDERS: Visit Provider Radiology Diagnostic Radiology | DX: M19.012 Primary osteoarthritis, left shoulder (principal) | CPT/HCPCS: 73030 ==

== ENCOUNTER 2025-05-22 08:54 | Outpatient (REF) | payer MEDICAID, SELFPAY ==
--- NOTE | ~2025-05-22 | XR_ITS ---
EXAMINATION: XR SHOULDER 2 OR MORE VIEWS LEFT HISTORY: M25.511 - Pain in left shoulder COMPARISON: There are no prior studies available for comparison. FINDINGS: Two views of the left shoulder are submitted. Osseous mineralization is normal. There is no fracture or dislocation. The glenohumeral joint is maintained. There is mild degenerative change of the AC joint. The soft tissues are unremarkable. XR/XR shoulder LT min 2V IMPRESSION: Mild degenerative change of the AC joint. Electronically signed by: Juan Villagomez MD 05/22/2025 08:15 AM [facility]
== END 2025-05-22 08:55 | disposition home or self-care (01) ==
LOC: HO.HOSX 08:54
PROVIDERS: Visit Provider Orthopaedic Surgery
DX: M25.312 Other instability, left shoulder (principal)
CPT/HCPCS: 73030

== ENCOUNTER 2025-06-02 10:15 | Outpatient (AMB) | payer MEDICAID, SELFPAY ==
[2025-06-02 10:47] VITALS: BP 134/80; TEMP 36.6; O2SAT 98; BMI 27.4
--- NOTE | 2025-06-02 10:47 | A.OFFVIS_ITS ---
Vital Signs 06/02/25 10:47 Height 5 ft 6 in Weight 170 lb BMI 27.4 BP 134/80 Blood Pressure Location Rt brachial Position Sitting Temp 97.8 F Temp Source Oral Pulse Oximetry (%) 98 Oxygen Delivery Method Room Air Intake Visit Reasons: Lyme disease, unspecified Allergies benazepril Allergy (Verified 06/02/25 10:58) Cough metoprolol Allergy (Verified 06/02/25 10:58) Cough HPI HPI Lyme disease, unspecified: Details: He reports weakness and occasional joint pain He has positive Lyme serology December He has received 21 d Doxycycline [facility] Medical History Medical clearance for psychiatric admission Depression Lyme disease GERD (gastroesophageal reflux disease) Non-insulin dependent type 2 diabetes mellitus HLD (hyperlipidemia) Social History Household Members: Other Housing: Other Housing Other:: rest home Do you presently have visiting nurse or other home services: No Alcohol intake: former Patient Tobacco Use Status: Current everyday Tobacco user Tobacco use type: Cigarette Cigarettes Per Day: 4 e-Cigarette/Vaping Use: Never Used Second Hand Smoke Exposure: No service: Yes ([employer]) Sexual orientation: Straight/Heterosexual Review of Systems Const All systems reviewed & are unremarkable except as noted in HPI and below Physical Exam Vital Signs: Last Vital Signs Temp 97.8 F 06/02/25 10:47 BP 134/80 06/02/25 10:47 Pulse Ox 98 06/02/25 10:47 Oxygen Delivery Method Room Air 06/02/25 10:47 BMI result Body Mass Index 27.4 Const General: cooperative Orientation/consciousness: patient oriented x3 HEENT Head: Yes normal to inspection Mouth: Normal oral and palatal mucosa present Eyes General: appearance normal, both eyes and all related structures Pupils: Equal, round and reactive pupils present Resp Effort & Inspection: normal respiratory effort Cardio Rate: regular rate Rhythm: regular rhythm GI Palpation (GI): Soft to palpation and nontender General: Yes no CVA tenderness Back/Spine/Pelvis Back: no CVA tenderness Skin General skin exam: no rashes or lesions noted Neuro General: patient oriented x3 Cranial nerves: Yes CN's II-XII intact bilaterally and Yes Equal, round and reactive pupils present Extrem General: Yes normal to inspection Psych Appearance: grossly normal Assessment & Plan Assessment & Plan (1) Lyme disease: Comment: He has chronic shoulder pain Lyme treatment was sufficient at this time Code(s): A69.20 - Lyme disease, unspecified Category: Medical Plan: No further treatment at this time Coding Level of Care Code New Pt Level 3 (76450) Diagnoses Lyme disease A69.20
--- OUTSIDE RECORDS SUMMARY | 2025-06-02 12:24 | XMS_ITS | Clinical Summary ---
Author Organization [facility] Address [address] [place] [address] Phone Care Team Providers Care Billing Specialist Name Role Phone Lucas Peralta MD Primary Care Provider [phone] Allergies Active Allergy Reactions Criticality Noted Date [...] of Treatment Not on file Care Teams Billing Specialist Relationship Specialty Start Date End Date Lucas Peralta MD [address] [place] [phone] [facility] - General 04/12/25
--- OUTSIDE RECORDS SUMMARY | 2025-06-02 12:24 | XMS_ITS | Encounter Summary ---
Author Organization [facility] Address [address] [place] [address] Care Team Providers Care Dtp Operator Name Role Phone Nereyda Granger MD Primary Care Provider [phone] Encounter Details Date Type Department Care Team (Late st Contact Info) Description 04/01/2025 Lab Requisition [facility] [address] [facility] [place] [address] Nereyda Granger MD [address] [place] [address] [place] [address] Essential (primary) hypertension; Testicular hypofunction; Benign prostatic [...] CBC auto differential (04/01/2025 6:42 AM EDT) [facility] WBC 6.8 4.8 - 10.8 K/mcL LAB HEMETOLOGY METHOD 04/01/2025 9:08 AM EDT [facility] RBC 4.80 4.50 - 5.50 M/mcL LAB HEMETOLOGY METHOD 04/01/2025 9:08 AM EDT [facility] Hemoglobin 15.6 13.5 - 17.5 g/dL LAB HEMETOLOGY METHOD 04/01/2025 9:08 AM EDT [facility] Hematocrit 46.4 42.0 - 54.0 % LAB HEMETOLOGY METHOD 04/01/2025 9:08 AM [facility] MCV 97.7 79.0 - 98.0 FL LAB HEMETOLOGY METHOD 04/01/2025 9:08 AM [facility] MCH 32.8(H) 27.0 - 32.0 pcg LAB HEMETOLOGY METHOD 04/01/2025 9:08 AM [facility] MCHC 33.6 32.0 - 37.0 g/dL LAB HEMETOLOGY METHOD 04/01/2025 9:08 AM [facility] RDW 12.8 11.0 - 15.0 % LAB HEMETOLOGY METHOD 04/01/2025 9:08 AM [facility] Platelets 231 130 - 400 K/mcL LAB HEMETOLOGY METHOD 04/01/2025 9:08 AM [facility] MPV 9.8 7.0 - 11.0 FL LAB HEMETOLOGY METHOD 04/01/2025 9:08 AM [facility] NRBC 0.0 <1.0 % LAB HEMETOLOGY METHOD 04/01/2025 9:08 AM [facility] NRBC Absolute 0.00 <0.10 K/mcL LAB HEMETOLOGY METHOD 04/01/2025 9:08 AM [facility] Neutrophils Relative 59.5 % LAB HEMETOLOGY METHOD 04/01/2025 9:08 AM [facility] Lymphocytes Relative 29.4 % LAB HEMETOLOGY METHOD 04/01/2025 9:08 AM [facility] Monocytes Relative 8.1 % LAB HEMETOLOGY METHOD 04/01/2025 9:08 AM [facility] Eosinophils Relative 1.3 % LAB HEMETOLOGY METHOD 04/01/2025 9:08 AM [facility] Basophils Relative 1.0 % LAB HEMETOLOGY METHOD 04/01/2025 9:08 AM [facility] Immature Granulocytes Relative 0.7 % LAB HEMETOLOGY METHOD 04/01/2025 9:08 AM EDT [facility] Neutrophils Absolute 4.03 1.50 - 7.00 K/mcL LAB HEMETOLOGY METHOD 04/01/2025 9:08 AM EDT [facility] Lymphocytes Absolute 1.99 1.00 - 5.00 K/mcL LAB HEMETOLOGY METHOD 04/01/2025 9:08 AM EDT [facility] Monocytes Absolute 0.55 0.20 - 1.00 K/mcL LAB HEMETOLOGY METHOD 04/01/2025 9:08 AM EDT [facility] Eosinophils Absolute 0.09 0.00 - 0.50 K/[facility] LAB HEMETOLOGY METHOD 04/01/2025 9:08 AM EDT [facility] Basophils Absolute 0.07 0.00 - 0.20 K/mcL LAB HEMETOLOGY METHOD 04/01/2025 9:08 AM EDT [facility] Immature Granulocytes Absolute 0.05(H) 0.00 - 0.03 K/[facility] LAB HEMETOLOGY METHOD 04/01/2025 9:08 AM EDT [facility] Blood Venous blood specimen / Unknown Venipuncture / Unknown 04/01/2025 6:42 AM EDT 04/01/2025 8:43 AM EDT us Nereyda Granger MD LAB BLOOD ORDERABLES Final Re sult [facility] [address] [place] [address], * Prostate specific antigen screen (04/01/2025 6:42 AM EDT) PSA 0.24 0.00 - 4.00 ng/mL LAB CHEMISTRY METHOD 04/01/2025 10:56 AM EDT [facility] Blood Venous blood specimen / Unknown Venipuncture / Unknown 04/01/2025 6:42 AM EDT 04/01/2025 8:43 AM EDT Narrative [facility] - 04/01/2025 10:56 AM EDT The Siemens Advia Centaur Chemiluminescent Immunoassay is used. Results obtained with different assay methods or kits cannot be used interchangeably. Results cannot be interpreted as absolute evidence of the presence or absence of malignant disease. us Nereyda Granger MD LAB BLOOD ORDERABLES Final Re sult Performing Organization Address [facility] Co de Phone Number [facility] [address] [place] [address], [place] [phone] * Hemoglobin A1c (04/01/2025 6:42 AM EDT) Hemoglobin A1C 5.7 <6.5 % LAB CHEMISTRY METHOD 04/01/2025 12:29 PM EDT [facility] Mean Bld Glu Estim. 117 mg/dL LAB CHEMISTRY METHOD 04/01/2025 12:29 PM EDT [facility] Blood Venous blood specimen / Unknown Venipuncture / Unknown 04/01/2025 6:42 AM EDT 04/01/2025 8:43 AM EDT us Nereyda Granger MD LAB BLOOD ORDERABLES Final Re sult Performing Organization Address [facility]/ZIP Co de Phone Number [facility] [address] [place] [address], [place] [phone] * (ABNORMAL) Lipid panel with reflex to direct LDL (04/01/2025 6:42 AM EDT) Cholesterol 195 0 - 200 mg/dL LAB CHEMISTRY METHOD 04/01/2025 10:13 AM EDT [facility] Triglycerides 213(H) 0 - 150 mg/dL LAB CHEMISTRY METHOD 04/01/2025 10:13 AM EDT [facility] HDL 41 >=40 mg/dL LAB CHEMISTRY METHOD 04/01/2025 10:13 AM EDT [facility] LDL Calculated 111(H) 0 - 100 mg/dL LAB CHEMISTRY METHOD 04/01/2025 10:13 AM EDT [facility] Comment:Estimated LDL Calcul ated using equation: Total cholesterol - HDL cholesterol - (Triglycerides/5) VLDL Cholesterol Monico 42.6 mg/dL LAB CHEMISTRY METHOD 04/01/2025 10:13 AM EDT [facility] Non HDL Chol. (LDL+VLDL) 154(H) <145 mg/dL LAB CHEMISTRY METHOD 04/01/2025 10:13 AM T [facility] Chol/HDL Ratio 4.8(H) 0.0 - 4.4 LAB CHEMISTRY METHOD 04/01/2025 10:13 AM [facility] Blood Venous blood specimen / Unknown Venipuncture / Unknown 04/01/2025 6:42 AM EDT 04/01/2025 8:43 AM EDT us Nereyda Granger MD LAB BLOOD ORDERABLES Final Re sult [facility] [address] [place] [address], [place] [phone] * (ABNORMAL) Comprehensive metabolic panel (04/01/2025 6:42 AM EDT) Sodium 140 133 - 145 mmol/L LAB CHEMISTRY METHOD 04/01/2025 10:17 AM T [facility] Potassium 4.5 3.5 - 5.5 mmol/L LAB CHEMISTRY METHOD 04/01/2025 10:17 AM T [facility] Chloride 103 96 - 110 mmol/L LAB CHEMISTRY METHOD 04/01/2025 10:17 AM [facility] CO2 33(H) 21 - 32 mmol/L LAB CHEMISTRY METHOD 04/01/2025 10:17 AM T [facility] Anion Gap 4 3 - 11 LAB CHEMISTRY METHOD 04/01/2025 10:17 AM [facility] Glucose 100 70 - 100 mg/dL LAB CHEMISTRY METHOD 04/01/2025 10:17 AM [facility] BUN 17 5 - 25 mg/dL LAB CHEMISTRY METHOD 04/01/2025 10:17 AM [facility] Creatinine 0.76 0.70 - 1.30 mg/dL LAB CHEMISTRY METHOD 04/01/2025 10:17 AM [facility] eGFR 105 >=60 mL/min/1. 73m2 LAB CHEMISTRY METHOD 04/01/2025 10:17 AM [facility] Comment:Calculation based on the Chronic Kidney Disease Epidemiology Collaboration (CKD-EPI) equation refit without adjustment for race. BUN/Creatinine Ratio 22.4 LAB CHEMISTRY METHOD 04/01/2025 10:17 AM [facility] Calcium 9.4 8.5 - 10.5 mg/dL LAB CHEMISTRY METHOD 04/01/2025 10:17 AM [facility] AST (SGOT) 14 10 - 42 unit/L LAB CHEMISTRY METHOD 04/01/2025 10:17 AM [facility] ALT (SGPT) 31 10 - 60 unit/L LAB CHEMISTRY METHOD 04/01/2025 10:17 AM [facility] Alkaline Phosphatase 69 42 - 121 unit/L LAB CHEMISTRY METHOD 04/01/2025 10:17 AM [facility] Total Protein 7.4 6.0 - 8.0 g/dL LAB CHEMISTRY METHOD 04/01/2025 10:17 AM [facility] Albumin 4.1 3.2 - 5.0 g/dL LAB CHEMISTRY METHOD 04/01/2025 10:17 AM [facility] Total Bilirubin 0.5 0.0 - 1.4 mg/dL LAB CHEMISTRY METHOD 04/01/2025 10:17 AM EDT [facility] Blood Venous blood specimen / Unknown Venipuncture / Unknown 04/01/2025 6:42 AM EDT 04/01/2025 8:43 AM EDT us Nereyda Granger MD LAB BLOOD ORDERABLES Final Re sult [facility] [address] [place] [address], documented in this encounter Visit Diagnoses Diagnosis Essential (primary) hypertension Unspecified essential hypertension Testicular hypofunction Other testicular hypofunction Benign prostatic hyperplasia with lower urinary tract symptoms Type 2 diabetes mellitus with unspecified complications (CMS/HCC V24, CMS/HCC V28) documented in this encounter Care Teams Dtp Operator Relationship Specialty Start Date End Date Nereyda Granger MD [facility] [address] PCP - General Internal Medicine 04/01/25 documented as of this encounter
--- OUTSIDE RECORDS SUMMARY | 2025-06-02 12:24 | XMS_ITS | Clinical Summary ---
[facility] Organization [facility] Address [address] [place] [address] Phone Care Team Providers Care Reduction Furnace Operator Name Role Phone Veronica Porras MD Primary Care Provider [phone] Allergies Active Allergy Reactions Criticality Noted Date [...] Used Date Smoking Tobacco: Former Cigarettes 0 Q uit: 05/07/2023 Smokeless Tobacco: Never Tobacco [...] Health Maintenance Due Date Last Done Comments [facility] TOPIC SIGMOIDOSCOPY 1968 [facility] Topic HIV Screening 1968 [facility] Topic Hepatitis C Screening 1968 [facility] Topic PSA 1968 [facility] Topic Tdap Vaccine (1 - Tdap) 01/10/1987 [facility] TOPIC FOBT/FIT TEST 01/10/2013 [facility] Topic Cologuard 01/10/2013 [facility] Topic Colon Cancer Screening 01/10/2013 [facility] Topic Colonoscopy 01/10/2013 [facility] Topic Pneumococcal Va ccine (HEDIS/Adult) (1 of 1 - PCV) 01/10/2018 [facility] Topic Shingrix (1 of 2) 01/10/2018 [facility] Topic Lipid Profile 08/23/2024 08/24/2023 [facility] Topic Influenza (Flu) Seasonal (#1) [address] [facility] AMB RSV (under 20 months) Aged Out No longer eligible based on patient's age to complete this topic [facility] Topic HIB Vaccines Aged Out No longer eligible based on patient's age to complete this topic Procedures Procedure Name Priority Date/Time Associated Diagnosis Comments LIPID PANEL Add-On 08/24/2023 6:51 PM EDT from Last 3 Months or Most Recently Relevant to Health Maintenance Results * (ABNORMAL) Lipid panel (08/24/2023 6:51 PM EDT) Cholesterol 182 120 - 200 mg/dL 08/25/2023 12:08 AM EDT [facility] HDL 56(H) 35 - 55 mg/dL 08/25/2023 12:08 AM EDT [facility] LDL Calculated 98 60 - 130 mg/dL 08/25/2023 12:08 AM EDT [facility] Triglycerides 139 35 - 150 mg/dL 08/25/2023 12:08 AM EDT [facility] Cholesterol Risk Ratio 3.25 mg/dL 08/25/2023 12:08 AM EDT [facility] Comment:Less than the averag e risk of developing coronary heart disease. Blood Venous blood / Unknown Venipuncture / Unknown 08/24/2023 6:51 PM EDT 08/24/2023 6:56 PM EDT Harmony Huntley MD LAB BLOOD ORDERABLES Final Resu lt [facility] [address] [place] [address], from Last 3 Months or Most Recently Relevant to Health Maintenance [place] [address] [place] [address] [employer] Advance Directives For more information, please contact: [phone] Documents on File Type Date Recorded Patient Professional Advisor Expl anation Advance Directives and Living Will [...] distre ss: Intubate and Ventilate Care Teams Reduction Furnace Operator Relationship Specialty Start Date End Date Veronica Porras MD PCP - General Family Medicine 01/04/24
--- OUTSIDE RECORDS SUMMARY | 2025-06-02 12:24 | XMS_ITS | Encounter Summary ---
Author Organization [facility] Address [address] [place] [address] Care Team Providers Care Independent Sales Representative Name Role Phone Cleestina Gallardo MD Primary Care Provider [phone] Encounter Details Date Type Department Care Team (Late Contact Info) Description 03/10/2025 Orders Only [facility] [address] [place] [address] Celestina Gallardo MD [address] [place] [address] Social History Tobacco Use Types Packs/Day Years [...] Department Care Team (Late Contact Info) Description 06/04/2025 10:20 AM EST Office Visit [facility] MEDICAL [address] [place] [address] Celestina Gallardo MD [address] [place] [address] documented as of this encounter Procedures Procedure [...] on filedocumented in this encounter Care Teams Independent Sales Representative Relationship Specialty Start Date End Date Celestina Gallardo MD [address] [place] [address] PCP - General Family Medicine 05/07/24 documented as of this encounter
--- OUTSIDE RECORDS SUMMARY | 2025-06-02 12:24 | XMS_ITS | Clinical Summary ---
Author Organization [address] Address [address] [place] [address] Phone Care Team Providers Care Bookkeeping Clerk Name Role Phone Nereyda Granger MD Primary Care Provider [phone] Encounters Date Type Department Care Team Description 04/01/2025 Lab Requisition [facility] [address] [place] [id number] Nereyda Granger MD Type 2 diabetes mellitus with unspecified complications (CMS/HCC V24, CMS/[facility] V28) 04/01/2025 Lab Requisition [facility] [address] [place] [address] Nereyda Granger MD Essential (primary) hypertension; Testicular hypofunction; Benign prostatic hyperplasia with lower urinary tract symptoms; Type 2 diabetes mellitus with unspecified complications ([facility] V24, [facility] V28) from Last 3 Months Social History [...] Depression Screening 06/12/2024 COVID-19 Vaccine (1 - 2024-2 6 season) 2025 Influenza Vaccine (#1) 2025 Diabetes: [...] mg/dL LAB CHEMISTRY METHOD 04/01/2025 10:22 AM [facility] Microalb, Ur 12.7 0.0 - 29.0 mg/L LAB CHEMISTRY METHOD 04/01/2025 10:22 AM [facility] Microalb/Creat Ratio 11 <30 mg/g creat LAB CHEMISTRY METHOD 04/01/2025 10:22 AM [facility] Urine Urine specimen obtained by clean catch procedure / Unknown Non-blood Collection / Unknown 04/01/2025 7:00 AM EDT 04/01/2025 8:48 AM EDT Nereyda Granger MD LAB URINE ORDERABLES Final Re sult Performing Organization Address [facility] de Phone Number [facility] [address] [place] [address], [place] [phone] * Prostate specific antigen screen (04/01/2025 6:42 AM EDT) PSA 0.24 0.00 - 4.00 ng/mL LAB CHEMISTRY METHOD 04/01/2025 10:56 AM EDT [facility] Blood Venous blood specimen / Unknown Venipuncture / Unknown 04/01/2025 6:42 AM EDT 04/01/2025 8:43 AM EDT Narrative [facility] - 04/01/2025 10:56 AM EDT The Siemens Advia Centaur Chemiluminescent Immunoassay is used. Results obtained with different assay methods or kits cannot be used interchangeably. Results cannot be interpreted as absolute evidence of the presence or absence of malignant disease. Nereyda Granger MD LAB BLOOD ORDERABLES Final Re sult Performing Organization Address [facility] Co de Phone Number [facility] [address] [place] [address], [place] [phone] * (ABNORMAL) Lipid panel with reflex to direct LDL (04/01/2025 6:42 AM EDT) Cholesterol 195 0 - 200 mg/dL LAB CHEMISTRY METHOD 04/01/2025 10:13 AM EDT [facility] Triglycerides 213(H) 0 - 150 mg/dL LAB CHEMISTRY METHOD 04/01/2025 10:13 AM EDT [facility] HDL 41 >=40 mg/dL LAB CHEMISTRY METHOD 04/01/2025 10:13 AM EDT [facility] LDL Calculated 111(H) 0 - 100 mg/dL LAB CHEMISTRY METHOD 04/01/2025 10:13 AM EDT [facility] Comment:Estimated LDL Calcul ated using equation: Total cholesterol - HDL cholesterol - (Triglycerides/5) VLDL Cholesterol Monico 42.6 mg/dL LAB CHEMISTRY METHOD 04/01/2025 10:13 AM EDT [facility] Non HDL Chol. (LDL+VLDL) 154(H) <145 mg/dL LAB CHEMISTRY METHOD 04/01/2025 10:13 AM EDT [facility] Chol/HDL Ratio 4.8(H) 0.0 - 4.4 LAB CHEMISTRY METHOD 04/01/2025 10:13 AM EDT [facility] Blood Venous blood specimen / Unknown Venipuncture / Unknown 04/01/2025 6:42 AM EDT 04/01/2025 8:43 AM EDT us Nereyda Granger MD LAB BLOOD ORDERABLES Final Re sult [facility] [address] [place] [address], * (ABNORMAL) CBC auto differential (04/01/2025 6:42 AM EDT) WBC 6.8 4.8 - 10.8 K/mcL LAB HEMETOLOGY METHOD 04/01/2025 9:08 AM EDT [facility] RBC 4.80 4.50 - 5.50 M/mcL LAB HEMETOLOGY METHOD 04/01/2025 9:08 AM EDT [facility] Hemoglobin 15.6 13.5 - 17.5 g/dL LAB HEMETOLOGY METHOD 04/01/2025 9:08 AM EDT [facility] Hematocrit 46.4 42.0 - 54.0 [...] LAB HEMETOLOGY METHOD 04/01/2025 9:08 AM EDT [facility] Immature Granulocytes Relative 0.7 % LAB HEMETOLOGY METHOD 04/01/2025 9:08 AM EDT [facility] Neutrophils Absolute 4.03 1.50 - 7.00 K/mcL LAB HEMETOLOGY METHOD 04/01/2025 9:08 AM EDT [facility] Lymphocytes Absolute 1.99 1.00 - 5.00 K/mcL LAB HEMETOLOGY METHOD 04/01/2025 9:08 AM EDT [facility] Monocytes Absolute 0.55 0.20 - 1.00 K/mcL LAB HEMETOLOGY METHOD 04/01/2025 9:08 AM EDT [facility] Eosinophils Absolute 0.09 0.00 - 0.50 K/mcL LAB HEMETOLOGY METHOD [facility] Basophils Absolute 0.07 0.00 - 0.20 K/mcL LAB HEMETOLOGY METHOD 04/01/2025 9:08 AM EDT [facility] Immature Granulocytes Absolute 0.05(H) 0.00 - 0.03 K/mcL LAB HEMETOLOGY METHOD 04/01/2025 9:08 AM [facility] Blood Venous blood specimen / Unknown Venipuncture / Unknown 04/01/2025 6:42 AM EDT 04/01/2025 8:43 AM EDT us Nereyda Granger MD LAB BLOOD ORDERABLES Final Re sult [facility] [address] [place] [address], * Hemoglobin A1c (04/01/2025 6:42 AM EDT) Hemoglobin A1C 5.7 <6.5 % LAB CHEMISTRY METHOD 04/01/2025 12:29 PM [facility] Mean Bld Glu Estim. 117 mg/dL LAB CHEMISTRY METHOD 04/01/2025 12:29 PM [facility] Blood Venous blood specimen / Unknown Venipuncture / Unknown 04/01/2025 6:42 AM EDT 04/01/2025 8:43 AM EDT us Nereyda Granger MD LAB BLOOD ORDERABLES Final Re sult [facility] [address] [place] [address], [place] [phone] * (ABNORMAL) Comprehensive metabolic panel (04/01/2025 6:42 AM EDT) Sodium 140 133 - 145 mmol/L LAB CHEMISTRY METHOD 04/01/2025 10:17 AM [facility] Potassium 4.5 3.5 - 5.5 mmol/L LAB CHEMISTRY METHOD 04/01/2025 10:17 AM [facility] Chloride 103 96 - 110 mmol/L LAB CHEMISTRY METHOD 04/01/2025 10:17 AM [facility] CO2 33(H) 21 - 32 mmol/L LAB CHEMISTRY METHOD 04/01/2025 10:17 AM [facility] Anion Gap 4 3 - 11 [...] 04/01/2025 10:17 AM [facility] Blood Venous blood specimen / Unknown Venipuncture / Unknown 04/01/2025 6:42 AM EDT 04/01/2025 8:43 AM EDT us Nereyda Granger MD LAB BLOOD ORDERABLES Final Re sult [facility] [address] [place] [address], [place] [phone] from Last 3 Months Insurance MEDICAID - [place] Care Teams Bookkeeping Clerk Relationship Specialty Start Date End Date Nereyda Granger MD [address] [facility] [address] [place], [place] PCP - General Internal Medicine 04/01/25
--- OUTSIDE RECORDS SUMMARY | 2025-06-02 12:25 | XMS_ITS | Encounter Summary ---
Author Organization [facility] Address [address] [place] [address] Care Team Providers Care Embedded Software Manager Name Role Phone Celestina Gallardo MD Primary Care Provider [phone] Encounter Details Date Type Department Care Team (Late Contact Info) Description 11/06/2024 Orders Only [facility] [address] [place] [address] Celestina Gallardo MD [address] [place] [address] Social History Tobacco Use Types Packs/Day Years [...] Description 06/04/2025 10:20 AM EST Office Visit [facility] MED[facility] [address] [place] [address] Celestina Gallardo MD [address] [place] [address] documented as of this encounter Procedures Procedure [...] on filedocumented in this encounter Care Teams Embedded Software Manager Relationship Specialty Start Date End Date Celestina Gallardo MD [address] [place] [address] PCP - General Family Medicine 05/07/24 documented as of this encounter
--- OUTSIDE RECORDS SUMMARY | 2025-06-02 12:25 | XMS_ITS | Encounter Summary ---
Author Organization [facility] Address [address] [place] [address] Phone Care Team Providers Care Farm Loan Representative Name Role Phone Veronica Porras MD Primary Care Provider [phone] Encounter Details Date Type Department Care Team (Late st Contact Info) Description 04/12/2023 Scanned Document [facility] [address] [place] [phone] Fermin Thacker MD [address] [place] [address] <No scans attached> Social History Tobacco Use [...] documented as of this encounter Care Teams Farm Loan Representative Relationship Specialty Start Date End Date Veronica Porras MD PCP - General Family Medicine 7/25/24 documented as of this encounter
--- OUTSIDE RECORDS SUMMARY | 2025-06-02 12:25 | XMS_ITS | Encounter Summary ---
Author Organization [facility] Address [address] [place] [address] Phone Care Team Providers Care Exploitation Analyst Name Role Phone Veronica Porras MD Primary Care Provider [phone] Encounter Details Date Type Department Care Team (Late st Contact Info) Description 12/23/2022 Procedure [facility] [place] [address] [place] [address] Social History Tobacco Use Types [...] documented as of this encounter Care Teams Exploitation Analyst Relationship Specialty Start Date End Date Veronica Porras MD PCP - General Family Medicine 01/04/24 documented as of this encounter
--- OUTSIDE RECORDS SUMMARY | 2025-06-02 12:25 | XMS_ITS | Encounter Summary ---
Author Organization [facility] Address [address] 7[address] [place] [address] Care Team Providers Care Rotary Surface Grinder Name Role Phone Celestina Gallardo MD Primary Care Provider [phone] Encounter Details Date Type Department Care Team (Late st Contact Info) Description 11/18/2024 Telephone [facility] [address] [place] [address] Celestina Gallardo MD [address] [place] [address] Social History Tobacco Use Types Packs/Day Years [...] note were not included. Rosalina Tinoco to [facility] Triage Nurses SS 11/18/24 11:22 AM Pt was seen at [facility] 11/17, note attached. documented in this encounter Plan of Treatment Upcoming Encounters Date Type Department Care Team (Late st Contact Info) Description 06/04/2025 10:20 AM EST Office Visit [facility] [address] [place] [address] Celestina Gallardo MD [address] [place] [address] documented as of this encounter Visit Diagnoses Not on filedocumented in this encounter Care Teams Rotary Surface Grinder Relationship Specialty Start Date End Date Celestina Gallardo MD [address] [place] [address] PCP - General Family Medicine 05/07/24 documented as of this encounter
--- OUTSIDE RECORDS SUMMARY | 2025-06-02 12:25 | XMS_ITS | Encounter Summary ---
Author Organization [facility] Address [address] [place] [address] Phone Care Team Providers Care Landscape Horticulture Instructor Name Role Phone Veronica Porras MD Primary Care Provider [phone] Encounter Details Date Type Department Care Team (Late st Contact Info) Description 06/23/2023 Procedure Pass [facility] [place] [address] [place] [address] Social History Tobacco Use Types Packs/Day Years Used Date Smoking Tobacco: Former Cigarettes 0 Q uit: 05/07/2023 Smokeless Tobacco: Never Alcohol [...] documented as of this encounter Care Teams Landscape Horticulture Instructor Relationship Specialty Start Date End Date Veronica Porras MD PCP - General Family Medicine 01/04/24 documented as of this encounter
--- OUTSIDE RECORDS SUMMARY | 2025-06-02 12:25 | XMS_ITS | Clinical Summary ---
Author Organization [facility] Address [address] [facility] [address] [place] [address] Care Team Providers Care Pediatric Psychiatrist Name Role Phone No, Pcp Primary Care [...] A1C 01/08/2025 024, 08/24/2023, 08/24/2023 COVID-19 Vaccine (2024-2 6 season) 2025 Influenza Vaccine (#1) 2025 Diabetes Screening Discontinued 01/09/2024, 08/24/2023 HIB Vaccines Aged Out No longer eligi ble based on patient's age to complete this topic HPV Vaccines (No Doses Required) Completed Hepatitis A Vaccines Aged Out No long [...] patient's age to complete this topic [place] [facility] [place] [id number] Care Teams Pediatric Psychiatrist Relationship Specialty Start Date End Date Darvin Hutson MD PCP - General Pediatrics 01/21/24
--- OUTSIDE RECORDS SUMMARY | 2025-06-02 12:25 | XMS_ITS | Encounter Summary ---
Author Organization [facility] Address [address] [place] [address] Care Team Providers Care Boxing Trainer Name Role Phone Nereyda Granger MD Primary Care Provider [phone] Encounter Details Date Type Department Care Team (Late st Contact Info) Description 04/01/[address] [facility] [address] [facility] [employer] [place] [address] Nereyda Granger MD [address] [place] [address] [place] [address] Type 2 diabetes mellitus with unspecified complications [...] LAB CHEMISTRY METHOD 04/01/2025 10:22 AM EDT [facility] Microalb, Ur 12.7 0.0 - 29.0 mg/L LAB CHEMISTRY METHOD 04/01/2025 10:22 AM EDT [facility] Microalb/Creat Ratio 11 <30 mg/g creat LAB CHEMISTRY METHOD 04/01/2025 10:22 AM EDT [facility] Urine Urine specimen obtained by clean catch procedure / Unknown Non-blood Collection / Unknown 04/01/2025 7:00 AM EDT 04/01/2025 8:48 AM EDT us Nereyda Granger MD LAB URINE ORDERABLES Final Re sult [facility] [address] [place] [address], documented in this encounter Visit Diagnoses Diagnosis Type 2 diabetes mellitus with unspecified complications (CMS/HCC V24, CMS/HCC V28) documented in this encounter Care Teams Boxing Trainer Relationship Specialty Start Date End Date Nereyda Granger MD [address] PCP - General Internal Medicine 04/01/25 documented as of this encounter
--- OUTSIDE RECORDS SUMMARY | 2025-06-02 12:25 | XMS_ITS | Encounter Summary ---
Author Organization [facility] Address [address] [facility] [address] [place] [address] Care Team Providers Care Personal Injury Specialist Name Role Phone Celestina Gallardo MD Primary Care Provider [phone] Encounter Details Date Type Department Care Team (Late st Contact Info) Description 12/30/2024 Telephone [facility] [address] [place] [address] Celestina Gallardo MD [address] [place] [address] Social History Tobacco Use Types Packs/Day Years [...] note were not included. Rosalina Tinoco to [facility] Triage Nurses SS 12/30/24 8:29 AM Pt was seen at [place] ED 12/27, note attached. documented in this encounter Plan of Treatment Upcoming Encounters Date Type Department Care Team (Late st Contact Info) Description 06/04/2025 10:20 AM EST Office Visit [facility] [address] [place] [address] Celestina Gallardo MD [address] [place] [address] documented as of this encounter Visit Diagnoses Not on filedocumented in this encounter Care Teams Personal Injury Specialist Relationship Specialty Start Date End Date Celestina Gallardo MD [address] [place] [address] PCP - General Family Medicine 05/07/24 documented as of this encounter
--- OUTSIDE RECORDS SUMMARY | 2025-06-02 12:25 | XMS_ITS | Clinical Summary ---
Author Organization [employer] Address [address] [facility] [address] [place] [address] Care Team Providers Care Patient Advocate Name Role Phone Celestina Gallardo MD Primary Care Provider Allergies Active Allergy Reactions Criticality Noted Date Comments Benazepril Cough Medium 10/02/2023 Metoprolol Hives 05/29/2024 Medications FreeStyle lancets 1 each by Other route Once per day. 100 each 11 12/13/2023 Active amLODIPine (Norvasc) 5 MG tabletIndications :Primary hypertension Take 1 tablet (5 mg) by mouth Once per day. 90 tablet 3 10/05/2024 10/06/19 Active ARIPiprazole Lauroxil ER (Aristada) 441 MG/1.6ML injectionIndicati ons:Bipolar 1 disorder, mixed, moderate (CMS/HCC) (HCC) Inject 1.6 mL (441 mg) into the muscle every 28 (twenty-eig ht) days for 12 doses. 1.6 mL 11 10/05/2024 08/11/19 26 Active Testosterone Cypionate 200 MG/ML kitIndications:Te stosterone deficiency Inject 200 mg into the muscle every 14 (fourteen) days. 2 kit 1 05/02/2025 07/01/19 Active Hospital, Clinic, or Other Facility Administered Medication Ordered Dose Route Frequency Start Date End Date Status testosterone cypionate (Depo-Testosterone) injection 200 mgIndications:Testoster one deficiency 200 mg IM Once 10/05/2024 Active ARIPiprazole Lauroxil ER (Aristada) injection 441 mgIndications:Bipolar 1 disorder, mixed, moderate (CMS/HCC) (HCC) 441 mg IM Every 28 days 06/26/2024 05/28/2025 Ended Active Problems Problem Noted Date Diagnosed Date Heart damage 02/28/2025 Disorganized thought process 05/11/2024 Bipolar 1 disorder (CMS/HCC) 02/09/2024 History of Lyme disease 01/12/2024 Suicidal ideation 01/07/2024 Hypertension 12/13/2023 Type 2 diabetes mellitus wit hout complication, without long-term current use of insulin 12/13/2023 Myalgia, multiple sites 12/13/2023 Homeless single person 12/13/2023 Depressive disorder 09/26/2023 Encounters Date Type Department Care Team Description 05/01/[address] [address] Celestina Gallardo MD Med Refill; Medication Problem 04/30/[address] [address] Celestina Gallardo MD Testosterone deficiency (Primary Dx) 04/30/[address] [address] Celestina Gallardo MD Testosterone deficiency 04/01/[address] [address] Celestina Gallardo MD Prior Authorization (testosterone) 03/25/[address] [address] Celestina Gallardo MD Testosterone deficiency 03/10/2025 Orders Only [facility] [address] [place] [address] Celestina Gallardo MD 03/10/[address] [facility] [address] [place] [address] Celestina Gallardo MD from Last 3 Months Social History Tobacco [...] 05/29/2024 10:30 AM EST Plan of Treatment Upcoming Encounters Date Type Department Care Team (Late st Contact Info) Description 06/04/2025 10:20 AM EST Office Visit [facility] [address] [place] [address] Celestina Gallardo MD [address] [place] [address] Health Maintenance Due Date Last Done Comments [...] 024, 01/09/2024, 10/04/2023 COVID-19 Vaccine (1 - 2024-2 6 season) 2025 Influenza Vaccine (#1) 2025 Tobacco Screening 02/28/2026 02/28/2025 Dental X-Ray: Full Mouth 03/01/2028 02/28/2025 RSV [...] on patient's age to complete this topic Goals Goal Patient Goal Type Associated Problems Recent Progress Patient-Stated? Author Help patients manage their type 2 diabetes Care Plan Help patients manage their type 2 diabetes No Kendra France Weekly blood pressure task Care Plan Weekly blood pressure task No Kendra France Help patients manage their type 2 diabetes Care Plan Help patients manage their type 2 diabetes No Kendra France Patient has chronic kidney disease Care Plan Patient has chronic kidney disease No Kendra France Weekly blood pressure task Care Plan Weekly blood pressure task No Kendra France Patient has chronic kidney disease Care Plan Patient has chronic kidney disease No Kendra France Weekly blood pressure task Care Plan Weekly blood pressure task No Rema Steele MA Weekly blood pressure task Care Plan Weekly blood pressure task No Rema Steele [place] Patient has chronic kidney disease Care Plan Patient has chronic kidney disease No Rema Steele [place] Patient has chronic kidney disease Care Plan Patient has chronic kidney disease No Rema Steele [place] Weekly blood pressure task Care Plan Weekly blood pressure task No Laney Bates Weekly blood pressure task Care Plan Weekly blood pressure task No Laney Bates Patient has chronic kidney disease Care Plan Patient has chronic kidney disease No Laney Bates Patient has chronic kidney disease Care Plan Patient has chronic kidney disease No Laney Bates Procedures Procedure Name Priority Date/Time Associated Diagnosis Comments AMB REFERRAL TO GASTROENTEROLOGY Routine 04/29/2025 Esophageal thickening XR HIP 2 VW BILATERAL Routine 03/09/2025 5:12 PM EDT PANORAMIC RADIOGRAPHIC IMAGE Routine 02/28/2025 1:00 PM EDT HEPATITIS C AB W/REFLEX TO HCV QUANT NAAT IF POSITIVE Routine 05/29/2024 12:20 PM EST HIV P24 ANTIGEN/ANTIBODY WITH REFLEX TO CONFIRMATION Routine 05/29/2024 12:20 PM EST POCT GLYCOSYLATED HEMOGLOBIN (HGB A1C) Routine 05/29/2024 11:51 AM EST Type 2 diabetes mellitus without complication, without long-term current use of insulin ([facility]) from Last 3 Months or Most Recently Relevant to Health Maintenance Results * Referral to Gastroenterology (04/29/2025) us Celestina Gallardo MD OUTPATIENT REFERRAL ORDERABLES Final Result * XR HIP 2 VW BILATERAL (03/09/2025 [...] 10:05 AM EST Performed at: 01 - [facility] [address], [address], [place], [place] [id number] Taper Operator: Bo Dotson MD, Phone: [phone] Celestina Gallardo MD LAB BLOOD ORDERABLES Final Res ult Performing Organization Address [facility] Co de Phone Number [facility] 1 * HIV p24 Antigen/Antibody With Reflex to Confirmation (05/29/2024 12:20 PM EST) HIV Ab/p24 Ag Screen Non Reactive Non Reactive [facility] 1 Comment: HIV-1/HIV-2 antibodies and HIV-1 p24 antigen were NOT detected. There is no laboratory evidence of HIV infection. HIV Negative 05/29/2024 12:2 0 PM EST 05/29/2024 Comment:Blood, Venous Narrative [facility] 1 - 05/30/2024 10:05 AM EST Performed at: [facility] [address], [address], [place], [place] [id number] Taper Operator: Bo Dotson MD, Phone: [phone] Celestina Gallardo MD LAB BLOOD ORDERABLES Final Res ult Performing Organization Address [facility] de Phone Number [facility] 1 * POCT glycosylated hemoglobin (Hgb A1c) (05/29/2024 11:51 AM EST) Hemoglobin A1C 5.7 4.0 - 6.0 % Blood Capillary blood specimen / Unknown 05/29/2024 11:51 AM EST Celestina Gallardo MD POINT OF CARE TEST ENTER/EDIT ORDERABLES Final Result from Last 3 Months or Most Recently Relevant to Health Maintenance Additional Health Concerns Active Problems Noted Date Diagnosed Date Help patients manage their type 2 diabetes 04/30 Weekly blood pressure task 04/30/2025 Help patients manage their type 2 diabetes 04/30 Patient has chronic kidney disease 04/30/2025 Weekly blood pressure task 04/30/2025 Patient has chronic kidney disease 04/30/2025 Weekly blood pressure task 04/30/2025 Weekly blood pressure task 04/30/2025 Patient has chronic kidney disease 04/30/2025 Patient has chronic kidney disease 04/30/2025 Weekly blood pressure task 05/01/2025 Weekly blood pressure task 05/01/2025 Patient has chronic kidney disease 05/01/2025 Patient has chronic kidney disease 05/01/2025 Insurance [employer] [employer] [place] Care Teams Patient Advocate Relationship Specialty Start Date End Date Celestina Gallardo MD [address] [place] [id number] PCP - General Family Medicine 05/07/24
== END 2025-06-02 11:04 | disposition home or self-care (01) ==
LOC: HO.HID 10:15
PROVIDERS: PCP Internal Medicine; Visit Provider Internal Medicine
DX: A69.20 Lyme disease, unspecified (principal)
CPT/HCPCS: 99203

== ENCOUNTER → 2025-06-02 10:15 | Outpatient (BNVA) | payer MEDICAID, SELFPAY | PROVIDERS: PCP Internal Medicine; Visit Provider Internal Medicine | DX: A69.20 Lyme disease, unspecified (principal); M25.519 Pain in unspecified shoulder; G89.29 Other chronic pain | CPT/HCPCS: 99202 ==